=== PATIENT | male | born 1975 | race Caucasian/White ===

== ENCOUNTER 2018-08-06 19:40 | Emergency (ER) | payer MEDICARE, OTHER, SELFPAY ==
[2018-08-06 19:44] VITALS: BP 137/106; PULSE 124; RESP 18; TEMP 36.1; O2SAT 99; BMI 34.4
--- NOTE | 2018-08-06 21:53 | ED.VISSUMM ---
- ER Visit Summary Date of Service: 08/06/18 Chief Complaint: [Insomnia and narcotic withdrawal] History of Present Illness: The patient is a 43 M [presents to the emergency department stating that he moved in April to the area and started seeing Dr. Shah for pain management. Patient states that he had been on [place] and morphine for [address] Shah started weaning him off over the course of 3 weeks. Patient states that he has been without any narcotics for the last 6 days. Patient had diarrhea. He has not slept he believes in 16 days. Patient's been very agitated. Patient also ran out of his Lexapro 4 days ago. Patient wants to be able to sleep. Patient has a history of fibromyalgia, rheumatoid arthritis, migraines, anxiety, depression, bipolar disorder.] Physical Examination: [HEENT-PERRLA, EOMI. Cranial nerves II through XII grossly intact. TMs clear. Mucous membranes moist. No adenopathy. Cardiovascular-regular rate and rhythm without murmur or ectopy Lungs-clear to auscultation, chest wall stable without crepitus or subcu emphysema Abdomen-normoactive bowel sounds, soft, nontender, no rebound or rigidity, no peritoneal signs. Extremities-intact ?4, normal range of motion, normal pulses, atraumatic] Test Results: [None indicated] Emergency Department Course and Treatment: [She was given a dose of his Lexapro and given a milligram of Ativan.] Treatment Plan: [Patient will be given a prescription for Zofran and Ambien. Patient was given referral to primary care physician transcription typist for no doc.] Disposition: [Discharged home in stable condition.] Impression: [Insomnia Narcotic withdrawal syndrome] This note was generated with [email or web address] dictation software. It may contain incorrect words, spelling, and punctuation that were not noted in review of the chart prior to signing ED Disposition - Plan for ED Patient: Chief Complaint: Other, Pain/Inj Referrals: NOT,DEFINED [Primary Care Provider] -
--- NOTE | 2018-08-06 21:56 | ED.DCSUM_ITS ---
- ER Visit Summary Date of Service: 08/06/18 Chief Complaint: [Insomnia and narcotic withdrawal] History of Present Illness: The patient is a 43 M [presents to the emergency department stating that he moved in April to the area and started seeing Dr. Shah for pain management. Patient states that he had been on [place] and morphine for [address] Shah started weaning him off over the course of 3 weeks. Patient states that he has been without any narcotics for the last 6 days. Patient had diarrhea. He has not slept he believes in 16 days. Patient's been very agitated. Patient also ran out of his Lexapro 4 days ago. Patient wants to be able to sleep. Patient has a history of fibromyalgia, rheumatoid arthritis, migraines, anxiety, depression, bipolar disorder.] Physical Examination: [HEENT-PERRLA, EOMI. Cranial nerves II through XII grossly intact. TMs clear. Mucous membranes moist. No adenopathy. Cardiovascular-regular rate and rhythm without murmur or ectopy Lungs-clear to auscultation, chest wall stable without crepitus or subcu emphysema Abdomen-normoactive bowel sounds, soft, nontender, no rebound or rigidity, no peritoneal signs. Extremities-intact ?4, normal range of motion, normal pulses, atraumatic] Test Results: [None indicated] Emergency Department Course and Treatment: [She was given a dose of his Lexapro and given a milligram of Ativan.] Treatment Plan: [Patient will be given a prescription for Zofran and Ambien. Patient was given referral to primary care physician information and data architect analyst for no doc.] Disposition: [Discharged home in stable condition.] Impression: [Insomnia Narcotic withdrawal syndrome] This note was generated with [employer] dictation software. It may contain incorrect words, spelling, and punctuation that were not noted in review of the chart prior to signing ED Disposition - Plan for ED Patient: Chief Complaint: Other, Pain/Inj Referrals: NOT,DEFINED [Primary Care Provider] -
--- NOTE | 2018-08-06 21:56 | ED.DEP ---
ED Disposition - Plan for ED Patient: Chief Complaint: Other, Pain/Inj Instructions: ED Insomnia, ED Withdrawal Narcotic Prescriptions: Ondansetron [Zofran Odt] 4 mg PO Q8H PRN PRN #10 tab PRN Reason: Nausea Escitalopram Oxalate [Lexapro] 20 mg PO DAILY #30 tab Zolpidem Tartrate [Ambien] 10 mg PO QHS PRN #30 tab PRN Reason: Insomnia Referrals: NOT,DEFINED [Primary Care Provider] - Reid Stephenson MD [STAFF PHYSICIAN] - 3-5 Days
[2018-08-06] MEDS: LORazepam 1 MG Tablet PO (22:09)
[2018-08-06 22:10] VITALS: BP 137/110; PULSE 105; RESP 16; O2SAT 94
== END 2018-08-06 22:31 | disposition home or self-care (01) ==
LOC: ED 22:27
PROVIDERS: Emergency Provider Emergency Medicine
DX: G47.00 Insomnia, unspecified (principal); F19.239 Other psychoactive substance dependence with withdrawal, unspecified; M79.7 Fibromyalgia; M06.9 Rheumatoid arthritis, unspecified; F41.9 Anxiety disorder, unspecified; F31.9 Bipolar disorder, unspecified
CPT/HCPCS: 99282

== ENCOUNTER 2018-10-20 17:53 | Emergency (ER) | payer MEDICARE, OTHER, SELFPAY ==
[2018-10-20 17:54] VITALS: BP 187/104; PULSE 122; RESP 18; TEMP 36.9; O2SAT 98; BMI 28.5
--- NOTE | 2018-10-20 19:34 | EKG12_ITS ---
Test Reason : SOB Blood Pressure : / mmHG Vent. Rate : 111 BPM Atrial Rate : 111 BPM P-R Int : 142 ms QRS Dur : 094 ms QT Int : 344 ms P-R-T Axes : 033 048 064 degrees QTc Int : 467 ms Sinus tachycardia Possible Left atrial enlargement Nonspecific T wave abnormality Abnormal ECG Confirmed by NOLAN LUONG, EHSAN ([id number]), social media editor BERLIN GRAHAM ([id number]) on 10/23/2018 1:42:50 PM Referred By: RANJIT Confirmed By:EHSAN FRANCISCO MD
--- NOTE | 2018-10-20 19:39 | ED.DCSUM_ITS ---
- ER Visit Summary Date of Service: 10/20/18 Chief Complaint: Hernia pain, short of breath, depression History of Present Illness: The patient is a 43 M who presents with a several year history (much worse recently) of shortness of breath and heart racing with any exertion. He states he feels that he will gently cannot breathe if he just walks a short distance. He also complains of umbilical hernia with increased pain over the past 4 days. He states couple days ago he had to push on something around that area and blacked out. He is also requesting to restart his Lexapro. He states he was on it for 8 years and stopped 1 month ago. He recently moved to the area. He does not have a doctor. Past history is listed as anxiety, depression, seizure secondary to Wellbutrin, umbilical hernia. He has had prior back and knee surgeries. Physical Examination: Vital signs in triage include a blood pressure of 187/104, temperature 98.5, heart rate 122, respiratory rate 18, pulse ox 98% on room air. Patient sitting upright in bed. He is anxious with pressured speech. Head neck examination is unremarkable. Heart is regular rate and rhythm. Lungs sounds are clear with good air movement. Abdomen is soft with a reducible umbilical hernia. Active bowel sounds are noted throughout. Test Results: EKG is sinus tach at 111. No sign of acute ischemia. CBC is normal. Chemistry studies significant only for potassium 3.2. Area d-dimer is negative. Portable chest x-ray shows no acute findings. Emergency Department Course and Treatment: Patient was given a dose of IV Ativan and IV fluids. Patient was given oral potassium replacement. Test results are discussed with the patient. Heart rate at this time is 102. Symptoms been ongoing for several months and I do feel that he is safe for outpatient follow- up. He is requesting referrals for cardiology and pulmonology as well as ENT. We will also refer him for surgery to evaluate his umbilical hernia. He will be given information for primary care physician follow-up. I advised him that we cannot start antidepressants when we cannot provide the appropriate follow-up through the emergency room. Treatment Plan: [] Disposition: Discharge Impression: 1. Dyspnea 2. Umbilical hernia 3. Depression This note was generated with [employer] dictation software. It may contain incorrect words, spelling, and punctuation that were not noted in review of the chart prior to signing ED Disposition - Plan for ED Patient: Referrals: Care Physician,No Primary [Primary Care Provider] -
[2018-10-20 19:51] LABS: Absolute Lymphocyte Count 2.33 X10^3/ul (0.83-4.51); Absolute Neutrophil Count 6.3 X10^3/uL (2.0-7.7); Basophil# 0.03 X10^3/uL; Basophil% 0.3 % (0-1); Eosinophil# 0.13 X10^3/uL; Eosinophils% 1.3 % (0-5); Hematocrit 43.6 % (40-54); Hemoglobin 15.1 g/dl (13.0-16.5); Lymphocyte # 2.33 X10^3/ul (4.0); Lymphocyte % 23.7 % (19-41); Mean Corp Hgb Conc 34.6 g/gl (32-36); Mean Corpuscular Hgb 29.1 pg (27.0-32.0); Mean Platelet Vol. 9.7 fl (6.2-12.0); Monocyte# 1.01 X10^3/uL; Monocyte% 10.3 % (0-10); Neutrophil # 6.34 X10^3/uL (2.7-7.7); Neutrophil % 64.3 % (47-70); POSITIVE COUNT NO; POSITIVE DIFFERENTIAL NO; POSITIVE MORPHOLOGY NO; Platelet Count 216 K/mm3 (150-450); RBC Distribution Width CV 13.4 % (11.6-14.6); RBC Distribution Width SD 40.5 fl (35.1-43.9); Red Blood Count 5.19 M/mm3 (4.6-6.2); White Blood Count 9.9 K/mm3 (4.4-11.0)
[2018-10-20] MEDS: LORazepam 2 MG/ML Syringe 0.5 MG IV (19:54)
[2018-10-20] MEDS: 0.9% Normal Saline 1,000 ML 150 ML IV (19:54)
--- NOTE | 2018-10-20 20:01 | RAD_ITS ---
STUDY: X-RAY CHEST REASON FOR EXAM: Male, 43 years old. Shortness of breath. Chest pain. TECHNIQUE: PA and lateral views of the chest. COMPARISON: None. FINDINGS: Low lung volumes. Borderline cardiomegaly. Pulmonary vascularity unremarkable. Aorta unremarkable. No focal patchy airspace opacities. No pleural effusions. Minimal atelectasis. Upper abdomen unremarkable. Osseous structures intact. No pneumothorax. Left cervical rib. RAD/Chest PA and Lateral IMPRESSION: No acute cardiopulmonary findings Borderline cardiomegaly Left cervical rib Electronically Signed: Dante Ramachandran DO at 20:54 EDT Tel , Service support ,
[2018-10-20 20:04] LABS: D-Dimer Quantitative (DVT/PE) < 0.27 FEU/ug/m (0.27-0.49)
[2018-10-20 20:09] LABS: Anion Gap 6 (5-15); BUN 11 mg/dL (7-18); BUN/Creat Ratio 10.8 RATIO (10-20); Calcium,Total 8.7 mg/dL (8.5-10.1); Chloride 104 mmol/L (98-107); Creatinine, Serum 1.02 mg/dL (0.70-1.30); EST Glomerular Filtration Rate 85 mL/min (>60); Est Glom Filt Rate - Afr Amer 103 mL/min (>60); Estimated Creatinine Clearance 131.17 ml/min; Glucose 116 mg/dL (74-106); Potassium 3.2 mmol/L (3.5-5.1); Sodium Level 138 mmol/L (136-145)
[2018-10-20 20:22] VITALS: BP 167/103; PULSE 103; RESP 14; O2SAT 96
[2018-10-20 22:06] VITALS: BP 187/90; PULSE 103; RESP 16; O2SAT 98
--- NOTE | 2018-10-20 22:27 | ED.DEP ---
ED Disposition - Plan for ED Patient: Disposition: Home or Assisted Living Instructions: ED Dyspnea Shortness of Breath, What Is a Hernia?, ED Depression Prescriptions: Lorazepam [Ativan] 1 mg PO TID PRN #10 tablet PRN Reason: Anxiety Referrals: Debo Wick MD [STAFF PHYSICIAN] - As soon as possible Behavioral,Health [facility] [GROUP OF PHYSICIANS] - As soon as possible Additional Instructions: Physician Directory handout with multiple specialist referrals provided.
[2018-10-20 22:40] VITALS: BP 187/90; PULSE 100; RESP 19; O2SAT 96
--- NOTE | 2018-10-20 22:47 | CM.ED ---
Social Work Note Referral from physician as pt is requesting a script for Zoloft. Physician explained that she could not manage medications from the ED. Pt recently moved to [place] from [place]. Not established with a PCP. Has multiple complaints about access to physicians in this area d/t multiple comorbidities. Recommend establishment with a PCP for management of low dose psych meds and linkage with a psychiatrist long-term, but that this is typically a 4-6 month wait in this area. Understanding expressed. PLAN: Establish care with PCP MAGGIE Yi, DYLAN
== END 2018-10-20 22:41 | disposition home or self-care (01) ==
PROVIDERS: Emergency Provider Emergency Medicine
DX: R06.00 Dyspnea, unspecified (principal); K42.9 Umbilical hernia without obstruction or gangrene; F32.9 Major depressive disorder, single episode, unspecified; F41.9 Anxiety disorder, unspecified
CPT/HCPCS: 71046; 80048; 84484; 85025; 85379; 93005; 96361; 96374; 99284; J7030; A4216

== ENCOUNTER 2018-12-06 09:28 | Day surgery (SDC) | payer MEDICARE, OTHER, SELFPAY ==
[2018-11-01 12:50] VITALS: BMI 28.5
[2018-11-29 13:10] VITALS: BMI 28.3
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
[2018-12-06] VITALS (10 sets, daily range): BP systolic 98–150; BP diastolic 59–96; PULSE 65–98; RESP 16–18; TEMP 36.2–37.1; O2SAT 92–99; BMI 28.8
--- NOTE | 2018-12-06 | HERN_PTH ---
PATIENT: COREY BENNETT LOC: [facility] [place][id number] AGE/SX: 43/M ROOM: RE12/06/[address]: Dr. Liam Balbuena MD : 1975 BED: DIS: 12/06/2018 SPEC #: [id number] RECD: 12/06/18 14:21 STATUS: SHON RENA #: [id number] KWAME: 12/06/18 00:[address]: Liam Balbuena DEPT: SURGICAL PATHOLOGY RECD BY: Ajay Danielle ENTERED: 12/06/18 14:21 SP TYPE: Hernia OTHR DR: Isa Bennett, OVERHEAD DISTRIBUTION ENGINEER-Marky Tissues: HERNIA Procedures: Surgery Specimen Level II HEADER OPERATION: Laparoscopic umbilical hernia repair, mesh PRE-OP DIAGNOSIS: Umbilical hernia without obstruction or gangrene TISSUE SUBMITTED: Hernia sac MICROSCOPIC DIAGNOSIS Hernia sac: Mesothelial-lined fibroadipose and fibroconnective tissue, consistent with hernia sac. SJ:lay 12/09/18 MICROSCOPIC DESCRIPTION Slides are reviewed. GROSS DESCRIPTION Received in fixative is one container labeled with the patient's name and designated hernia sac. The specimen consists of two irregular fragments of roland-pink soft tissue that in aggregate measure 3.2 x 2 x 0.5 cm. No mass lesion is identified. Equipment Operator Wage Hand sections are submitted in one cassette. / SJ:lay 12/06/18 TC:5 CPT: 52157
[2018-12-06] MEDS: Bupiv/Epi 0.25% 30 ML Vial (11:50)
--- NOTE | 2018-12-06 12:16 | PCM.OPRPT ---
Problem List (1) Umbilical hernia without obstruction and without gangrene Status: Acute Report of Operation Date of Procedure: 12/06/18 Pre-Operative Diagnosis: Umbilical hernia Post-Operative Diagnosis: Same Surgery/Procedure Performed:: Umbilical hernia repair with laparoscopic mesh placement Specimen's removed: Hernia sac Description of Procedure: Patient was brought back to the operating room and general anesthesia was induced. The abdomen was prepped and draped the usual sterile fashion. A curvilinear incision was marked in the superior umbilicus and anesthetized with local anesthetic. Next scalpel was used to make an incision and electrocautery was used to deepen this to the fascia. The fascia was elevated and the hernia sac was excised. Next a [id number] 0 PDS suture was placed superiorly and inferiorly in the hernia defect in the fascia. Next through the defect a 12 mm Begum port was placed in the abdomen was insufflated. The abdomen was inspected and 1 5 mm port was placed in the right and 1 5 mm port was placed in the left lateral abdominal sidewall. A round [address] mesh was placed with echo positioning position through the large port. The large port was then removed and the PDS sutures were tightened. The mesh was then pulled taut to the abdominal wall and the balloon was inflated. Secure strap tacks were used to tack the 4 quadrants of the mesh to the abdominal wall. The balloon was then removed through 1 of the 5 mm ports. The mesh was then circumferentially tacked to the abdominal wall with tacks in the middle as well. Next the air was allowed to escape from the abdomen and the 5 mm ports were removed. The umbilical stalk was tacked to the fascia using 4-0 Monocryl suture and the skin incision were closed with 4-0 Monocryl sutures as well as Steri-Strips and bandages. Patient tolerated the procedure well was brought to PACU in stable condition. Grafts/Implants Used: Ventralight ST 11 cm round mesh - Admit VTE Documentation VTE Present on Admission: No VTE Mechan Device Prophylaxis: SCD's
--- NOTE | 2018-12-06 12:20 | OP.PCM_ITS ---
Problem List (1) Umbilical hernia without obstruction and without gangrene Status: Acute Report of Operation Date of Procedure: 12/06/18 Pre-Operative Diagnosis: Umbilical hernia Post-Operative Diagnosis: Same Surgery/Procedure Performed:: Umbilical hernia repair with laparoscopic mesh placement Specimen's removed: Hernia sac Description of Procedure: Patient was brought back to the operating room and general anesthesia was induced. The abdomen was prepped and draped the usual sterile fashion. A curvilinear incision was marked in the superior umbilicus and anesthetized with local anesthetic. Next scalpel was used to make an incision and electrocautery was used to deepen this to the fascia. The fascia was elevated and the hernia sac was excised. Next a [id number] 0 PDS suture was placed superiorly and inferiorly in the hernia defect in the fascia. Next through the defect a 12 mm Begum port was placed in the abdomen was insufflated. The abdomen was inspected and 1 5 mm port was placed in the right and 1 5 mm port was placed in the left lateral abdominal sidewall. A round [address] mesh was placed with echo positioning position through the large port. The large port was then removed and the PDS sutures were tightened. The mesh was then pulled taut to the abdominal wall and the balloon was inflated. Secure strap tacks were used to tack the 4 quadrants of the mesh to the abdominal wall. The balloon was then removed through 1 of the 5 mm ports. The mesh was then circumferentially tacked to the abdominal wall with tacks in the middle as well. Next the air was allowed to escape from the abdomen and the 5 mm ports were removed. The umbilical stalk was tacked to the fascia using 4-0 Monocryl suture and the skin incision were closed with 4-0 Monocryl sutures as well as Steri- Strips and bandages. Patient tolerated the procedure well was brought to PACU in stable condition. Grafts/Implants Used: Ventralight ST 11 cm round mesh - Admit VTE Documentation VTE Present on Admission: No VTE Mechan Device Prophylaxis: SCD's
--- NOTE | 2018-12-06 12:22 | DCINST_ITS ---
Discharge Diet: Light diet - advance as tolerated Discharge Activity: Return to Normal Activity, May Not Drive - for 2-3 days or while taking narcotic pain meds., May Shower - with the bandage in place 1-2 days after surgery. Lifting Restrictions: 20 pounds for 4 weeks. Additional Activity Instructions:: Climbing stairs is fine, walking is encouraged. Sitting in bed may be uncomfortable. Sitting up using your lateral muscles (sitting up sideways) is usually more comfortable. Do not drive, work heavy equipment of sign legal documents for 24 hours. Pain medications may cause nausea, you should typically eat light foods as you take your pain medications. Pain medications may also cause constipation. If you have difficulty with this, discuss with your doctor. Call your doctor if your incision/area has: Continuous Slow Oozing, Sudden Increased Bleeding, Increased Pain/ Swelling, Increased Redness, Foul Smelling Discharge Call your doctor if you observe: Fever of 101 or Higher Suture Line Care: Avoid Pulling/Pushing, Avoid Pinching/Bending Change Dressing in (Days):: 3 - Leave steri-strips for 1 week. May protect with a guaze bandaid. Cleanse incision/area with: Keep Dressing Clean & Dry Allergies/Adverse Reactions: Allergies aspirin Allergy (Intermediate, Verified 12/06/18 09:57) nausea/vomiting bupropion [From Wellbutrin] Allergy (Intermediate, Verified 12/06/18 09:57) nausea/vomiting paroxetine [From Paxil] Allergy (Intermediate, Verified 12/06/18 09:57) nausea/vomiting amoxicillin [From Augmentin] Allergy (Verified 12/06/18 09:57) Other azithromycin [From Zithromax] Allergy (Verified 12/06/18 09:57) Upset Stomach clavulanic acid [From Augmentin] Allergy (Verified 12/06/18 09:57) Other rofecoxib [From Vioxx] Allergy (Verified 12/06/18 09:57) Other Medications to take at Discharge escitalopram 20 mg tablet 20 mg PO DAILY 11/01/18 Amlodipine [Norvasc] 5 mg PO DAILY 11/29/18 Cholecalciferol (Vitamin D3) [Vitamin D3] 2,000 unit PO DAILY 11/29/18 Cyanocobalamin [Vitamin B12] 100 mcg IM QWEEK 11/29/18 Hydroxyzine HCl 50 mg PO QHS 11/29/18 Oxycodone HCl/Acetaminophen [Percocet 5/325] 1 - 2 tablet PO Q4H PRN PRN 7 Days #10 tablet 12/06/18 The following prescriptions were given: Oxycodone HCl/Acetaminophen [Percocet 5/325] 1 - 2 tablet PO Q4H PRN PRN 7 Days #10 tablet PRN Reason: Pain Primary Care Physician: Isa Bennett NP-C [Primary Care Provider] - Test Results: Test results from this visit will be discussed in further detail at your follow- up appointment, if applicable. Please Follow Up With: Liam Balbuena MD When: Please call to schedule 2 week follow up appointment. [phone]
[2018-12-06] MEDS: oxyCODONE 5 MG Tablet 10 MG PO (14:50)
[2018-12-06] MEDS: Ibuprofen 400 MG Tablet 800 MG PO (17:11)
== END 2018-12-06 18:32 | disposition home or self-care (01) ==
LOC: SDC 09:29 → AC 09:30
PROVIDERS: Family Provider Nurse Practitioner; PCP Nurse Practitioner; Referring Provider Surgery; Visit Provider Surgery
PROC: 0WQF4ZZ Repair Abdominal Wall, Percutaneous Endoscopic Approach (ICD-10-PCS; CPT 49652; principal; 2018-12-06 10:40)
DX: K42.9 Umbilical hernia without obstruction or gangrene (principal); Z88.0 Allergy status to penicillin; Z88.1 Allergy status to other antibiotic agents; F12.20 Cannabis dependence, uncomplicated
CPT/HCPCS: 00750; 49652; 88302; J7120; J2405

== ENCOUNTER 2019-02-01 14:13 | Emergency (ER) | payer MEDICARE, OTHER, SELFPAY ==
[2018-12-06 09:58] VITALS: BMI 28.8
[2019-02-01 14:14] VITALS: BP 152/105; PULSE 98; RESP 16; TEMP 36.6; O2SAT 99; BMI 28.7
--- NOTE | 2019-02-01 14:50 | ED.VISSUMM ---
- ER Visit Summary Date of Service: 02/01/19 Chief Complaint: Sore throat History of Present Illness: The patient is a 43 M who presents with a sore throat that began 1-1/2 weeks ago. Patient states the pain has been constant. Patient describes it is irritated. Patient states the pain improves with a hot shower. Patient states that sometimes the pain is worse with swallowing. Patient denies any sinus pressure, headaches, rhinorrhea. Patient denies any chest pain or shortness of breath. Patient denies any cough. Patient denies any nausea or vomiting. Patient denies any fevers or chills. Physical Examination: Vital signs are stable. Patient is afebrile. Patient is in no acute distress. Oral mucosa is pink and moist. Oropharynx is mildly erythematous. There are no exudates noted. There is some postnasal drainage. Neck is supple. Trachea is midline. There is some mild posterior cervical lymphadenopathy. There is no anterior cervical lymphadenopathy. Heart was regular rate and rhythm. Lungs are clear and equal bilaterally. Cranial nerves II through XII are intact. There are no focal motor or sensory deficits noted. Test Results: [place] test was obtained and was negative. Rapid strep was obtained and was negative. Emergency Department Course and Treatment: Patient was advised that this is most likely a viral pharyngitis. Patient was instructed to drink plenty of fluids. Patient was instructed to follow-up with his primary care physician in 5 to 7 days. Patient was instructed to take Tylenol or ibuprofen as needed for any pain or fever. Patient understood and was agreeable with the plan. All questions were answered. Disposition: Discharge home Impression: Viral pharyngitis This note was generated with [employer] dictation software. It may contain incorrect words, spelling, and punctuation that were not noted in review of the chart prior to signing ED Disposition - Plan for ED Patient: Disposition: Home or Assisted Living Diagnosis: Viral pharyngitis Instructions: PHARYNGITIS, Viral Referrals: Isa Bennett NP-C [Primary Care Provider] - 5-7 Days
[2019-02-01 16:08] LABS: Internal QC Validated? YES +Cl - CLEAR BKGD; Monotest Negative (Negative)
== END 2019-02-01 16:45 | disposition home or self-care (01) ==
PROVIDERS: Emergency Provider Emergency Medicine; Family Provider Nurse Practitioner; PCP Nurse Practitioner
DX: J02.9 Acute pharyngitis, unspecified (principal); I10 Essential (primary) hypertension; F32.9 Major depressive disorder, single episode, unspecified
CPT/HCPCS: 36415; 86308; 87880; 99282

== ENCOUNTER 2019-09-17 19:38 | Emergency (ER) | payer MEDICARE, OTHER, SELFPAY ==
[2019-09-17 19:39] VITALS: BP 154/105; PULSE 105; RESP 18; TEMP 36.2; O2SAT 99; BMI 27.8
--- NOTE | 2019-09-17 21:29 | ED.DCSUM_ITS ---
- ER Visit Summary Date of Service: 09/17/19 Chief Complaint: Sore throat History of Present Illness: The patient is a 44 M has been major depression. Patient states that he has had a sore throat for last 2 days. Subjective fever chills mild cough nonproductive. Denies vomiting diarrhea. Physical Examination: Middle-aged male no acute distress vital signs stable afebrile. Pulse ox 90% room air no hypoxia. HEENT exam normal. Posterior pharynx normal. No erythema or exudate. Tonsils not enlarged. No trouble swallowing or breathing. No drooling. No stridor. Neck nontender no lymphadenopathy. Trachea midline. Lungs are clear. Heart regular rhythm no murmur. Abdomen soft nontender. Patient is moving all 4 extremities. No edema. Back nontender. Skin normal. Neurologically is awake and alert. Test Results: Rapid strep negative done by nursing. Influenza negative done by nursing. Emergency Department Course and Treatment: Exam consistent with viral pharyngitis. Treatment Plan: Fluids and rest. Warm salt water gargling. Chloraseptic spray. Tylenol Motrin. Follow-up if not improving. Disposition: discharge Impression: Viral pharyngitis This note was generated with [employer] dictation software. It may contain incorrect words, spelling, and punctuation that were not noted in review of the chart prior to signing ED Disposition - Plan for ED Patient: Referrals: Isa Bennett, JAMES-C [Primary Care Provider] -
--- NOTE | 2019-09-17 21:31 | ED.DEP ---
ED Disposition - Plan for ED Patient: Disposition: Home or Assisted Living Instructions: PHARYNGITIS, Viral Referrals: Isa Bennett, [employer] OFFICER-C [Primary Care Provider] - 1 Week if not improving Additional Instructions: Plenty of fluids and rest. Warm salt water gargling. Chloraseptic spray. Tylenol and Motrin for pain. Follow-up with not improving.
[2019-09-17 21:40] VITALS: PULSE 80; RESP 16; O2SAT 98
== END 2019-09-17 21:40 | disposition home or self-care (01) ==
PROVIDERS: Emergency Provider Emergency Medicine; PCP Nurse Practitioner
DX: J02.8 Acute pharyngitis due to other specified organisms (principal); R68.83 Chills (without fever); R05 Cough; F32.9 Major depressive disorder, single episode, unspecified; Z79.899 Other long term (current) drug therapy
CPT/HCPCS: 87804; 87880; 99282

== ENCOUNTER → 2020-08-26 08:24 | Outpatient (CLI) | payer MEDICARE, SELFPAY ==
--- NOTE | 2020-08-26 08:35 | EKG12_ITS ---
Test Reason : ROUTINE Blood Pressure : / mmHG Vent. Rate : 082 BPM Atrial Rate : 082 BPM P-R Int : 150 ms QRS Dur : 108 ms QT Int : 388 ms P-R-T Axes : 036 049 010 degrees QTc Int : 453 ms Normal sinus rhythm Nonspecific T wave abnormality Abnormal ECG Confirmed by MEGHAN LUONG, WILLIE ([id number]), assignment editor BERLIN GRAHAM ([id number]) on 08/30/2020 11:21:19 AM Referred By: Isa Bennett Confirmed By:KAYLA CHRISTIANSON MD
--- NOTE | 2020-08-26 09:42 | ECHOD_ITS ---
Reason For Study: SOB Procedure This was a 2D Doppler, Color Flow transthoracic echocardiogram. The study was technically difficult. DUE TO BODY HABITUS. Exam performed in department. Left Ventricle Normal LV size. The estimated ejection fraction is 55 %. No evidence for diastolic dysfunction. No regional wall motion abnormalities noted. Right Ventricle Normal RV size. Normal systolic function. Atria Normal left atrium. Normal right atrium. No doppler evidence for ASD. Mitral Valve There is no mitral valve stenosis. No mitral valve insufficiency. Tricuspid Valve There is no tricuspid stenosis. No tricuspid valve insufficiency. Unable to estimate RV systolic pressure due to inadequate jet, pulmonary artery pressure probably normal. Aortic Valve The aortic valve is not well visualized. There is no aortic stenosis. No aortic valve insufficiency. Pulmonic Valve There is no pulmonic valvular stenosis. No pulmonic valve insufficiency. Great Vessels Normal aortic root. Pericardium/Pleural No pericardial effusion. MMode/2D Measurements & Calculations LVIDd: 5.5 cm IVSd: 1.2 cm Ao root diam: 3.6 cm LVIDs: 3.6 cm LVPWd: 1.1 cm RVDd: 3.7 cm FS: 35.3 % LAV(MOD-bp): 73.4 ml LA A4 area: 22.8 cm2 LA dimension(2D): 4.7 cm LAV(MOD-bp) Indexed: 29.2 ml/m2 LAV(MOD-sp2): 72.1 ml LAV(MOD-sp4): 73.1 ml RA A4 area: 14.0 cm2 Time Measurements MV dec time: 0.19 sec Doppler Measurements & Calculations MV E max elmer: 73.2 cm/sec Lat Peak E' Elmer: 11.3 cm/sec Med Peak E' Elmer: 6.8 cm/sec MV A max elmer: 61.4 cm/sec E/E' lat: 6.5 E/E' med: 10.8 MV E/A: 1.2 Ao V2 max: 155.7 cm/sec LV V1 max: 142.9 cm/sec PA V2 max: 106.0 cm/sec Ao max P.7 mmHg LV V1 max P.2 mmHg TR max elmer: 249.6 cm/sec TR max P.9 mmHg Interpretation Summary The estimated ejection fraction is 55 %. No evidence for diastolic dysfunction. Ordering Physician: Isa Bennett Referring Physician: Isa Bennett Performed By: Inga Adler RDCS, RVT
--- NOTE | 2020-08-26 12:43 | PFT ---
INTRODUCTION: The patient is a 45-year-old male that presents for pulmonary function studies secondary to a diagnosis of shortness of breath on exertion. Respiratory therapy reports good patient effort. Bronchodilators were used during testing. INTERPRETATION: Forced expiration spirometry demonstrates no evidence of any large airways obstructive ventilatory defect. There was no significant response to aerosolized bronchodilators, based upon strict ATS criteria. Spirograms are of fair quality and plateau gradually indicating slow emptying of the lungs. Body plethysmography was performed and reveals a decreased TLC to 5.38 L, 56% of predicted, indicative of a severe restrictive ventilatory impairment. The remainder of the lung volumes are symmetrically reduced. Diffusing capacity by single breath CO is within normal limits at 96% of predicted. IMPRESSION: Severe restrictive ventilatory impairment with preserved diffusing capacity.
--- NOTE | 2020-08-29 15:32 | STRESSREP ---
Stress Test Report Date: 08/26/2020 Procedure: Exercise tolerance test Indications: Dyspnea on exertion Consent: Per the patient Procedure: The patient exercised on a Jalil protocol for 3 minutes and 33 seconds achieving a peak heart rate of 116 bpm (65% predicted maximal heart rate) with a peak blood pressure 190/84 mmHg and a peak MET capacity of approximately 5.2 MET's. The baseline ECG demonstrated normal sinus rhythm, possible old inferior [place]. The peak exercise ECG demonstrated no significant ischemic changes. [There were no cardiac dysrhythmias pretest, during exercise, or recovery]. The functional capacity was considered decreased for age. The patient had no complaint of chest discomfort during exercise or recovery. The examination was discontinued secondary to dizziness and patient stating that he was about to pass out. Impression: 1. Technically inadequate stress test as patient could not reach his target heart rate. The test is considered nondiagnostic due to patient achieving only 65% of maximal age-predicted heart rate. 2. Stress test is negative for exercise-induced chest pain. 3. Functional capacity is [decreased for age.] This note was generated with [employer] software. It may contain incorrect words, spelling, and punctuation that were not noted in checking the note before signing.
== END ==
LOC: PSN 08:27
PROVIDERS: PCP Nurse Practitioner; Referring Provider Nurse Practitioner; Visit Provider Nurse Practitioner
DX: R06.02 Shortness of breath (principal)
CPT/HCPCS: 93005; 93017; 93306; 94060; 94726; 94729

== ENCOUNTER → 2020-09-02 14:41 | Outpatient (CLI) | payer MEDICARE, SELFPAY ==
[2020-09-02 13:41] VITALS: BMI 28.7
--- NOTE | 2020-09-02 14:45 | RAD_ITS ---
STUDY: X-RAY CHEST REASON FOR EXAM: Male, 45 years old. SOB X MONTHS TECHNIQUE: PA and lateral views of the chest. COMPARISON: None. FINDINGS: The lungs are clear and expanded. There is no demonstrated pleural abnormality. There is borderline cardiomegaly. Normal mediastinum and claus. Normal visualized pulmonary arteries. Normal visualized aortic arch and descending thoracic aorta. Normal visualized thoracic spine. Normal visualized ribs, clavicles, and shoulders. There is no demonstrated abnormality of the visualized soft tissue structures of the upper abdomen. RAD/Chest PA and Lateral IMPRESSION: Borderline cardiomegaly. Electronically Signed: Kingsley Romo MD at 15:37 EST , Service support ,
== END ==
LOC: RAD 14:42
PROVIDERS: PCP Nurse Practitioner; Referring Provider Internal Medicine Cardiovascular Disease; Visit Provider Internal Medicine Cardiovascular Disease
DX: R06.02 Shortness of breath (principal); R94.39 Abnormal result of other cardiovascular function study; R94.31 Abnormal electrocardiogram [ECG] [EKG]; E78.2 Mixed hyperlipidemia; I10 Essential (primary) hypertension
CPT/HCPCS: 71046

== ENCOUNTER → 2020-09-21 06:14 | Outpatient (CLI) | payer MEDICARE, SELFPAY ==
[2020-09-02 13:41] VITALS: BMI 28.7
--- NOTE | 2020-09-21 08:32 | STRESSREP_ITS ---
Stress Test Report Date: 09-21-2020 Procedure: Pharmacologic stress nuclear imaging study Indications: This of breath/dyspnea on exertion Consent: Per the patient Procedure: The patient underwent pharmacologic (Regadenoson 0.4mg ) evaluation with a peak heart rate of 114 beats per minute (64%predicted maximal heart rate) and a peak blood pressure of 152/86 mmHg. The baseline ECG demonstrated sinus rhythm; T wave abnormality. The peak pharmacologic ECG demonstrated no obvious ECG changes. There were no cardiac dysrhythmias pretest, during pharmacologic infusion, or recovery. There was no complaint of chest discomfort during pharmacologic infusion or recovery. The examination was discontinued secondary to completion of protocol. Impression: 1. Pharmacologic (Regadenoson) evaluation 2. Peak pharmacologic ECG with no obvious ECG changes. 3. There were no cardiac dysrhythmias pretest, during pharmacologic infusion, or recovery. 4. Nuclear images pending Myocardial perfusion imaging study: Technique: The patient was injected with 14.7 millicuries of technetium 99m Cardiolite and subsequently rest SPECT Cardiolite nuclear imaging was obtained in the horizontal long, vertical long, and short axis views. The patient underwent pharmacologic (Regadenoson) evaluation with a peak heart rate of 114 beats per minute (64% percent predicted maximal heart rate) and a peak blood pressure of 152/86 mmHg. The patient was injected with 44.6 millicuries of technetium 99m Cardiolite and subsequently stress SPECT Cardiolite nuclear imaging was obtained in the horizontal long, vertical long, and short axis views. A gated Cardiolite study at peak stress was obtained. Interpretation: Rest and stress SPECT Cardiolite nuclear imaging status post realignment and normalization demonstrate based upon the raw images an element of body motion during image acquisition as well as an area of diminished tracer uptake in portions of the basal inferior segments of both rest and stress which status post stress appear to be more prominent in the mid to distal inferior segments. There is end systolic thickening and brightening. The gated Cardiolite study demonstrates myocardial thickening and inward wall motion. The reported LVEF is 69%. Impression: 1. Rest and stress myocardial nuclear imaging demonstrate myocardial perfusion changes potentially compatible with a combination of body motion during image acquisition and soft tissue attenuation/artifact although an area of previous myocardial injury/infarction involving portions of the basal inferior segments with post stress myocardial perfusion changes demonstrating findings suggestive of an area of stress-induced myocardial ischemia in the mid towards distal inferior segments. 2. The gated Cardiolite study reports an LVEF of 69%. This note was generated with [employer] software. It may contain incorrect words, spelling, and punctuation that were not noted in checking the note before signing.
== END ==
LOC: CVS 06:18
PROVIDERS: PCP Nurse Practitioner; Referring Provider Internal Medicine Cardiovascular Disease; Visit Provider Internal Medicine Cardiovascular Disease
DX: R06.02 Shortness of breath (principal); R94.39 Abnormal result of other cardiovascular function study; R94.31 Abnormal electrocardiogram [ECG] [EKG]; E78.2 Mixed hyperlipidemia; I10 Essential (primary) hypertension
CPT/HCPCS: 78452; 93017; A9500; A4216; J2785

== ENCOUNTER 2020-10-05 09:47 | Day surgery (SDC) | payer MEDICARE, SELFPAY ==
[2020-09-02 13:41] VITALS: BMI 28.7
[2020-09-24 09:54] LABS: Hematocrit 42.7 % (40-54); Hemoglobin 14.6 g/dL (13.0-16.5); Mean Corp Hgb Conc 34.2 g/dL (32-36); Mean Corpuscular Hgb 29.6 pg (27.0-32.0); Mean Corpuscular Volume 86.4 fL (80-94); Mean Platelet Vol. 9.4 fl (6.2-12.0); Platelet Count 210 K/mm3 (150-450); RBC Distribution Width CV 13.8 % (11.6-14.6); RBC Distribution Width SD 43.1 fl (35.1-43.9); Red Blood Count 4.94 M/mm3 (4.6-6.2); White Blood Count 8.5 K/mm3 (4.4-11.0)
[2020-09-24 10:11] LABS: Prothrombin Time (Protime)PT. 12.2 SECONDS (11.7-14.9)
[2020-09-24 10:12] LABS: Partial Thromboplast Time 28.2 Seconds (24.1-36.2)
[2020-09-24 10:51] LABS: Anion Gap 7 (5-15); BUN 10 mg/dL (7-18); BUN/Creat Ratio 10.8 RATIO (10-20); Calcium,Total 8.7 mg/dL (8.5-10.1); Chloride 104 mmol/L (98-107); Creatinine, Serum 0.92 mg/dL (0.70-1.30); EST Glomerular Filtration Rate 94 mL/min (>60); Est Glom Filt Rate - Afr Amer 114 mL/min (>60); Glucose 106 mg/dL (74-106); Potassium 3.6 mmol/L (3.5-5.1); Sodium Level 138 mmol/L (136-145)
[2020-10-04 11:18] VITALS: BMI 28.7
[2020-10-05] VITALS (14 sets, daily range): BP systolic 135–158; BP diastolic 78–101; PULSE 78–98; RESP 18; TEMP 36.4–36.5; O2SAT 91–98; BMI 34.2
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
--- NOTE | 2020-10-05 13:00 | EKG12_ITS ---
Test Reason : POST PCI Blood Pressure : / mmHG Vent. Rate : 077 BPM Atrial Rate : 077 BPM P-R Int : 156 ms QRS Dur : 108 ms QT Int : 414 ms P-R-T Axes : 024 022 008 degrees QTc Int : 468 ms Normal sinus rhythm T wave abnormality, consider anterolateral ischemia Prolonged QT Abnormal ECG Confirmed by NOLAN LUONG, ИВАН ([id number]), index editor BERLIN GRAHAM ([id number]) on 10/07/2020 11:13:26 AM Referred By: Иван Francisco Confirmed By:ИВАН FRANCISCO MD
--- NOTE | 2020-10-05 13:14 | CL.I_ITS ---
Patient Name: COREY BENNETT Study Date: 10/05/2020 Performing: Jadon Christensen MD Ht: 81 inches 206 cm : 1975 Wt: 269.3 lbs 122 kg Age: 45 Gender: male BSA: 2.63 PROCEDURE(S) PERFORMED [id number] W OR WO PTCA, SINGLE CORONARY ARTERY [id number], EACH ADD'L CORONARY ART, SAME MAJOR CLINICAL PROFILE AND CO-MORBIDITIES Indications: Worsening Angina Heart Failure: None CAD Presentations: Unstable angina. CONCLUSIONS Successful PCI with CAROLA to mLCx RECOMMENDATIONS ASA Indefinitley Plavix for at least 12 months Follow up with Dr. Pires DESCRIPTION OF PROCEDURE The patient arrived to the procedure lab. The risks and benefits of the procedure as well as a full d escription of our services here and current unavailability of surgical backup were fully explained to the patient and/or their significant other prior to the catheterization. The Timeout was completed, verifying the correct patient and procedure. The patient's procedural site was prepped and draped in the usual fashion. Local anesthetic was given subcutaneously to right radial region with Lidocaine 2% Using a modified Seldinger technique,arterial access was obtained via the right radial artery, a 6Fr sheath was inserted. Right Coronary Artery selective angiography was then performed in multiple view s using a 5 Fr. 4.0 [place] catheter. Left Coronary Artery selective angiography was performed in multi ple views using a 5 Fr. JL3.5 catheter.The images were reviewed and options discussed. A decision was then made to proceed with an Intervention, IVUS or other adjunct procedure. XB 3.5 Guide catheter was inserted and engaged into the LCA. [employer] [place] Guide wire was advance d to the Circumflex. Emerge 1.5 x 15 Balloon catheter was inserted. Balloon catheter was advanced acr oss lesion in the first obtuse marginal, ostial. PTCA balloon inflated at 8 atms for 21 secs. Balloon catheter was repositioned to additional lesion in the circumflex, mid. PTCA balloon inflated at 8 at ms for 9 secs. Emerge 2.5 x 15 Balloon catheter was inserted. Balloon catheter was advanced across le elva in the circumflex, mid. PTCA balloon inflated at 12 atms for 31 secs. Synergy 3.5 x 20 Drug Elut ing stent was inserted. Drug Eluting stent was advanced across the lesion in the circumflex, mid. Ang iogram performed pre stent deployment. Angiogram performed post stent deployment. NC Emerge 4.0 x 12 Balloon catheter was inserted. Balloon catheter was advanced across lesion in the circumflex, mid. An giogram performed post balloon dilatation. The arterial sheath was pulled and a TR Band was applied for hemostasis INTERVENTION INFORMATION LESION SITE: Circumflex (Mid) Lesion Complexity: High/C, chronic total occlusion: No, lesion at bifurcation: No, thrombus present: No, lesion length: 17 mm, culprit lesion: Yes, Previously treated lesion: No Pre Stenosis: 90 % Pre intervention ANNY flow: 3 PROCEDURE: Drug Eluting Stent with pre and post dilatation Post Stenosis: 0 % Post intervention ANNY flow: 3 Lesion Devices: Patel .014 [employer] [place] Straight 190cm Cardinal 6 Fr XB3.5 100cm Guide Catheter Gonzalo Sci EMERGE MR 1.50x15 BALLOON Gonzalo Sci EMERGE MR 2.50x15 BALLOON Gonzalo Sci Synergy MR CAROLA 3.50x20 Gonzalo Sci NC EMERGE MR 4.00x12 BALLOON LESION SITE: 1st OM (Ostial) Lesion Devices: Patel .014 [employer] [place] Straight 190cm Cardinal 6 Fr XB3.5 100cm Guide Catheter Gonzalo Sci EMERGE MR 1.50x15 BALLOON COMPLICATIONS No Complications PROCEDURE MEDICATIONS Versed 1 mg IV Fentanyl 50 mcg IV Fentanyl 50 mcg IV Versed 1 mg IV Fentanyl 50 mcg IV Oxygen: 2 L/min via nasal cannula Heparin diluted in 23cc Heparinized saline. Patient given 10cc IA of this solution. 10/05/2020 11:16:5 6 Heparin 44889 unit(s) IV 10/05/2020 12:11:38 Verapamil 2.5mg, Ntg 100mcgs, 2000 units of Heparin diluted in 23cc Heparinized saline. Patient give n 10cc IA of this solution. 10/05/2020 11:16:56 SUMMARY OF HEMODYNAMIC DATA Time AIR REST ECG 10:14:17 ECG 10:51:32 AO 162/95 (112) SA 11:18:45 AO 130/101 (114) 11:37:31 LV 145/13, 23 12:13:43 LV 144/11, 22 12:13:50 LVp 137/18, 29 12:14:02 AOp 135/86 (107) 12:14:08 Signed By Jadon Christensen MD On 10/05/2020 13:13:39 Jadon Christensen MD
[2020-10-05] MEDS: LORazepam 0.5 MG Tablet PO (14:30)
[2020-10-05] MEDS: 0.9% Normal Saline 1,000 ML 100 ML IV (14:31)
--- NOTE | 2020-10-05 14:58 | CRPHASE1 ---
Patient Communication PHII Cardiac Rehab Discussed with Patient:: Yes Guide to Cardiac Rehab Given to Patient:: Yes Cardiac Rehab Facility Choice List Given to Patient:: Yes Choice Program [facility] CR PHII:: Communication Given to CR Central Sterilization Technician:: Danika Christensen Refer Phase II Cardiac Rehab:: Yes Sessions:: 36 sessions - 3 days/wk, 12 weeks Cardiac Rehabilitation Info Cardiac Rehabilitation Program Information: Cardiac Rehabilitation is important for patients like you who are recovering from a heart problem. Cardiac rehabilitation programs are recognized as integral to the continued care of the patient with coronary heart disease. The cardiac rehabilitation program is designed to optimize a patient's physical, psychological, and social functioning. Health care information associate work in cardiac rehabilitation programs and assist you with getting the treatments you need to get stronger and healthier - like exercise, healthy eating habits, and medications. Cardiac rehabilitation has been show to help people with heart problems live longer and have better life enjoyment than people who do not go to cardiac rehabilitation. Please contact the Cardiac Rehabilitation Program at [facility] at in two weeks if you have not heard from them.
--- NOTE | 2020-10-05 14:59 | CRPH1.INSTRU ---
General Education CAD and cardiac anatomy and function:: Patient communicates acknowledgment, Family returns demonstration, Needs reinforcement Explanation of diagnoses and procedures:: Patient communicates acknowledgment, Family returns demonstration, Needs reinforcement Sign/Symptoms of PR:: Patient communicates acknowledgment, Family returns demonstration, Needs reinforcement Antiplatelet therapy: Patient communicates acknowledgment, Family returns demonstration, Needs reinforcement Proper use of NTG-SL: Patient communicates acknowledgment, Family returns demonstration, Needs reinforcement Emergency procedures and activation of EMS: Patient communicates acknowledgment, Family returns demonstration, Needs reinforcement Compliance of all prescribed medications: Patient communicates acknowledgment, Family returns demonstration, Needs reinforcement Smoking Patient Nicotine/Smoking Risk Factors Are:: Non-smoker Recommendations Include:: Previous smoker; encourage continued cessation Nicotine/Smoking Response Code:: Patient communicates acknowledgment Dyslipidemia Patient Dyslipidemia Risk Factors Are:: Total Cholesterol, Triglycerides, HDL, LDL Recommendations Include:: Lipid profile provided, Reviewed NCEP/ATP guidelines, Therapeutic Lifestyle Change dietary guidelines Dyslipidemia Response Code:: Patient communicates acknowledgment, Needs reinforcement Overweight/Obesity Patient Overweight/Obesity Risk Factors Are:: Obesity - > or = 30 Recommendations Include:: Weight loss of 5-10%, Reduced calorie diet, Exercise 5-7 times/week Overweight/Obesity:: Patient communicates acknowledgment, Family returns demonstration, Needs reinforcement Hypertension Recommendations Include:: Maintain BP <130/85, DASH dietary guidelines, Decrease/maintain normal body weight, Moderation of ETOH Hypertension:: Patient communicates acknowledgment, Family returns demonstration, Needs reinforcement Sedentary Patient Sedentary Risk Factors Are:: Lack of regular exercise Recommendations Include:: Aerobic exercise 5-7 times/week for 20-30 minutes continuously, Benefits of regular exercise, Discussed home walking program, Monitored Outpatient Cardiac Rehab Sedentary Response Code:: Patient communicates acknowledgment, Family returns demonstration, Needs reinforcement Stress Recommendations Include:: Identification of stressors, and assessment of coping skills, Stress management techniques Stress Response Code:: Patient communicates acknowledgment, Family communicates acknowledgment, Needs reinforcement
--- NOTE | 2020-10-05 20:40 | CL.D_ITS ---
Patient Name: COREY BENNETT Study Date: 10/05/2020 Performing: Иван Pires MD Ht: 81 inches 206 cm : 1975 Wt: 269.3 lbs 122 kg Age: 45 Gender: male BSA: 2.63 PROCEDURE(S) PERFORMED [id number] W OR WO PTCA, SINGLE CORONARY ARTERY [id number], EACH ADD'L CORONARY ART, SAME MAJOR CLINICAL PROFILE AND INDICATIONS Indications: Worsening Angina, Worsening Angina, Suspected CAD Heart Failure: None Stress/Imaging Date: 09/21/2020tress Test with SPECT MPI: Positive Intermediate Risk Angina Classification Anginal Classification w/in 2 Weeks: CCS III CAD Presentations: Unstable angina. Stable angina. CONCLUSIONS Elevated Left Ventricular End Diastolic Pressure [place] Multivessel CAD RECOMMENDATIONS Risk factor modification Medical therapy Referred for immediate PCI Comment: Depending upon the patients clincal course he may need to be considered for an RCA SOCIAL SCIENCES INSTRUCTOR (bench jeweler tsering total occlusion) procedure at a tertiary care center. DESCRIPTION OF PROCEDURE The patient arrived to the procedure lab. The risks and benefits of the procedure as well as a full d escription of our services here and current unavailability of surgical backup were fully explained to the patient and/or their significant other prior to the catheterization. The Timeout was completed, verifying the correct patient and procedure. The patient's procedural site was prepped and draped in the usual fashion. Local anesthetic was given subcutaneously to right radial region with Lidocaine 2% . Using a modified Seldinger technique, arterial access was obtained via the right radial artery, a 6 Fr sheath was inserted. Right Coronary Artery selective angiography was then performed in multiple v iews using a 5 Fr. 4.0 [place] catheter. Left Coronary Artery selective angiography was performed in mu ltiple views using a 5 Fr. JL3.5 catheter.The arterial sheath was pulled and a TR Band was applied fo r hemostasis CORONARY ANGIOGRAPHY DOMINANCE: Right Dominant LEFT HEART ASSESSMENT Left Ventricular Ejection Fraction: Not assessed Elevated Left Ventricular End Diastolic Pressure LVEDP: 22 mmHg LEFT ANTERIOR DESCENDING ARTERY: Mild luminal irregularities DIAGONAL 1: Proximal - Mild luminal irregularities CIRCUMFLEX ARTERY: MID CIRC: hazy: 85 % Stenosis OM 1: Ostial - small caliber vessel: 75 RIGHT CORONARY ARTERY: MID RCA: is occluded DISTAL RCA: filling late, faintly, and partially from right to right collaterals and left to right co llaterals COMPLICATIONS No Complications PROCEDURE MEDICATIONS Versed 1 mg IV Fentanyl 50 mcg IV Fentanyl 50 mcg IV Versed 1 mg IV Fentanyl 50 mcg IV Oxygen: 2 L/min via nasal cannula Heparin diluted in 23cc Heparinized saline. Patient given 10cc IA of this solution. 10/05/2020 11:16:5 6 Heparin 84590 unit(s) IV 10/05/2020 12:11:38 Verapamil 2.5mg, Ntg 100mcgs, 2000 units of Heparin diluted in 23cc Heparinized saline. Patient give n 10cc IA of this solution. 10/05/2020 11:16:56 SUMMARY OF HEMODYNAMIC DATA Time AIR REST ECG 10:14:17 ECG 10:51:32 AO 162/95 (112) SA 11:18:45 AO 130/101 (114) 11:37:31 LV 145/13, 23 12:13:43 LV 144/11, 22 12:13:50 LVp 137/18, 29 12:14:02 AOp 135/86 (107) 12:14:08 Signed By Иван Pires MD On 10/05/2020 20:39:43 Иван Pires MD
[2020-10-05] MEDS: Acetaminophen 500 MG Tablet 1000 MG PO (20:48)
[2020-10-05] MEDS: Metoprolol Tartrate 25 MG Tablet PO (21:40)
[2020-10-05] MEDS: Lisinopril 5 MG Tablet PO (21:40)
[2020-10-05] MEDS: Atorvastatin Calcium 40 MG Tablet PO (21:40)
[2020-10-06 03:00] VITALS: PULSE 84
[2020-10-06 03:35] VITALS: BP 134/77; PULSE 82; RESP 18; TEMP 36.4; O2SAT 96
[2020-10-06] MEDS: LORazepam 0.5 MG Tablet PO (03:46)
[2020-10-06 06:03] LABS: Hematocrit 39.9 % (40-54); Hemoglobin 13.3 g/dL (13.0-16.5); Mean Corp Hgb Conc 33.3 g/dL (32-36); Mean Corpuscular Hgb 29.2 pg (27.0-32.0); Mean Corpuscular Volume 87.5 fL (80-94); Mean Platelet Vol. 9.5 fl (6.2-12.0); Platelet Count 198 K/mm3 (150-450); RBC Distribution Width CV 13.2 % (11.6-14.6); RBC Distribution Width SD 42.5 fl (35.1-43.9); Red Blood Count 4.56 M/mm3 (4.6-6.2); White Blood Count 8.5 K/mm3 (4.4-11.0)
[2020-10-06 06:41] LABS: AST(SGOT) 18 U/L (15-37); Alanine Aminotransfer ALT/SGPT 28 U/L (16-61); Albumin, Serum 3.6 g/dL (3.2-5.0); Alkaline Phosphatase 54 U/L (45-117); Anion Gap 7 (5-15); BUN 12 mg/dL (7-18); BUN/Creat Ratio 14.2 RATIO (10-20); Calcium,Total 9.1 mg/dL (8.5-10.1); Chloride 102 mmol/L (98-107); Creatinine, Serum 0.84 mg/dL (0.70-1.30); EST Glomerular Filtration Rate 105 mL/min (>60); Est Glom Filt Rate - Afr Amer 127 mL/min (>60); Estimated Creatinine Clearance 156.03 ml/min; Globulin 3.5 g/dL (2.2-4.2); Glucose 99 mg/dL (74-106); Potassium 3.2 mmol/L (3.5-5.1); Protein, Total 7.1 g/dL (6.4-8.2); Sodium Level 138 mmol/L (136-145)
[2020-10-06 07:00] VITALS: PULSE 68
--- NOTE | 2020-10-06 07:21 | DCINST_ITS ---
- Discharge Diagnoses Current Active Problems: Current Active and Chronic Problems (Last Updated 10/05/20 @ 15:13 by Sheila Woods) Abnormal stress test (Acute) SOB (shortness of breath) on exertion (Acute) Mixed hyperlipidemia (Chronic) Essential hypertension (Chronic) Reason(s) for Visit for Discharge Instructions: Abnormal stress test. Cardiac catheterization You will use the following diet at home:: Cardiac Your food should be the consistency of: Regular Discharge Activity: May Not Drive - Not drive: X48 hours, May Shower - A shower: Today May resume sexual activity in: 2 weeks Weight Bearing Status: - - Avoid heavy exertional activity x2 weeks Call your doctor if your incision/area has: Continuous Slow Oozing, Sudden Increased Bleeding, Increased Pain/ Swelling, Increased Redness, Foul Smelling Discharge, Swelling at the incision site Call your doctor if you observe: Fever of 101 or Higher, Shortness of breath, Fainting spells, Chest pain, Increased palpitations (irregular heartbeat) Change Dressing in (Days):: 1 Remove Dressing in (days):: 1 Cleanse incision/area with: Soap & Water Allergies/Adverse Reactions: Allergies aspirin Allergy (Intermediate, Verified 09/02/20 13:42) nausea/vomiting bupropion [From Wellbutrin] Allergy (Intermediate, Verified 09/02/20 13:42) nausea/vomiting paroxetine [From Paxil] Allergy (Intermediate, Verified 09/02/20 13:42) nausea/vomiting amoxicillin [From Augmentin] Allergy (Verified 09/02/20 13:42) Other azithromycin [From Zithromax] Allergy (Verified 09/02/20 13:42) Upset Stomach clavulanic acid [From Augmentin] Allergy (Verified 09/02/20 13:42) Other rofecoxib [From Vioxx] Allergy (Verified 09/02/20 13:42) Other Medications to take at Discharge escitalopram oxalate 20 mg tablet 20 mg PO DAILY 11/01/18 albuterol sulfate 90 mcg/actuation aerosol inhaler 2 puff INHALATION Q6H PRN 09/01/20 amlodipine 10 mg tablet 10 mg PO DAILY 09/01/20 cholecalciferol (vitamin D3) 125 mcg (5,000 unit) capsule 125 mcg PO DAILY 09/01/20 lorazepam 0.5 mg tablet 0.5 mg PO DAILY PRN 09/01/20 cyanocobalamin (vitamin B-12) 1,000 mcg tablet 1,000 mcg PO DAILY 09/02/20 omega-3 fatty acids 1,000 mg capsule 1,000 mg PO DAILY 09/02/20 potassium gluconate 600 mg (99 mg) tablet 600 mg PO DAILY 09/02/20 pyridoxine (vitamin B6) 25 mg tablet 25 mg PO DAILY 09/02/20 zinc 50 mg tablet 50 mg PO DAILY 09/02/20 aspirin 81 mg tablet,delayed release 81 mg PO DAILY 09/24/20 clopidogrel 75 mg tablet 75 mg PO DAILY #30 tab 09/24/20 busPIRone [Buspar] 30 mg PO BID 10/05/20 Atorvastatin Calcium [Lipitor] 80 mg PO QHS #30 tab 10/06/20 Lisinopril [Zestril] 10 mg PO BID #60 tab 10/06/20 Metoprolol Tartrate [Lopressor (beta gamaliel)] 25 mg PO BID #60 tab 10/06/20 The following prescriptions were given: Atorvastatin Calcium [Lipitor] 80 mg PO QHS #30 tab Transmission Status: Received by [id number] Metoprolol Tartrate [Lopressor (beta gamaliel)] 25 mg PO BID #60 tab Transmission Status: Received by [id number] Lisinopril [Zestril] 10 mg PO BID #60 tab Transmission Status: Received by [id number] Primary Care Physician: Isa Bennett ENTERPRISE APPLICATION ARCHITECT, ENTERPRISE APPLICATION ARCHITECT-C [Primary Care Provider] - Test Results: Test results from this visit will be discussed in further detail at your follow- up appointment, if applicable. Please Follow Up With: [facility] When: 12/09/2020 - as scheduled Proposed Discharge Date: 10/06/20
--- NOTE | 2020-10-06 07:24 | DS.PCM_ITS ---
Discharge Date and Diagnosis Date of Admission: 10/05/20 Date of Discharge: 10/06/20 - Primary Discharge Diagnosis Acute Problems: Active Problems (Last Updated 10/05/20 @ 15:13 by Sheila Woods) Abnormal stress test (Acute) SOB (shortness of breath) on exertion (Acute) Suspected Problems: CAD status post LCx PCI - Secondary Discharge Diagnosis Chronic Problems: Chronic Problems (Last Updated 10/05/20 @ 15:13 by Sheila Woods) Presence of stent in coronary artery (Chronic ~10/05/20) 3.50 x 20 mm Synergy MR CAROLA to mLCx per cardiac cath 10/05/20 Mixed hyperlipidemia (Chronic) Essential hypertension (Chronic) Hospital Course and Treatment Procedures: Cardiac catheterization, - - Cardiac intervention Summary of Care Provided: The patient is a 45 year old white male with a history of shortness of breath/dyspnea on exertion with associated chest discomfort and an abnormal exercise tolerance test/imaging study who presented for outpatient evaluation with diagnostic cardiac catheterization. The cardiac catheterization revealed angiographically significant appearing CAD. The patient subsequently underwent LCx PCI. He was monitored overnight in the hospital. He appeared to remain symptomatically and hemodynamically stable. He was felt stable for release home for continued outpatient follow-up and outpatient cardiac rehabilitation therapy. Cardiac catheterization is as noted below. CONCLUSIONS Elevated Left Ventricular End Diastolic Pressure [place] Multivessel CAD RECOMMENDATIONS Risk factor modification Medical therapy Referred for immediate PCI Comment: Depending upon the patients clincal course he may need to be considered for an RCA ARMATURE WINDER REPAIRER (chronic total occlusion) procedure at a tertiary care center. DESCRIPTION OF PROCEDURE The patient arrived to the procedure lab. The risks and benefits of the procedure as well as a full description of our services here and current unavailability of surgical backup were fully explained to the patient and/or their significant other prior to the catheterization. The Timeout was completed, verifying the correct patient and procedure. The patient's procedural site was prepped and draped in the usual fashion. Local anesthetic was given subcutaneously to right radial region with Lidocaine 2%. Using a modified Seldinger technique, arterial access was obtained via the right radial artery, a 6Fr sheath was inserted. Right Coronary Artery selective angiography was then performed in multiple views using a 5 Fr. 4.0 [place] catheter. Left Coronary Artery selective angiography was performed in multiple views using a 5 Fr. JL3.5 catheter.The arterial sheath was pulled and a TR Band was applied for hemostasis CORONARY ANGIOGRAPHY DOMINANCE: Right Dominant LEFT HEART ASSESSMENT Left Ventricular Ejection Fraction: Not assessed Elevated Left Ventricular End Diastolic Pressure LVEDP: 22 mmHg LEFT ANTERIOR DESCENDING ARTERY: Mild luminal irregularities DIAGONAL 1: Proximal - Mild luminal irregularities CIRCUMFLEX ARTERY: MID CIRC: hazy: 85 % Stenosis OM 1: Ostial - small caliber vessel: 75 RIGHT CORONARY ARTERY: MID RCA: is occluded DISTAL RCA: filling late, faintly, and partially from right to right collaterals and left to right collaterals The PCI is as noted below. CONCLUSIONS Successful PCI with CAROLA to mLCx [] Subjective: The patient is awake and alert and in no acute distress. - Physical Exam Vitals/I&O's: Vital Signs Temp Pulse Resp BP Pulse Ox 97.5 F L 82 18 134/77 H 96 10/06/20 03:35 10/06/20 03:35 10/06/20 03:35 10/06/20 03:35 10/06/20 03:35 Oxygen Delivery Method Room Air Weight: 304 lb 3.806 oz Body Mass Index (BMI) 34.2 Intake and Output for Last 24 Hours 10/04/20 10/05/20 10/06/20 23:59 23:59 23:59 Intake Total 1615 / 1615 350 / 350 Balance 1615 / 1615 350 / 350 General: Alert, Oriented x3, Cooperative, No apparent distress HEENT: Atraumatic, PERRLA, EOMI, Normocephalic Neck: No JVD Lungs: Clear to auscultation Cardiovascular: Regular rate, Regular Rhythm, Normal S1, Normal S2 Abdomen: Bowel Sounds Present, Soft Extremities: No edema Neurological: Neuro grossly intact Psych/Mental Status: Anxious Comment: Right radial artery catheterization site: Pulse 2+/4+: No bruits: No hemato Laboratory Results 10/06/20 05:54: WBC 8.5, RBC 4.56 L, Hgb 13.3, Hct 39.9 L, MCV 87.5, MCH 29.2, MCHC 33.3, RDW Std Deviation 42.5, RDW Coeff of Sandy 13.2, Plt Count 198, MPV 9.5 10/06/20 05:54: Sodium 138, Potassium 3.2 L, Chloride 102, Carbon Dioxide 29.0, Anion Gap 7, BUN 12, Creatinine 0.84, Estim Creat Clear Calc 156.03, Est GFR (MDRD) Af Amer 127, Est GFR (MDRD) Non-Af 105, BUN/Creatinine Ratio 14.2, Glucose 99, Calcium 9.1, Total Bilirubin 0.50, AST 18, ALT 28, Alkaline Phosphatase 54, Total Protein 7.1, Albumin 3.6, Globulin 3.5, Albumin/Globulin Ratio 1.0 Current Medications Acetaminophen (Acetaminophen 500 Mg Tablet) 1,000 mg PO Q8H PRN PRN PRN Reason: Pain Score 1-10 Last Admin: 10/05/20 20:48 Dose: 1,000 mg Documented by: Albuterol Sulfate (Albuterol 2.5 Mg/3 Ml Vial.Neb.) 2.5 mg INHALATION Q6H PRN PRN PRN Reason: SOB &/OR WHEEZING Amlodipine Besylate (Amlodipine 10 Mg Tablet) 10 mg PO DAILY [facility] Aspirin (Aspirin E.C. 81 Mg Tablet) 81 mg PO DAILY@0800 [facility] Atorvastatin Calcium (Atorvastatin Calcium 40 Mg Tablet) 80 mg PO QHS [facility] Atropine Sulfate (Atropine Sulfate 1 Mg/10 Ml Syringe) 0.5 mg IV UD PRN PRN Reason: HR <50 bpm Clopidogrel Bisulfate (Clopidogrel Bisulfate 75 Mg Tablet) 75 mg PO DAILY [facility] Cyanocobalamin (Cyanocobalamin 500 Mcg Tablet) 1,000 mcg PO DAILY [facility] Escitalopram Oxalate (Escitalopram Oxalate 20 Mg Tablet) 20 mg PO DAILY [facility] Heparin Sodium (Beef Lung) (Heparin Lock 500 Unit/5 Ml In 10 Ml Syringe) 500 unit IV UD PRN PRN Reason: HEPARIN FLUSH Labetalol HCl (Labetalol (Prefilled) 20 Mg/4 Ml) 5 mg IV X1 PRN PRN Reason: SBP >160 when pulling sheath Stop: 10/07/20 12:59 Lisinopril (Lisinopril 5 Mg Tablet) 10 mg PO BID [facility] Lorazepam (Lorazepam 0.5 Mg Tablet) 0.5 mg PO DAILY PRN PRN PRN Reason: ANXIETY Last Admin: 10/06/20 03:46 Dose: 0.5 mg Documented by: Metoprolol Tartrate (Metoprolol Tartrate 25 Mg Tablet) 25 mg PO BID RICARDO Last Admin: 10/05/20 21:40 Dose: 25 mg Documented by: Lzfeu-2-Qobo Ethyl Esters (Arabi-3 Acid Ethyl Esters 1 Gm Capsule) 1 gm PO DAILY RICARD[facility] Potassium Chloride (Potassium Chloride Oral Tablet 20 Meq) 40 meq PO X1 ONE Stop: 10/06/20 07:18 Sodium Chloride (0.9% Normal Saline 500 Ml Iv.Soln.) 500 ml IV BOLUS PRN PRN Reason: VASO-VAGAL PROTOCOL Discharge Diet: - - Cardia diet Discharge Activity: May Not Drive - Not drive: X48 hours, May Shower - A shower: Today May resume sexual activity in: 2 weeks Weight Bearing Status: - - Avoid heavy exertional activity x2 weeks Call your doctor if your incision/area has: Continuous Slow Oozing, Sudden Increased Bleeding, Increased Pain/ Swelling, Increased Redness, Foul Smelling Discharge, Swelling at the incision site Call your doctor if you observe: Fever of 101 or Higher, Shortness of breath, Fainting spells, Chest pain, Increased palpitations (irregular heartbeat) Change Dressing in (Days):: 1 Remove Dressing in (days):: 1 Cleanse incision/area with: Soap & Water Home Medications: Medications to take at Discharge escitalopram oxalate 20 mg tablet 20 mg PO DAILY 11/01/18 albuterol sulfate 90 mcg/actuation aerosol inhaler 2 puff INHALATION Q6H PRN 09/01/20 amlodipine 10 mg tablet 10 mg PO DAILY 09/01/20 cholecalciferol (vitamin D3) 125 mcg (5,000 unit) capsule 125 mcg PO DAILY 09/01/20 lorazepam 0.5 mg tablet 0.5 mg PO DAILY PRN 09/01/20 cyanocobalamin (vitamin B-12) 1,000 mcg tablet 1,000 mcg PO DAILY 09/02/20 omega-3 fatty acids 1,000 mg capsule 1,000 mg PO DAILY 09/02/20 potassium gluconate 600 mg (99 mg) tablet 600 mg PO DAILY 09/02/20 pyridoxine (vitamin B6) 25 mg tablet 25 mg PO DAILY 09/02/20 zinc 50 mg tablet 50 mg PO DAILY 09/02/20 aspirin 81 mg tablet,delayed release 81 mg PO DAILY 09/24/20 clopidogrel 75 mg tablet 75 mg PO DAILY #30 tab 09/24/20 busPIRone [Buspar] 30 mg PO BID 10/05/20 Atorvastatin Calcium [Lipitor] 80 mg PO QHS #30 tab 10/06/20 Lisinopril [Zestril] 10 mg PO BID #60 tab 10/06/20 Metoprolol Tartrate [Lopressor (beta gamaliel)] 25 mg PO BID #60 tab 10/06/20 Following Prescriptions Were Given to Patient: Atorvastatin Calcium [Lipitor] 80 mg PO QHS #30 tab Transmission Status: Received by [id number] Metoprolol Tartrate [Lopressor (beta gamaliel)] 25 mg PO BID #60 tab Transmission Status: Received by [facility] 181 Lisinopril [Zestril] 10 mg PO BID #60 tab Transmission Status: Received by [facility] [id number] Primary Care Physician: Isa Bennett INCIDENT RESPONSE CONSULTANT, INCIDENT RESPONSE CONSULTANT-C [Primary Care Provider] - Please Follow Up With: [facility] When: 12/09/2020 - at 11:00 AM Disposition: Home Minutes spent on discharge:: 45 Patient Condition:: Stable Medical Necessity - Tobacco Use Smoking Status: Never smoker Meaningful Use Info Meaningful Use Diagnoses (Choose all that apply): None applicable
[2020-10-06 09:05] VITALS: BP 126/76; PULSE 79; RESP 18; TEMP 36.4; O2SAT 98
[2020-10-06] MEDS: Potassium Chloride Oral Tablet 20 MEQ 40 MEQ PO (09:07)
[2020-10-06 09:09] VITALS: BP 126/76; PULSE 79
[2020-10-06] MEDS: Escitalopram Oxalate 20 MG Tablet PO (09:09)
[2020-10-06] MEDS: Metoprolol Tartrate 25 MG Tablet PO (09:09)
[2020-10-06] MEDS: Aspirin E.C. 81 MG Tablet PO (09:09)
[2020-10-06] MEDS: Lisinopril 10 MG Tablet PO (09:10)
[2020-10-06] MEDS: Clopidogrel Bisulfate 75 MG Tablet PO (09:10)
[2020-10-06] MEDS: Omega-3 Acid Ethyl Esters 1 GM Capsule PO (09:10)
[2020-10-06] MEDS: amLODIPine 10 MG Tablet PO (09:10)
[2020-10-06] MEDS: Cyanocobalamin 500 MCG Tablet 1000 MCG PO (09:10)
--- NOTE | 2020-10-06 10:00 | EKG12_ITS ---
Test Reason : AM EKG Blood Pressure : / mmHG Vent. Rate : 076 BPM Atrial Rate : 076 BPM P-R Int : 166 ms QRS Dur : 110 ms QT Int : 374 ms P-R-T Axes : 025 031 -16 degrees QTc Int : 420 ms Normal sinus rhythm T wave abnormality, consider anterolateral ischemia Abnormal ECG When compared with ECG of 05-OCT-2020 13:38, No significant change was found Confirmed by LUCINDA LUONG, ANA ([id number]), production editor BERLIN GRAHAM ([id number]) on 10/13/2020 10:31:13 AM Referred By: Иван Pires Confirmed By:ANA JANE MD
--- NOTE | 2020-10-06 10:20 | PHA.DC.MC ---
Pharmacy Service has performed discharge medication reconciliation and counseling for this patient. 1. ATORVASTATIN 80MG PO QHS 2. LISINOPRIL 10MG PO BID 3. METOPROLOL TARTRATE 25MG PO BID The patient's discharge medication list was reviewed for discrepancies and discrepancies were resolved. Home Medications escitalopram oxalate 20 mg tablet 20 mg PO DAILY 11/01/18 albuterol sulfate 90 mcg/actuation aerosol inhaler 2 puff INHALATION Q6H PRN 09/01/20 amlodipine 10 mg tablet 10 mg PO DAILY 09/01/20 cholecalciferol (vitamin D3) 125 mcg (5,000 unit) capsule 125 mcg PO DAILY 09/01/20 lorazepam 0.5 mg tablet 0.5 mg PO DAILY PRN 09/01/20 cyanocobalamin (vitamin B-12) 1,000 mcg tablet 1,000 mcg PO DAILY 09/02/20 omega-3 fatty acids 1,000 mg capsule 1,000 mg PO DAILY 09/02/20 potassium gluconate 600 mg (99 mg) tablet 600 mg PO DAILY 09/02/20 pyridoxine (vitamin B6) 25 mg tablet 25 mg PO DAILY 09/02/20 zinc 50 mg tablet 50 mg PO DAILY 09/02/20 aspirin 81 mg tablet,delayed release 81 mg PO DAILY 09/24/20 clopidogrel 75 mg tablet 75 mg PO DAILY #30 tab 09/24/20 busPIRone [Buspar] 30 mg PO BID 10/05/20 Atorvastatin Calcium [Lipitor] 80 mg PO QHS 10/06/20 Lisinopril 10 mg PO BID 10/06/20 Metoprolol Tartrate [Lopressor (beta gamaliel)] 25 mg PO BID #60 tab 10/06/20 The patient was counseled on the following discharge medications and changes in medications for homegoing were reviewed. The Reason for Use, instructions for use, and potential side effects were reviewed for all new medications. The patient's questions regarding all of their medications were answered. The patient was able to verbally demonstrate an understanding of their discharge medications.
== END 2020-10-06 09:51 | disposition home or self-care (01) ==
LOC: CLSP 09:47 → PCU 13:17
PROVIDERS: Specialist; PCP Nurse Practitioner; Referring Provider Internal Medicine Cardiovascular Disease; Visit Provider Internal Medicine Cardiovascular Disease
DX: I25.10 Atherosclerotic heart disease of native coronary artery without angina pectoris (principal); I25.82 Chronic total occlusion of coronary artery; R06.02 Shortness of breath; R06.00 Dyspnea, unspecified; E78.2 Mixed hyperlipidemia; I10 Essential (primary) hypertension; R94.31 Abnormal electrocardiogram [ECG] [EKG]; R94.39 Abnormal result of other cardiovascular function study; Z79.82 Long term (current) use of aspirin; Z79.899 Other long term (current) drug therapy; Z87.891 Personal history of nicotine dependence; Z88.0 Allergy status to penicillin; Z88.1 Allergy status to other antibiotic agents
CPT/HCPCS: 36415; 80048; 80053; 85027; 85610; 85730; 92921; 92928; 93005; 93454; 99152; 99153; J7030; J7040; Q9967; C1725; C1769; C1874; C1887; C1894; C9600

== ENCOUNTER 2020-10-12 15:01 | Emergency (ER) | payer MEDICARE, SELFPAY ==
[2020-10-05 13:08] VITALS: BMI 34.2
[2020-10-12] VITALS (7 sets, daily range): BP systolic 102–151; BP diastolic 68–83; PULSE 84–93; RESP 13–23; TEMP 36.7; O2SAT 96–99; BMI 33.5
--- NOTE | 2020-10-12 15:11 | EKG12_ITS ---
Test Reason : CP Blood Pressure : / mmHG Vent. Rate : 092 BPM Atrial Rate : 092 BPM P-R Int : 146 ms QRS Dur : 100 ms QT Int : 376 ms P-R-T Axes : 024 038 033 degrees QTc Int : 464 ms Normal sinus rhythm Normal ECG Confirmed by LUCINDA LUONG, ANA ([id number]), editor book BERLIN GRAHAM ([id number]) on 10/14/2020 12:56:06 PM Referred By: Confirmed By:ANA JANE MD
--- NOTE | 2020-10-12 15:15 | ED.VISSUMM ---
- ER Visit Summary Date of Service: 10/12/20 Chief Complaint: [Chest pain] History of Present Illness: The patient is a 45 M [presents to the emergency department complaint of chest pain that started yesterday while lying on the couch. Patient describes a squeezing and a tightness around his heart and feeling like he cannot breathe. Patient states this feels similar to a little over a week ago when he had a heart stent placed. Patient had a stent placed in his circumflex artery that was 90% occluded. Patient has history of hypertension and high cholesterol. He denies recent travel or surgery. Patient has been compliant with his Plavix. Patient denies alcohol use or tobacco use.] Patient has history of anxiety and states that he feels anxious all the time. Physical Examination: [HEENT-PERRLA, EOMI. Cranial nerves II through XII grossly intact. TMs clear. Mucous membranes moist. No adenopathy. Cardiovascular-regular rate and rhythm without murmur or ectopy Lungs-clear to auscultation, chest wall stable without crepitus or subcu emphysema Abdomen-normoactive bowel sounds, soft, nontender, no rebound or rigidity, no peritoneal signs. Extremities-intact ?4, normal range of motion, normal pulses, atraumatic] Test Results: [EKG obtained arrival shows sinus rhythm with a ventricular rate of 92 bpm with no acute ST segment changes.] Emergency Department Course and Treatment: [] Treatment Plan: [] Disposition: [] Impression: [] This note was generated with [employer] dictation software. It may contain incorrect words, spelling, and punctuation that were not noted in review of the chart prior to signing ED Disposition - Plan for ED Patient: Referrals: Isa Bennett FILM PROCESSING SHIFT SUPERVISOR, FILM PROCESSING SHIFT SUPERVISOR-C [Primary Care Provider] -
[2020-10-12] MEDS: 0.9% Normal Saline 1,000 ML 150 ML IV (15:30)
[2020-10-12] MEDS: LORazepam 2 MG/ML Syringe 1 MG IV (15:32)
[2020-10-12 15:36] LABS: Absolute Lymphocyte Count 1.85 X10^3/uL (0.83-4.51); Absolute Neutrophil Count 6.6 X10^3/uL (2.0-7.7); Basophil# 0.04 X10^3/uL; Basophil% 0.4 % (0-1); Eosinophil# 0.06 X10^3/uL; Eosinophils% 0.6 % (0-5); Hematocrit 44.8 % (40-54); Hemoglobin 15.4 g/dL (13.0-16.5); Lymphocyte # 1.85 X10^3/ul (4.0); Lymphocyte % 19.9 % (19-41); Mean Corp Hgb Conc 34.4 g/dL (32-36); Mean Corpuscular Hgb 29.3 pg (27.0-32.0); Mean Corpuscular Volume 85.2 fL (80-94); Mean Platelet Vol. 9.7 fl (6.2-12.0); Monocyte# 0.67 X10^3/uL; Monocyte% 7.2 % (0-10); NRBC Flagged by Analyzer 0 % (0-5); Neutrophil # 6.62 X10^3/uL (2.7-7.7); Neutrophil % 71.3 % (47-70); Platelet Count 213 K/mm3 (150-450); RBC Distribution Width CV 13.2 % (11.6-14.6); RBC Distribution Width SD 40.4 fl (35.1-43.9); Red Blood Count 5.26 M/mm3 (4.6-6.2); White Blood Count 9.3 K/mm3 (4.4-11.0)
[2020-10-12 15:53] LABS: D-Dimer Quantitative (DVT/PE) 0.41 FEU/ug/m (0.27-0.49)
[2020-10-12 15:55] LABS: Anion Gap 7 (5-15); BUN 13 mg/dL (7-18); BUN/Creat Ratio 13.3 RATIO (10-20); Calcium,Total 10.2 mg/dL (8.5-10.1); Chloride 102 mmol/L (98-107); Creatinine, Serum 0.97 mg/dL (0.70-1.30); EST Glomerular Filtration Rate 89 mL/min (>60); Est Glom Filt Rate - Afr Amer 108 mL/min (>60); Estimated Creatinine Clearance 135.12 ml/min; Glucose 88 mg/dL (74-106); Potassium 3.1 mmol/L (3.5-5.1); Sodium Level 137 mmol/L (136-145)
--- NOTE | 2020-10-12 15:58 | RAD_ITS ---
STUDY: X-RAY CHEST REASON FOR EXAM: Male, 45 years old. chest pain TECHNIQUE: Single AP portable view of the chest. COMPARISON: FINDINGS: The lungs are clear and expanded. There is no demonstrated pleural abnormality. There is moderate cardiac enlargement. Normal mediastinum and claus. Normal visualized pulmonary arteries. Normal visualized aortic arch and descending thoracic aorta. Normal visualized thoracic spine. Normal visualized ribs, clavicles, and shoulders. There is no demonstrated abnormality of the visualized soft tissue structures of the upper abdomen. RAD/Chest 1 View (Portable) IMPRESSION: No active disease. Electronically Signed: Charli Dick MD at 16:04 EDT Tel , Service support ,
[2020-10-12] MEDS: Nitroglycerin Oint 1 INCH PACKET TD (16:35)
== END 2020-10-12 18:26 | disposition short-term general hospital (02) ==
LOC: ED 16:28
PROVIDERS: Emergency Provider Emergency Medicine; PCP Nurse Practitioner
DX: I20.0 Unstable angina (principal); R07.9 Chest pain, unspecified; I10 Essential (primary) hypertension; E78.00 Pure hypercholesterolemia, unspecified; Z79.02 Long term (current) use of antithrombotics/antiplatelets
CPT/HCPCS: 71045; 80048; 84484; 85025; 85379; 87426; 93005; 96361; 96374; 99285; J7030

== ENCOUNTER 2020-11-12 23:11 | Emergency (ER) | payer MEDICARE, SELFPAY ==
[2020-10-22 16:21] VITALS: BMI 34.2
[2020-11-12 23:12] VITALS: BP 173/136; PULSE 90; RESP 18; TEMP 36.3; O2SAT 96; BMI 28.7
[2020-11-12 23:24] VITALS: BP 151/99
--- NOTE | 2020-11-12 23:26 | ED.DCSUM_ITS ---
History of Present Illness Chief Complaint: Other, Pain/Inj Detail of Chief Complaint: Medication ingestion Informant: Patient Narrative: Patient presents after accidentally taking his normal morning meds this evening. He did not take his normal nightly medication. In review of patient's medications he would have taken an extra dose of Plavix, Lexapro, Lasix, and Ativan. Patient states he took the medications about an hour ago. He feels fine but wanted to come in and check to be sure he would not have any problems. - Past Medical History (1) Essential hypertension Status: Chronic (2) Mixed hyperlipidemia Status: Chronic (3) Presence of stent in coronary artery Status: Chronic Comment: 3.50 x 20 mm Synergy MR CAROLA to mLCx per cardiac cath 10/05/20 Past Medical History - Allergies and Home Meds Allergies/Adverse Reactions: Allergies bupropion [From Wellbutrin] Allergy (Intermediate, Verified 11/12/20 23:14) nausea/vomiting paroxetine [From Paxil] Allergy (Intermediate, Verified 11/12/20 23:14) nausea/vomiting amoxicillin [From Augmentin] Allergy (Verified 11/12/20 23:14) Other azithromycin [From Zithromax] Allergy (Verified 11/12/20 23:14) Upset Stomach clavulanic acid [From Augmentin] Allergy (Verified 11/12/20 23:14) Other rofecoxib [From Vioxx] Allergy (Verified 11/12/20 23:14) Other Primary Care Physician: Isa Bennett GENERAL MANAGER FOOD, [facility] [Primary Care Provider] - Prior records reviewed: Yes Lives: Spouse/ Significant Other Smoking Status: Never smoker Review of Systems General: Denies: Chills, Fever Eyes: Denies: Visual changes - bilaterally ENT: Denies: Bilateral ear pain Cardiovascular: Denies: Chest pain Respiratory: Denies: Dyspnea, Cough Gastrointestinal: Denies: Abdominal pain, Nausea, Vomiting, Diarrhea Genitourinary: Denies: Dysuria Musculoskeletal: Denies: Extremity Pain Neurological: Denies: Headache Hematologic: Denies: Easy bruising, Easy bleeding Allergy: Denies: Uticaria Physical Exam Vital Signs/Narrative: Vital Signs Temp Pulse Resp BP Pulse Ox 11/12/20 23:24 151/99 H 11/12/20 23:12 97.4 F L 90 18 173/136 H 96 Inital Vital Signs reviewed: Yes General: Well nourished, Well developed Head: Normocephalic ENT: Moist mucous membranes Neck: Supple Cardiovascular: Regular rate, Regular rhythm Respiratory: No distress, CTA bilaterally Abdomen: Soft, Nontender, Normal bowel sounds Extremities: Nontender Skin: Normal color Neurological: Alert, Oriented x3 Psychological: Normal affect Diagnostic/Tx/Re-eval - Medical Decision Making All the patient's medications are reviewed with him. The only medications that he would have had an extra dose of tonight or not can cause any harm to have one extra dose. He is reassured with this. Repeat blood pressure is 151/99. Patient be discharged home and will continue his medication regiment tomorrow afternoon. ED Disposition - Plan for ED Patient: Disposition: Home or Assisted Living Diagnosis: Drug ingestion, accidental Instructions: ED Accidental Ingestion Nontoxic Adult Referrals: Isa Bennett NP, [facility] [employer] [Primary Care Provider] -
[2020-11-12 23:29] VITALS: PULSE 99; RESP 15; O2SAT 97
== END 2020-11-12 23:41 | disposition home or self-care (01) ==
LOC: ED 23:31
PROVIDERS: Emergency Provider Emergency Medicine; PCP Nurse Practitioner
DX: T45.521A Poisoning by antithrombotic drugs, accidental (unintentional), initial encounter (principal); T50.1X1A Poisoning by loop [high-ceiling] diuretics, accidental (unintentional), initial encounter; T42.4X1A Poisoning by benzodiazepines, accidental (unintentional), initial encounter; Y92.9 Unspecified place or not applicable; I10 Essential (primary) hypertension; E78.2 Mixed hyperlipidemia; Z95.5 Presence of coronary angioplasty implant and graft; Z79.02 Long term (current) use of antithrombotics/antiplatelets; Z88.0 Allergy status to penicillin; Z88.1 Allergy status to other antibiotic agents
CPT/HCPCS: 99282

== ENCOUNTER 2021-05-02 09:00 | Outpatient (RCR) | payer MEDICARE, SELFPAY ==
--- NOTE | 2021-05-02 10:15 | BH.SGPN.GN ---
Behaviors/Verbalizations/Mental Status: []Client alert and oriented, neatly dressed and groomed. Eye contact good. Motor activity appropriate. Speech within normal limits. Affect flat, mood anxious and dysthymic. Thoughts linear, logical, no signs of hallucinations or delusions. Client Response/Progress/Benefit: []Pt was well engaged in group AEB taking notes, providing input, and listening attentively throughout. Attentive during psychoeducation and discussed the importance of goal-setting with the group. Group identified potential benefits of having goals include: they motivate, build self-confidence, and give a sense of accomplishment. Group also worked together to identify barriers to goal-setting which included; negative self-talk, lack of motivation, unrealistic expectations, and all or nothing thinking. 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 Benefited from increased awareness of benefits and barriers to goal-setting. Will continue IOP tx prevent decompensation, improve emotional regulation skills, and gain healthy support. Narrative Note: []
--- NOTE | 2021-05-02 11:16 | BH.SGPN.GN ---
Behaviors/Verbalizations/Mental Status: []Client alert and oriented, casually dressed and groomed. Eye contact good. Motor activity appropriate. Speech within normal limits. Affect constricted, mood depressed, anxious. Thoughts linear, logical, no signs of hallucinations or delusions. Client Response/Progress/Benefit: [] Pt new to IOP tx. Did well to remain an active participant in group discussions and challenge activity, taking notes throughout. Engaged as group worked to create an example SMART goal as well as identify resources for overcoming barriers to achieving the identified goal. Pt identified a SMART goal for the next week as ?spend time putting away summer stuff at least once this week?. Reported this would help improve his mood and confidence as he will not be embarrassed by having summer stuff left outside. Pt appears to struggle with mental health insight and reports strongly relying on approval of others which may impact treatment progress. Identified physical pain as a barrier. Pt reported he can overcome that barrier by using positive self-talk. Benefited from group by being able to utilize SMART educate to create a goal. Pt to continue IOP to increase self-confidence, reduce reassurance seeking, continue to promote consistent attendance and engagement, as well as improve coping skill repertoire. Narrative Note: []
--- NOTE | 2021-05-04 09:05 | BH.SGPN.GN ---
Behaviors/Verbalizations/Mental Status: Eye contact is good. Motor activity is appropriate. Appearance is casual. Speech is appropriate. Mood is anxious. Affect is congruent. Thoughts are linear and logical. No evidence of psychosis. Reviewed daily symptom tracker sheet with no reports of suicidal ideations, plan, or intent. Client Response/Progress/Benefit: Client was engaged throughout group session. Client discussed his stressor of having to speak kindly about a toxic person at a ceremony in the next two weeks. Reports feeling angry and worrying about ?saying something stupid.? Appeared to benefit from supportive group discussion.Client identified an additional stressor as the rising number of COVID-19 cases in the surrounding area, and reports health anxiety of thinking that every symptom experienced could be COVID. Clinician and group discussed and validated feelings about COVID-19. Client identified wins of decorating for fall, and winterizing his deck. Will continue IOP treatment to improve anxiety management skills, improve mood stability, and decrease ruminating thoughts. Narrative Note: []
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
--- NOTE | 2021-05-04 09:11 | BH.MTP ---
[facility] Treatment Plan - Patient Information Program Physician:: Simran Pineda Primary Therapist:: Delbert Ruiz - Psychiatric Diagnoses Psychiatric Diagnoses:: 1. Bipolar, NOS (F 31.9). 2. Attention deficit disorder, combined type (F 90.2) Diagnosis Code(s):: F31.9, F90.2 - Estimated LOS Estimated LOS (in weeks):: 6 Problem/Goal #1 - Problem/Goal #1 Stated Goal:: Achieve controlled behavior, moderated mood, more deliberative speech and thought process, and a stable daily activity pattern. Client will also increase mood stability, reduce depression, and reduce irritability due to Bipolar disorder through the Intensive Outpatient Program AEB reduction in Depression, Anger, and Shiela domains on the DSM-5 outcomes Description of Barriers: Poor concentration, memory, and focus. Limited coping skills. Functional Impact: Increased conflict with support. - Objectives Objective #1 Stated Objective: Identify, challenge, and replace anger-inducing self-talk with self-talk that facilitates a less angry reaction. Interventions: Through individual and group counseling will identify client?s self-talk that mediates his/her angry feelings and actions. Identify and challenge biases, assisting him/her in generating appraisals and self-talk that corrects for the biases and facilitates a more flexible response to frustration. Combine new self-talk with calming skills as par of a set of coping skills to manage anger. Discharge Criteria: Able to identify 4 physiological signs of anger and 3 strategies to de-escalate anger. Target Date: 06/17/21 Review Date: 06/01/21 Objective #2 Stated Objective: Client will learn and utilize 2-3 healthy coping strategies to better manage depressive and mood symptoms as shown by reduced DSM-5 scores. Interventions: Through individual and group counseling will teach client various coping skills to manage symptoms and give tangible resources to use to regulate emotions. Therapist will use cognitive restructuring techniques and help client gain awareness of negative thoughts that reinforce depressive cycles. Discharge Criteria: Able to identify and consistently use 2-3 coping skills for mood management. Target Date: 06/17/21 Review Date: 06/01/21 Problem/Goal #2 - Problem/Goal #2 Stated Goal:: Client will increase emotional regulation and reduce intensity and duration of anxiety symptoms AEB self-report and reduction of scores on the DSM5 anxiety domain. Description of Barriers: Poor concentration, memory, and focus. Limited coping skills. Functional Impact: Anxiety and worry about stressors increased anger which ultimately impacts relationships. - Objectives Objective #1 Stated Objective: Client will identify 2-3 cognitive distortions that lead to rumination and learn 2-3 ways to manage these thoughts to better manage anxiety as shown by reduced DSM-5 scores for anxiety. Interventions: Through individual and group counseling will provide education on the most common cognitive distortions and teach client the connection between thoughts, emotions, and feelings. Therapist will assist client in identifying, challenging, and replacing dysfunctional thoughts with positive, more realistic thoughts. Discharge Criteria: Able to identify common cognitive distortions and have increase awareness of connection between thoughts, emotions, and behaviors. Target Date: 06/17/21 Review Date: 06/01/21
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
[2021-05-04 11:03] VITALS: BP 121/74; PULSE 81
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
--- NOTE | 2021-05-04 12:58 | BH.DR.ITP ---
Initial Treatment Plan Patient Information Visit Information: ADMISSION DATE: EXPECTED LOS: 4-6 weeks Problems/Symptoms Problem #1:: Mood instability Symptom:: Depression, irritability, anger outbursts, erratic sleep, decreased concentration, guilt. Problem #2:: Anxiety Symptom:: Panic attacks, rumination, health anxiety
--- NOTE | 2021-05-04 15:01 | BH.COMM ---
Communication Note - Communication with Client Communication Note: Message left with nurse at Dr. Pires's office per Dr. Pineda's request to discuss client's cardiac history and cardiology opinion on client being able to start Adderall as a medication. Awaiting return phone call from cardiology.
--- NOTE | 2021-05-06 09:05 | BH.SGPN.GN ---
Behaviors/Verbalizations/Mental Status: []Eye contact is good. Motor activity is appropriate. Appearance is casual. Speech is appropriate. Mood is euthymic. Affect is congruent. Thoughts are linear and logical. No evidence of psychosis. Reviewed daily symptom tracker sheet with no reports of suicidal ideations, plan, or intent. Client Response/Progress/Benefit: []Client was engaged during group session. Client reported a positive of winning $250 in a bet for [employer]. Client reports being excited to be able to have friends over to his house, stating that he has not invited anyone over since the COVID-19 shutdown. Client made disqualifying and self deprecating statements regarding anxiety surrounding COVID-19. Client went on to state a stressor of having to get an unwanted tattoo due to losing [employer]. Client appears to minimize his feelings of stress. Appeared to benefit from supportive group environment. Client indicates per daily symptom tracker his ability to function has improved, and that his mood has been generally the same. Will continue IOP treatment to improve boundary setting, increase self compassion, and gain knowledge of healthy coping skills. Narrative Note: []
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
--- NOTE | 2021-05-06 11:03 | BH.SGPN.GN ---
Behaviors/Verbalizations/Mental Status: []Client alert and oriented, neatly dressed and groomed. Eye contact good. Motor activity appropriate. Speech within normal limits. Affect flat, mood anxious. Thoughts linear, logical, no signs of hallucinations or delusions. Client Response/Progress/Benefit: []Client responded well to session AEB listening attentively to peers and providing input. Client engaged in the boundary self-assessment and was attentive during psychoeducation on the different boundary styles. Noted he has a rigid boundary setting style. Client reports he is ?very private about my personal information and I feel like a failure when I have to ask for help.? Client was given a handout on strategies for healthy boundary setting. Client identified wanting to work on pausing and breathing before he responds to setting a boundary. Progress noted in client?s consistent attendance on his first week. Will continue IOP tx to prevent decompensation, improve overall functioning, and learn healthy coping skills. Narrative Note: []
--- NOTE | 2021-05-09 09:05 | BH.SGPN.GN ---
Behaviors/Verbalizations/Mental Status: []Eye contact is good. Motor activity is appropriate. Appearance is casual. Speech is appropriate, but off topic. Mood is irritable. Affect is flat. Thoughts are linear and logical. No evidence of psychosis. Reviewed daily symptom tracker sheet with no reports of suicidal ideations, plan, or intent. Client Response/Progress/Benefit: []Client was engaged throughout group session. Client reported his emotion as ?so far so good.? Client reported a mental health win as being able to regulate his emotions in a stressful situation over the weekend. Client also reported hanging out with his cousin, and watching football. Client appeared to benefit from supportive group environment. Client reported no stressors. Client seems to continue struggling with minimization of mental health symptoms, which may impede continued progress. Client indicates per daily symptom tracker that his mood has been generally worse, despite self-report of no stressors. Will continue IOP treatment to increase self-awareness and increase mood stability. Narrative Note: []
--- NOTE | 2021-05-09 09:49 | BH.COMM_ITS ---
Communication Note - Communication with Client Communication Note: Message left by [facility] nurse Sheila Kelly stating that Dr. Pires is OK with Dr. Pineda prescribing pt Adderall.
--- NOTE | 2021-05-11 09:00 | BH.SGPN.GN ---
Behaviors/Verbalizations/Mental Status: []Eye contact is good. Motor activity is appropriate. Appearance is casual. Speech is appropriate. Mood is euthymic. Affect is congruent. Thoughts are linear and logical. No evidence of psychosis. Reviewed daily symptom tracker sheet with no reports of suicidal ideations, plan, or intent. Client Response/Progress/Benefit: []Client was engaged throughout group session, and reported emotion of the day as ?fine, average.? Client expressed being sad that his cousin had to go back of [place], as he is the client?s best friend. Client also discussed the internet, and identified abstaining from social media as a way to reduce exposure to negative media. Appeared to benefit from supportive group environment. Client seems to minimize feelings and mental health symptoms. Client indicates per daily symptom tracker that his mood and ability to function has been generally better. Will continue IOP treatment to increase insight and acceptance of mental health symptoms. Narrative Note: []
--- NOTE | 2021-05-11 11:10 | BH.SGPN.GN ---
Behaviors/Verbalizations/Mental Status: []Client alert and oriented, neatly dressed and groomed. Eye contact fair. Motor activity appropriate. Speech within normal limits. Affect flat, mood irritated. Thoughts linear, logical, no signs of hallucinations or delusions. Client Response/Progress/Benefit: []Pt was engaged throughout AEB participating in discussion and taking notes. Pt declined to participate during the group activity, but pt observed and shared watching it made him angry. Contributed as group brainstormed healthy coping skills for better managing anger which included: deep breathing, counting, exercise, DDD, and looking at the consequences of responding in anger. Pt also gained awareness of internal costs of unmanaged anger. Pt appeared to benefit from identifying different techniques to manage anger as well as gaining awareness of the costs of anger. Pt reported when their anger is unmanaged, pt lashes out and has thrown things. Pt selected sitting in his hot tub and watching a movie to better manage anger. Will continue IOP tx to gain healthy coping skills to manage anger, increase insight, and prevent decompensation. Narrative Note: []
--- NOTE | 2021-05-12 10:10 | BH.SGPN.GN ---
Behaviors/Verbalizations/Mental Status: [] Eye contact is good. Motor activity is appropriate. Appearance is neat. Speech is Appropriate. Mood is anxious/irritable. Affect is congruent. Thoughts are linear and logical. No evidence of psychosis. Client Response/Progress/Benefit: [] Pt was an active participant in group discussion and activity. Attentive during psychoeducation on anger. Participated in interactive discussion on reasons for anger and some positive benefits which include; standing up for something, sports, competition, causes us to set boundaries, and motivates us into action. Participated in discussion on the emotions that underlay anger or feed anger which pt identified were fear of failure, hopelessness. Patient also shared how anger manifests which is talk under his breath and lashing out. Benefited from increased understanding of anger and how it impacts individuals. Will continue in IOP to stablize mood, prevent decompensation, and increase healthy coping. Narrative Note: []
--- NOTE | 2021-05-13 09:05 | BH.SGPN.GN ---
Behaviors/Verbalizations/Mental Status: Eye contact is good. Motor activity is appropriate. Appearance is casual. Speech is appropriate. Mood is anxious. Affect is constricted. Thoughts are linear and logical. No evidence of psychosis. Reviewed daily symptom tracker sheet with no reports of suicidal ideations, plan, or intent. Client Response/Progress/Benefit: Client was engaged throughout group session, and reported his emotion of the day as ?good?. Client discussed being excited and stressed that he may have to go to [place] this weekend to clean his grandpa?s gutters. Discussed frustration with sister, as she lives in [place] close to his grandpa, but is unwilling to help grandpa with gutters. Group and clinician discussed boundary setting, which client seemed to benefit from. Client made progress in recognizing he does not share his emotions in group most of the time, and stated that as he becomes more comfortable, he will share more. Group and clinician normalized needing a few sessions to become comfortable sharing. Client indicated per daily symptom tracker that his mood and ability to function has been generally better, and reports a decrease in agitation and anxiety from previous session. Will continue IOP treatment to increase insight to mental health symptom/triggers and use of healthy coping skills. Narrative Note: []
--- NOTE | 2021-05-13 10:10 | BH.SGPN.GN ---
Behaviors/Verbalizations/Mental Status: []Client alert and oriented, casually dressed and groomed. Eye contact good. Motor activity appropriate. Speech within normal limits. Affect congruent, mood euthymic. Thoughts linear, logical, no signs of hallucinations or delusions. Client Response/Progress/Benefit: []Pt was an engaged participant in group discussion AEB taking notes and providing input at times. Attentive during psychoeducation reviewing internal and external obstacles and provided examples throughout. Participated in the reflection activity in which clients ari pictures depicting their current and desired reality and shared with the group. Pt identified barriers to getting to desired reality which included: fear of failure, marriage, feeling like a burden, family, and bad attitude. Benefited from group by increasing awareness of current reality and barriers. Will continue IOP tx to prevent decompensation and improve emotion regulation. Narrative Note: []
--- NOTE | 2021-05-13 11:15 | BH.SGPN.GN ---
Behaviors/Verbalizations/Mental Status: []Client alert and oriented, casually dressed and groomed. Eye contact good. Motor activity appropriate. Speech within normal limits. Affect congruent, mood euthymic, agitated. Thoughts linear, logical, no signs of hallucinations or delusions. Client Response/Progress/Benefit: []Client engaged during activity and attentive as group brainstormed ideas on how to cope with internal barriers that keep clients stuck from moving towards goals. Able to identify barriers to desired reality. Identified barriers to current reality to include: negative self-talk, other?s expectations, marital problems, toxic people, and overthinking. Client wants to work on overcoming the barrier of overthinking by more consistently using the affirmational statements to combat and replace negative self-talk messages and ruminating thoughts. Shared that this will help him to feel a little more confident and less concerned about what others think or believe. Benefited from group by identifying obstacles and solutions to desired reality. Client will continue IOP tx to reduce distortions and improve insight into own mental health symptomology, increase use of healthy emotion regulation skills, as well as continue to improve overall functioning. Narrative Note: []
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
--- NOTE | 2021-05-17 10:15 | BH.SGPN.GN ---
Behaviors/Verbalizations/Mental Status: []Client alert and oriented, casually dressed and groomed. Eye contact good. Motor activity appropriate. Speech within normal limits. Affect congruent, mood euthymic. Thoughts linear, logical, no signs of hallucinations or delusions. Client Response/Progress/Benefit: []Client was an engaged participant AEB listening attentively to others, taking notes, and staying engaged with group activity. Connected with the topic of pitfalls and helped the group discuss barriers that keep them from choosing a healthier path to mental wellness such as pitfalls. Group worked together to identify examples of personal pitfalls which included: negative thoughts, avoidance of things need to do, seek external validation, limited self-reflection, and maintaining toxic relationships. Client stated he has tried quick fixes even though unhealthy because just want to be done. Recognizes downfall of reverting to unhealthy ways of coping. Client benefited from group with increased understanding of impact personal pitfalls can have on mental health. Client will continue IOP to increase healthy coping skills, challenge distorted thoughts and prevent decompensation. Narrative Note: []
--- NOTE | 2021-05-17 15:00 | BH.MDN ---
Multi-Disciplinary Note - Note 60-min Individual Time Started:: 11:45 Date: 05/17/21 Purpose of session/treatment goals addressed:: Reviewed current symptoms and progress in IOP. Focused on anger management and communication style. Eye Contact:: Intense Motor Activity:: Appropriate Appearance:: Neat Speech:: Appropriate Mood:: Irritable Affect:: Congruent Thoughts:: Linear, Logical, No evidence of hallucinations/delusions noted Staff Interventions:: thought challenging, motivational interviewing, psychoeducation on: - anger management., rapport building, taught coping skills Client Response:: Pt reports that new medication has been helpful. Reports improved concentration, improve attitude, decreased irritability, and decreased impulsiveness. Despite these improvement he continues to report conflict in relationship with GF. He talked for 15 minutes on recent stressors and arguments with GF. Significant communication issues between them which range from finances to intimacy. Frequent verbal arguments and resentments according to pt. We processed a recent argument and used it to discuss different communication and anger management strategies. Insight that their current communication styles increase conflict and benefit nobody. Pt was given 3 handouts on anger and anger management with the goal to increase awareness of anger button, warning signs, and strategies. Risks/Concerns:: no risks or concerns noted. Progress Toward Goals/Plan:: Pt reports progress however contradicts himself noting to significant anger outbursts since last week. Both outbursts were verbal. Denies hx of violence however due to his size is very intimating. Improve insight into causes of anger and is beginning to change perspective that all his struggles are due to external stressors or others. Blames others and their action often for his anger. Challenged this thought during session to help him understand he is responsible for his emotions and reactions to others. Recommended couple's counseling as relationship is primary stressor. Gave homework assignment. Will focus almost exclusively on anger in indv sessions as this is primary concern. He reports motivation and desire to change perspectives. Time Stopped:: 12:30
--- NOTE | 2021-05-18 09:05 | BH.SGPN.GN ---
Behaviors/Verbalizations/Mental Status: []Eye contact is good. Motor activity is appropriate. Appearance is casual. Speech is appropriate. Mood is euthymic. Affect is congruent. Thoughts are linear and logical. No evidence of psychosis. Reviewed daily symptom tracker with no reports of suicidal ideations, plan, or intent. Client Response/Progress/Benefit: []Client was engaged and attentive throughout group discussion, reporting his emotion of the day as ?good attitude, everything is fine?. Client stated a positive of decorating for fall. Client stated he had no stressor, and declined to share further. Client appeared to benefit from supportive group environment. Client indicates per daily symptom tracker that his mood has been generally better, and identifies low-moderate agitation. Clients lack of sharing regarding mental health struggle may impede client progress. Will continue IOP treatment to increase insight to mental health symptom/triggers to increase functioning. Narrative Note: []
--- NOTE | 2021-05-18 10:10 | BH.SGPN.GN ---
Behaviors/Verbalizations/Mental Status: []Client alert and oriented, neatly dressed and groomed. Eye contact good. Motor activity appropriate. Speech within normal limits. Affect constricted, mood euthymic. Thoughts linear, logical, no signs of hallucinations or delusions. Client Response/Progress/Benefit: []Client engaged during session AEB client contributing thoughts throughout discussion and completing worksheet. Connected with discussion on crisis and how coping with external crises by using unhealthy coping skills could result in a personal crisis. Able to give examples of unhealthy coping skills people use to manage crisis. Group reflected on the importance of having awareness of personal warning signs to prevent reaching crisis point. Client did not complete the warning signs worksheet, but he did report calling in sick, binge eating, and suicidal gestures are warning signs. Client benefited by increasing awareness of what leads to crisis and personal warning signs. Client continues to struggle with connecting group topics to his daily life and stressors. Will continue IOP tx to increase self-awareness and increase emotional regulation skills. Narrative Note: []
--- NOTE | 2021-05-18 11:10 | BH.SGPN.GN ---
Behaviors/Verbalizations/Mental Status: []Client alert and oriented, casually dressed and groomed. Eye contact fair. Motor activity appropriate. Speech within normal limits. Affect congruent. Mood euthymic. Thoughts linear, logical, no signs of hallucinations or delusions. Client Response/Progress/Benefit: []Client responded well to session as evidenced by client listening attentively to others and providing strategies during discussion. Client identified her warning signs for crisis and gained further awareness of earliest warning signs. Client created a crisis action plan to help client better manage warning signs for crisis. Client chose not to share with group what his action plan is for his warning signs. Client appeared to benefit from creating a crisis action plan and increasing self-awareness. Client to continue IOP tx to improve emotion regulation, challenge distorted thoughts and prevent decompensation. Narrative Note: []
--- NOTE | 2021-05-18 12:22 | PCM.BH.PN ---
Progress Note Progress Note: History of Present Illness/Interim History: [] The patient is a 45-year-old male who is seen in follow-up at the [facility] behavioral health IOP program. I last saw the patient 2 weeks ago and he is being treated for bipolar disorder and ADHD. The patient started Adderall XR 10 mg in the morning about 4 days ago. He states that he has noticed that he feels much better when he does take the Adderall. His concentration improves and he is much less impulsive and or angry. He is better able to complete tasks that he begins at home and is better able to concentrate when he is in the IOP program. Marital issues remain between him and his girlfriend and he still has had occasional times where he was irritable or snapped at her but this is much less when he is on a stimulant. The patient also complains of significant restless leg syndrome symptoms. He has trouble getting to sleep and he feels he is like moving his legs constantly when he tries to lay in bed. He feels his mood is better on the Adderall also and he has much less depression. The patient denies any thoughts of , suicidal ideation, plan for suicide, homicidal ideation, hallucinations or delusions. Current Psychiatric Medications: [] Lexapro 20 mg p.o. daily, Adderall XR 10 mg p.o. every morning daily (x4 days now) Mental Status Examination: [] The patient is a 45-year-old tall male who is casually dressed and groomed with good hygiene and is seen wearing a mask due to the pandemic. He has no psychomotor agitation or retardation. Eye contact is good and speech is normal rate and rhythm and fluent with no pressure. Mood is mildly depressed to euthymic. Affect is full and normal. Thought process is goal-directed and organized. Thought content: There is no evidence of thoughts of , suicidal or homicidal ideation, plan for suicide, thoughts of self-harm, hallucinations or delusions. Judgment is intact. Insight: Improving. Impulsivity: Moderate to high. Diagnoses: [] 1. Bipolar, NOS (F 31.9) 2. Attention deficit disorder, combined type (F 90.2) 3. Restless leg syndrome 4. Probable CTE 5. Chronic pain in back and extremities 6. Primary support issues Plan: [] The patient will continue the IOP program at [facility] as the structure, support, education, and group therapy will hopefully prevent worsening of the patient's symptoms which might require hospitalization. He felt safe during the interview but if it anytime he does not feel safe he will let us know or go to the emergency room. The risks, options, possible complications and side effects of the medications were again discussed with the patient and he understands and accepts these. The patient in the past was on Adderall XR 20 mg so we will increase his Adderall XR to 20 mg p.o. every morning daily. In addition gabapentin extended release 300 mg p.o. in the evening will be added to his regimen to treat his restless leg syndrome. I will see the patient in follow-up in 2 weeks and prescriptions were sent in for both of the above medications.
--- NOTE | 2021-05-18 14:00 | BH.COMM ---
Communication Note - Communication with Client Communication Note: Pharmacist from [facility] called and stated the Gapapentin ER is not covered by client's insurance. Discussed with Dr. Pineda and Dr. Pineda states to change gapapentin order to Gapapentin 300mg po qhs.
--- NOTE | 2021-05-19 10:06 | BH.SGPN.GN ---
Behaviors/Verbalizations/Mental Status: []Eye contact is good. Motor activity is restless. Appearance is casual. Speech is off topic at times. Mood is distracted and irritable. Affect is constricted. Thoughts are linear and logical. No evidence of psychosis Client Response/Progress/Benefit: []Pt was a passive participant and was on his phone throughout session. Pt did participate in a short activity about automatic thoughts and shared that mood and past experiences can impact automatic thoughts. Group was primarily educational; therapist introduced and gave examples of the most common cognitive distortions. Benefited from education and increased awareness of cognitive distortions and the role that they play our behaviors and emotions. Pt did not share any personal examples of distortions or distortions he connects with. Pt continues to struggle with reflecting how the topics relate to his life AEB pt not giving personal information on stressors during group. Will continue IOP tx to increase self-awareness and improve emotional regulation skills. Narrative Note: []
--- NOTE | 2021-05-19 10:42 | BH.MDN ---
Multi-Disciplinary Note - Note 60-min Individual Time Started:: 09:00 Date: 05/19/21 Purpose of session/treatment goals addressed:: Reviewed current symptoms and progress in IOP. Addressed treatment goal 1 Eye Contact:: Intense Motor Activity:: Appropriate Appearance:: Casual Speech:: Appropriate Mood:: Euthymic Affect:: Full Thoughts:: Linear, Logical, No evidence of hallucinations/delusions noted Staff Interventions:: thought challenging, psychoeducation on: - anger management skills, social skills deficits in adults with ADHD, rapport building Client Response:: Pt reports that he had a conversation with his GF last night which was positive. States everything is smooth now. He is vague however reports that they had a discussion about his anger and their communication. The conversation was on ways to decrease conflict. Pt reports that he shared some notes that he took from group yesterday. He is beginning to change his perspective on situations and events in his life. He responded well to a Jalil Ford quote from session on 05/17/21 about not letting words or people control you. He does not like the idea that someone or something that happened 20 years ago or 5 days ago controls his thoughts and behaviors. I'm not going to react to others that have wronged me cause they are not worth it. This is big difference from 5 days ago when he wanted to make sure they knew they wronged him and would confront them. Identified anger buttons as people hounding me. people telling me what to do, and perspective that others believe they are better than me. Physiological or warning signs to anger are tense up, clenched jaw, intense stare, adrenaline, turning red, and swearing under his breath. Attentive during education on importance of identifying buttons and warning signs. Also discussed improving social skills to help with relationships. Risks/Concerns:: no risks or concerns noted. Progress Toward Goals/Plan:: Pt reports progress which he attributes to treatment and medications. Consistent attendance. Minimizes stressors and emotions when in group counseling. Reports that he has increased communication with GF and is utilizing skills learned. He admits to verbal conflict with yesterday however later apologized and communicated in health way the rest of the evening. Significant financial stressors and relationship conflict for the past several years. Will continue in IOP to prevent decompensation, increase healthy coping skills, and stabilize mood. Time Stopped:: 10:00
--- NOTE | 2021-05-19 11:16 | BH.SGPN.GN ---
Behaviors/Verbalizations/Mental Status: []Eye contact is good. Motor activity is appropriate. Appearance is neat and casual. Speech is Appropriate. Mood is euthymic, anxious. Affect is congruent. Thoughts are linear and logical. No evidence of psychosis. Client Response/Progress/Benefit: []Pt was an actively engaged participant, providing input throughout group discussion and activity. At times struggling with off topic comments, though was easily redirected. Attentive during psychoeducation on cognitive distortions not discussed in previous group and worked with fellow participants to identify examples for each. Pt struggled to identify which specific distortions he has most often used in the past. Shared however believing that we all use distortions at times in our lives. Pt was an actively engaged participant in Cognitive Distortions Jeopardy, providing input and suggestions to small group. Utilized notes from psychoeducation on cognitive distortions to assist peers in correctly answering questions. Experiential activity was beneficial as it provided a way for patient to review notes and handouts during psychoeducation to answer questions for the game. Will continue in [facility] tx to further improve application healthy coping skills, improve healthy communication and conflict resolution with supports, as well as further improve emotion regulation skills. Narrative Note: []
--- NOTE | 2021-05-23 09:05 | BH.SGPN.GN ---
Behaviors/Verbalizations/Mental Status: Eye contact is good. Motor activity is appropriate. Appearance is casual. Speech is appropriate. Mood is euthymic. Affect is congruent. Thoughts are linear and logical. No evidence of psychosis. Reviewed daily symptom tracker sheet with no reports of suicidal ideations, plan, or intent. Client Response/Progress/Benefit: Client was engaged throughout group session and participated in group discussion. Client reported his emotion of the day as ?good?. Client placed a quote on his fridge which has been helping him start his day well. Client also reports checking out self-help books related to anxiety from the library, which he has been helping him. Progress noted AEB client report of utilizing affirmations more often. Appeared to benefit from supportive group environment. Client indicates per daily symptom tracker that his mood and ability to function have been generally better. Will continue IOP treatment to increase application of coping skills to increase functioning. Narrative Note: []
--- NOTE | 2021-05-23 10:18 | BH.SGPN.GN ---
Behaviors/Verbalizations/Mental Status: []Client alert and oriented, neatly dressed and groomed. Eye contact good. Motor activity appropriate. Speech within normal limits. Affect incongruent to mood AEB furrowed brow when reporting feeling positive, mood euthymic. Thoughts linear, logical, no signs of hallucinations or delusions. Client Response/Progress/Benefit: []Client was an engaged participant AEB providing input throughout discussion. Connected with group topic of perspective and the impacts of one?s perspective on mental health. Client worked with the group to identify impact of a negative perspective which included: increased panic attacks, believing irrational thoughts, and worsening mental health symptoms. Client stated when he first started IOP he did not think the program would benefit him, but then ?my therapist gave me something that I use every day and now my perspective is positive.? Client appeared to benefit from increasing understanding of mental health benefits of a positive perspective and potential consequences to progress when perspective is negative. Progress noted as client reports using the coping skills discussed in his individual therapy sessions. Will continue IOP tx to increase emotional regulation skills and improve interpersonal relationship skills. Narrative Note: []
--- NOTE | 2021-05-23 11:19 | BH.SGPN.GN ---
Behaviors/Verbalizations/Mental Status: []Client alert and oriented, casually dressed and groomed. Eye contact good. Motor activity appropriate. Speech within normal limits. Affect congruent, mood euthymic. Thoughts linear, logical, no signs of hallucinations or delusions. Client Response/Progress/Benefit: [Pt did well to remain attentive throughout session, AEB providing input throughout discussion, taking notes, and completing worksheet provided. Engaged as group reviewed the importance of taking a strengths-based approach in order to foster a healthier perspective and better manage mental health symptoms. Completed strengths exploration worksheet and identified personal strengths to include: leadership, decorative, bravery, humor, and confidence. Pt shared that working to recognize these personal strengths would allow him to help support others which makes him feel he is contributing. Struggles to identify how a strengths-perspective could improve his own mental health and often fixates on the external. This may impede progress in the future and prevent maintenance of mental health gains post IOP discharge. Pt to continue IOP tx to improve sx management and emotion regulation, develop better internalization of skills, and improve relationships with supports. Narrative Note: []
--- NOTE | 2021-05-25 10:10 | BH.SGPN.GN ---
Behaviors/Verbalizations/Mental Status: [] Eye contact is good. Motor activity is appropriate. Appearance is neat. Speech is Appropriate. Mood is euthymic. Affect is full. Thoughts are linear and logical. No evidence of psychosis. Client Response/Progress/Benefit: [] Pt was an active participant in group discussion and activity. Attentive during psychoeducation. Pt participated in interactive group discussion in which group defined fixed mindset and provided insight on how a fixed mindset could impact mental health and result in; being closed to new possibilities, focusing only on how things are unfair, could lead to helplessness, could lead to feelings of not being in control, could cause one to feel like a failure, and could cause one to ignore any success. Interacted and worked well with peers in small group. Fixed mindset thoughts that were overheard during activity included; This won't work, this didn't work before, I don't think this matters, Its hard. I'm nervous, this sucks, this is impossible, I'm not good at this, we will fail. Benefited from increased awareness on the role of fixed mindset on mental health. Will continue in IOP to stabilize mood, increase healthy coping, and improve functioning. Narrative Note: []
--- NOTE | 2021-05-25 11:10 | BH.SGPN.GN ---
Behaviors/Verbalizations/Mental Status: []Client alert and oriented, neatly dressed and groomed. Eye contact good. Motor activity appropriate. Speech within normal limits. Affect constricted, mood euthymic. Thoughts linear, logical, no signs of hallucinations or delusions. Client Response/Progress/Benefit: []Client engaged during activity and discussion AEB remaining attentive, providing increased input, and taking notes throughout. Client worked in small group to apply skills learned to reframe own personal fixed thoughts. Appeared to benefit from suggestions provided by peers. Reframed personal fixed thought of ?getting over depression is too hard? with growth mindset thought of ?I will reward hard work.? Client also picked a strategy from the list of suggestions to develop a growth mindset. Client stated he has also been getting self-help books from the library that are useful. Benefitted from discussing benefits of growth mindset and brainstorming strategies for prompting growth-mindset. Progress noted as client reports he has a more positive mindset and is applying coping skills. Will continue IOP tx to further increase self-awareness and emotional regulation skills that will improve client?s functioning. Narrative Note: []
--- NOTE | 2021-05-25 11:19 | BH.MDN ---
Multi-Disciplinary Note - Note 60-min Individual Time Started:: 09:00 Date: 05/25/21 Purpose of session/treatment goals addressed:: Reviewed progress and current symptoms. Addressed treatment goals 1 and 2. Eye Contact:: Good Motor Activity:: Appropriate Appearance:: Neat Speech:: Appropriate Mood:: Euthymic Affect:: Full Thoughts:: Linear, Logical, No evidence of hallucinations/delusions noted Staff Interventions:: psychoeducation on: - anger management skills., discharge planning Client Response:: Pt reports improved communication, focus, concentration, and decreased mood swings. Reports improved sleep noting that he is sleep throughout the night. He attributes progress mostly to medications as well as treatment. He verbalizes that he checked out a couple anger management books from the library and has been reading those. Also reports that he is not ruminating or dwelling on the past as much. Denies any conflict with GF in the past week. 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 He is vague on the skills that he utilizes except to say that I'm letting small things go. When he is presented with a trigger such as a facebook post by peer bragging about something he doesn't dwell on it for extended periods of times. I'm able to let it go. He is reframing thoughts and challenging cognitive distortions. He notes significant progress in the past 10 days. Risks/Concerns:: none noted. Progress Toward Goals/Plan:: Progress noted per pt report. Refer above. Verbalizes decreased erratic moods and denies any panic attacks in the past 10 days. He reports improved communication and decreased conflict with support. Improved concentration and focus leading to reading anger management books. Significant progress since starting IOP per his report. He has been consistent and engaged in groups. This type of progress in short time is not typical which does raise concerns that he is exaggerating or telling staff what he believes they want to hear. He assures us this is not true. He was given referrals to 2 local psychiatrist to call and make appointments with. He wants to attend the aftercare program here at [facility] as well. Will continue in IOP to maintain gains and prevent decompensation. If progress continues then plan for discharge in the next 10 days. Time Stopped:: 10:00
--- NOTE | 2021-05-27 09:02 | BH.SGPN.GN ---
Behaviors/Verbalizations/Mental Status: []Eye contact is good. Motor activity is appropriate. Appearance is casual. Speech is appropriate. Mood is euthymic. Affect is congruent. Thoughts are linear and logical. No evidence of psychosis. Reviewed daily symptom tracker sheet with no reports of suicidal ideations, plan, or intent. Client Response/Progress/Benefit: []Client was engaged throughout group session. Client reports his emotion of the day as ?happy go ladonna?. Client denies any stressors. Client reports having a good attitude, and that everything is ?good?. Client struggles with minimization which may impede his progress. Client indicates per daily symptom tracker that his mood and ability to function has been better, and denies all listed symptoms. Will continue IOP treatment to increase healthy coping skills and increase awareness and acceptance of mental health symptoms. Narrative Note: []
--- NOTE | 2021-05-27 10:00 | BH.SGPN.GN ---
Behaviors/Verbalizations/Mental Status: []Client alert and oriented, neatly dressed and groomed. Eye contact good. Motor activity appropriate. Speech within normal limits. Affect constricted, mood euthymic. Thoughts linear, logical, no signs of hallucinations or delusions. Client Response/Progress/Benefit: []Pt was an active participant in group discussion and activity. Attentive during psychoeducation on the stages of change. Pt participated in interactive discussion on emotions associated with change (guilty, anxious, sadness, hopeful, confident, exhausted, etc). Pt along with peers identified barriers that may prevent one from making change which included; fear of the unknown, feeling overwhelmed, and self-doubt. Pt shared he was recently offered a job and pt reports he has never had a ?regular job? so this change sounds like a good opportunity. Benefited from increased awareness of emotions related to change, the change process, and benefits/barriers to change. Will continue IOP tx to further increase emotional regulation skills and improve interpersonal effectiveness skills. Narrative Note: []
--- NOTE | 2021-05-27 11:00 | BH.SGPN.GN ---
Behaviors/Verbalizations/Mental Status: []Client alert and oriented, neatly dressed and groomed. Eye contact good. Motor activity appropriate. Speech within normal limits. Affect congruent, mood euthymic. Thoughts linear, logical, no signs of hallucinations or delusions. Client Response/Progress/Benefit: []Client responded well to session AEB taking notes and contributing to discussion. Client contributed during psychoeducation on the change process and different emotions in each stage of change. Client identified a change client would like to make to improve mental health which is to focus on having a more positive attitude. Client reports belief he is currently in the action stage as client has started to learn about changing perspective, is going to therapy and taking notes. Client stated finishing IOP, attending aftercare, and checking in with individual therapy are strategies to help him maintain current stage of change. Appeared to benefit from identifying what stage of change client is in and identifying strategies to overcome barriers. Will continue IOP tx to continue use of healthy coping, challenge negative thinking and prevent decompensation.
== END 2021-05-29 23:59 ==
LOC: BHIOP 09:00
PROVIDERS: PCP Nurse Practitioner; Referring Provider Psychiatry & Neurology Psychiatry; Visit Provider Psychiatry & Neurology Psychiatry
DX: F31.9 Bipolar disorder, unspecified (principal); F90.2 Attention-deficit hyperactivity disorder, combined type; G25.81 Restless legs syndrome; G89.29 Other chronic pain; M45.9 Ankylosing spondylitis of unspecified sites in spine; Z79.899 Other long term (current) drug therapy
CPT/HCPCS: S9480; 90837; 90853

== ENCOUNTER 2021-06-01 09:00 | Outpatient (RCR) | payer MEDICARE, SELFPAY ==
[2021-05-30 00:31] VITALS: BP 121/74; PULSE 81
--- NOTE | 2021-06-01 09:01 | BH.SGPN.GN ---
Behaviors/Verbalizations/Mental Status: []Eye contact is good. Motor activity is appropriate. Appearance is casual. Speech is Appropriate. Mood is euthymic. Affect is congruent. Thoughts are linear and logical. No evidence of psychosis. Reviewed daily check in sheet and no reports of suicidal ideations or intent. Client Response/Progress/Benefit: []Pt responded well to session AEB pt sharing thoughts and feelings and listening attentively to others. Pt stated stressor as continuing to feel side effects of having booster covid shot on . Pt reported his side effects have prevented him from doing much over the last 6 days. Pt reported mental health positive as taking candy from [facility] to the homeless center. Pt stated additional mental health positive as testing negative for covid. Progress noted with pt reporting improved mood, decreased irritability and improved daily functioning. Pt to continue IOP to increase continue use of healthy coping skills, challenge distorted thoughts and prevent decompensation. Narrative Note: []
--- NOTE | 2021-06-01 10:10 | BH.SGPN.GN ---
Behaviors/Verbalizations/Mental Status: Eye contact is good. Motor activity is appropriate. Appearance is casual. Speech is Appropriate. Mood is euthymic. Affect is congruent. Thoughts are linear and logical. No evidence of psychosis Client Response/Progress/Benefit: []Pt was an attentive participant in group discussion AEB taking notes and contributing throughout. Attentive during psychoeducation on Conflict Styles ( Avoidant, Competing, Accommodating, and Collaborating). Shared that if we don?t express our frustrations then we ?might explode? which could result in additional conflict. Participated in interactive group discussion on benefits of conflict.? Pt along with peers identified several reasons conflict is often avoided which included; anxiety, fear of other?s reaction, not wanting to face additional conflict, and negative past experiences. 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 Discussed that this has resulted in additional conflict that could have easily been prevented. Benefited from increased awareness on conflict styles. Will continue in IOP to promote mood stability, increase the use of healthy communication with supports, reduce anger outbursts, and improve functioning. Narrative Note: []
--- NOTE | 2021-06-01 13:04 | BH.MTP_ITS ---
Treatment Plan Review Date of Admission:: 05/02/21 Date of Treatment Plan Review:: 06/01/21 Admitting Diagnoses:: Bipolar, NOS (F 31.9). 2. Attention deficit disorder, combined type (F 90.2) Current Diagnoses:: Bipolar, NOS (F 31.9). 2. Attention deficit disorder, com bined type (F 90.2) Patient's Response to Treatment:: Attends treatment consistently. He is engaged in treatment and reports reading anger mgmt books outside of group. He struggles with social skills and information retention at times in group setting which may be related to ADHD. Pt reports significant progress since entering IOP. Status of Current Problems and Symptoms: Pt completed DSM outcome measurement which showed an overall 38% symptom reduction. Anger, anxiety, and depression domains remained the same. Shiela domain decreased by 25%. Pt notes that due to effects of COVID booster shot he notes feeling more irritable, anxious, and depressed the past 5 days. Per self-report I'm so much better since starting IOP Reports decreased anger and anxiety. Reports improved communication with and mood stability. Even reports decrease rumination on past. Unsure regarding the incongruence between self-report and outcomes measurement. During treatment team meeting staff brought up that pt may struggle with reading and writing which pt has never disclosed as being a concern or obstacle. This may be a reason for limited progress noted on outcomes measurement. Problem #1 Problem Name:: Mood Stability Status of Goals:: obj 1- Able to identify physiological warning signs for anger as well as anger mgmt strategies. He reports consistent use of these. Objct 2- Able to identify 3 health coping skills mainly related to breathing and reframing thoughts Team Recommendations:: Recommended to continue in IOP to maintain gains and to set up aftercare. Problem #2 Problem Name:: Anxiety Status of Goals:: obj 1- Pt was able to identify 1-2 cognitive distortions and the connection between thoughts, feelings and actions. Team Recommendations:: Recommended to continue with IOP to maintain gains and set up aftercare. Plan is to discharge next week.
--- NOTE | 2021-06-01 14:52 | BH.MDN ---
Multi-Disciplinary Note - Note 30-min Individual Time Started:: 11:15 Date: 06/01/21 Purpose of session/treatment goals addressed:: Reviewed progress and current symptoms. Reviewed 4 week DSM scores. Aftercare planning. Eye Contact:: Good Motor Activity:: Appropriate Appearance:: Neat Speech:: Appropriate Mood:: Euthymic Affect:: Full Thoughts:: Linear, Logical, No evidence of hallucinations/delusions noted Staff Interventions:: discharge planning, reviewed DSM-5 Client Response:: Pt reports that he received the COVID-19 booster on 05/26/21 and it knocked me down. Reports excessive fatigue and chills over the past 5 days. Noted increased anxiety and intrusive thoughts that he may actually have COVID. He got a test which was negative and his symptoms started to decrease early this week. It was bad when discussing his health anxiety. Discussed how these events triggered increase anxiety and irritability. Overall he continues to report significant improvement in mood stability and gave some examples of anger management over the past 5 days. He had some rumination regarding not being able to complete tasks around the house (cutting grass) and doesn't want to be seen as lazy by neighbors and himself. Was able to challenge and reframe these thoughts with some assistance. He reached out to set up psychiatrist and reports that they left him a message to schedule during group this AM. We reviewed his outcome measurements as this is his 4th week in [facility]. There was some incongruency is self reports and the scores and when he was asked the questions for the depression domain his verbal answers were different than what he wrote down. Unsure the reliability of the outcomes to measure progress. Risks/Concerns:: no risks or concerns noted Progress Toward Goals/Plan:: Incongruent written vs verbal answers to the outcomes measurement. Could be related to ADHD or other learning disability which pt has not told staff about. Either way his outcomes most likely are not strong indicator of progress. It would not be beneficial to ask these questions verbally as his initial admission scores were obtained via written format therefore the numbers would be overall inaccurate. Overall pt self-reports significant progress. Medication compliant. No significant distress noted in the past week. Plan is to discharge next week. Time Stopped:: 11:45
--- NOTE | 2021-06-03 09:00 | BH.SGPN.GN ---
Behaviors/Verbalizations/Mental Status: []Eye contact is good. Motor activity is appropriate. Appearance is casual. Speech is appropriate. Mood is euthymic. Affect is congruent. Thoughts are linear and logical. No evidence of psychosis. Reviewed daily symptom tracker sheet with no reports of suicidal ideations, plan, or intent. Client Response/Progress/Benefit: []Client was engaged and provided insight to others throughout group session. Client reported his emotion of the day as ?wonderful?. Client discussed that he was able to work outside yesterday, which was a win. Client discussed being panicked yesterday as he left his bag on the roof of his car and drove off. Client stated that his dog was in the car with him and helped him to calm down, and he was able to find the bag. Client continued, stating that he is very competitive and sets high expectations for himself, leading him to go to the library to research first ladies after missing a wild card question in jeopardy during group. Client appeared to benefit from group discussion regarding setting realistic expectations and not comparing themselves to others. Progress noted AEB client acknowledging and sharing stressors, as he has declined to share them in the past. Will continue IOP treatment to improve client?s self-compassion and prevent decompensation. Narrative Note: []
--- NOTE | 2021-06-03 10:08 | BH.SGPN.GN ---
Behaviors/Verbalizations/Mental Status: []Eye contact is good. Motor activity is appropriate. Appearance is casual. Speech is Appropriate. Mood is euthymic. Affect is bright. Thoughts are linear and logical. No evidence of psychosis. Client Response/Progress/Benefit: []Pt did well to remain an active participant in group discussion AEB asking questions and providing some input throughout. Attentive during psychoeducation. Pt attentive and providing input as peers added their perspective on the definition of stigma as it relates to mental health. Pt participated in interactive group discussion on the topic and the potential impacts of stigma on seeking help, confidence, and relationships with others. Pt reflected that mental health stigma has kept him from being able to empathize with others or be understanding at times. Provided an example of making fun of someone without realizing the true impacts this could have. Shared he has done better to empathize with age. Benefited from increased awareness of mental health stigma and how it could impact patient. Will continue IOP to improve mood stability, increase healthy coping and communication with supports, and prevent decompensation. Narrative Note: []
--- NOTE | 2021-06-03 11:10 | BH.SGPN.GN ---
Behaviors/Verbalizations/Mental Status: []Client alert and oriented, neatly dressed and groomed. Eye contact good. Motor activity appropriate. Speech within normal limits. Affect congruent, mood euthymic. Thoughts linear, logical, no signs of hallucinations or delusions. Client Response/Progress/Benefit: []Client engaged participant AEB client providing some input during small group discussion, taking notes and listening attentively to others. Group brainstormed strategies to combat social and perceived stigma which included: educating others, no longer using negative language about mental illness, being vulnerable with supports, and attending support groups. Client shared one thing he can do to combat stigma is to continue talking with others about the importance of mental health. Appeared to benefit from increasing awareness of strategies to combat stigma. Client reports progress in reduced depression and increased ability to regulate anger. Will continue IOP tx to reinforce healthy coping skills, establish aftercare, and further improve functioning. Narrative Note: []
--- NOTE | 2021-06-06 09:05 | BH.SGPN.GN ---
Behaviors/Verbalizations/Mental Status: [] Eye contact is good. Motor activity is appropriate. Appearance is casual. Speech is Appropriate. Mood is euthymic. Affect is full. Thoughts are linear and logical. No evidence of psychosis. Reviewed daily check in sheet and no reports of suicidal thoughts. Client Response/Progress/Benefit: [] Pt was an active participant in group discussion. Attentive. Provided appropriate feedback. Emotion for today is jolly. Superficial check-in. Reports a relaxing and fun weekend. Discussed some stressors stating i didn't let it bother me or get angry. Reports improved emotion regulation skills which he attributes mostly to medication change. Progress noted. Benefited from group support, encouragement, and feedback. Will continue in [facility] to maintain gains. Plan to discharge this week. Narrative Note: []
--- NOTE | 2021-06-06 10:13 | BH.SGPN.GN ---
Behaviors/Verbalizations/Mental Status: []Client alert and oriented, casually dressed and groomed. Eye contact good. Motor activity appropriate. Speech within normal limits. Affect congruent, mood euthymic. Thoughts linear, logical, no signs of hallucinations or delusions. Client Response/Progress/Benefit: []Client receptive to session, participating throughout. Provided input as the group brainstormed the positive and negative aspects of stress on physical and mental health. Group did well to identify the benefits of stress as well as the impact of distress on performance and mental health. Client identified their personal top stressors as: money, family, and mental health. Client reports when the stress overflows client reacts with anger outbursts and often becomes increasingly tense. Shared he has done well to begin replacing anger outbursts with positive self-talk and clenching and releasing his fists to avoid lashing out on others. Client seemed to benefit from increased awareness of current stressors and impact stress has on mental health. Recommended to continue IOP tx to continue use of healthy coping, improve emotion regulation, and prevent decompensation. Narrative Note: []
--- NOTE | 2021-06-06 11:15 | BH.SGPN.GN ---
Behaviors/Verbalizations/Mental Status: []Client alert and oriented, casually dressed and groomed. Eye contact good. Motor activity appropriate. Speech within normal limits. Affect congruent, mood euthymic. Thoughts linear, logical, no signs of hallucinations or delusions. Client Response/Progress/Benefit: []Client engaged in session AEB listening attentively to others and providing input throughout discussions. Client initially was hesitant to join challenge activity, staying on the outside of activity. Eventually client engaged in activity and worked cooperatively with team. Client remained attentive during discussion about the 4 A's of managing stress and expressed connecting with the various benefits of each. Client chose to not share which stress management strategy he wants to work on. Client seemed to benefit from increased awareness of the impact stress has on mental health and increasing repertoire of stress management strategies. Will continue IOP tx to prevent decompensation, continue to promote thought challenging, and healthy coping skills. Narrative Note: []
--- NOTE | 2021-06-08 10:10 | BH.SGPN.GN ---
Behaviors/Verbalizations/Mental Status: []Client alert and oriented, well dressed and groomed. Eye contact fair. Motor activity appropriate. Speech within normal limits. Affect congruent, mood euthymic. Thoughts linear, logical, no signs of hallucinations or delusions. Client Response/Progress/Benefit: []Client responded well to session AEB client contributing to group discussion and listening attentively to others. Client connected to the topic of resilience by discussing examples of resilience he has witnessed in the media and in sports. Client contributed to small group discussion on traits that contribute to resilience. Client?s group discussed making healthy connections, accepting change, and moving toward goals as strategies to increase resilience. Client seemed to benefit from increased understanding of factors that can increase personal resilience. Progress noted AEB in client?s increased participation in group discussion. Will continue IOP treatment to reinforce coping skills and establish aftercare. Narrative Note: []
--- NOTE | 2021-06-08 10:31 | BH.MDN_ITS ---
Multi-Disciplinary Note - Note 30-min Individual Time Started:: 09:25 Date: 06/08/21 Purpose of session/treatment goals addressed:: Reviewed progress in IOP and discussed aftercare plan. Eye Contact:: Good Motor Activity:: Appropriate Appearance:: Neat Speech:: Appropriate Mood:: Euthymic Affect:: Full Thoughts:: Linear, Logical, No evidence of hallucinations/delusions noted Staff Interventions:: motivational interviewing, discharge planning Client Response:: Pt continues to report improved mental health. Reports I'm thinking more about others which is positively impacting his relationships with support. Reduced conflict with GF and when conflict arises he is not engaging. I've noticed a massive difference. He talked at length on how being in a group setting has made him appreciate what he has and increased empathy for others. This increased empathy appears to be helping with anger and irritability as well. He plans on volunteering this upcoming holiday at a local [employer] and his also is agreeable. He wants to create a new holiday tradition where he helps others. Talked about volunteering at other local agencies in a small capacity due to his medical limitations. Risks/Concerns:: no risks and concerns identified Progress Toward Goals/Plan:: Pt reports significant progress. Overall reports decreased anger/irritability, improved communication with support, increased compassion for others, and more stable mood. Reports decreased anxiety, worry, and depression. Has not identified any panic attacks in the past several weeks. Medication compliant. Able to identify and utilize coping skills for depression and anxiety. He is able to identify anger-inducing self-talk and replace with more realistic and calming self-talk. Utilizing anger management skills such as walking away, mindfulness, and others. Pt is going to continue here with aftercare group counseling. We have talked about getting a psychiatrist set up for medication management. He spoke with [facility] and surprisingly asked to think about making appointment. He also reached out to a private practice psychiatrist and is awaiting call back. He states I will have this figured out by Sunday. Time Stopped:: 10:00
--- NOTE | 2021-06-08 11:12 | BH.SGPN.GN ---
Behaviors/Verbalizations/Mental Status: []Client alert and oriented, neatly dressed and groomed. Eye contact good. Motor activity appropriate. Speech within normal limits. Affect constricted, mood euthymic. Thoughts linear, logical, no signs of hallucinations or delusions. Client Response/Progress/Benefit: []Client responded well to session AEB completing the resilience worksheet provided. Client participated in the discussion of how each resiliency component can help increase personal resiliency and worked cooperatively with group to identify strategies to enhance each of the components discussed. Client reported he feels he is doing well with using ?all of these.? Client shared he used to struggle with putting things in perspective, but IOP has helped him slow down and challenge his thinking. Client seemed to benefit from discussing strategies for improving personal resilience and identifying resilience traits client already possesses. Will continue IOP tx for one more day to reinforce healthy coping skills and establish aftercare. Narrative Note: []
--- NOTE | 2021-06-10 09:05 | BH.SGPN.GN ---
Behaviors/Verbalizations/Mental Status: [] Eye contact is good. Motor activity is appropriate. Appearance is neat. Speech is Appropriate. Mood is euthymic. Affect is full. Thoughts are linear and logical. No evidence of psychosis. Reviewed daily check in sheet and no reports of suicidal ideations or intent. Client Response/Progress/Benefit: [] Pt was an active participant in group discussion on blame and mental health. Shared with the group that today is his last day in [facility]. States Everything is perfect. Completed initial intake for his aftercare yesterday and is set with counseling and psychiatry. He talked at length regarding two events that occurred within the last week and the skills that he used to manage his emotions. Shared that he is reframing his thoughts and challenging cognitive distortions. I'm trying to think more about consequences and be less impulsive. Impulsive decisions and behaviors have reduced due to in large part to his medications. I can see the possible consequences of my actions which helps me react appropriately. Overall progress noted. Benefited from group support, discussion, and encouragement. Plan is to discharge from [facility] today. Narrative Note: []
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
--- NOTE | 2021-06-10 15:17 | BH.MDN_ITS ---
Multi-Disciplinary Note - Note 30-min Individual Time Started:: 10:30 Date: 06/10/21 Purpose of session/treatment goals addressed:: Reviewed progress in IOP and aftercare plans. Eye Contact:: Good Motor Activity:: Appropriate Appearance:: Neat Speech:: Appropriate Mood:: Euthymic Affect:: Full Thoughts:: Linear, Logical, No evidence of hallucinations/delusions noted Staff Interventions:: discharge planning, reviewed DSM-5 Client Response:: Pt reports significant improve in IOP level of care. Very appreciative of the program. He was focused today on some of the discussions in the AM group on blame and cannabis addiction. Able to identify physiological warning signs to anger and the ability to incorporate skills before anger escalates. Pt completed the DSM5 cross-cutting scales this AM and notes no distress essentially placing zeros for all domains. Pt has made significant progress in IOP level of care reporting several changes in perspectives regarding mental health. Risks/Concerns:: no risks or concerns noted. Progress Toward Goals/Plan:: Refer above and to discharge summary for more information. Reviewed skills that have been helpful for the patient in the pro gram and we discussed his progress and aftercare plans. Will be discharged from [facility] today as he has met treatment plan goals and no longer meets criteria for IOP level of care. Time Stopped:: 11:00
--- NOTE | 2021-06-15 13:43 | PCM.BH.PN_ITS ---
Progress Note Progress Note:
--- NOTE | 2021-06-15 13:43 | PCM.BH.PN ---
Progress Note Progress Note:
--- NOTE | 2021-06-15 13:46 | PCM.BH.PN ---
Progress Note Progress Note: Progress Note: History of Present Illness/Interim History: [] The patient is a 45-year-old male who is seen in follow-up at the [facility] behavioral health IOP program. I last saw the patient about 3 weeks ago and at that time his Adderall XR prescription was increased to 20 mg every morning. In addition gabapentin was added for his restless leg syndrome. Patient states that his mood has been good in the last week or 2 and he is much less irritable in not having anger issues. He feels he is doing really well in the IOP program and has learned valuable skills to help manage his mental health issues. In addition he feels much better since his restless leg syndrome has been treated also. His sleep is much improved and is getting about 6 or 7 hours of sleep at night. He states that he does have some symptoms of restless leg syndrome in the morning at times. He denies any passive thoughts of , suicidal ideation, plan for suicide, homicidal ideation, hallucinations or delusions. He denies any symptoms of iris. Current Psychiatric Medications: [] Lexapro 20 mg p.o. daily; Adderall XR 20 mg p.o. every morning (x3 weeks now); gabapentin 300 mg, 2 p.o. nightly (x3 weeks now). Mental Status Examination: [] The patient is a 45-year-old tall male who appears normal for stated age and is seen wearing a mask due to the pandemic. He is casually dressed and groomed with good hygiene. He has no psychomotor agitation or retardation. Eye contact is good and speech is normal rate and rhythm and fluent with no pressure. Mood is euthymic. Affect is full and normal. Thought process is goal-directed and organized. Thought content: There is no evidence of thoughts of , suicidal or homicidal ideation, plan for suicide, thoughts of self-harm, hallucinations or delusions. Judgment is intact. Insight is good. Impulsivity is moderate. Diagnoses: [] 1. Bipolar, NOS (F 31.9 2. Attention deficit disorder, combined type 3. Restless leg syndrome 4. Probable CTE 5. Chronic pain in back and extremities 6. Primary support issues Plan: [] The patient will continue the IOP program at [facility] but he may be discharged soon if he continues to do well in the program. He felt safe during the interview and if it anytime he does not feel safe he will let us know or go to the emergency room. The risks, options, possible complications and side effects of the medications were again discussed with the patient and he understands and accepts these. A refill was given on his Adderall XR 20 mg p.o. every morning. His gabapentin was increased to 600 mg p.o. nightly and 300 mg p.o. every morning for his restless leg syndrome. Prescriptions were sent in for both of the prior medications. He will continue to follow-up with his outpatient providers.
== END 2021-06-10 12:03 | disposition home or self-care (01) ==
LOC: BHIOP 09:00
PROVIDERS: PCP Nurse Practitioner; Referring Provider Psychiatry & Neurology Psychiatry; Visit Provider Psychiatry & Neurology Psychiatry
DX: F31.9 Bipolar disorder, unspecified (principal)
CPT/HCPCS: S9480; 90832; 90853

== ENCOUNTER 2021-06-16 14:00 | Outpatient (RCR) | payer MEDICARE, SELFPAY ==
--- NOTE | 2021-06-16 14:00 | BH.SGPN.GN ---
Behaviors/Verbalizations/Mental Status: []Client alert and oriented, casually dressed and groomed. Eye contact good. Motor activity appropriate. Speech within normal limits. Affect congruent and bright, mood euthymic. Thoughts linear, logical, no signs of hallucinations or delusions. Client Response/Progress/Benefit: []Pt responded well to session, provided input, and listened attentively to peers. Reported feeling ?jolly & awesome? today, explaining that he has made several plans to begin volunteering in the community since discharging from [facility]. Discussed that this has helped provide a sense of purpose and encouraged him to see things from another person?s point of view. Discussed that he has been using positive self-talk and reading about mental health to continue to maintain his progress. Client engaged in discussion on self-advocacy. Worked with group to identify the benefits of self-advocacy, as well as common barriers. Reviewed the personal bill of rights and shared he does well to advocate for the right to ?change and grow?. Discussed struggling with personal right of ?I have the right to expect honesty from others?. Noted plans to take steps in better advocating for this right by starting small to address these frustrations with others. Client seemed to benefit from reviewing treatment progress and skill application, as well as learning about how to increase self-advocacy. Client to continue aftercare to promote gains, prevent regression, and further improve functioning. Narrative Note: []
--- NOTE | 2021-06-16 15:02 | BH.MTP_ITS ---
Master Treatment Plan - Patient Information Program Physician:: Simran Pineda Primary Therapist:: Delbert Ruiz [facility] - Psychiatric Diagnoses Psychiatric Diagnoses:: 1. Bipolar, NOS (F 31.9). 2. Attention deficit disorder, combined type Diagnosis Code(s):: F 31.9 - Estimated LOS Estimated LOS (in weeks):: 12 Problem/Goal #1 - Problem/Goal #1 Stated Goal:: Client will maintain or see a reduction in symptoms AEB client score on the DSM 5 cross-cutting measure and improve client's daily functioning. - Objectives Objective #1 Stated Objective: Client will continue to consistently apply healthy coping skills to maintain progress made in IOP tx. Interventions: Through group therapy, client will review warning signs and triggers as well as healthy coping skills learned in IOP tx to successfully maintain gains while transitioning into outpatient therapy. Discharge Criteria: Client will have accomplished this goal when client's score on the DSM-5 cross-cutting measure has either maintained or reduced over a 12 week period. Target Date: 09/15/21 Review Date: 07/21/21 Objective #2 Stated Objective: Client will learn and utilize 2-3 maintenance strategies to prevent decompensation. Interventions: Through group therapy, client will be provided with education on healthy maintenance behaviors, relapse prevention techniques, and healthy coping strategies. Discharge Criteria: Client will have accomplished this goal when can report using at least 2 maintenance skills to prevent decompensation. Target Date: 09/15/21 Review Date: 07/21/21
== END 2021-06-28 23:59 ==
LOC: BHOG 14:00
PROVIDERS: PCP Nurse Practitioner; Visit Provider Psychiatry & Neurology Psychiatry
DX: F31.9 Bipolar disorder, unspecified (principal); F98.8 Other specified behavioral and emotional disorders with onset usually occurring in childhood and adolescence
CPT/HCPCS: 90853

== ENCOUNTER 2021-06-30 09:00 | Outpatient (RCR) | payer MEDICARE, SELFPAY ==
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
--- NOTE | 2021-07-07 14:00 | BH.SGPN.GN ---
Behaviors/Verbalizations/Mental Status: []Client alert and oriented, neatly dressed and groomed. Eye contact good. Motor activity appropriate. Speech within normal limits. Affect congruent, mood tired and dysthymic. Thoughts linear, logical, no signs of hallucinations or delusions Client Response/Progress/Benefit: []Client responded well to session, reports feeling ?sore and spent? today as client shared he pulled a muscle in his back and he had a significant stressor with his rental condo in [place]. Client stated ?but see this is how I know IOP works because I haven?t snapped at someone in a long time.? 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 Contributing during discussion of vulnerability and benefits of practicing vulnerability. Shared personal experience of being vulnerable and sending apology videos to his family members and how this felt relieving. Discussed ways we avoid feeling vulnerable and how this negatively affects mental health and relationships. 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 Appeared to benefit from reflecting on the positive impact vulnerability can have on mental health. Will continue IOP aftercare to promote gains and reinforce healthy coping skills. Narrative Note: []
--- NOTE | 2021-07-14 14:00 | BH.SGPN.GN ---
Behaviors/Verbalizations/Mental Status: []Client alert and oriented, neatly dressed and groomed. Eye contact good. Motor activity appropriate. Speech within normal limits. Affect congruent, mood euthymic. Thoughts linear, logical, no signs of hallucinations or delusions. Client Response/Progress/Benefit: []Pt receptive of session, engaged throughout. Pt reported he has been listening to [employer] music three times a week for an hour because this genre of music improves his mood. Pt stated he has been taking time to be screen free at least once per day. 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 Identified current stressor is the rise in covid-19 cases and worried about getting sick if goes to a [employer] party. Receptive of discussion on personal accountability and its importance in maintaining mental health stability. Pt worked cooperatively with group to identify benefits of maintaining personal accountability. Engaged in brainstorming strategies for improving ability to hold themselves accountable. Pt seemed to benefit from support from peers and increasing understanding of personal accountability benefits and strategies. Will continue IOP aftercare group to maintain gains and prevent decompensation.
--- NOTE | 2021-07-14 17:59 | BH.TPR ---
Treatment Plan Review Date of Admission:: 06/16/21 Date of Treatment Plan Review:: 07/14/21 Admitting Diagnoses:: 1. Bipolar, NOS (F 31.9). 2. Attention deficit disorder, combined type Current Diagnoses:: 1. Bipolar, NOS (F 31.9). 2. Attention deficit disorder, combined type Patient's Response to Treatment:: Pt responds well to program AEB consistent attendance, providing feedback during group sessions and applying skills outside treatment environment. Status of Current Problems and Symptoms: Pt continues to report mild anxious symptoms. Pt's anxiety recently increased due to new covid variant that is more contagious. Pt continuing to use healthy skills to help manage his depressive and anxious symptoms. Pt volunteering at several places because wants to give back to the community. Pt reports helping others does uplift his mood. Problem #1 Problem Name:: maintain or decrease mental health symptoms from IOP d/c Status of Goals:: obj - partially met, ongoing work encouraged. DSM 5 scores were not collected at time of review. Per pt's report his depressive symptoms are significantly decreased. Pt states his irritability is continuing to decrease. Pt reported he knows IOP has helped him because I haven't gone off on anyone. Pt reporting some increase in anxiety due to new covid variant. Obj 2 - met, ongoing work encouraged. Pt is able to identify and utilize maintenance tools like breathing, challenging negative thoughts, creating daily structure, and engaging in activities he enjoys. Team Recommendations:: Team recommends pt continue current goal and objectives to show pt's ability to maintain treatment progress.
== END 2021-07-29 23:59 ==
LOC: BHOG 09:00
PROVIDERS: PCP Nurse Practitioner; Visit Provider Psychiatry & Neurology Psychiatry
DX: F31.4 Bipolar disorder, current episode depressed, severe, without psychotic features (principal); F90.2 Attention-deficit hyperactivity disorder, combined type
CPT/HCPCS: 90853

== ENCOUNTER 2021-06-30 09:25 | Emergency (ER) | payer MEDICARE, SELFPAY ==
[2021-06-30 09:26] VITALS: BP 154/88; PULSE 89; RESP 16; TEMP 36.4; O2SAT 99; BMI 28.7
--- NOTE | 2021-06-30 09:50 | RAD_ITS ---
STUDY: X-RAY - RIGHT FOOT CLINICAL: Male, 45 years old. Pain and swelling following injury. TECHNIQUE: 3 view(s) of the foot. COMPARISON: None. FINDINGS: Normal talus, calcaneus, and tarsal bones. Normal visualized subtalar, talonavicular, calcaneocuboid, tarsal and tarsometatarsal articulations. Normal metatarsi. Normal metatarsophalangeal joint of the great toe. Normal tibial and fibular sesamoid bones. Normal interphalangeal joint of the great toe. Normal phalanges of the great toe. Normal second through fifth metatarsophalangeal joints. Normal interphalangeal joints and phalanges of the lesser toes. Soft tissue swelling RAD/Foot min 3 Views IMPRESSION: Soft tissue swelling. Electronically Signed: Kingsley Romo MD at 10:06 EST , Service support ,
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
[2021-06-30 11:10] VITALS: RESP 16
== END 2021-06-30 11:11 | disposition home or self-care (01) ==
PROVIDERS: Emergency Provider Emergency Medicine; PCP Nurse Practitioner
DX: M79.671 Pain in right foot (principal); S97.81XA Crushing injury of right foot, initial encounter; W23.0XXA Caught, crushed, jammed, or pinched between moving objects, initial encounter; E78.2 Mixed hyperlipidemia; F32.A Depression, unspecified; F41.9 Anxiety disorder, unspecified; F90.9 Attention-deficit hyperactivity disorder, unspecified type; G47.00 Insomnia, unspecified; I10 Essential (primary) hypertension; I25.10 Atherosclerotic heart disease of native coronary artery without angina pectoris; K42.9 Umbilical hernia without obstruction or gangrene; M19.90 Unspecified osteoarthritis, unspecified site; Z79.82 Long term (current) use of aspirin; Z95.5 Presence of coronary angioplasty implant and graft
CPT/HCPCS: 73630; 99283

== ENCOUNTER 2021-08-01 03:51 | Emergency (ER) | payer MEDICARE, SELFPAY ==
[2021-08-01 03:53] VITALS: BP 165/93; PULSE 94; RESP 16; TEMP 36.1; O2SAT 98; BMI 29.0
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
== END 2021-08-01 04:30 | disposition home or self-care (01) ==
PROVIDERS: Emergency Provider Emergency Medicine; PCP Nurse Practitioner; Visit Provider Emergency Medicine
DX: R58 Hemorrhage, not elsewhere classified (principal); F31.9 Bipolar disorder, unspecified; N50.1 Vascular disorders of male genital organs; E78.2 Mixed hyperlipidemia; I10 Essential (primary) hypertension; I25.10 Atherosclerotic heart disease of native coronary artery without angina pectoris; Z79.82 Long term (current) use of aspirin
CPT/HCPCS: 99282

== ENCOUNTER 2021-08-03 09:00 | Outpatient (RCR) | payer MEDICARE, SELFPAY ==
--- NOTE | 2021-08-18 14:00 | BH.SGPN.GN ---
Behaviors/Verbalizations/Mental Status: []Client alert and oriented, casual in appearance. Eye contact good. Motor activity appropriate. Speech within normal limits. Affect congruent. Mood anxious. Thoughts linear, logical, no signs of hallucinations or delusions Client Response/Progress/Benefit: []Pt responded well to session AEB providing input throughout and listening attentively to others. Pt reported mental health positive as following through with attending outpatient psychiatry and counseling appointments. Pt stated he has been stressed because his girlfriend has been sick for the last few weeks with an unknown cause. Pt expressed frustration with being constantly surrounded by information about covid because it increases his anxiety about getting the virus and having serious complications. Pt reported he has been trying to use his skills like getting out of the house and attending aftercare to help his mood instead of laying around all day. Pt connected with self-reflection discussion. Worked with group to identify the benefits of self-reflection. Seemed to benefit from identifying how to incorporate self-reflection into life more often. Agreeable to complete homework of reflecting on progress in aftercare. Pt to continue aftercare to maintain gains and prevent decompensation.
--- NOTE | 2021-08-18 14:58 | BH.TPR ---
Treatment Plan Review Date of Admission:: 06/16/21 Date of Treatment Plan Review:: 08/18/21 Admitting Diagnoses:: 1. Bipolar, NOS (F 31.9). 2. Attention deficit disorder, combined type Current Diagnoses:: 1. Bipolar, NOS (F 31.9). 2. Attention deficit disorder, combined type Patient's Response to Treatment:: Pt?s response to treatment has been variable due to inconsistent attendance. Pt has missed several IOP aftercare sessions including his first treatment review scheduled on 07/28/21. Pt missed on 08/04/21 and 08/16/21 as well. When pt attends IOP he is an active participant and connects with peers. Status of Current Problems and Symptoms: Per pt?s DSM-5 review, his symptoms have increased by 18 points. Pt?s depression went from 0/8 at IOP discharge to 3/8 at review and pt?s anxiety scores have increased from 0/12 to 6/12 as well. Pt reports the increase in symptoms is due his partner having unknown health issues for the past few weeks and increased anxiety about COVID. Problem #1 Problem Name:: Pt will maintain or see a reduction in sx AEB client score on the DSM-5 Status of Goals:: Objective 1- not complete. Pt?s DSM-5 scores have increased by 18 points since discharge from IOP tx. See ongoing problems/symptoms. When pt discharged from IOP tx his DSM-5 scores were a 0 making maintenance of this score more challenging. Objective 2- in progress. Pt self-reports he was not as consistent with utilizing his coping skills, but he has been trying to get out of the house more and he has been consistent with outpatient counseling. Team Recommendations:: Treatment tx recommendations pt continue IOP aftercare to prevent further decompensation and increase consistent use of healthy coping skills. Treatment team also encourages pt to continue with outpatient therapy and psychiatry.
--- NOTE | 2021-08-25 14:00 | BH.SGPN.GN ---
Behaviors/Verbalizations/Mental Status: []Client alert and oriented, casually dressed. Eye contact good. Motor activity appropriate. Speech within normal limits. Affect congruent, mood anxious, irritable. Thoughts linear, logical, no signs of hallucinations or delusions. Client Response/Progress/Benefit: []Pt responded well to session AEB providing input during discussion and listening attentively to peers. Pt reported mental health positives as continuing to try to support his girlfriend while she is ill, as well as using emotion release skills when feeling overwhelmed. Noted these are particularly positive this week as his girlfriend?s mood has been negative and pt has felt that no matter what he does he ?can?t win?. Appeared to benefit from time spent venting and support provided by group. Pt engaged in discussion about self-love and worked with group to identify strategies to increase self-love. Pt reported he wants to work on self-love by working on challenging himself to take more time to himself to calm his mind, as well as more consistently try to identify daily accomplishments. Pt seemed to benefit from reviewing treatment progress and stressors as well as learning about how to increase self-love. Pt to continue aftercare program to maintain treatment progress, continue use of healthy coping, and prevent decompensation. Narrative Note: []
== END 2021-08-29 23:59 ==
LOC: BHOG 09:00
PROVIDERS: PCP Nurse Practitioner; Visit Provider Psychiatry & Neurology Psychiatry
DX: F31.4 Bipolar disorder, current episode depressed, severe, without psychotic features (principal); F90.2 Attention-deficit hyperactivity disorder, combined type
CPT/HCPCS: 90853

== ENCOUNTER 2021-08-30 07:40 | Outpatient (RCR) | payer MEDICARE, SELFPAY ==
--- NOTE | 2021-09-22 14:00 | BH.SGPN.GN ---
Behaviors/Verbalizations/Mental Status: []Client alert and oriented, casually dressed and groomed. Eye contact good. Motor activity appropriate. Speech within normal limits. Affect congruent, mood euthymic. Thoughts linear, logical, no signs of hallucinations or delusions. Client Response/Progress/Benefit: []Client reported his emotion as ?content?. 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 Reports enjoying volunteering with meals on wheels and helping others. Client reported having a meeting with his outpatient psychiatrist. Client was a passive participant in group discussion of gratitude and the importance of practicing both internal and external gratitude into your routine. Client declined to complete the gratitude schedule. Client will continue aftercare group to continue increasing application of healthy coping skills. Narrative Note: []
== END 2021-09-26 23:59 ==
LOC: BHOG 07:40
PROVIDERS: PCP Nurse Practitioner; Visit Provider Psychiatry & Neurology Psychiatry
DX: F31.9 Bipolar disorder, unspecified (principal); F90.2 Attention-deficit hyperactivity disorder, combined type
CPT/HCPCS: 90853

== ENCOUNTER 2021-09-27 07:51 | Outpatient (RCR) | payer MEDICARE, SELFPAY ==
--- NOTE | 2021-10-06 14:00 | BH.SGPN.GN ---
Behaviors/Verbalizations/Mental Status: []Client alert and oriented, neat and casually dressed and groomed. Eye contact good. Motor activity appropriate, restless AEB getting up to walk around room on multiple occasions. Speech within normal limits. Affect congruent, mood euthymic and anxious. Thoughts linear, logical, no signs of hallucinations or delusions. lient Response/Progress/Benefit: []Client responded well to session AEB providing input and listening attentively to peers. Reported feeling ?bittersweet? today as client is discharging from the aftercare program today. Shared he has been maintaining consistent appointments with outpatient providers and is planning to begin another outpatient mental health group for ongoing supportive services. Shared he has been actively using skills of reminding himself of his personal strengths, volunteering to give a sense of purpose, reaching out to supports, and working out to maintain the progress made while in IOP tx. Client engaged in discussion on self-advocacy. Worked with group to identify the benefits of self-advocacy, as well as common barriers. Reviewed the personal bill of rights and shared belief that he does well to remind himself of his right to ?change and grow? reflecting on his growth in the past year. Worked with group to identify strategies to increase ability to advocate for oneself. Reported he wants to work on better advocating for himself by reminding himself that he has the right to ?be wrong sometimes, even if I didn?t know I was?. Noted plans to take steps in practicing this by challenging himself to take time to remind himself it?s okay to make mistakes and not know something each day. Client seemed to benefit from reviewing treatment progress and skill application, as well as learning about how to increase self-advocacy. Client to discharge from aftercare and continue outpatient tx to promote gains, prevent regression, and further improve functioning. Narrative Note: []
--- NOTE | 2021-10-06 15:54 | BH.DS_ITS ---
Discharge Summary - Demographics Date of Admission:: 06/16/21 Discharge Date: 10/06/21 Presenting Problems at Admission:: Pt discharged from IOP tx and transitioned to IOP aftercare to maintain gains pt made in IOP and to reinforce healthy coping skills. At admission to [facility] aftercare, pt reported experiencing rare-mild symptoms of anxiety and anger. Pt was experiencing some positive life stressors life stressors including volunteering and maintaining gains in his mental health. Pt encouraged IOP aftercare to maintain mood stability and anger management progress. Discharge Diagnoses:: Bipolar, NOS (F 31.9); Attention deficit disorder, com bined type Reason for Discharge:: Pt has accomplished her tx goals AEB her ability to maintain mood stability and gains made in IOP. Pt will transition to traditional outpatient counseling and psychiatry. - Treatment Progress During Treatment & Response: Pt was engaged in IOP aftercare as evidenced by pt's participation in group discussions and self-report of consistently applying coping skills. Pt had some attendance issues, but he was engaged and attentive when present. Pt accomplished tx goals of preventing decompensation AEB pt's DSM-5 scores being lower than they were at admission to [facility] level of care. Pt's scores for anxiety have decreased by 100% since IOP admission showing consistent progress for five months. At discharge from IOP aftercare, client self-reported that he was using healthy coping skills more consistently and pt was able to bounce back quicker than he had in the past when faced with stressors. Issues Still to be Addressed:: reinforce anger management, erratic moods at times, anxiety, social skills, marriage conflict, medication management. Discharge Recommendations/Instructions:: Pt will continue seeing his outpatient providers at [facility], Dr. Jimenez and Lei (counselor). Pt encouraged to continue volunteering as well. Discharge Handout: Complete Discharge Handout with client on aftercare options and continuity of care.
== END 2021-10-06 15:45 | disposition home or self-care (01) ==
LOC: BHOG 07:51
PROVIDERS: PCP Nurse Practitioner; Visit Provider Psychiatry & Neurology Psychiatry
DX: F31.9 Bipolar disorder, unspecified (principal); F90.2 Attention-deficit hyperactivity disorder, combined type
CPT/HCPCS: 90853

== ENCOUNTER 2021-10-12 21:29 | Emergency (ER) | payer MEDICARE, SELFPAY ==
[2021-10-12 21:30] VITALS: BP 164/99; PULSE 100; RESP 18; TEMP 36.2; O2SAT 97; BMI 28.7
--- NOTE | 2021-10-13 01:05 | RAD_ITS ---
STUDY: X-RAY CHEST REASON FOR EXAM: Male, 46 years old. ? TB TECHNIQUE: Single AP portable view of the chest. COMPARISON: None. FINDINGS: The lungs are clear and expanded. There is no demonstrated pleural abnormality. Normal size heart. Normal mediastinum and claus. Normal visualized pulmonary arteries. Normal visualized aortic arch and descending thoracic aorta. Normal visualized thoracic spine. Normal visualized ribs, clavicles, and shoulders. There is no demonstrated abnormality of the visualized soft tissue structures of the upper abdomen. RAD/Chest PA and Lateral IMPRESSION: Normal x-ray examination of the chest. Electronically Signed: Shy Kraus MD at 1:40 EDT ,
[2021-10-13 01:29] VITALS: RESP 16
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
[2021-10-13 03:04] VITALS: RESP 18
== END 2021-10-13 02:17 | disposition home or self-care (01) ==
LOC: ED 10-13 02:11
PROVIDERS: Emergency Provider Emergency Medicine; Visit Provider Emergency Medicine
DX: Z11.1 Encounter for screening for respiratory tuberculosis (principal); F31.9 Bipolar disorder, unspecified; E78.2 Mixed hyperlipidemia; I25.10 Atherosclerotic heart disease of native coronary artery without angina pectoris; I10 Essential (primary) hypertension; F90.9 Attention-deficit hyperactivity disorder, unspecified type; F41.9 Anxiety disorder, unspecified; M19.90 Unspecified osteoarthritis, unspecified site; G25.81 Restless legs syndrome; Z95.5 Presence of coronary angioplasty implant and graft; Z79.82 Long term (current) use of aspirin; Z79.899 Other long term (current) drug therapy; E66.9 Obesity, unspecified; Z68.28 Body mass index [BMI] 28.0-28.9, adult
CPT/HCPCS: 71046; 99283

== ENCOUNTER 2022-05-11 16:06 | Emergency (ER) | payer MEDICARE, MEDICAID, SELFPAY ==
[2022-05-11 16:07] VITALS: BP 142/87; PULSE 98; RESP 18; TEMP 36.1; O2SAT 97; BMI 29.0
--- NOTE | 2022-05-11 16:45 | RAD_ITS ---
STUDY: XR Ankle Min 3 Views REASON FOR EXAM: Male, 46 years old. ANKLE PAIN TECHNIQUE: XR Ankle Min 3 Views LEFT COMPARISON: None. FINDINGS: Normal visualized distal tibia and fibula. Normal medial and lateral malleoli. Normal tibiotalar articulation and ankle mortise. There is an enthesophyte involving the posterior superior calcaneus at the site of insertion of the Achilles tendon. The visualized subtalar, talonavicular, calcaneocuboid and tarsal articulations are normal. There is a plantar calcaneal spur. There is soft tissue swelling around the ankle. RAD/Ankle min 3 Views IMPRESSION: There is soft tissue swelling. Electronically Signed: Rob Blank MD at 17:01 EDT ,
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
[2022-05-11] MEDS: Naproxen 250 MG Tablet 500 MG PO (19:29)
[2022-05-11] MEDS: oxyCODONE 5 MG Tablet PO (19:29)
[2022-05-11 19:31] VITALS: RESP 18
== END 2022-05-11 19:43 | disposition home or self-care (01) ==
PROVIDERS: Emergency Provider Emergency Medicine; Visit Provider Emergency Medicine
DX: S93.402A Sprain of unspecified ligament of left ankle, initial encounter (principal); I25.10 Atherosclerotic heart disease of native coronary artery without angina pectoris; E78.2 Mixed hyperlipidemia; I10 Essential (primary) hypertension; W01.0XXA Fall on same level from slipping, tripping and stumbling without subsequent striking against object, initial encounter
CPT/HCPCS: 73610; 99283

== ENCOUNTER 2022-05-27 22:54 | Emergency (ER) | payer MEDICARE, MEDICAID, SELFPAY ==
[2022-05-27 22:54] VITALS: BP 152/87; PULSE 100; RESP 18; TEMP 36.6; O2SAT 98; BMI 28.7
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
[2022-05-27] MEDS: Diphth,Pertuss(Acell),Tet Vac 0.5 ML Vial IM (23:33)
[2022-05-27] MEDS: Gelatin Sponge Absorbable 50cm (1) 1 EACH TOPICAL (23:34)
== END 2022-05-27 23:44 | disposition home or self-care (01) ==
LOC: ED 23:33
PROVIDERS: Emergency Provider Emergency Medicine; Visit Provider Emergency Medicine
DX: S91.109A Unspecified open wound of unspecified toe(s) without damage to nail, initial encounter (principal); I25.10 Atherosclerotic heart disease of native coronary artery without angina pectoris; E78.2 Mixed hyperlipidemia; I10 Essential (primary) hypertension; Z95.5 Presence of coronary angioplasty implant and graft; Z79.2 Long term (current) use of antibiotics; Z23 Encounter for immunization; X58.XXXA Exposure to other specified factors, initial encounter; Y92.512 Supermarket, store or market as the place of occurrence of the external cause
CPT/HCPCS: 90471; 90715; 99283

== ENCOUNTER → 2022-09-21 | Outpatient (CLI) | payer MEDICARE, MEDICAID, SELFPAY ==
[2022-09-21 13:44] LABS: Absolute Lymphocyte Count 1.92 X10^3/uL (0.83-4.51); Absolute Neutrophil Count 4.5 X10^3/uL (2.0-7.7); Basophil# 0.04 X10^3/uL; Basophil% 0.6 % (0-1); Eosinophil# 0.11 X10^3/uL; Eosinophils% 1.5 % (0-5); Hematocrit 44.6 % (40-54); Hemoglobin 15.3 g/dL (13.0-16.5); Lymphocyte # 1.92 X10^3/ul (0.83-4.51); Lymphocyte % 26.7 % (19-41); Mean Corp Hgb Conc 34.3 g/dL (32-36); Mean Corpuscular Hgb 28.7 pg (27.0-32.0); Mean Corpuscular Volume 83.5 fL (80-94); Mean Platelet Vol. 9.5 fl (6.2-12.0); Monocyte# 0.63 X10^3/uL; Monocyte% 8.8 % (0-10); NRBC Flagged by Analyzer 0 % (0-5); Neutrophil # 4.48 X10^3/uL (2.7-7.7); Neutrophil % 62.1 % (47-70); Platelet Count 226 K/mm3 (150-450); RBC Distribution Width CV 13.6 % (11.6-14.6); RBC Distribution Width SD 41.6 fl (35.1-43.9); Red Blood Count 5.34 M/mm3 (4.6-6.2); White Blood Count 7.2 K/mm3 (4.4-11.0)
[2022-09-21 14:00] LABS: AST(SGOT) 30 U/L (15-37); Alanine Aminotransfer ALT/SGPT 37 U/L (16-61); Albumin, Serum 4.2 g/dL (3.2-5.0); Alkaline Phosphatase 89 U/L (45-117); Anion Gap 8 (5-15); BUN 11 mg/dL (7-18); BUN/Creat Ratio 11.4 RATIO (10-20); Bilirubin, Direct 0.25 mg/dL (0.00-0.30); Calcium,Total 9.3 mg/dL (8.5-10.1); Chloride 102 mmol/L (98-107); Cholesterol 152 mg/dL (200); Creatinine, Serum 0.96 mg/dL (0.70-1.30); EST Glomerular Filtration Rate 89 mL/min (>60); Est Glom Filt Rate - Afr Amer 108 mL/min (>60); Globulin 3.9 g/dL (2.2-4.2); Glucose 103 mg/dL (74-106); High Density Lipoprotein 40 mg/dL; Potassium 3.4 mmol/L (3.5-5.1); Protein, Total 8.1 g/dL (6.4-8.2); Sodium Level 137 mmol/L (136-145); T4 Free Direct 0.99 ng/dL (0.76-1.46); Thyroid Stim Hormone (TSH) 0.63 uIU/mL (0.358-3.74); Triglycerides 120 mg/dL; Very Low Density Lipoprotein 24 mg/dL (5-40)
== END | disposition home or self-care (01) ==
LOC: LAB 12:29
PROVIDERS: Referring Provider Nurse Practitioner Family; Visit Provider Nurse Practitioner Family
DX: R06.02 Shortness of breath (principal); E78.2 Mixed hyperlipidemia; Z95.5 Presence of coronary angioplasty implant and graft; I10 Essential (primary) hypertension
CPT/HCPCS: 36415; 80048; 80061; 80076; 83880; 84439; 84443; 85025

== ENCOUNTER → 2022-11-21 | Outpatient (CLI) | payer MEDICARE, MEDICAID, SELFPAY ==
--- NOTE | 2022-11-22 18:08 | STRESSREP ---
Stress Test Report Pharmacologic myocardial perfusion stress test. 47-year-old man with a history of coronary artery disease and dyspnea Resting EKG demonstrates sinus rhythm with a rate of 68 bpm. Resting blood pressure is 136/94 mmHg. 0.4 mg of regadenoson was infused per usual protocol followed by rapid intravenous saline flush injection. Continuous EKG monitoring was performed. The maximum heart rate was 104 bpm which was 59% yet of max impacted heart rate the maximum workload was 1 metabolic equivalent. At rest there were no ST or T wave changes noted to suggest ischemia and at peak infusion nonspecific ST changes were noted which did not meet the criteria for ischemia. No clinical angina is noted. The final blood pressure was 142/82 mmHg. Myocardial perfusion protocol. 15.0 mCi of technetium 99m sestamibi was injected at rest. 0.4 mg of regadenoson was infused per usual protocol. At peak infusion 45 mCi of technetium 99m sestamibi was injected stress images were obtained stress and rest images were reconstructed and compared in the short axis vertical long and horizontal long axis. Gated images were also obtained. Perfusion SPECT analysis: Review of the stress images demonstrate normal uptake of tracer noted in all areas of the myocardium. The resting images similar demonstrated normal uptake of tracer noted in all areas of the myocardium. No areas of reversibility are noted to suggest ischemia and no previous infarct is noted. Gated SPECT analysis: The gated ejection fraction is 60%. Conclusion: Normal pharmacologic myocardial perfusion stress test. Preserved ejection fraction.
== END | disposition home or self-care (01) ==
LOC: CVS 06:09
PROVIDERS: PCP Internal Medicine; Referring Provider Nurse Practitioner Family; Visit Provider Nurse Practitioner Family
DX: I25.10 Atherosclerotic heart disease of native coronary artery without angina pectoris (principal); E78.2 Mixed hyperlipidemia; Z95.5 Presence of coronary angioplasty implant and graft
CPT/HCPCS: 78452; 93017; A9500; A4216; J2785

== ENCOUNTER 2022-12-04 14:48 | Emergency (ER) | payer MEDICARE, MEDICAID, SELFPAY ==
[2022-12-04 14:49] VITALS: BP 126/90; PULSE 95; RESP 18; TEMP 37.1; O2SAT 97; BMI 29.1
--- NOTE | 2022-12-04 14:55 | RAD_ITS ---
STUDY: X-RAY - LEFT WRIST REASON FOR EXAM: Male, 47 years old. LEFT WRIST INJURY AND DEFORMITY TECHNIQUE: 3 view(s) of the wrist were obtained. COMPARISON: None. FINDINGS: Normal visualized distal radius and ulna. Normal radiocarpal articulation. Normal distal radioulnar articulation. Normal carpal bones. Normal carpal articulations. Normal carpometacarpal articulation of the thumb. Normal second through fifth carpometacarpal articulations. Normal visualized metacarpal bones. The soft tissue structures are unremarkable. RAD/Wrist min 3 Views IMPRESSION: Normal x-ray examination of the wrist. Electronically Signed: Kingsley Romo MD at 15:11 EDT ,
--- NOTE | 2022-12-04 16:53 | ED.RN ---
pt rude in waiting, so what, do i have to have a heart problem to be seen or what, we've been sitting while other people are going back. you know who i am right?! this rn has no idea who the pt is.
[2022-12-04] MEDS: HYDROcodone Bitartrate/Apap 5/325 Tablet PO (18:34)
[2022-12-04 18:35] VITALS: RESP 18
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
== END 2022-12-04 18:44 | disposition home or self-care (01) ==
PROVIDERS: Emergency Provider Student in an Organized Health Care Education/Training Program; PCP Internal Medicine; Visit Provider Student in an Organized Health Care Education/Training Program
DX: S50.12XA Contusion of left forearm, initial encounter (principal); I25.10 Atherosclerotic heart disease of native coronary artery without angina pectoris; I10 Essential (primary) hypertension; W01.0XXA Fall on same level from slipping, tripping and stumbling without subsequent striking against object, initial encounter; E78.2 Mixed hyperlipidemia; Z79.82 Long term (current) use of aspirin; F90.2 Attention-deficit hyperactivity disorder, combined type; Z79.899 Other long term (current) drug therapy; Z95.5 Presence of coronary angioplasty implant and graft; F41.8 Other specified anxiety disorders; Z79.02 Long term (current) use of antithrombotics/antiplatelets
CPT/HCPCS: 29125; 73110; 99284

== ENCOUNTER 2023-08-01 11:44 | Emergency (ER) | payer MEDICARE, MEDICAID, SELFPAY ==
[2023-08-01 11:48] VITALS: BP 124/86; PULSE 104; RESP 22; TEMP 35.9; O2SAT 97
--- NOTE | 2023-08-01 12:37 | CT_ITS ---
STUDY: CT ABDOMEN AND PELVIS WITH CONTRAST - URINARY TRACT REASON FOR EXAM: Male, 48 years old. Abdominal pain. RADIATION DOSAGE (If Supplied By Facility): CTDIvol = ( 21.18 ) mGy, DLP = ( 1316.86 ) mGycm TECHNIQUE: IV 100mL Isovue-300 was administered. Transaxial images were obtained from the dome of the diaphragm to the symphysis pubis subsequent to intravenous contrast ministration. Multiplanar coronal and sagittal images were reformatted. Individualized Dose Optimization Techniques Were Used For This CT. COMPARISON: No relevant prior comparison study available FINDINGS: The visualized lung bases are unremarkable. The visualized portions of the heart are within normal limits. Normal liver. Normal gallbladder and extrahepatic biliary system. Normal spleen. Normal pancreas. Normal bilateral adrenal glands. Normal visualized stomach. Normal small intestine. There are multiple colonic diverticula consistent with diverticulosis. There is non-visualization of the appendix. Normal abdominal aorta. No retroperitoneal adenopathy. Normal right kidney. Normal left kidney. Normal urinary bladder. Normal abdominal wall. There are diffuse degenerative changes of the visualized lumbar spine. CT/Abdomen/Pelvis W IV Cont ONLY IMPRESSION: No acute intra-abdominal process. Electronically Signed: Mimi Hudson MD at 13:47 EST ,
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
[2023-08-01 12:48] LABS: Absolute Lymphocyte Count 2.18 X10^3/uL (0.83-4.51); Absolute Neutrophil Count 7.3 X10^3/uL (2.0-7.7); Basophil# 0.09 X10^3/uL; Basophil% 0.8 % (0-1); Eosinophil# 0.18 X10^3/uL; Eosinophils% 1.7 % (0-5); Hemoglobin 16.7 g/dL (13.0-16.5); Lymphocyte # 2.18 X10^3/ul (0.83-4.51); Lymphocyte % 20.1 % (19-41); Mean Corp Hgb Conc 34.8 g/dL (32-36); Mean Corpuscular Hgb 29.2 pg (27.0-32.0); Mean Corpuscular Volume 83.9 fL (80-94); Mean Platelet Vol. 9.6 fl (6.2-12.0); Monocyte# 1.04 X10^3/uL; Monocyte% 9.6 % (0-10); NRBC Flagged by Analyzer 0 % (0-5); Neutrophil # 7.34 X10^3/uL (2.7-7.7); Neutrophil % 67.4 % (47-70); Platelet Count 275 K/mm3 (150-450); RBC Distribution Width CV 13.9 % (11.6-14.6); RBC Distribution Width SD 42.5 fl (35.1-43.9); Red Blood Count 5.72 M/mm3 (4.6-6.2); White Blood Count 10.9 K/mm3 (4.4-11.0)
[2023-08-01] MEDS: Ondansetron 4 MG/2 ML Vial IV (12:48)
[2023-08-01 12:53] LABS: Bacteria 0 SEEN /hpf (None Seen); Mucous, Urine 0 SEEN /hpf (<or=2+); Red Blood Cells-Urine 0 SEEN /hpf (0-5); Squamous Epithelial Cells - UA 0 SEEN /hpf (0-5); White Blood Cells 0 SEEN /hpf (0-5)
[2023-08-01 12:56] LABS: Color, Urine Yellow (Yellow); Glucose, Dipstick Normal (Normal); Ketone-Dipstick Negative (Negative); Leukocyte Esterase-Dipstick Negative /ul (Negative); Nitrite-Dipstick Negative (Negative); Occult Blood-Urine Negative /ul (Negative); Protein-Dipstick Negative (Negative); Specific Gravity, Urine 1.015 (1.002-1.030); Urine Bilirubin Dipstick Negative (Negative); Urine Clarity Sl. Cloudy (Clear); Urine Urobilinogen Normal (Normal)
[2023-08-01 13:06] LABS: Amorphous Sediment 2+
[2023-08-01 13:10] LABS: ALB/GLOB Ratio 0.9 RATIO (0.9-2.4); AST(SGOT) 27 U/L (15-37); Alanine Aminotransfer ALT/SGPT 34 U/L (16-61); Albumin, Serum 3.8 g/dL (3.2-5.0); Alkaline Phosphatase 87 U/L (45-117); Anion Gap 9 (5-15); BUN 8 mg/dL (7-18); BUN/Creat Ratio 7.2 RATIO (10-20); Calcium,Total 10.2 mg/dL (8.5-10.1); Chloride 99 mmol/L (98-107); Creatinine, Serum 1.11 mg/dL (0.70-1.30); EST Glomerular Filtration Rate 75 mL/min (>60); Est Glom Filt Rate - Afr Amer 91 mL/min (>60); Globulin 4.3 g/dL (2.2-4.2); Glucose 104 mg/dL (74-106); Lipase 86 U/L (13-75); Potassium 2.8 mmol/L (3.5-5.1); Protein, Total 8.1 g/dL (6.4-8.2); Sodium Level 136 mmol/L (136-145)
[2023-08-01] MEDS: Potassium Chloride Oral Tablet 20 MEQ 40 MEQ PO (15:05)
[2023-08-01 15:08] VITALS: BP 125/78; PULSE 98; RESP 20; O2SAT 97
== END 2023-08-01 15:09 | disposition home or self-care (01) ==
PROVIDERS: Emergency Provider Emergency Medicine; PCP Internal Medicine; Visit Provider Emergency Medicine
DX: R10.9 Unspecified abdominal pain (principal); R11.0 Nausea; R19.7 Diarrhea, unspecified; E87.6 Hypokalemia; Z98.61 Coronary angioplasty status; I10 Essential (primary) hypertension; E78.2 Mixed hyperlipidemia; Z79.899 Other long term (current) drug therapy; Z79.82 Long term (current) use of aspirin; F41.9 Anxiety disorder, unspecified; F90.9 Attention-deficit hyperactivity disorder, unspecified type; Z79.02 Long term (current) use of antithrombotics/antiplatelets
CPT/HCPCS: 74177; 80053; 81001; 83690; 85025; 96374; 99283; Q9967; A4216; J2405

== ENCOUNTER 2023-11-22 14:21 | Emergency (ER) | payer MEDICARE, MEDICAID, SELFPAY ==
[2023-11-22 14:24] VITALS: BP 133/78; PULSE 97; RESP 25; TEMP 36.3; O2SAT 95; BMI 30.9
[2023-11-22 14:28] VITALS: BMI 30.9
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
[2023-11-22 15:09] VITALS: O2SAT 98
--- NOTE | 2023-11-22 15:10 | RAD_ITS ---
STUDY: X-RAY CHEST REASON FOR EXAM: Male, 48 years old. Chest pain TECHNIQUE: Single AP portable view of the chest. COMPARISON: Comparison is made with prior study dated October 13, 2021. FINDINGS: EKG electrodes are seen. Limited inspiratory effort. There is no demonstrated pleural abnormality. Normal size heart. Normal mediastinum and claus. Normal visualized pulmonary arteries. Normal visualized aortic arch and descending thoracic aorta. Normal visualized thoracic spine. Normal visualized ribs, clavicles, and shoulders. There is no demonstrated abnormality of the visualized soft tissue structures of the upper abdomen. RAD/Chest 1 View (Portable) IMPRESSION: No acute abnormality is seen. Electronically Signed: Kingsley Romo MD at 15:28 EDT ,
[2023-11-22 15:19] LABS: Absolute Lymphocyte Count 1.61 X10^3/uL (0.83-4.51); Absolute Neutrophil Count 4.8 X10^3/uL (2.0-7.7); Basophil# 0.02 X10^3/uL; Basophil% 0.3 % (0-1); Eosinophil# 0.11 X10^3/uL; Eosinophils% 1.5 % (0-5); Hematocrit 46.8 % (40-54); Hemoglobin 15.8 g/dL (13.0-16.5); Lymphocyte # 1.61 X10^3/ul (0.83-4.51); Lymphocyte % 22.5 % (19-41); Mean Corp Hgb Conc 33.8 g/dL (32-36); Mean Corpuscular Hgb 28.8 pg (27.0-32.0); Mean Corpuscular Volume 85.4 fL (80-94); Mean Platelet Vol. 9.6 fl (6.2-12.0); Monocyte# 0.59 X10^3/uL; Monocyte% 8.2 % (0-10); NRBC Flagged by Analyzer 0 % (0-5); Neutrophil # 4.78 X10^3/uL (2.7-7.7); Neutrophil % 66.7 % (47-70); Platelet Count 205 K/mm3 (150-450); RBC Distribution Width CV 14.5 % (11.6-14.6); RBC Distribution Width SD 45.3 fl (35.1-43.9); Red Blood Count 5.48 M/mm3 (4.6-6.2); White Blood Count 7.2 K/mm3 (4.4-11.0)
[2023-11-22 15:38] LABS: Anion Gap 9 (5-15); BUN 12 mg/dL (7-18); BUN/Creat Ratio 11.4 RATIO (10-20); Calcium,Total 8.6 mg/dL (8.5-10.1); Chloride 103 mmol/L (98-107); Creatinine, Serum 1.05 mg/dL (0.70-1.30); EST Glomerular Filtration Rate 80 mL/min (>60); Est Glom Filt Rate - Afr Amer 97 mL/min (>60); Estimated Creatinine Clearance 137.06 ml/min; Glucose 96 mg/dL (74-106); Potassium 3.3 mmol/L (3.5-5.1); Sodium Level 137 mmol/L (136-145); Troponin-I HS (w/2H Reflex) 4 pg/mL (3.0-78.0)
[2023-11-22] MEDS: 0.9% Normal Saline (1000mL) 1,000 ML 1000 ML IV (15:57)
[2023-11-22] MEDS: Potassium Chloride Oral Tablet 20 MEQ 40 MEQ PO (15:58)
--- NOTE | 2023-11-22 16:04 | EKG12_ITS ---
Test Reason : Blood Pressure : / mmHG Vent. Rate : 095 BPM Atrial Rate : 095 BPM P-R Int : 148 ms QRS Dur : 096 ms QT Int : 376 ms P-R-T Axes : 038 048 034 degrees QTc Int : 472 ms Normal sinus rhythm Normal ECG Confirmed by MEGHAN LUONG, WILLIE ([id number]), editorial assistant EDUARDO SANCHEZ ([id number]) on 11/26/2023 10:34:38 AM Referred By: SAAD/JUDIT Confirmed By:KAYLA CHRISTIANSON MD
[2023-11-22] MEDS: LORazepam 2 MG/ML Syringe 1 MG IV (16:09)
[2023-11-22 16:21] VITALS: BP 130/76; PULSE 92; RESP 16; O2SAT 99
[2023-11-22 16:33] LABS: Alcohol, Blood (Medical)-Serum < 3.0 mg/dL
[2023-11-22 17:13] LABS: Reflex Troponin-HS? (from REC) Y
--- NOTE | 2023-11-22 17:15 | NURSING ---
FAXED CHART TO CRISIS
[2023-11-22 17:53] LABS: Troponin-I HS 5 pg/mL (3.0-78.0)
[2023-11-22 18:21] VITALS: BP 128/72; PULSE 90; RESP 16; O2SAT 99
[2023-11-22 19:05] LABS: Amphetamine Urine VISTA NEGATIVE (<1000 ng/mL); Barbiturate Urine VISTA NEGATIVE (< 200 ng/mL); Benzodiazepine Urine VISTA POSITIVE (< 200 ng/mL); Cocaine Urine VISTA NEGATIVE (< 300 ng/mL); Ecstacy Urine VISTA NEGATIVE (< 500 ng/mL); Methadone Urine VISTA NEGATIVE (< 300 ng/mL); PCP Urine VISTA NEGATIVE (< 25 ng/mL); THC Urine VISTA POSITIVE (< 50 ng/mL); Vista UDS pH Range 6
[2023-11-22 20:00] VITALS: BP 147/77; PULSE 81; RESP 17; O2SAT 96
[2023-11-22] MEDS: Ziprasidone IM 20 MG/ML VIAL IM (20:51)
[2023-11-22] MEDS: LORazepam 2 MG/ML Syringe IM (21:48)
--- NOTE | 2023-11-22 22:31 | ED.RN ---
Pt angry about staying at a facility. Pt cursing at staff, yelling at security and HRO. Pt continuing to state he wants to go home and does not understand what is happening. Explained hospital policy and procedures multiple times, pt still angry.
[2023-11-22 22:49] VITALS: BP 152/89; PULSE 85; RESP 18; TEMP 36.3; O2SAT 98
[2023-11-22] MEDS: Gabapentin 300 MG Capsule 600 MG PO (23:10)
[2023-11-22] MEDS: Metoprolol Tartrate 25 MG Tablet PO (23:10)
[2023-11-22] MEDS: Lisinopril 10 MG Tablet PO (23:11)
[2023-11-22] MEDS: QUEtiapine 25 MG Tablet 50 MG PO (23:11)
[2023-11-22] MEDS: Atorvastatin Calcium 80 MG Tablet PO (23:16)
[2023-11-23] MEDS: ALPRAZolam 0.5 MG Tablet PO ×2 (00:27→08:21)
--- NOTE | 2023-11-23 05:26 | ED.RN ---
kitchen and counter worker requests HRO and security to escort her in explaining to patient that he is pink slipped, due to patient's iris and instability. After informed of pink slip and pending placement, patient's emotions erupt. Pt jumps out of bed and starts posturing towards HRO. Pt is yelling at HRO and security. Order obtained from Dr. Gresham for IM geodon and 4 point locked restraints if unable to redirect pt. Geodon obtained. HRO, security and staff left room while this nurse obtained geodon. HRO calls for backup. When this nurse and officers went in to room to explain that belongings needed to be removed and that geodon would be administered, he cooperates and allows nurse to administer shot without difficulty. After administration, patient continues to exhibit behaviors fluctuating between being cooperative and yelling and cursing at staff.
[2023-11-23 06:49] VITALS: BP 142/72; PULSE 70; RESP 21; O2SAT 97
[2023-11-23] MEDS: Isosorbide Mononitrate 30 MG Tablet PO (08:16)
[2023-11-23] MEDS: Lisinopril 10 MG Tablet PO (08:16)
[2023-11-23] MEDS: Aspirin E.C. 81 MG Tablet PO (08:16)
[2023-11-23] MEDS: Potassium Chloride Oral Tablet 20 MEQ PO (08:16)
[2023-11-23] MEDS: Metoprolol Tartrate 25 MG Tablet PO (08:17)
[2023-11-23] MEDS: Furosemide 40 MG Tablet PO (08:17)
[2023-11-23] MEDS: Clopidogrel Bisulfate 75 MG Tablet PO (08:17)
[2023-11-23 09:42] VITALS: BP 147/80; PULSE 91; RESP 20; TEMP 36.1; O2SAT 99
== END 2023-11-23 09:53 ==
PROVIDERS: Nurse Practitioner; Emergency Provider Emergency Medicine; PCP Internal Medicine; Visit Provider Emergency Medicine
DX: F30.9 Manic episode, unspecified (principal); F41.9 Anxiety disorder, unspecified; R45.6 Violent behavior; F90.9 Attention-deficit hyperactivity disorder, unspecified type; Z79.899 Other long term (current) drug therapy; I25.10 Atherosclerotic heart disease of native coronary artery without angina pectoris; I10 Essential (primary) hypertension; E78.2 Mixed hyperlipidemia; Z95.5 Presence of coronary angioplasty implant and graft; Z79.82 Long term (current) use of aspirin; Z79.02 Long term (current) use of antithrombotics/antiplatelets
CPT/HCPCS: 71045; 80048; 80307; 80320; 84484; 85025; 93005; 96361; 96372; 96374; 99285; A4216; G0480; J3486

== ENCOUNTER 2024-10-08 18:36 | Emergency (ER) | payer MEDICARE, MEDICAID, SELFPAY ==
[2024-10-08 18:38] VITALS: BP 143/94; PULSE 104; RESP 18; TEMP 36.4; O2SAT 97; BMI 32.1
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
[2024-10-08 20:29] LABS: Absolute Lymphocyte Count 2.17 X10^3/uL (0.83-4.51); Absolute Neutrophil Count 5.7 X10^3/uL (2.0-7.7); Basophil# 0.07 X10^3/uL; Basophil% 0.8 % (0-1); Eosinophil# 0.17 X10^3/uL; Eosinophils% 1.9 % (0-5); Hemoglobin 16.9 g/dL (13.0-16.5); Lymphocyte # 2.17 X10^3/ul (0.83-4.51); Lymphocyte % 23.9 % (19-41); Mean Corp Hgb Conc 35.2 g/dL (32-36); Mean Corpuscular Volume 82.5 fL (80-94); Mean Platelet Vol. 9.1 fl (6.2-12.0); Monocyte% 9.9 % (0-10); NRBC Flagged by Analyzer 0 % (0-5); Neutrophil # 5.71 X10^3/uL (2.7-7.7); Neutrophil % 62.8 % (47-70); Platelet Count 182 K/mm3 (150-450); RBC Distribution Width CV 13.8 % (11.6-14.6); RBC Distribution Width SD 41.1 fl (35.1-43.9); Red Blood Count 5.82 M/mm3 (4.6-6.2); White Blood Count 9.1 K/mm3 (4.4-11.0)
[2024-10-08] MEDS: Ondansetron 4 MG/2 ML Vial IV (20:29)
[2024-10-08] MEDS: 0.9% Normal Saline (1000mL) 1,000 ML 1000 ML IV (20:29)
[2024-10-08 21:01] LABS: Anion Gap 15 (5-15); BUN 14 mg/dL (4-19); BUN/Creat Ratio 16.1 RATIO (10-20); Calcium,Total 10.5 mg/dL (7.6-11.0); Chloride 94 mmol/L (98-108); Creatinine, Serum 0.88 mg/dL (0.70-1.20); EST Glomerular Filtration Rate 106 (>60); Estimated Creatinine Clearance 164.68 ml/min (50-250); Glucose 95 mg/dL (70-99); Potassium 3.7 mmol/L (3.3-5.1); Sodium Level 131 mmol/L (133-145)
[2024-10-08 22:14] VITALS: BP 140/80; PULSE 95; RESP 18; TEMP 36.7; O2SAT 98
== END 2024-10-08 22:16 | disposition home or self-care (01) ==
PROVIDERS: Emergency Provider Emergency Medicine; PCP Internal Medicine; Visit Provider Emergency Medicine
DX: R50.9 Fever, unspecified (principal); E87.1 Hypo-osmolality and hyponatremia; I10 Essential (primary) hypertension; R11.0 Nausea; R19.7 Diarrhea, unspecified; I25.10 Atherosclerotic heart disease of native coronary artery without angina pectoris; B34.9 Viral infection, unspecified; E78.2 Mixed hyperlipidemia; Z79.82 Long term (current) use of aspirin; Z95.5 Presence of coronary angioplasty implant and graft
CPT/HCPCS: 80048; 85025; 87631; 96361; 96374; 99282; A4216; J2405

== ENCOUNTER 2024-12-03 17:21 | Emergency (ER) | payer MEDICARE, MEDICAID, SELFPAY ==
[2024-12-03] VITALS (7 sets, daily range): BP systolic 133–187; BP diastolic 82–104; PULSE 83–116; RESP 13–18; TEMP 36.6; O2SAT 94–99; BMI 33.5
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
--- NOTE | 2024-12-03 17:45 | EKG12_ITS ---
Test Reason : ELECTROCUTION Blood Pressure : */* mmHG Vent. Rate : 109 BPM Atrial Rate : 109 BPM P-R Int : 152 ms QRS Dur : 98 ms QT Int : 358 ms P-R-T Axes : 43 40 38 degrees QTcB Int : 482 ms Sinus tachycardia Otherwise normal ECG Confirmed by Baldemar Seals ([id number]), school photograph editor EDUARDO SANCHEZ ([id number]) on 12/05/2024 12:14:11 PM Referred By: Confirmed By: Baldemar Seals
[2024-12-03 18:17] LABS: Absolute Lymphocyte Count 1.73 X10^3/uL (0.83-4.51); Absolute Neutrophil Count 7.9 X10^3/uL (2.0-7.7); Basophil# 0.04 X10^3/uL; Basophil% 0.4 % (0-1); Eosinophil# 0.14 X10^3/uL; Eosinophils% 1.3 % (0-5); Hematocrit 46.5 % (40-54); Hemoglobin 16.5 g/dL (13.0-16.5); Lymphocyte # 1.73 X10^3/ul (0.83-4.51); Mean Corp Hgb Conc 35.5 g/dL (32-36); Mean Corpuscular Hgb 29.3 pg (27.0-32.0); Mean Corpuscular Volume 82.6 fL (80-94); Mean Platelet Vol. 9.4 fl (6.2-12.0); Monocyte# 0.96 X10^3/uL; Monocyte% 8.9 % (0-10); NRBC Flagged by Analyzer 0 % (0-5); Neutrophil # 7.87 X10^3/uL (2.7-7.7); Neutrophil % 72.7 % (47-70); Platelet Count 223 K/mm3 (150-450); RBC Distribution Width CV 13.7 % (11.6-14.6); RBC Distribution Width SD 39.9 fl (35.1-43.9); Red Blood Count 5.63 M/mm3 (4.6-6.2); White Blood Count 10.8 K/mm3 (4.4-11.0)
[2024-12-03] MEDS: 0.9% Normal Saline (1000mL) 1,000 ML 999 ML IV (18:18)
--- NOTE | 2024-12-03 18:20 | RAD_ITS ---
PROCEDURE: CHEST PA AND LATERAL 12/03/2024 REASON FOR EXAM: CHEST PAIN TECHNIQUE: Frontal and lateral views of the chest. COMPARISON: 11/17/2019 FINDINGS: Hardware: Sternotomy wires are present. Heart: The heart size is normal. Mediastinum: The mediastinal contour is unremarkable. Lungs: No focal consolidation. No pneumothorax. No pleural effusion. Bones: The bones are unremarkable. RAD/Chest PA and Lateral IMPRESSION: NO ACUTE FINDINGS. Reading Location: [facility]
[2024-12-03 18:35] LABS: Troponin T High Sensitivity 9 ng/L (<=22)
[2024-12-03 18:36] LABS: Anion Gap 14 (5-15); BUN 11 mg/dL (4-19); BUN/Creat Ratio 9.6 RATIO (10-20); CPK Total, Creatine Kinase 263 U/L (24-195); Calcium,Total 9.7 mg/dL (7.6-11.0); Carbon Dioxide 22.5 mmol/L (21.0-32.0); Chloride 102 mmol/L (98-108); Creatinine, Serum 1.14 mg/dL (0.70-1.20); EST Glomerular Filtration Rate 79 (>60); Estimated Creatinine Clearance 129.82 ml/min (50-250); Glucose 106 mg/dL (70-99); Potassium 3.3 mmol/L (3.3-5.1); Sodium Level 139 mmol/L (133-145)
[2024-12-03 20:58] LABS: Troponin T High Sens 2 HR 9 ng/L (<=22)
[2024-12-03] MEDS: HYDROcodone Bitartrate/Apap 5/325 Tablet PO (21:30)
== END 2024-12-03 21:35 | disposition home or self-care (01) ==
PROVIDERS: Emergency Provider Emergency Medicine; PCP Internal Medicine; Visit Provider Emergency Medicine
DX: T30.0 Burn of unspecified body region, unspecified degree (principal); F31.9 Bipolar disorder, unspecified; I25.10 Atherosclerotic heart disease of native coronary artery without angina pectoris; E78.2 Mixed hyperlipidemia; I10 Essential (primary) hypertension; Z95.5 Presence of coronary angioplasty implant and graft; Z79.82 Long term (current) use of aspirin; F41.9 Anxiety disorder, unspecified; F90.2 Attention-deficit hyperactivity disorder, combined type; W86.8XXA Exposure to other electric current, initial encounter
CPT/HCPCS: 71046; 80048; 82550; 84484; 85025; 93005; 96360; 99285; A4216

== ENCOUNTER 2025-03-09 22:16 | Emergency (ER) | payer MEDICARE, MEDICAID, SELFPAY ==
[2025-03-09 22:16] VITALS: BP 180/91; PULSE 112; RESP 18; TEMP 36.9; O2SAT 95
[2025-03-09 22:18] VITALS: BMI 34.5
--- OUTSIDE RECORDS SUMMARY | 2025-03-09 22:50 | XMS RPT_ITS | CCD ---
Author Organization [facility] Care Team Providers Care Fabrication Department Supervisor Name Role Phone Isa Bennett E Unavailable [facility] Unavailable Unavailable Unavailable Kasey Kaiser Unavailable Unavailable Isa Bennett Attending Unavailable Isa Bennett Referring Unavailable Isa Bennett Consulting Unavailable Rolf Wells Unavailable Ramona Lepe Unavailable Unavailable Gravius, Norma Unavailable Unavailable Lilliam Patel Unavailable Unavailable Baljinder Love Unavailable [facility]available [facility] Unavailable Cande Chavez Unavailable Unavailable Baljinder Link Unavailable Unavailable Иван Pires Unavailable Gravius, Norma Unavailable Unavailable Unavailable Primary Care Provider Unavailleonie Bennett CNP Ernestine Unavailable Rolf Wells Unavailable [facility] Unavailable Иван Pires MD Unavailable Baljinder Link LPN Unavailable Unavailable Gravius MARCELLO, Norma Unavailable Unavailable Cande Chavez LPN Unavailable Unavailable Unavailable Unavailable Alfredo Colby MD Primary Care Provider NAIMA HAIR Attending Unavailable , REYNA Referring Unavailable ALFREDO COLBY Primary Care Unavailable NAIMA HAIR Admitting Unavailable Isa Bennett Unavailable Alfredo Colby MD Primary Care Provider Gabriel SHIPPING SUPERVISOR.LAWN MOWER REPAIRER, Edel Unavailable Zana SHIPPING SUPERVISOR.DIRECTOR OF NATIONAL SALES, Mikaela Unavailable Zana SHIPPING SUPERVISOR.DIRECTOR OF NATIONAL SALES, Mikaela Unavailable Zana SHIPPING SUPERVISOR.DIRECTOR OF NATIONAL SALES, Mikaela Unavailable Zana SHIPPING SUPERVISOR.DIRECTOR OF NATIONAL SALES, Mikaela Unavailable Rios SHIPPING SUPERVISOR.LAWN MOWER REPAIRER, Edel Unavailable TALAMPAS, ALFREDO D Attending Unavailable TALAMPAS, ALFREDO D Primary Care Unavailable ZANA, MIKAELA Attending Unavailable TALAMPAS, ALFREDO D Primary Care Unavailable ZANA, IMKAELA Attending Unavailable SELF Referring Unavailable TALAMPAS, ALFREDO D Primary Care Unavailable TALAMPAS, ALFREDO D Attending Unavailable TALAMPAS, ALFREDO D Primary Care Unavailable ZANA, MIKAELA Attending Unavailable SELF Referring Unavailable TALAMPAS, ALFREDO D Primary Care Unavailable ZANA, MIKAELA Attending Unavailable TALAMPAS, ALFREDO D Primary Care Unavailable ADRIANE OJEDA Attending Unavailable ZANA, MIKAELA Referring Unavailable TALAMPAS, ALFREDO D Primary Care Unavailable TALAMPAS, ALFREDO D Primary Care Unavailable ZANA, MIKAELA Attending Unavailable TALAMPAS, ALFREDO D Primary Care Unavailable KRYSTIN JAIMES Attending Unavailable ZANA, MIKAELA Referring Unavailable TALAMPAS, ALFREDO D Primary Care Unavailable ZANA, MIKAELA Attending Unavailable TALAMPAS, ALFREDO D Primary Care Unavailable ZANA, MIKAELA Attending Unavailable SELF Referring Unavailable TALAMPAS, ALFREDO D Primary Care Unavailable ZANA, MIKAELA Referring Unavailable TALAMPAS, ALFREDO D Primary Care Unavailable TALAMPAS, ALFREDO D Attending Unavailable TALAMPAS, ALFREDO D Primary Care Unavailable Myron Mendez Referring Unavailable Zana HAIR ASSISTANT, Mikaela Primary Care Unavailable Myron Mendez Attending Unavailable Myron Mendez Referring Unavailable Myron Mendez Attending Unavailable Zana HAIR ASSISTANT, Mikaela Primary Care Unavailable Evangelina Candelaria Attending Unavailable Zana HAIR ASSISTANT, Mikaela Referring Unavailable Zana HAIR ASSISTANT, Mikaela Primary Care Unavailable Evangelina Candelaria Attending Unavailable Zana HAIR ASSISTANT, Mikaela Referring Unavailable Zana HAIR ASSISTANT, Mikaela Primary Care Unavailable Zana HAIR ASSISTANT, Mikaela Primary Care Unavailable Zana HAIR ASSISTANT, Mikaela Referring Unavailable Myron Mendez Attending Unavailable Zana HAIR ASSISTANT, Mikaela Referring Unavailable Zana HAIR ASSISTANT, Mikaela Primary Care Unavailable Myron Mendez Attending Unavailable Zana HAIR ASSISTANT, Mikaela Primary Care Unavailable Seb Katz Attending Unavailable Dante Diaz Attending Unavailable Zana HAIR ASSISTANT, Mikaela Primary Care Unavailable Myron Mendez Referring Unavailable Zana HAIR ASSISTANT, Mikaela Primary Care Unavailable Myron Mendez Attending Unavailable Allergies Allergy Classification Reported Allergen(s) Allergy Type Date of Onset Reaction(s) Facility Aminoketones (6 sources) buPROPion; Translations: [Wellbutrin *ANTIDEPRESSANT S*] Drug Allergy 02-02-20 19 Unknown [facility] Work Phone: Amoxicillin / Clavulanate (4 sources) Amoxicillin / Clavulanate; Translations: [Augmentin *PENICILLINS*] Drug Allergy [facility]; [facility] Work Phone: Anti-Epileptic Agents (2 sources) topiramate Drug Allergy 05-27-[address] [facility] Aspirin (2 sources) Aspirin Drug Allergy 02-02-[address] [facility] Work Phone: Macrolides (antibiotic) (6 sources) Azithromycin; Translations: [Zithromax *MACROLIDES*] Drug Allergy 08-06-19 Unknown, GI Upset [facility]; [facility] Work Phone: Serotonin Reuptake Inhibitors (SSRIs) (4 sources) FLUoxetine Drug Allergy 02-02-20 Intolerance, Unknown, Other: See Comments [facility] (20 sources) Amoxicillin / Clavulanate; Translations: [Augmentin *PENICILLINS*] Drug Allergy 09-20-19 23 Unknown [facility] Work Phone: (20 sources) Azithromycin; Translations: [Zithromax *MACROLIDES*] Drug Allergy 08-06-19 Unknown, GI Upset [facility] Work Phone: (20 sources) buPROPion; Translations: [Wellbutrin *ANTIDEPRESSANT S*] Drug Allergy 02-02-20 Unknown [facility] Work Phone: (4 sources) Amoxicillin; Translations: [AMOXICILLIN] Drug Allergy 02-02-20 Other: See Comments [facility] Work Phone: (20 sources) Aspirin; Translations: [ASPIRIN] Drug Allergy 02-02-[address] [facility] Work Phone: (20 sources) FLUoxetine; Translations: [FLUOXETINE] Drug Allergy 05-27-[address] [facility] Work Phone: (20 sources) PARoxetine; Translations: [PAROXETINE] Drug Allergy 02-02-20 Unknown, Other: See Comments [facility] Work Phone: (20 sources) topiramate; Translations: [TOPIRAMATE] Drug Allergy 05-27-[address] [facility] Work Phone: (3 sources) Azithromycin; Translations: [AZITHROMYCIN] Drug Allergy 08-06-19 [facility] Repository (3 sources) buPROPion; Translations: [BUPROPION] Drug Allergy 02-02-20 [facility] Repository (1 source) AMOXICILLIN-POT CLAVULANATE; Translations: [AMOXICILLIN-PO T CLAVULANATE] Propensity to adverse reactions to drug (disorder) 09-20-19 [facility] Repository (1 source) Amoxicillin Drug Allergy 12-04-19 [facility] Repository (1 source) Clavulanate Drug Allergy 12-04-19 25 [facility] Repository (1 source) FLUoxetine Drug Allergy 12-04-19 25 [facility] Repository (1 source) PARoxetine Drug Allergy 12-04-19 25 [facility] Repository (1 source) rofecoxib Drug Allergy 12-04-19 25 [facility] Rep[facility] (1 source) topiramate Drug Allergy 12-04-19 25 [facility] Repository Medications Current Medications Medication Drug Class(es) Dates Sig (Normalized) Sig (Original) acetaminophen 325 mg / HYDROcodone bitartrate 5 mg oral tablet (2 sources) Opioid Agonist Start: 01-13-2025 End: 01-20-2025 take 1 tablet by mouth every eight hours as needed for pain HYDROcodone-aceta minophen (NORCO) 5-325 mg per tablet Indications: Neck pain , Acute bilateral low back pain without sciatica Take 1 tablet by mouth every 8 hours as needed for pain for up to 7 days. Xanax on hold while taking this 21 tablet 01/13/2025 01/20/2025 Active Start: 04-02-2024 End: 04-09-2024 take 1-2 tablets by mouth three times daily as needed for pain HYDROcodone-acetaminophen (NORCO) 5-325 mg per tablet Indications: Sciatica of right side Take 1-2 tablets by mouth three times a day as needed for pain for up to 7 days. 42 tablet 04/02/2024 04/09/2024 Active ALPRAZolam 0.5 mg oral tablet (20 sources) Benzodiazepine Start: 01-19-2025 End: 02-18-2025 take 1 tablet by mouth every twelve hours as needed for anxiety and anxiety ALPRAZolam (XANAX) 0.5 mg tablet Indications: Anxiety Take 1 tablet by mouth two times a day as needed for up to 30 days. Patient should start on January 19, 2025. 60 tablet 01/19/2025 02/18/2025 Active Start: 07-24-2024 End: 01-03-2025 take 1 tablet by mouth twice daily as needed for anxiety ALPRAZolam (XANAX) 0.5 mg tablet Indications: Bipolar 1 disorder (HCC) , Anxiety Take 1 tablet by mouth two times a day as needed for anxiety for up to 60 days. 60 tablet 1 11/04/2024 01/03/2025 Active Start: 05-12-2024 End: 06-11-2024 take 1 tablet by mouth twice daily as needed for anxiety ALPRAZolam (XANAX) 0.5 mg tablet Indications: Bipolar 1 disorder (HCC) Take 1 tablet by mouth two times a day as needed for anxiety for up to 30 days. 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 60 tablet 0 06/12/2023 07/12/2023 Active Start: 07-12-2022 End: 06-12-2023 take 1 tablet by mouth once daily as needed ALPRAZolam (XANAX) 1 mg tablet Take 1 mg by mouth once daily as needed. 0 07/12/2022 06/12/2023 Discontinued Comment on above: Take 1 mg by mouth o nce daily as needed. Take 1 tablet by keo th two times a day for 30 days. amoxicillin 875 mg oral tablet (20 sources) Penicillin-class Antibacterial Start: End: take 1 tablet by mouth twice daily amoxicillin (AMOXIL) 875 mg tablet Indications: Non-recurrent acute suppurative otitis media of both ears without spontaneous rupture of tympanic membranes Take 1 tablet by mouth two times a day for 10 days. 20 tablet 05/13/2024 05/23/2024 Active Start: 07-21-2020 End: 07-31-2020 take 1 capsule by mouth twice daily Amoxicillin 500 MG Oral Capsule 1 (one) Capsule bid for 10 days Quantity: 20 {Capsule} Refills: 0 Ordered: 21-Jul-2020 Isa Bennett Mary Start : 21-Jul-2020 End : 31-Jul-2020 Inactive Start: 11-04-2019 End: 11-14-2019 take 1 capsule by mouth twice daily Amoxicillin 500 MG Oral Capsule 1 (one) Capsule bid for 10 days Quantity: 20 {Capsule} Refills: 0 Ordered: 04-Nov-2019 Isa Bennett CNP, CNP, Mary E Start : 04-Nov-2019 End : 14-Nov-2019 Inactive Start: 02-14-2019 End: 02-21-2019 take 1 capsule by mouth twice daily Amoxicillin 500 MG Oral Capsule 1 (one) Capsule bid for 7 days Quantity: 14 {Capsule} Refills: 0 Ordered: 14-Feb-2019 Marcia Coates DO Start : 14-Feb-2019 End : 21-Feb-2019 Inactive 24 hr amphetamine aspartate 5 mg / amphetamine sulfate 5 mg / dextroamphetamine saccharate 5 mg / dextroamphetamine sulfate 5 mg extended release oral capsule (20 sources) Central Nervous System Stimulant Start: 08-20-2023 End: 03-02-2025 amphetamine-dextroamphetamin e XR (ADDERALL XR) 20 mg capsule Indications: Adult ADHD Take 1 capsule by mouth once daily for 30 days. Patient should start on January 31, 2025. 30 capsule 01/31/2025 03/02/2025 Active Start: 06-12-2023 End: 07-12-2023 take 1 capsule by mouth once daily amphetamine-dextroamphetamine XR (ADDERA LL XR) 20 mg capsule Indications: Adult ADHD Take 1 capsule by mouth once daily for 30 days. 30 capsule 0 06/12/2023 07/12/2023 Active Start: 06-13-2022 End: 06-12-2023 take 1 tablet by mouth once daily before breakfast dextroamphetamine-amphetamine (ADDERALL) 20 mg tablet Take 1 tablet by mouth daily before breakfast. 0 06/13/2022 06/12/2023 Discontinued Comment on above: Take 1 tablet by keo daily before breakfast. Take 1 capsule by mo [facility] once daily for 30 days. aspirin 81 mg delayed release oral tablet (20 sources) Platelet Aggregation Inhibitor, Nonsteroidal Anti-inflammatory Drug take 1 tablet by mouth once daily aspirin, enteric coated (ASPIRIN, ENTERIC COATED) 81 mg EC tablet Take 81 mg by mouth once daily. Active Comment on above: Take 81 mg by mouth once daily. atorvastatin 80 mg oral tablet (20 sources) HMG-CoA Reductase Inhibitor take 1 tablet by mouth once daily atorvastatin (LIPITOR) 80 mg tablet Take 80 mg by mouth once daily. Active Comment on above: Take 80 mg by mouth once daily. clopidogrel 75 mg oral tablet (20 sources) P2Y12 Platelet Inhibitor take 1 tablet by mouth once daily clopidogrel (PLAVIX) 75 mg tablet Take 75 mg by mouth once daily. Active Comment on above: Take 75 mg by mouth once daily. furosemide 40 mg oral tablet (20 sources) Loop Diuretic Start: End: take 1 tablet by mouth twice daily furosemide (LASIX) 40 mg tablet Take 1 tablet by mouth two times a day. 180 tablet 01/13/2025 Active Start: 10-22-2020 End: 09-30-2024 take 1 tablet by mouth once daily furosemide (LASIX) 40 mg tablet Take 1 tablet by mouth once daily. 10/22/2020 09/30/2024 Discontinued Comment on above: Take 1 tablet by keo th once daily. hydrOXYzine hydrochloride 25 mg oral tablet (20 sources) Antihistamine Start: 01-18-20 End: 01-14-20 take 1 tablet by mouth every six hours as needed for anxiety and anxiety hydrOXYzine HCl (ATARAX) 25 mg tablet Indications: Anxiety Take 1 tablet by mouth every 6 hours as needed for anxiety. 120 tablet 01/13/2025 Active Start: 11-12-2019 take 1 tablet by keo th at bedtime hydrOXYzine HCl 50 MG Oral Tablet 1 (one) Tablet 30-60 min before bedtime for 0 days Quantity: 90 {Tablet} Refills: 1 Ordered: 12-Nov-2019 Isa Bennett Mary Start : 12-Nov-2019 Active Start: 11-01-2018 take 1 tablet by keo th at bedtime HydrOXYzine HCl 50 MG Oral Tablet 1 (one) Tablet Tablet 30-60 min before bedtime for 0 days Quantity: 30 {Tablet} Refills: 1 Ordered: 01-Nov-2018 Norma Rob CMA Start : 01-Nov-2018 Active 24 hr isosorbide mononitrate 30 mg extended release oral tablet (20 sources) Nitrate Vasodilator Start: 10-16-2020 End: 08-12-2024 take 1 tablet by mouth once daily isosorbide mononitrate ER (IMDUR) 30 mg 24 hr tablet Take 1 tablet by mouth once daily. 90 tablet 3 08/12/2024 Active Comment on above: Take 1 tablet by keo th once daily. lisinopril 10 mg oral tablet (20 sources) Angiotensin Converting Enzyme Inhibitor take 1 tablet by mouth twice daily lisinopril (ZESTRIL, PRINIVIL) 10 mg tablet Take 10 mg by mouth twice daily. Active Comment on above: Take 10 mg by mouth twice daily. metoprolol tartrate 25 mg oral tablet (20 sources) beta-Adrenergic Gamaliel take 1 tablet by mouth twice daily metoprolol tartrate, short acting, (LOPRESSOR) 25 mg tablet Take 25 mg by mouth twice daily. Active Comment on above: Take 25 mg by mouth twice daily. microencapsulated potassium chloride 20 meq extended release oral tablet (20 sources) take 2 tablets by mouth twice daily potassium chloride ER (KLOR-CON) 20 mEq tablet Take 40 mEq by mouth two times a day. Active take 1 tablet by mouth twice andrew ly potassium chloride ER (KLOR-CON) 20 mEq tablet Take 20 mEq by mouth two times a day. Active pyridoxine hydrochloride 25 mg oral tablet (20 sources) take 1 tablet by mouth once daily pyridoxine, vitamin B6, (VITAMIN B6) 25 mg tablet Take 25 mg by mouth once daily. Active Comment on above: Take 25 mg by mouth once daily. QUEtiapine 50 mg oral tablet (20 sources) Atypical Antipsychotic Start: 01-14-20 End: 11-29-19 take 1 tablet by mouth once daily at bedtime QUEtiapine (SEROQUEL) 50 mg tablet Indications: Bipolar 1 disorder (HCC) Take 1 tablet by mouth daily at bedtime. 30 tablet 5 11/28/2024 Active Start: 08-21-2023 End: 01-11-2024 take 1 tablet by mouth once daily at bedtime QUEtiapine (SEROQUEL) 50 mg tablet Indications: Bipolar 1 disorder (HCC) Take 1 tablet by mouth daily at bedtime. 30 tablet 3 08/21/2023 01/11/2024 Discontinued Comment on above: Take 1 tablet by keo th daily at bedtime. sertraline 100 mg oral tablet (20 sources) Serotonin Reuptake Inhibitor Start: 01-14-2024 End: 07-24-2024 take 1 tablet by mouth once daily sertraline (ZOLOFT) 100 mg tablet Indications: Bipolar 1 disorder (HCC) Take 1 tablet by mouth once daily. 30 tablet 11 07/24/2024 Active Start: 08-21-2023 End: 01-11-2024 take 1 tablet by mouth once daily sertraline (ZOLOFT) 100 mg tablet Indications: Bipolar 1 disorder (HCC) Take 1 tablet by mouth once daily. 30 tablet 3 08/21/2023 01/11/2024 Discontinued Comment on above: Take 1 tablet by keo once daily. tirzepatide (MOUNJARO) 7.5 mg/0.5 mL pen injector (3 sources) Start: 10-07-2024 End: 08-12-2024 tirzepatide (MOUNJARO) 7.5 mg/0.5 mL pen injector Indications: Class 1 obesity due to excess calories with serious comorbidity and body mass index (BMI) of 33.0 to 33.9 in adult Inject 7.5 mg subcutaneously one time a week for 28 days. Patient should start on October 07, 2024. 2 mL 10/07/2024 08/12/2024 Discontinued (Not on Formulary) Start: 04-06-2023 End: 05-29-2023 tirzepatide (MOUNJARO) 7.5 m g/0.5 mL pen injector Indications: Class 1 obesity due to excess calories with serious comorbidity and body mass index (BMI) of 30.0 to 30.9 in adult , Primary hypertension , Other hyperlipidemia , Coronary artery disease involving [place] heart, unspecified vessel or lesion type, unspecified whether angina present , Impaired fasting glucose Inject 7.5 mg subcutaneously one time a week. 4 Each 3 04/06/2023 05/29/2023 Discontinued Comment on above: Inject 7.5 mg subcut aneously one time a week. Completed/Discontinued Medications Medication Drug Class(es) Dates Sig (Normalized) Sig (Original) [id number] 200 actuat albuterol 0.09 mg/actuat metered dose inhaler (18 sources) beta2-Adrenergic Agonist Start: 01-10-2021 take 2 puff(s) by inhalation four times daily as needed ProAir HFA 108 (90 Base) MCG/ACT Inhalation Aerosol Solution 2 (two) Puff qid prn for 0 days Quantity: 1 {Inhaler} Refills: 0 Ordered: 10-Jan-2021 Isa Bennett Mary Start : 10-Jan-2021 Active Start: 10-08-2020 take 2 puff(s) by in halation four times daily as needed ProAir HFA 108 (90 Base) MCG/ACT Inhalation Aerosol Solution 2 (two) Puff qid prn for 0 days Quantity: 1 {Inhaler} Refills: 0 Ordered: 08-Oct-2020 Isa Bennett CNP, CNP, Mary E Start : 08-Oct-2020 Active Start: 10-08-2020 take 2 puff(s) by in halation four times daily as needed ProAir HFA 108 (90 Base) MCG/ACT Inhalation Aerosol Solution 2 (two) Puff qid prn for 0 days Quantity: 1 {Inhaler} Refills: 0 Ordered: 08-Oct-2020 Sabrina DEEPAKIsa CNP, Mary E Start : 08-Oct-2020 Active Start: 09-07-2020 take 2 puff(s) by in halation four times daily as needed ProAir HFA 108 (90 Base) MCG/ACT Inhalation Aerosol Solution 2 (two) Puff qid prn for 0 days Quantity: 1 {Inhaler} Refills: 0 Ordered: 07-Sep-2020 Isa Bennett CNP, CNP, Mary E Start : 07-Sep-2020 Active Start: 03-31-2020 take 2 puff(s) by in halation four times daily as needed ProAir HFA 108 (90 Base) MCG/ACT Inhalation Aerosol Solution 2 (two) Puff qid prn for 0 days Quantity: 1 {Inhaler} Refills: 0 Ordered: 31-Mar-2020 Isa Bennett CNP, CNP, Mary E Start : 31-Mar-2020 Active End: 09-20-2022 take 2 puff(s) by inhalation every six hours as needed albuterol HFA 90 mcg/actuation HFA Inhale 2 Puffs as instructed every 6 hours as needed (shortness of breath). 0 09/20/2022 Discontinued Comment on above: Inhale 2 Puffs as in structed every 6 hours as needed (shortness of breath). amLODIPine 10 mg oral tablet (20 sources) Dihydropyridine Calcium Channel Gamaliel Start: 07-21-20 End: 10-09-19 21 take 1 tablet by mouth once daily amLODIPine Besylate 10 MG Oral Tablet 1 (one) Tablet daily for 0 days Quantity: 90 {Tablet} Refills: 3 Ordered: 08-Oct-2020 Scott WILDCande Start : 21-Jul-2020 End : 08-Oct-2020 Discontinued Start: 04-04-2020 take 1 tablet by keo th once daily amLODIPine Besylate 10 MG Oral Tablet 1 (one) Tablet daily for 0 days Quantity: 90 {Tablet} Refills: 3 Ordered: 04-Apr-2020 Sabrina SOTELO Isa Bennett CNP, Isa Whitehead Start : 04-Apr-2020 Active Start: 07-09-2019 take 1 tablet by keo th once daily amLODIPine Besylate 10 MG Oral Tablet 1 (one) Tablet daily for 0 days Quantity: 90 {Tablet} Refills: 3 Ordered: 09-Jul-2019 Sabrina DEEPAK Isa Bennett CNP Isa Whitehead Start : 09-Jul-2019 Active Start: 06-18-2019 End: 06-18-2019 take 1 tablet by mouth once daily amLODIPine Besylate 5 MG Oral Tablet 1 (one) Tablet daily for 0 days Quantity: 30 {Tablet} Refills: 3 Ordered: 18-Jun-2019 Isa Bennett Mary Start : 18-Jun-2019 End : 18-Jun-2019 Inactive Start: 04-02-2019 take 1 tablet by keo once daily amLODIPine Besylate 5 MG Oral Tablet 1 (one) Tablet daily for 0 days Quantity: 30 {Tablet} Refills: 3 Ordered: 02-Apr-2019 Sabrina SOTELO Isa Bennett CNP, Isa Whitehead Start : 02-Apr-2019 Active Start: 11-01-2018 take 1 tablet by keo once daily AmLODIPine Besylate 5 MG Oral Tablet 1 (one) Tablet Tablet daily for 0 days Quantity: 30 {Tablet} Refills: 3 Ordered: 01-Nov-2018 Norma Rob Start : 01-Nov-2018 Active busPIRone hydrochloride 30 mg oral tablet (20 sources) Start: 09-07-2020 End: 09-20-2022 take 1 tablet by mouth twice daily busPIRone HCl 30 MG Oral Tablet 1 (one) Tablet bid for 90 days Quantity: 180 {Tablet} Refills: 0 Ordered: 07-Sep-2020 BrittanieIsa hammond Mary Start : 07-Sep-2020 End : 06-Dec-2020 Inactive Start: 08-19-2020 End: 08-31-2020 take 1 tablet by mouth twice daily busPIRone HCl 15 MG Oral Tablet 1 (one) Tablet bid for 0 days Quantity: 60 {Tablet} Refills: 3 Ordered: 31-Aug-2020 Isa Bennett Mary Start : 19-Aug-2020 End : 31-Aug-2020 Inactive Comment on above: Take 30 mg by mouth twice daily. calcium carbonate 675 mg / magnesium hydroxide 135 mg chewable tablet (20 sources) Start: 11-01-2018 take 2 tablets by mouth once daily at bedtime Rolaids Extra Strength 675-135 MG Oral Tablet Chewable 2 (two) Tablet Tablet qhs for 0 days Quantity: 30 {Tablet} Refills: 0 Ordered: 15-Nov-2018 Norma Rob CMA Start : 01-Nov-2018 Active cholecalciferol 0.125 mg oral capsule (20 sources) Vitamin D Start: 02-14-2019 End: 08-13-2020 take 1 capsule by mouth once daily Vitamin D3 125 MCG (5000 UT) Oral Capsule 1 (one) Capsule daily for 0 days Quantity: 30 {Capsule} Refills: 6 Ordered: 13-Aug-2020 Baljinder Link LPN Start : 22-Jun-2019 End : 13-Aug-2020 Inactive Start: 11-15-2018 take 1 capsule by [facility] once daily Vitamin D3 Ultra Strength 5000 UNIT Oral Capsule 1 (one) Capsule daily for 90 days Quantity: 90 {Capsule} Refills: 1 Ordered: 15-Nov-2018 Isa Bennett CNP, CNP, Isa Whitehead Start : 15-Nov-2018 Active Start: 11-04-2018 take 1 capsule by mo [facility] once daily Vitamin D3 Ultra Strength 5000 UNIT Oral Capsule 1 (one) Capsule daily for 90 days Quantity: 90 {Capsule} Refills: 1 Ordered: 04-Nov-2018 Marcia Coates DO Start : 04-Nov-2018 [facility] cholecalciferol (VITAMIN D3) 5,000 unit tab Take 5,000 Units by mouth once daily. Active Comment on above: Take 5,000 Units by mouth once daily. escitalopram 20 mg oral tablet (20 sources) Serotonin Reuptake Inhibitor Start: 07-21-2020 take 1 tablet by mouth once daily Lexapro 20 MG Oral Tablet 1 (one) Tablet daily for 0 days Quantity: 90 {Tablet} Refills: 3 Ordered: 21-Jul-2020 Isa Bennett Mary Start : 21-Jul-2020 Active Start: 06-18-2019 take 1 tablet by keo th once daily Lexapro 20 MG Oral Tablet 1 (one) Tablet daily for 0 days Quantity: 90 {Tablet} Refills: 3 Ordered: 18-Jun-2019 Isa Bennett CNP, CNP, Mary E Start : 18-Jun-2019 Active Start: 02-14-2019 take 1 tablet by keo th once daily Lexapro 20 MG Oral Tablet 1 (one) Tablet daily for 0 days Quantity: 30 {Tablet} Refills: 3 Ordered: 14-Feb-2019 Isa Bennett CNP, CNP, Mary E Start : 14-Feb-2019 Active Start: 11-01-2018 take 1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 been lashing out at family members and is frustrated with his current situation. She also mentions that he has a history of type 1 diabetes in the family, but he has not been diagnosed with type 2 diabetes. PAST MEDICAL HISTORY Diagnosis Date ADD (attention deficit disorder) ADHD (attention deficit hyperactivity disorder) Bipolar 1 disorder ([facility]) Chronic pain History of narcotic addiction ([facility]) 08/21/2023 Rheumatoid arthritis ([facility]) Current Outpatient Medications Medication Sig tirzepatide (MOUNJARO) 2.5 mg/0.5 mL pen injector Inject 2.5 mg subcutaneously one time a week. gabapentin (NEURONTIN) 600 mg tablet Take 1 tablet by mouth two times a day for 90 days. isosorbide mononitrate ER (IMDUR) 30 mg 24 hr tablet Take 1 tablet by mouth once daily. semaglutide, weight loss, (WEGOVY) 0.25 mg/0.5 mL pen injector Inject 0.5 mL subcutaneously one time a week. tirzepatide, weight loss (ZEPBOUND) 2.5 mg/0.5 mL pen injector Inject 2.5 mg subcutaneously one time a week. amphetamine-dextroamphetamin e XR (ADDERALL XR) 20 mg capsule Take 1 capsule by mouth once daily for 30 days. Patient should start on August 23, 2024. [START ON 09/22/2024] amphetamine-dextroamphetamin e XR (ADDERALL XR) 20 mg capsule Take 1 capsule by mouth once daily for 30 days. Patient should start on September 22, 2024. ALPRAZolam (XANAX) 0.5 mg tablet Take 1 tablet by mouth two times a day as needed for anxiety for up to 60 days. hydrOXYzine HCl (ATARAX) 25 mg tablet Take 1 tablet by mouth every 6 hours as needed for anxiety. sertraline (ZOLOFT) 100 mg tablet Take 1 tablet by mouth once daily. QUEtiapine (SEROQUEL) 50 mg tablet Take 1 tablet by mouth daily at bedtime. potassium chloride ER (KLOR-CON) 20 mEq tablet Take 40 mEq by mouth two times a day. furosemide (LASIX) 40 mg tablet Take 1 tablet by mouth once daily. cholecalciferol (VITAMIN D3) 5,000 unit tab Take 5,000 Units by mouth once daily. cyanocobalamin (VITAMIN B-12) 1,000 mcg tab Take 1,000 mcg by mouth once daily. pyridoxine, vitamin B6, (VITAMIN B6) 25 mg tablet Take 25 mg by mouth once daily. clopidogrel (PLAVIX) 75 mg tablet Take 75 mg by mouth once daily. metoprolol tartrate, short acting, (LOPRESSOR) 25 mg tablet Take 25 mg by mouth twice daily. aspirin, enteric coated (ASPIRIN, ENTERIC COATED) 81 mg EC tablet Take 81 mg by mouth once daily. atorvastatin (LIPITOR) 80 mg tablet Take 80 mg by mouth once daily. lisinopril (ZESTRIL, PRINIVIL) 10 mg tablet Take 10 mg by mouth twice daily. amphetamine-dextroamphetamin e XR (ADDERALL XR) (more content not included)... Normal [facility] HEMOGLOBIN A1C (POC)on 09-09 HbA1c (Bld) [Mass fraction] 5.4 % 4.3 - 5.6 % [facility] Comment on above: Location:[address], [place], [address] Point of care (POC) Hemoglobin A1c (HGBA1C) testing is intended to assess glucose control and provide a management tool for patients known to have diabetes and their healthcare providers. Target HGBA1C levels may depend on specific clinical circumstances. POC HGBA1C is not intended for use as a diagnostic or screening test; laboratory-based testing should be used for diagnostic purposes. The following information is supplemental and may not be applicable to specific diabetes management situations: The POC device precast molder provides a normal range of 4.2% to 6.5% for the HGBA1C POC test. However, the [place] [employer] guidelines indicate that patients with HGBA1C in the range of 5.7% to 6.4% are at increased risk for development of diabetes and that intervention by lifestyle modification may be beneficial. A HGBA1C level greater than or equal to 6.5% is considered diagnostic of diabetes, pending confirmatory testing. Use of HGBA1C testing to evaluate glucose control may not be appropriate for patients with hemoglobin variants or other conditions (e.g. anemia) that alter red blood cell lifespan. [facility] Latrice 08-29-2024 CNPN Telephone (INTMWS) KWAN GUZMAN ([id number]) 1975 M Date Time Provider Department 08/29/24 [facility] During your visit today, we recorded the following information about you: Silvia Omalley RN 08/29/2024 4:09 PM Signed Jasbir calling from [facility] Coding Dept regarding patient's order for a Polysomnogram, ordered by Dr. Egan. States the current 3 diagnosis on the order are not covered. Asking if pt has dx of hypersomnia or other sleep related diagnosis? Call Jasbir back at [phone], with response. JORDY Manjarrez Liza D, MD 08/29/2024 6:58 PM Signed Since when were snoring, witness sleep apnea and obesity not covered? I chose symptoms and signs that are covered for [facility] to do PSG. See if patient has daytime sleepiness. Do we have a copy of the order that [facility] uses? Joan Stakc MA 09/01/2024 9:00 AM Signed Attempted to call Jasbir. Unable to reach. Left detailed message advising senior account director these are the symptoms (snoring, witnessed apneas and obesity) that are covered for [facility] and that warrant a sleep study is necessary to rule out or be able to diagnose any sleep disorder such as hypersomia and or obstructive sleep apnea. Advised Jasbir to return call to office for clarification. YUMIKO Workman Amanda, JORDY 09/01/2024 10:11 AM Signed Jasbir at [facility] C[facility] called back and said that they follow the [facility]DC or local coverage determinations with the Medicare/Medicaid, and it doesn't cover snoring, witnessed apneas and obesity. Joan to call back. Joan Stack MA 09/01/2024 10:39 AM Signed Looked up the list on [facility] website. Medicare requires a sleep condition for coverage including 1. Narcolepsy 2. Sleep apnea 3. Impotence 4. Parasomnia With patient's witnessed apneas is sleep apnea appropriate to use as a diagnosis for an in lab PSG study? Dr. Colby please advise. Alfredo Colby MD 09/03/2024 1:14 PM Signed This looks like criteria for getting CPAP titration. We need PSG for making diagnosis of SALLY.Verify correct order went through or just give me a new order form to submit for a split night study Helen Steele LPN 09/04/2024 4:42 PM Signed Pt has appt to review the sleep issues. [facility] sleep lab reports the office note from 08/22/24 did not mention any sleep issues. Pt has appt 09/09/24 with pcp to review. Allergies As of Date: 08/29/2024 Noted Allergy Reaction ASPIRIN 02/01/2019 8 - GI Upset BUPROPION 02/01/2019 16 - Unknown PAROXETINE 02/01/2019 16 - Unknown 14 - Other: See Comments AZITHROMYCIN 08/06/2018 16 - Unknown 8 - GI Upset FLUOXETINE 05/27/2022 5 - Intolerance TOPIRAMATE 05/27/2022 5 - Intolerance Date Reviewed: 08/12/2024 Reviewed by: Jesus, Karine E, JUNIOR NETWORK ADMINISTRATOR - Fully Assessed Reason for Visit: Orders [681] Visit Diagnoses:Snoring [R06.83] Witnessed episode of apnea [R06.81] Obesity (BMI 30.0-34.9) [E66.811] Prescriptions as of 09/04/2024 - tirzepatide (MOUNJARO) 2.5 mg/0.5 mL pen injector Inject 2.5 mg subcutaneously one time a week. - gabapentin (NEURONTIN) 600 mg tablet Take 1 tablet by mouth two times a day for 90 days. - isosorbide mononitrate ER (IMDUR) 30 mg 24 hr tablet Take 1 tablet by mouth once daily. - semaglutide, weight loss, (WEGOVY) 0.25 mg/0.5 mL pen injector Inject 0.5 mL subcutaneously one time a week. - tirzepatide, weight loss (ZEPBOUND) 2.5 mg/0.5 mL pen injector Inject 2.5 mg subcutaneously one time a week. - amphetamine-dextroamphetamin e XR (ADDERALL XR) 20 mg capsule Take 1 capsule by mouth once daily for 30 days. - amphetamine-dextroamphetamin e XR (ADDERALL XR) 20 mg capsule Take 1 capsule by mouth once daily for 30 days. Patient should start on August 23, 2024. - amphetamine-dextroamphetamin e XR (ADDERALL XR) 20 mg capsule Take 1 capsule by mouth once daily for 30 days. Patient should start on September 22, 2024. - ALPRAZolam (XANAX) 0.5 mg tablet Take 1 tablet by mouth two times a day as needed for anxiety for up to 60 days. - hydrOXYzine HCl (ATARAX) 25 mg tablet Take 1 tablet by mouth every 6 hours as needed for anxiety. - sertraline (ZOLOFT) 100 mg tablet Take 1 tablet by mouth once daily. - QUEtiapine (SEROQUEL) 50 mg tablet Take 1 tablet by mouth daily at bedtime. - potassium chloride ER (KLOR-CON) 20 mEq tablet Take 40 mEq by mouth two times a day. - furosemide (LASIX) 40 mg tablet Take 1 tablet by mouth once daily. - cholecalciferol (VITAMIN D3) 5,000 unit tab Take 5,000 Units by mouth once daily. - cyanocobalamin (VITAMIN B-12) 1,000 mcg tab Take 1,000 mcg by mouth once daily. - pyridoxine, vitamin B6, (VITAMIN B6) 25 mg tablet Take 25 mg by mouth once daily. - clopidogrel (PLAVIX) 75 mg tablet Take 75 mg by mouth once daily. - metoprolol tartrate, short acting, (LOPRESSOR) 25 mg tablet Take 25 mg by mouth twice daily. (more content not included)... [facility] GU[facility] ([id number]) 1975 M Date Time Provider Department 08/15/24 ALFREDO COLBY INTWS During your visit today, we recorded the following information about you: Silvia Omalley RN 08/15/2024 1:08 PM Signed [facility] calling for medication related question related to patient. Information discussed. Silvia Omalley RN Allergies As of Date: 08/15/2024 Noted Allergy Reaction ASPIRIN 02/01/2019 8 - GI Upset BUPROPION 02/01/2019 16 - Unknown PAROXETINE 02/01/2019 16 - Unknown 14 - Other: See Comments AZITHROMYCIN 08/06/2018 16 - Unknown 8 - GI Upset FLUOXETINE 05/27/2022 5 - Intolerance TOPIRAMATE 05/27/2022 5 - Intolerance Date Reviewed: 08/12/2024 Reviewed by: Karine Lee LPN - Fully Assessed Reason for Visit: Pharmacy Call [Other] Prescriptions as of 08/15/2024 - gabapentin (NEURONTIN) 600 mg tablet Take 1 tablet by mouth two times a day for 90 days. - isosorbide mononitrate ER (IMDUR) 30 mg 24 hr tablet Take 1 tablet by mouth once daily. - semaglutide, weight loss, (WEGOVY) 0.25 mg/0.5 mL pen injector Inject 0.5 mL subcutaneously one time a week. - tirzepatide, weight loss (ZEPBOUND) 2.5 mg/0.5 mL pen injector Inject 2.5 mg subcutaneously one time a week. - amphetamine-dextroamphetamin e XR (ADDERALL XR) 20 mg capsule Take 1 capsule by mouth once daily for 30 days. - amphetamine-dextroamphetamin e XR (ADDERALL XR) 20 mg capsule Take 1 capsule by mouth once daily for 30 days. Patient should start on August 23, 2024. - amphetamine-dextroamphetamin e XR (ADDERALL XR) 20 mg capsule Take 1 capsule by mouth once daily for 30 days. Patient should start on September 22, 2024. - ALPRAZolam (XANAX) 0.5 mg tablet Take 1 tablet by mouth two times a day as needed for anxiety for up to 60 days. - hydrOXYzine HCl (ATARAX) 25 mg tablet Take 1 tablet by mouth every 6 hours as needed for anxiety. - sertraline (ZOLOFT) 100 mg tablet Take 1 tablet by mouth once daily. - QUEtiapine (SEROQUEL) 50 mg tablet Take 1 tablet by mouth daily at bedtime. - potassium chloride ER (KLOR-CON) 20 mEq tablet Take 40 mEq by mouth two times a day. - furosemide (LASIX) 40 mg tablet Take 1 tablet by mouth once daily. - cholecalciferol (VITAMIN D3) 5,000 unit tab Take 5,000 Units by mouth once daily. - cyanocobalamin (VITAMIN B-12) 1,000 mcg tab Take 1,000 mcg by mouth once daily. - pyridoxine, vitamin B6, (VITAMIN B6) 25 mg tablet Take 25 mg by mouth once daily. - clopidogrel (PLAVIX) 75 mg tablet Take 75 mg by mouth once daily. - metoprolol tartrate, short acting, (LOPRESSOR) 25 mg tablet Take 25 mg by mouth twice daily. - aspirin, enteric coated (ASPIRIN, ENTERIC COATED) 81 mg EC tablet Take 81 mg by mouth once daily. - atorvastatin (LIPITOR) 80 mg tablet Take 80 mg by mouth once daily. - lisinopril (ZESTRIL, PRINIVIL) 10 mg tablet Take 10 mg by mouth twice daily. 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.A*09/20/2022 Other hyperlipidemia [E78.49] 09/20/2022 Adult ADHD [F90.9] 09/20/2022 Bipolar 1 disorder (HCC) [F31.9] 09/20/2022 History of narcotic addiction (HCC) [F11.21] 08/21/2023 12/04/2023 Encounter Status:Closed by SILVIA OMALLEY on 08/15/24 [facility] CNPNon 08-13-2024 CNPN Telephone (INTMWS) KWAN GUZMAN ([id number]) 1975 M Date Time Provider Department 08/13/24 ALFREDO COLBY INTMWS During your visit today, we recorded the following information about you: Jackie Middleton, JORDY 08/13/2024 12:41 PM Signed Patient calls to report that Zepbound can be approved if provider adds a diagnosis of sleep apnea to orders and refaxes the orders to [facility]. I do not see a diagnosis of sleep apnea on current problem list but patient reports he definitely has it. Medication not pended. Please review and advise, JORDY Doty Stephanie, RN 08/13/2024 1:07 PM Signed Patient's significant other Liza calls and states that she has filed appeal for medication and provider should be receiving this appeal via fax. Liza reports that patient does have sleep apnea because she has to hit him at night when he stops breathing. Advised Liza that we do not have diagnosis of this and asked if patient has ever had a sleep study done. Liza reports that patient had one done in [place] but does not remember where it was done at. Advised that patient may have to get sleep study done to have that diagnosis put on patient's chart. Liza reports that patient has been following a reduced calorie diet as well as following exercise plan. Liza was advised that should be put on paperwork as well. JORDY Douglas Janice, JUNITO 08/13/2024 2:33 PM Signed PA completed for zepbound. This is closed. Says duplicate. PA for wegovy was completed and denied. Again see pts request regarding dx of SALLY Note from payer: CaseId:[id number];Status:Denie d;Review Type:Prior Auth;Appeal Information: Attention:ATTN: MEDICARE CLINICAL APPEALS [employer] [address] [address],[place], [place],[address] WebAddress:[email or web address]; Important - Please read the below note on eAppeals: Please reference the denial letter for information on the rights for an appeal, rationale for the denial, and how to submit an appeal including if any information is needed to support the appeal. Note about urgent situations - Generally, an urgent situation is one which, in the opinion of the provider, the health of the patient may be in serious jeopardy or may experience pain that cannot be adequately controlled while waiting for a decision on the appeal.; Payer: [employer] [phone] Electronic appeal: Supported View History Notes Time User Attachment Attachment received from payer. 08/13/2024 2:28 PM [facility], Rx Priorauth In Document Medication Being Authorized semaglutide, weight loss, (WEGOVY) 0.25 mg/0.5 mL pen injector Inject 0.5 mL subcutaneously one time a week. Dispense: 2 mL Refills: 0 Start: 08/12/2024 Class: Normal Diagnoses: Class 1 obesity due to excess calories with serious comorbidity and body mass index (BMI) of 33.0 to 33.9 in adult This order has been released to its destination. To be filled at: [address] [address] [facility] [phone] [id number] Alfredo Colby MD 08/19/2024 12:24 AM Signed When iMkaela saw patient on 01/05/2023, she documented that sleep study was not done due to COVID. He had HSAT that was negative but with his symptoms, he was supposed to have a PSG. I cannot give diagnosis SALLY based on history of witnessed apnea, but the history goes towards getting PSG covered. Plus treating SALLY would help with weight loss. See if he wants to pursue PSG (not HST since was negative before per history of patient). Ebony Yeboah LPN 08/19/2024 9:21 AM Signed Spoke with Edel and she states in order for Zepbound to be covered he would have to have a dx of SALLY and so patient is willing to complete a PSG. Would like to complete this through [facility] Sleep lab. Insurance is telling her that the dr office should know which GLP1 is covered by his insurance for weight loss and would not give her the name of the covered medication. Explain to Edel that we have no idea what is a covered medication for weight loss. Edel asked if provider would be willing to prescribe mounjaro to see if that would be covered by insurance until sleep study can be completed? Alfredo Colby MD 08/20/2024 3:20 PM Signed 1) Filed order for PSG, but will need to complete the form from [facility] to fax to then for PSG, Information on PSG order should be used for [facility] order. Would have it read by Dr. Tavarez. 2) They will have same problem with insurance not covering Mounjaro since he is not diabetic. If they want to pay out of pocket can see if there is a difference in gabriel between Mounjaro and Zepbound. The following approved medication requests have been transmitted electronically. Requested Prescriptions Signed Prescriptions Disp Refills tirzepatide (MOUNJARO) 2.5 mg/0.5 mL pen inj (more content not included)... Normal [facility] CNOVon 08-12-2024 CNOV Office Visit (INTMWS ) KWAN GUZMAN ([id number]) 1975 M Date Time Provider Department 08/12/24 8:40 AM ALFREDO COLBY INTMWS During your visit today, we recorded the following information about you: Temperature Pulse Respiration Blood pressure 97.8 degrees 81/minute 18/minute 126/76 Weight 140.9 kg Alfredo Colby MD 08/22/2024 12:35 AM Signed This note was created using [employer]. Subjective Kwan Guzman is a 49 year old male. Patient presents with: Established Patient: Discuss weight loss options SUBJECTIVE: Kwan Guzman is a 49 year old year old gentleman here today for follow up appointment for review of medical conditions and discuss weight loss options. Kwan Guzman is a 49-year-old male with a history of obesity, chronic back pain, and right-sided sciatica, presenting for weight loss management and evaluation after two falls on ice yesterday. Kwan is requesting to restart Mounjaro for weight loss management. He was previously on the medication last year, which was effective in weight reduction and well-tolerated without adverse effects. However, he discontinued it due to insurance coverage issues and subsequently regained 90 lbs. His current insurance now covers Mounjaro under tier 3, necessitating a prior authorization. He reports significant weight gain and increased appetite since discontinuing the medication. He has already made dietary changes, including eliminating soda and incorporating protein powder into his water. He consumes a whole chicken daily for protein intake. Kwan also reports generalized soreness after two falls on ice yesterday around 1300 while bringing garbage cans up his driveway. He was wearing Crocs at the time. During the first fall, he did the splits and initially thought he had torn his ACLs. In the second fall, he landed on his back. He describes the soreness as similar to post-football practice soreness, stating, I can't walk. He landed on his side, buttocks, and back during the falls. He has been using a heating pad and plans to take an ice bath for relief. He denies current use of ibuprofen due to past overuse, stating, I used to take 8 of those every 4 hours. Kwan inquires about eligibility for a steroid injection for his right-sided sciatica, which he previously deferred due to receiving flu and COVID-19 vaccinations. He has a history of chronic back pain and right-sided sciatica, attributed to lumbar disc issues and cartilage degeneration. He also has bilateral knee osteoarthritis, with [id number] contact, and is a candidate for double knee replacement, which he has been postponing. He attributes his musculoskeletal issues to a history of playing multiple sports, including football and basketball, from ages 6 to 19, and continuing football and basketball in college. He states, I put it through really, really bad situations. And it's all my fault, I got nobody to blame but myself. Kwan is currently taking alprazolam and hydroxyzine on an as-needed basis, and is due for refills of gabapentin and Imdur. He had a colonoscopy last year, which was unremarkable, and is scheduled for a prostate examination. PAST MEDICAL HISTORY Diagnosis Date ADD (attention deficit disorder) ADHD (attention deficit hyperactivity disorder) Bipolar 1 disorder (HCC) Chronic pain History of narcotic addiction (HCC) Rheumatoid arthritis (HCC) Current Outpatient Medications Medication Sig amphetamine-dextroamphetamin e XR (ADDERALL XR) 20 mg capsule Take 1 capsule by mouth once daily for 30 days. [START ON 08/23/2024] amphetamine-dextroamphetamin e XR (ADDERALL XR) 20 mg capsule Take 1 capsule by mouth once daily for 30 days. Patient should start on August 23, 2024. [START ON 09/22/2024] amphetamine-dextroamphetamin e XR (ADDERALL XR) 20 mg capsule Take 1 capsule by mouth once daily for 30 days. Patient should start on September 22, 2024. ALPRAZolam (XANAX) 0.5 mg tablet Take 1 tablet by mouth two times a day as needed for anxiety for up to 60 days. hydrOXYzine HCl (ATARAX) 25 mg tablet Take 1 tablet by mouth every 6 hours as needed for anxiety. sertraline (ZOLOFT) 100 mg tablet Take 1 tablet by mouth once daily. QUEtiapine (SEROQUEL) 50 mg tablet Take 1 tablet by mouth daily at bedtime. gabapentin (NEURONTIN) 600 mg tablet Take 1 tablet by mouth two times a day for 90 days. potassium chloride ER (KLOR-CON) 20 mEq tablet Take 40 mEq by mouth two times a day. furosemide (LASIX) 40 mg tablet Take 1 tablet by mouth once daily. isosorbide mononitrate ER (IMDUR) 30 mg 24 hr tablet Take 1 tablet by mouth once daily. cholecalciferol (VITAMIN D3) 5,000 unit tab Take 5,000 Units by mouth once daily. cyanocobalamin (VITAMIN B-12) 1,000 mcg tab Take 1,000 mcg by mouth once daily. pyridoxine, vitamin B6, (VITAMIN B6) 25 mg tablet Take 25 mg by keo (more content not included)... Normal [facility] 08-12-2024 [facility] Telephone (INTMWS) KWAN GUZMAN ([id number]) 1975 M Date Time Provider Department 08/12/24 ALFREDO COLBY INTWS During your visit today, we recorded the following information about you: Meaghan Marshall MA 08/12/2024 3:00 PM Signed PA was denied for Mounjaro due to not FDA approved for weight loss only type 2 diabetic with A1C 6.5 higher. Spoke to partner who advised patient is upset and explained that certain GPL-1 like mounjaro are not approved for weight loss with FDA so any diagnosis but diabetes will be denied. Approved alternatives for weight loss wegovy and zepbound can be tried and see if covered. Please send other 2 to see if PA can be approved YUMIKO Mcclure Liza D, MD 08/12/2024 4:24 PM Signed The following approved medication requests have been transmitted electronically. Requested Prescriptions Signed Prescriptions Disp Refills semaglutide, weight loss, (WEGOVY) 0.25 mg/0.5 mL pen injector 2 mL 0 Sig: Inject 0.5 mL subcutaneously one time a week. Authorizing Provider: ALFREDO COLBY tirzepatide, weight loss (ZEPBOUND) 2.5 mg/0.5 mL pen injector 2 mL 0 Sig: Inject 2.5 mg subcutaneously one time a week. Authorizing Provider: ALFREDO COLBY MD Below noted Sent both through with note to pharmacy that wanting to run both through to see if either covered for weight loss and if both are, prefers Zepbound Allergies As of Date: 08/12/2024 Noted Allergy Reaction ASPIRIN 02/01/2019 8 - GI Upset BUPROPION 02/01/2019 16 - Unknown PAROXETINE 02/01/2019 16 - Unknown 14 - Other: See Comments AZITHROMYCIN 08/06/2018 16 - Unknown 8 - GI Upset FLUOXETINE 05/27/2022 5 - Intolerance TOPIRAMATE 05/27/2022 5 - Intolerance Date Reviewed: 08/12/2024 Reviewed by: Karine Lee LPN - Fully Assessed Reason for Visit: Insurance Authorization [2163] Cmt: Hyacinth Primary Visit Diagnosis:Class 1 obesity due to excess calories with serious comorbidity and body mass index (BMI) of 33.0 to 33.9 in adult [E66.811, E66.09, Z68.33] Order(s):semaglutide, weight loss, (WEGOVY) 0.25 mg/0.5 mL pen injectorInject 0.5 mL subcutaneously one time a week.Disp: 2 mLRfl: 0 tirzepatide, weight loss (ZEPBOUND) 2.5 mg/0.5 mL pen injectorInject 2.5 mg subcutaneously one time a week.Disp: 2 mLRfl: 0 Prescriptions as of 08/13/2024 - gabapentin (NEURONTIN) 600 mg tablet Take 1 tablet by mouth two times a day for 90 days. - isosorbide mononitrate ER (IMDUR) 30 mg 24 hr tablet Take 1 tablet by mouth once daily. - semaglutide, weight loss, (WEGOVY) 0.25 mg/0.5 mL pen injector Inject 0.5 mL subcutaneously one time a week. - tirzepatide, weight loss (ZEPBOUND) 2.5 mg/0.5 mL pen injector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 [address] [place] [address] Performed By: #### 2 4323-8, ####[facility] LABCLIA [id number] [place] [address] [place] Anion gap [Moles/Vol] 15 mmol/L Normal 8-15 [facility] Comment on above: Order Comment: Specimen Type: BLOOD SPEC IMENOrdering Facility: [facility] Address: [address] [place] [address] Performed By: #### 2 4323-8, ####[facility] LABCLIA [id number] [place] [address] [place] AST [Catalytic activity/Vol] 31 U/L Normal 14-40 [facility] Comment on above: Order Comment: Specimen Type: BLOOD SPEC IMENOrdering Facility: [facility] Address: [address] [place] [address] Performed By: #### 2 4323-8, ####[facility] LABCLIA [id number] [place] [address] [place] Bilirubin [Mass/Vol] 0.6 mg/dL Normal 0.2-1.3 [facility] Comment on above: Order Comment: Specimen Type: BLOOD SPEC IMENOrdering Facility: [facility] Address: [address] [place] [address] Performed By: #### 2 4323-8, ####[facility] LABCLIA [id number] [place] [address] [place] Calcium [Mass/Vol] 9.1 mg/dL Normal 8.5-10.2 [facility] Comment on above: Order Comment: Specimen Type: BLOOD SPEC IMENOrdering Facility: [facility] Address: [address] [place] [id number] Performed By: #### 2 4323-8, ####[facility] LABCLIA [id number] [place] [address] [place] Chloride [Moles/Vol] 101 mmol/L Normal 98-107 [facility] Comment on above: Order Comment: Specimen Type: BLOOD SPEC IMENOrdering Facility: [facility] Address: [address] [place], [place] [address] Performed By: #### 2 4323-8, 85914-4 ####[facility] LABIA [id number] [place] [id number] [place] CO2 [Moles/Vol] 23 mmol/L Normal 22-30 [facility] Comment on above: Order Comment: Specimen Type: BLOOD SPEC IMENOrdering Facility: [facility] Address: [address] [place] [address] Performed By: #### 2 4323-8, ####[facility] LABIA [id number] [place] [address] [place] Creatinine [Mass/Vol] 0.77 mg/dL Normal 0.73-1.22 [facility] Comment on above: Order Comment: Specimen Type: BLOOD SPEC IMENOrdering Facility: [facility] Address: [address] [place] [address] Performed By: #### 2 4323-8, ####[facility] LABIA [id number] [place] [address] [place] Creatinine and Glomerular filtration rate.predicted panel (S/P/Bld) 111 mL/min/1.73m??? Normal >=60 [facility] Comment on above: Order Comment: Specimen Type: BLOOD SPEC IMENOrdering Facility: [facility] Address: [address] [place] [address] Result Comment: Areli mated Glomerular Filtration Rate (eGFR) is calculated using the 2020 CKD-EPI creatinine equation. This equation utilizes serum creatinine, sex, and age as parameters. The creatinine assay has traceable calibration to isotope dilution-mass spectrometry. Refer to KDIGO guidelines for clinical interpretation. In patients with unstable renal function, e.g. those with acute kidney injury, the eGFR may not accurately reflect actual GFR. Performed By: #### 2 4323-8, 48077-8 ####[facility] LABIA [id number] [place] [id number] [place] Glucose [Mass/Vol] 103 mg/dL High 74-99 [facility] Comment on above: Order Comment: Specimen Type: BLOOD SPEC IMENOrdering Facility: [facility] Address: [address] [place] [address] Result Comment: The [place] Diabetes Association (ADA) provides guidance for cutoff values for fasting glucose and random glucose. The ADA defines fasting as no caloric intake for at least 8 hours. Fasting plasma glucose results between 100 to 125 mg/dL indicate increased risk for diabetes (prediabetes). Fasting plasma glucose results greater than or equal to 126 mg/dL meet the criteria for diagnosis of diabetes. In the absence of unequivocal hyperglycemia, results should be confirmed by repeat testing. In a patient with classic symptoms of hyperglycemia or hyperglycemic crisis, random plasma glucose results greater than or equal to 200 mg/dL meet the criteria for diagnosis of diabetes. Reference: Standards of Medical Care in Diabetes 2016, [place] [employer] Association. Diabetes Care. 2016.39(Suppl 1). Performed By: #### 2 4323-8, ####[facility] LABCLIA [id number] [place] [address] [place] Potassium [Moles/Vol] 3.3 mmol/L Low 3.7-5.1 [facility] Comment on above: Order Comment: Specimen Type: BLOOD SPEC IMENOrdering Facility: [facility] Address: [address] [place] [address] Performed By: #### 2 4323-8, ####[facility] LABCLIA [id number] [place] [address] [place] Protein [Mass/Vol] 7.5 g/dL Normal 6.3-8.0 [facility] Comment on above: Order Comment: Specimen Type: BLOOD SPEC IMENOrdering Facility: [facility] Address: [address] [place] [address] Performed By: #### 2 4323-8, ####[facility] LABCLIA [id number] [place] [address] [place] Sodium [Moles/Vol] 139 mmol/L Normal 136-144 [facility] Comment on above: Order Comment: Specimen Type: BLOOD SPEC IMENOrdering Facility: [facility] Address: [address] [place] [address] Performed By: #### 2 4323-8, ####[facility] LABCLIA [id number] [place] [address] [place] Urea nitrogen [Mass/Vol] 8 mg/dL Low 04-22 [facility] Comment on above: Order Comment: Specimen Type: BLOOD SPEC IMENOrdering Facility: [facility] Address: [address] [place] [address] Performed By: #### 2 4323-8, ####[facility] LABCLIA [id number] [place] [address] [place] Magnesium SerPl-mCncon 05-13 Magnesium [Mass/Vol] 2.4 mg/dL High 1.7-2.3 [facility] Comment on above: Order Comment: Specimen Type: BLOOD SPEC IMENOrdering Facility: [facility] Address: [address] [place] [address] Performed By: #### 2 4323-8, ####[facility] LABCLIA [id number] [place] [address] [place] Latrice 05-09-2024 CNPN Telephone (INTMWS) KWAN GUZMAN ([id number]) 1975 M Date Time Provider Department 05/09/24 ALFREDO COLBY INTWS During your visit today, we recorded the following information about you: Melissa Solis LPN 05/09/2024 2:10 PM Signed Pharmacy calling, they received the Ozempic prescription however what was ordered was for it be compounded with the cyanocobalamin. They are not able to do a compound prescription. Asking if provider wants just the regular Ozempic. Please advise. Mikaela Spann APRN.CNP 05/12/2024 1:57 PM Signed He was getting this compounded, can check with him at appointment tomorrow if still getting this from compounding pharmacy. Allergies As of Date: 05/09/2024 Noted Allergy Reaction ASPIRIN 02/01/2019 8 - GI Upset BUPROPION 02/01/2019 16 - Unknown PAROXETINE 02/01/2019 16 - Unknown 14 - Other: See Comments AZITHROMYCIN 08/06/2018 16 - Unknown 8 - GI Upset FLUOXETINE 05/27/2022 5 - Intolerance TOPIRAMATE 05/27/2022 5 - Intolerance Date Reviewed: 04/15/2024 Reviewed by: Mikaela Spann APRN.DIRECTOR OF NATIONAL SALES - Fully Assessed Reason for Visit: Medication Problem [65] Cmt: Prescriptions as of 05/12/2024 - ALPRAZolam (XANAX) 0.5 mg tablet Take 1 tablet by mouth two times a day as needed for anxiety for up to 30 days. - sertraline (ZOLOFT) 100 mg tablet Take 1 tablet by mouth once daily. - QUEtiapine (SEROQUEL) 50 mg tablet Take 1 tablet by mouth daily at bedtime. - hydrOXYzine HCl (ATARAX) 25 mg tablet Take 1 tablet by mouth every 6 hours as needed for anxiety. - semaglutide (OZEMPIC) 0.25 mg or 0.5 mg (2 mg/3 mL) pen Inject 0.5 mg subcutaneously one time a week. Compounded with cyanocobalamin 2 mg-0.4 mg/ml - gabapentin (NEURONTIN) 600 mg tablet Take 1 tablet by mouth two times a day for 90 days. - amphetamine-dextroamphetamin e XR (ADDERALL XR) 20 mg capsule Take 1 capsule by mouth once daily for 30 days. - potassium chloride ER (KLOR-CON) 20 mEq tablet Take 20 mEq by mouth two times a day. - furosemide (LASIX) 40 mg tablet Take 1 tablet by mouth once daily. - isosorbide mononitrate ER (IMDUR) 30 mg 24 hr tablet Take 1 tablet by mouth once daily. - cholecalciferol (VITAMIN D3) 5,000 unit tab Take 5,000 Units by mouth once daily. - cyanocobalamin (VITAMIN B-12) 1,000 mcg tab Take 1,000 mcg by mouth once daily. - pyridoxine, vitamin B6, (VITAMIN B6) 25 mg tablet Take 25 mg by mouth once daily. - clopidogrel (PLAVIX) 75 mg tablet Take 75 mg by mouth once daily. - metoprolol tartrate, short acting, (LOPRESSOR) 25 mg tablet Take 25 mg by mouth twice daily. - aspirin, enteric coated (ASPIRIN, ENTERIC COATED) 81 mg EC tablet Take 81 mg by mouth once daily. - atorvastatin (LIPITOR) 80 mg tablet Take 80 mg by mouth once daily. - lisinopril (ZESTRIL, PRINIVIL) 10 mg tablet Take 10 mg by mouth twice daily. 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*09/20/2022 Other hyperlipidemia [E78.49] 09/20/2022 Adult ADHD [F90.9] 09/20/2022 Bipolar 1 disorder (HCC) [F31.9] 09/20/2022 History of narcotic addiction (HCC) [F11.21] 08/21/2023 12/04/2023 Encounter Status:Closed by MIKAELA SPANN on 05/12/24 [facility] CNOVon 04-15-2024 CNOV Office Visit (PSWSTR ) KWAN GUZMAN ([id number]) 1975 M Date Time Provider Department 04/15/24 4:00 PM KRYSTIN JAIMES PSWSTR During your visit today, we recorded the following information about you: Krystin Jaimes APRN.CNP 04/15/2024 4:13 PM Signed Patient did not come in for his appointment with the provider today for an initial evaluation. Referring Provider: MIKAELA SPANN [[id number]] Allergies As of Date: 04/15/2024 Noted Allergy Reaction ASPIRIN 02/01/2019 8 - GI Upset BUPROPION 02/01/2019 16 - Unknown PAROXETINE 02/01/2019 16 - Unknown 14 - Other: See Comments AZITHROMYCIN 08/06/2018 16 - Unknown 8 - GI Upset FLUOXETINE 05/27/2022 5 - Intolerance TOPIRAMATE 05/27/2022 5 - Intolerance Date Reviewed: 04/15/2024 Reviewed by: Mikaela Spann APRN.DIRECTOR OF [employer]ATIONAL SALES - Fully Assessed Reason for Visit: No Show [1558] Primary Visit Diagnosis:NO SHOW Order(s):CONSULT TO PSYCHIATRY [9035] Order #: [id number]: 1 Prescriptions as of 04/15/2024 - gabapentin (NEURONTIN) 600 mg tablet Take 1 tablet by mouth two times a day for 90 days. - amphetamine-dextroamphetamin e XR (ADDERALL XR) 20 mg capsule Take 1 capsule by mouth once daily for 30 days. - semaglutide (OZEMPIC) 0.25 mg or 0.5 mg (2 mg/3 mL) pen Inject 0.5 mg subcutaneously one time a week. Compounded with cyanocobalamin 2 mg-0.4 mg/ml - hydrOXYzine HCl (ATARAX) 25 mg tablet Take 1 tablet by mouth every 6 hours as needed for anxiety. - sertraline (ZOLOFT) 100 mg tablet Take 1 tablet by mouth once daily. - QUEtiapine (SEROQUEL) 50 mg tablet Take 1 tablet by mouth daily at bedtime. - potassium chloride ER (KLOR-CON) 20 mEq tablet Take 20 mEq by mouth two times a day. - furosemide (LASIX) 40 mg tablet Take 1 tablet by mouth once daily. - isosorbide mononitrate ER (IMDUR) 30 mg 24 hr tablet Take 1 tablet by mouth once daily. - cholecalciferol (VITAMIN D3) 5,000 unit tab Take 5,000 Units by mouth once daily. - cyanocobalamin (VITAMIN B-12) 1,000 mcg tab Take 1,000 mcg by mouth once daily. - pyridoxine, vitamin B6, (VITAMIN B6) 25 mg tablet Take 25 mg by mouth once daily. - clopidogrel (PLAVIX) 75 mg tablet Take 75 mg by mouth once daily. - metoprolol tartrate, short acting, (LOPRESSOR) 25 mg tablet Take 25 mg by mouth twice daily. - aspirin, enteric coated (ASPIRIN, ENTERIC COATED) 81 mg EC tablet Take 81 mg by mouth once daily. - atorvastatin (LIPITOR) 80 mg tablet Take 80 mg by mouth once daily. - lisinopril (ZESTRIL, PRINIVIL) 10 mg tablet Take 10 mg by mouth twice daily. 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 [F32.A*09/20/2022 Other hyperlipidemia [E78.49] 09/20/2022 Adult ADHD [F90.9] 09/20/2022 Bipolar 1 disorder (HCC) [F31.9] 09/20/2022 History of narcotic addiction (HCC) [F11.21] 08/21/2023 12/04/2023 Encounter Status:Closed by KRYSTIN JAIMES on 04/15/24 [facility] Office Visit (INTMWS ) KWAN GUZMAN ([id number]) 1975 M Date Time Provider Department 04/15/24 2:40 PM MIKAELA SPANN INTMWS During your visit today, we recorded the following information about you: Temperature Pulse Blood pressure 98 degrees 102/minute 102/74 Miakela Spann APRN.DIRECTOR OF NATIONAL SALES 04/15/2024 2:49 PM Signed SUBJECTIVE Kwan Guzman is a 48 year old male here today for acute concern. Chief Complaint Patient presents with: Fatigue: states has been doing a lot sleeping since Sunday states he is achy all over headache Back Pain: sciatica pain right side being less active makes no difference with the pain HPI Kwan Guzman is a 48 year old male. He is an established patient of Alfredo Colby MD. Here today acutely for concern of not feeling great. Tired, sleeping a lot. Body aches. Onset on Sunday or Sunday. No appetite. Just not feeling well. He also notes that he is still with back pain issues. Low back pain was exacerbated after over doing it about 2 weeks ago. He has tried things such as rest, heat, NSAIDs, norco. Still with pain. Denies numbness, tingling, weakness, saddle paresthesia and bowel or bladder difficulties/leaking/loss of control. His medications were reviewed today and his list is now up to date. Medications Current Outpatient Medications Medication Sig gabapentin (NEURONTIN) 600 mg tablet Take 1 tablet by mouth two times a day for 90 days. amphetamine-dextroamphetamin e XR (ADDERALL XR) 20 mg capsule Take 1 capsule by mouth once daily for 30 days. semaglutide (OZEMPIC) 0.25 mg or 0.5 mg (2 mg/3 mL) pen Inject 0.5 mg subcutaneously one time a week. Compounded with cyanocobalamin 2 mg-0.4 mg/ml hydrOXYzine HCl (ATARAX) 25 mg tablet Take 1 tablet by mouth every 6 hours as needed for anxiety. sertraline (ZOLOFT) 100 mg tablet Take 1 tablet by mouth once daily. QUEtiapine (SEROQUEL) 50 mg tablet Take 1 tablet by mouth daily at bedtime. potassium chloride ER (KLOR-CON) 20 mEq tablet Take 20 mEq by mouth two times a day. furosemide (LASIX) 40 mg tablet Take 1 tablet by mouth once daily. isosorbide mononitrate ER (IMDUR) 30 mg 24 hr tablet Take 1 tablet by mouth once daily. cholecalciferol (VITAMIN D3) 5,000 unit tab Take 5,000 Units by mouth once daily. cyanocobalamin (VITAMIN B-12) 1,000 mcg tab Take 1,000 mcg by mouth once daily. pyridoxine, vitamin B6, (VITAMIN B6) 25 mg tablet Take 25 mg by mouth once daily. clopidogrel (PLAVIX) 75 mg tablet Take 75 mg by mouth once daily. metoprolol tartrate, short acting, (LOPRESSOR) 25 mg tablet Take 25 mg by mouth twice daily. aspirin, enteric coated (ASPIRIN, ENTERIC COATED) 81 mg EC tablet Take 81 mg by mouth once daily. atorvastatin (LIPITOR) 80 mg tablet Take 80 mg by mouth once daily. lisinopril (ZESTRIL, PRINIVIL) 10 mg tablet Take 10 mg by mouth twice daily. No current facility-administered medications for this visit. 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 Respiratory: Negative. Cardiovascular: Negative. Musculoskeletal: Positive for arthralgias and back pain. OBJECTIVE BP 102/74 Pulse 102 Temp (Src) 98 (Tympanic) SpO2 98% Physical Exam Vitals and nursing note reviewed. Constitutional: General: He is awake. He is not in acute distress. Appearance: Normal appearance. He is well-developed and well-groomed. He is ill-appearing. He is not toxic-appearing or diaphoretic. HENT: Head: Normocephalic. Right Ear: External ear normal. Left Ear: External ear normal. Nose: Nose normal. Eyes: General: Vision grossly intact. Conjunctiva/sclera: Conjunctivae normal. Pupils: Pupils are equal, round, and reactive to light. Neck: Vascular: No JVD. Trachea: Trachea normal. Cardiovascular: Rate and Rhythm: Normal rate and regular rhythm. Pulses: Normal pulses. Heart sounds: Normal heart sounds. No murmur heard. Pulmonary: Effort: Pulmonary effort is normal. No accessory muscle usage, prolonged expiration or respiratory distress. Breath sounds: Normal breath sounds. Musculoskeletal: Cervical back: Neck sup (more content not included)... Normal [facility] COVID AND INFLUENZA A/B AND RSV PCR, ROUTINEon 04-15-2024 SARS-CoV-2 (COVID-19) RNA MIKEL+probe Ql (Unsp spec) SARS-COV-2 (AGENT OF COVID-19) RNA: Not detected INFLUENZA A RNA: Not detected INFLUENZA B RNA: Not detected RESPIRATORY SYNCYTIAL VIRUS (RSV) RNA: Not detected Normal [facility] Comment on above: Performed By: #### CVFLRS ####[facility] LABCLIA [id number] [address] CNOVon 04-02-2024 CNOV Office Visit (INTMWS ) KWAN GUZMAN ([id number]) 1975 M Date Time Provider Department 04/02/24 1:40 PM MIKAELA SPANN INTMWS During your visit today, we recorded the following information about you: Pulse Blood pressure 101/minute 117/82 Mikaela Spann APRN.DIRECTOR OF NATIONAL SALES 04/02/2024 2:02 PM Signed SUBJECTIVE Kwan Guzman is a 48 year old male here today for acute concerns. Chief Complaint Patient presents with: Back Pain HPI Kwan Guzman is a 48 year old male. He is an established patient. Here today for continued acute concerns of back pain. Was seen with EC 03/28 and started on prednisone taper but made him too manic. Onset for the pain was last week, moved recently and admits he over did it. Tried sitting in the hot tub, rest, ibuprofen. Did not help much. Denies any current issues with numbness, tingling, weakness, saddle paresthesia and bowel or bladder difficulties/leaking/loss of control. His medications were reviewed today and his list is now up to date. Medications Current Outpatient Medications Medication Sig gabapentin (NEURONTIN) 600 mg tablet Take 1 tablet by mouth two times a day for 90 days. amphetamine-dextroamphetamin e XR (ADDERALL XR) 20 mg capsule Take 1 capsule by mouth once daily for 30 days. semaglutide (OZEMPIC) 0.25 mg or 0.5 mg (2 mg/3 mL) pen Inject 0.5 mg subcutaneously one time a week. Compounded with cyanocobalamin 2 mg-0.4 mg/ml hydrOXYzine HCl (ATARAX) 25 mg tablet Take 1 tablet by mouth every 6 hours as needed for anxiety. sertraline (ZOLOFT) 100 mg tablet Take 1 tablet by mouth once daily. QUEtiapine (SEROQUEL) 50 mg tablet Take 1 tablet by mouth daily at bedtime. potassium chloride ER (KLOR-CON) 20 mEq tablet Take 20 mEq by mouth two times a day. furosemide (LASIX) 40 mg tablet Take 1 tablet by mouth once daily. cholecalciferol (VITAMIN D3) 5,000 unit tab Take 5,000 Units by mouth once daily. cyanocobalamin (VITAMIN B-12) 1,000 mcg tab Take 1,000 mcg by mouth once daily. pyridoxine, vitamin B6, (VITAMIN B6) 25 mg tablet Take 25 mg by mouth once daily. clopidogrel (PLAVIX) 75 mg tablet Take 75 mg by mouth once daily. metoprolol tartrate, short acting, (LOPRESSOR) 25 mg tablet Take 25 mg by mouth twice daily. aspirin, enteric coated (ASPIRIN, ENTERIC COATED) 81 mg EC tablet Take 81 mg by mouth once daily. atorvastatin (LIPITOR) 80 mg tablet Take 80 mg by mouth once daily. lisinopril (ZESTRIL, PRINIVIL) 10 mg tablet Take 10 mg by mouth twice daily. HYDROcodone-acetaminophen (NORCO) 5-325 mg per tablet Take 1-2 tablets by mouth three times a day as needed for pain for up to 7 days. isosorbide mononitrate ER (IMDUR) 30 mg 24 hr tablet Take 1 tablet by mouth once daily. No current facility-administered medications for this visit. 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 Cardiovascular: Negative. Musculoskeletal: Positive for back pain. OBJECTIVE BP 117/82 Pulse 101 SpO2 96% Physical Exam Vitals and nursing note reviewed. Constitutional: General: He is awake. He is not in acute distress. Appearance: Normal appearance. He is well-developed and well-groomed. He is not ill-appearing, toxic-appearing or diaphoretic. HENT: Head: Normocephalic. Right Ear: External ear normal. Left Ear: External ear normal. Nose: Nose normal. Eyes: General: Vision grossly intact. Conjunctiva/sclera: Conjunctivae normal. Pupils: Pupils are equal, round, and reactive to light. Neck: Vascular: No JVD. Trachea: Trachea normal. Cardiovascular: Rate and Rhythm: Normal rate and regular rhythm. Pulses: Normal pulses. Heart sounds: Normal heart sounds. No murmur heard. Pulmonary: Effort: Pulmonary effort is normal. No accessory muscle usage, prolonged expiration or respiratory distress. Breath sounds: Normal breath sounds. Musculoskeletal: Cervical back: Normal and neck supple. Thoracic back: Normal. Lumbar back: Decreased range of motion. Skin: General: Skin is warm and dry. Capillary Refill: Capillary refill takes less than 2 seconds. Neurological: General: No focal deficit present. Mental Status: He is alert and oriented to person, plac (more content not included)... Normal [facility] CNOVon 03-28-2024 CNOV Office Visit (UCWSTR ) KWAN GUZMAN ([id number]) 1975 M Date Time Provider Department 03/28/24 3:30 PM AUDREY PLEITEZ UCWSTR During your visit today, we recorded the following information about you: Temperature Pulse Respiration Blood pressure 99.3 degrees 96/minute 18/minute 124/79 Audrey Pleitez APRN.[facility] 03/28/2024 3:44 PM Signed Subjective HPI Kwan Guzman is a 48 year old male who presents with right lower back pain that radiates to his right leg. States he has been moving for the past week and noticed pain after moving heavy items. Feels some tingling in his right leg like it's asleep Denies bowel or bladder dysfunction No fever. No falls Took advil at home Just need some [place] Review of Systems Constitutional: Negative for chills and fever. Respiratory: Negative. Cardiovascular: Negative. Musculoskeletal: Positive for back pain and joint pain. Negative for falls. See HPI Skin: Negative for itching and rash. Neurological: Positive for tingling and sensory change. Negative for focal weakness and weakness. BP 124/79 Pulse 96 Temp 37.4 ?C (99.3 ?F) Resp 18 SpO2 97% PAST MEDICAL HISTORY No date: ADD (attention deficit disorder) No date: ADHD (attention deficit hyperactivity disorder) No date: Bipolar 1 disorder (HCC) No date: Chronic pain No date: History of narcotic addiction (HCC) No date: Rheumatoid arthritis (HCC) PAST SURGICAL HISTORY 2020: PAST SURGICAL HISTORY OF Comment: hernia x2 2021: PT ED HEART AND VASCULAR; Left ALLERGIES Aspirin, Bupropion, Paroxetine, Azithromycin, Fluoxetine, and Topiramate MEDICATIONS predniSONE (DELTASONE) 10 mg tablet Take 4 tabs daily for 3 days, then 2 tabs daily for 3 days, then 1 tab daily for 3 days with food. gabapentin (NEURONTIN) 600 mg tablet Take 1 tablet by mouth two times a day for 90 days. amphetamine-dextroamphetamin e XR (ADDERALL XR) 20 mg capsule Take 1 capsule by mouth once daily for 30 days. semaglutide (OZEMPIC) 0.25 mg or 0.5 mg (2 mg/3 mL) pen Inject 0.5 mg subcutaneously one time a week. Compounded with cyanocobalamin 2 mg-0.4 mg/ml hydrOXYzine HCl (ATARAX) 25 mg tablet Take 1 tablet by mouth every 6 hours as needed for anxiety. sertraline (ZOLOFT) 100 mg tablet Take 1 tablet by mouth once daily. QUEtiapine (SEROQUEL) 50 mg tablet Take 1 tablet by mouth daily at bedtime. potassium chloride ER (KLOR-CON) 20 mEq tablet Take 20 mEq by mouth two times a day. furosemide (LASIX) 40 mg tablet Take 1 tablet by mouth once daily. isosorbide mononitrate ER (IMDUR) 30 mg 24 hr tablet Take 1 tablet by mouth once daily. cholecalciferol (VITAMIN D3) 5,000 unit tab Take 5,000 Units by mouth once daily. cyanocobalamin (VITAMIN B-12) 1,000 mcg tab Take 1,000 mcg by mouth once daily. pyridoxine, vitamin B6, (VITAMIN B6) 25 mg tablet Take 25 mg by mouth once daily. clopidogrel (PLAVIX) 75 mg tablet Take 75 mg by mouth once daily. metoprolol tartrate, short acting, (LOPRESSOR) 25 mg tablet Take 25 mg by mouth twice daily. aspirin, enteric coated (ASPIRIN, ENTERIC COATED) 81 mg EC tablet Take 81 mg by mouth once daily. atorvastatin (LIPITOR) 80 mg tablet Take 80 mg by mouth once daily. lisinopril (ZESTRIL, PRINIVIL) 10 mg tablet Take 10 mg by mouth twice daily. FAMILY HISTORY Problem Relation Age of Onset Breast Cancer Mother Pancreatitis Mother Diabetes Mother other (etoh) Father Neuropathy Father Leukemia Sister Social History Tobacco Use Smoking status: Never Smokeless tobacco: Never Vaping Use Vaping status: Never Used Substance Use Topics Alcohol use: Not Currently Drug use: Yes Types: Marijuana Comment: eatables at night to help sleep Objective Physical Exam Vitals and nursing note reviewed. Constitutional: Appearance: Normal appearance. Cardiovascular: Rate and Rhythm: Normal rate. Pulmonary: Effort: Pulmonary effort is normal. Musculoskeletal: Lumbar back: Tenderness present. Decreased range of motion. Back: Skin: General: Skin is warm and dry. Neurological: Mental Status: He is alert. ASSESSMENT/PLAN: 1. Sciatica, right side - ICD9: 724.3, ICD10: M54.31 Sciatica - Ice for localized tenderness - Prednisone taper - PREDNISONE 10 MG TABLET - Follow-up with your PCP in 3-5 days if symptoms have not improved or sooner if symptoms worsen - Discussed red flags and need for immediate medical evaluation if any occur. - Discussed supportive care treatment with fluids, rest and analgesia. - Discussed expected course of illness SHAINA Denton Kathy, APRN.CNP 03/28/2024 3:44 PM Signed ASSESSMENT/PLAN: 1. Sciatica, right side - ICD9: 724.3, ICD10: M54.31 Sciatica - Ice for localized tenderness - Prednisone taper - PREDNISONE 10 MG TABLET - Follow-up with your PCP in 3-5 days if symptoms have not (more content not included)... Normal [facility] 01-24-2024 CNPN Telephone (PSWSTR) KWAN GUZMAN ([id number]) 1975 M Date Time Provider Department 01/24/24 KRYSTIN JAIMES PSWSTR During your visit today, we recorded the following information about you: Viridiana Cerda LPN 01/24/2024 9:59 AM Signed Message to call office to schedule HAIR ASSISTANT appointment with Krystin. Reyna Diallo RN 01/24/2024 11:18 AM Signed Pt called and is notified of message. Pt voices understanding. Transferred to scheduled to set up appt with Krystin Jaimes HAIR ASSISTANT. JORDY Mederos Ashley 01/24/2024 11:34 AM Signed Patient scheduled with Krystin's first available on 04/15/24. Patient requested to have first meeting to be in person. Patient was offered to schedule for talk therapy in the meantime with [facility] to address concerns with anxiety. Patient has been scheduled for 02/27/24. Patient has been added to wait list for both providers. Allergies As of Date: 01/24/2024 Noted Allergy Reaction ASPIRIN 02/01/2019 8 - GI Upset BUPROPION 02/01/2019 16 - Unknown PAROXETINE 02/01/2019 16 - Unknown 14 - Other: See Comments AZITHROMYCIN 08/06/2018 16 - Unknown 8 - GI Upset FLUOXETINE 05/27/2022 5 - Intolerance TOPIRAMATE 05/27/2022 5 - Intolerance Date Reviewed: 01/21/2024 Reviewed by: Mikaela Spann APRN.DIRECTOR OF NATIONAL SALES - Fully Assessed Reason for Visit: Appointment [186] Prescriptions as of 01/24/2024 - amphetamine-dextroamphetamin e XR (ADDERALL XR) 20 mg capsule Take 1 capsule by mouth once daily for 30 days. - semaglutide (OZEMPIC) 0.25 mg or 0.5 mg (2 mg/3 mL) pen Inject 0.5 mg subcutaneously one time a week. Compounded with cyanocobalamin 2 mg-0.4 mg/ml - hydrOXYzine HCl (ATARAX) 25 mg tablet Take 1 tablet by mouth every 6 hours as needed for anxiety. - sertraline (ZOLOFT) 100 mg tablet Take 1 tablet by mouth once daily. - QUEtiapine (SEROQUEL) 50 mg tablet Take 1 tablet by mouth daily at bedtime. - ALPRAZolam (XANAX) 0.5 mg tablet Take 1 tablet by mouth two times a day for 30 days. - gabapentin (NEURONTIN) 600 mg tablet Take 1 tablet by mouth two times a day for 90 days. - potassium chloride ER (KLOR-CON) 20 mEq tablet Take 20 mEq by mouth two times a day. - furosemide (LASIX) 40 mg tablet Take 1 tablet by mouth once daily. - isosorbide mononitrate ER (IMDUR) 30 mg 24 hr tablet Take 1 tablet by mouth once daily. - cholecalciferol (VITAMIN D3) 5,000 unit tab Take 5,000 Units by mouth once daily. - cyanocobalamin (VITAMIN B-12) 1,000 mcg tab Take 1,000 mcg by mouth once daily. - pyridoxine, vitamin B6, (VITAMIN B6) 25 mg tablet Take 25 mg by mouth once daily. - clopidogrel (PLAVIX) 75 mg tablet Take 75 mg by mouth once daily. - metoprolol tartrate, short acting, (LOPRESSOR) 25 mg tablet Take 25 mg by mouth twice daily. - aspirin, enteric coated (ASPIRIN, ENTERIC COATED) 81 mg EC tablet Take 81 mg by mouth once daily. - atorvastatin (LIPITOR) 80 mg tablet Take 80 mg by mouth once daily. - lisinopril (ZESTRIL, PRINIVIL) 10 mg tablet Take 10 mg by mouth twice daily. 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 [F32.A*09/20/2022 Other hyperlipidemia [E78.49] 09/20/2022 Adult ADHD [F90.9] 09/20/2022 Bipolar 1 disorder (HCC) [F31.9] 09/20/2022 History of narcotic addiction (HCC) [F11.21] 08/21/2023 12/04/2023 Encounter Status:Closed by REYNA DIALLO on 01/24/24 [facility] CNOVon 01-21-2024 CNOV Office Visit (INTMWS ) GUZMANKWAN ([id number]) 1975 M Date Time Provider Department 01/21/24 8:00 AM MIKAELA SPANN INTMWS During your visit today, we recorded the following information about you: Pulse Blood pressure Weight 78/minute 116/84 122.9 kg Mikaela Spann APRN.DIRECTOR OF NATIONAL SALES 01/21/2024 10:17 AM Signed SUBJECTIVE Kwan Guzman is a 48 year old male here today for a check up on his medical problems. Chief Complaint Patient presents with: Recheck: Weight HPI Kwan Guzman is a 48 year old male. He is an established patient. Here today for follow up on anxiety, depression, bipolar, ADHD and weight. He continues to work on weight loss. Taking compounded Ozempic. Would like to increase his dose. No issues with side effects. Doing counseling through a crisis line. Increasing his Zoloft back up to 100 mg daily. He was off of this for a few weeks because he missed the fill request from pharmacy while hospitalized. Hydroxyzine has been helpful for anxiety. Notes traumatic memories related to recent mental health admission. His medications were reviewed today and his list is now up to date. Medications Current Outpatient Medications Medication Sig hydrOXYzine HCl (ATARAX) 25 mg tablet Take 1 tablet by mouth every 6 hours as needed for anxiety. sertraline (ZOLOFT) 100 mg tablet Take 1 tablet by mouth once daily. QUEtiapine (SEROQUEL) 50 mg tablet Take 1 tablet by mouth daily at bedtime. ALPRAZolam (XANAX) 0.5 mg tablet Take 1 tablet by mouth two times a day for 30 days. gabapentin (NEURONTIN) 600 mg tablet Take 1 tablet by mouth two times a day for 90 days. potassium chloride ER (KLOR-CON) 20 mEq tablet Take 20 mEq by mouth two times a day. furosemide (LASIX) 40 mg tablet Take 1 tablet by mouth once daily. cholecalciferol (VITAMIN D3) 5,000 unit tab Take 5,000 Units by mouth once daily. cyanocobalamin (VITAMIN B-12) 1,000 mcg tab Take 1,000 mcg by mouth once daily. pyridoxine, vitamin B6, (VITAMIN B6) 25 mg tablet Take 25 mg by mouth once daily. clopidogrel (PLAVIX) 75 mg tablet Take 75 mg by mouth once daily. metoprolol tartrate, short acting, (LOPRESSOR) 25 mg tablet Take 25 mg by mouth twice daily. aspirin, enteric coated (ASPIRIN, ENTERIC COATED) 81 mg EC tablet Take 81 mg by mouth once daily. atorvastatin (LIPITOR) 80 mg tablet Take 80 mg by mouth once daily. lisinopril (ZESTRIL, PRINIVIL) 10 mg tablet Take 10 mg by mouth twice daily. amphetamine-dextroamphetamin e XR (ADDERALL XR) 20 mg capsule Take 1 capsule by mouth once daily for 30 days. semaglutide (OZEMPIC) 0.25 mg or 0.5 mg (2 mg/3 mL) pen Inject 0.5 mg subcutaneously one time a week. Compounded with cyanocobalamin 2 mg-0.4 mg/ml isosorbide mononitrate ER (IMDUR) 30 mg 24 hr tablet Take 1 tablet by mouth once daily. No current facility-administered medications for this visit. 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 Respiratory: Negative. Cardiovascular: Negative. Psychiatric/Behavioral: Negative for self-injury and suicidal ideas. The patient is nervous/anxious. OBJECTIVE BP 116/84 Pulse 78 Wt 271 lb (122.9kg) SpO2 100% Physical Exam Vitals and nursing note reviewed. Constitutional: General: He is awake. He is not in acute distress. Appearance: Normal appearance. He is well-developed and well-groomed. He is not ill-appearing, toxic-appearing or diaphoretic. HENT: Head: Normocephalic. Right Ear: External ear normal. Left Ear: External ear normal. Nose: Nose normal. Eyes: General: Vision grossly intact. Conjunctiva/sclera: Conjunctivae normal. Pupils: Pupils are equal, round, and reactive to light. Neck: Vascular: No JVD. Trachea: Trachea normal. Pulmonary: Effort: Pulmonary effort is normal. No accessory muscle usage, prolonged expiration or respiratory distress. Musculoskeletal: Cervical back: Neck supple. Skin: General: Skin is warm and dry. Capillary Refill: Capillary refill takes less than 2 seconds. Neurological: General: No focal deficit present. Mental Status: He is alert and oriented to person, place, and time. Mental status is at baseline. Psychiatric: Attentio (more content not included)... Normal [facility] CNPNon 01-21-2024 [facility] Telephone (PSYLME) KWAN GUZMAN ([id number]) 1975 M Date Time Provider Department 01/21/24 ADRIANE OJEDA PSYLME During your visit today, we recorded the following information about you: Adriane Ojeda LPCC 01/21/2024 11:54 AM Signed Behavioral Health Social Work Progress Note Patient identified for [facility] from: PCP Reason for referral: [facility] Assessment [facility] encounter type: Telephone Encounter Attempts to Outreach: 1 attempt Referral made: Psychiatry - Internal Psychiatry-Internal referral type: Medication Management Final Disposition: Care established with Patient Discharged?: No Patient reported that caregiver was able to meet their needs today?: Yes therapist spoke with patient, scheduled [facility] assessment for 01/23/24 at 10:00 am. Adriane Ojeda LPC-S January 21, 2024 Allergies As of Date: 01/21/2024 Noted Allergy Reaction ASPIRIN 02/01/2019 8 - GI Upset BUPROPION 02/01/2019 16 - Unknown PAROXETINE 02/01/2019 16 - Unknown 14 - Other: See Comments AZITHROMYCIN 08/06/2018 16 - Unknown 8 - GI Upset FLUOXETINE 05/27/2022 5 - Intolerance TOPIRAMATE 05/27/2022 5 - Intolerance Date Reviewed: 01/21/2024 Reviewed by: Mikaela Spann APRN.DEEPAK - Fully Assessed Reason for Visit: consult [Other] Prescriptions as of 01/21/2024 - amphetamine-dextroamphetamin e XR (ADDERALL XR) 20 mg capsule Take 1 capsule by mouth once daily for 30 days. - semaglutide (OZEMPIC) 0.25 mg or 0.5 mg (2 mg/3 mL) pen Inject 0.5 mg subcutaneously one time a week. Compounded with cyanocobalamin 2 mg-0.4 mg/ml - hydrOXYzine HCl (ATARAX) 25 mg tablet Take 1 tablet by mouth every 6 hours as needed for anxiety. - sertraline (ZOLOFT) 100 mg tablet Take 1 tablet by mouth once daily. - QUEtiapine (SEROQUEL) 50 mg tablet Take 1 tablet by mouth daily at bedtime. - ALPRAZolam (XANAX) 0.5 mg tablet Take 1 tablet by mouth two times a day for 30 days. - gabapentin (NEURONTIN) 600 mg tablet Take 1 tablet by mouth two times a day for 90 days. - potassium chloride ER (KLOR-CON) 20 mEq tablet Take 20 mEq by mouth two times a day. - furosemide (LASIX) 40 mg tablet Take 1 tablet by mouth once daily. - isosorbide mononitrate ER (IMDUR) 30 mg 24 hr tablet Take 1 tablet by mouth once daily. - cholecalciferol (VITAMIN D3) 5,000 unit tab Take 5,000 Units by mouth once daily. - cyanocobalamin (VITAMIN B-12) 1,000 mcg tab Take 1,000 mcg by mouth once daily. - pyridoxine, vitamin B6, (VITAMIN B6) 25 mg tablet Take 25 mg by mouth once daily. - clopidogrel (PLAVIX) 75 mg tablet Take 75 mg by mouth once daily. - metoprolol tartrate, short acting, (LOPRESSOR) 25 mg tablet Take 25 mg by mouth twice daily. - aspirin, enteric coated (ASPIRIN, ENTERIC COATED) 81 mg EC tablet Take 81 mg by mouth once daily. - atorvastatin (LIPITOR) 80 mg tablet Take 80 mg by mouth once daily. - lisinopril (ZESTRIL, PRINIVIL) 10 mg tablet Take 10 mg by mouth twice daily. 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 [F32.A*09/20/2022 Other hyperlipidemia [E78.49] 09/20/2022 Adult ADHD [F90.9] 09/20/2022 Bipolar 1 disorder (HCC) [F31.9] 09/20/2022 History of narcotic addiction (HCC) [F11.21] 08/21/2023 12/04/2023 Encounter Status:Closed by ADRIANE OJEDA on 01/21/24 [facility] 01-18-2024 CNPN Telephone (INTMWS) KWAN GUZMAN ([id number]) 1975 M Date Time Provider Department 01/18/24 MIKAELA SPANN INTMWS During your visit today, we recorded the following information about you: Mikaela Spann APRN.[facility] 01/18/2024 3:50 PM Signed Patient with increased anxiety, needs something to help get through the weekend. Allergies As of Date: 01/18/2024 Noted Allergy Reaction ASPIRIN 02/01/2019 8 - GI Upset BUPROPION 02/01/2019 16 - Unknown PAROXETINE 02/01/2019 16 - Unknown 14 - Other: See Comments AZITHROMYCIN 08/06/2018 16 - Unknown 8 - GI Upset FLUOXETINE 05/27/2022 5 - Intolerance TOPIRAMATE 05/27/2022 5 - Intolerance Date Reviewed: 12/04/2023 Reviewed by: Ebony Yeboah LPN - Fully Assessed Reason for Visit: Patient Question [2661] Order(s):hydrOXYzine HCl (ATARAX) 25 mg tabletTake 1 tablet by mouth every 6 hours as needed for anxiety.Disp: 120 tabletRfl: 0 Prescriptions as of 01/18/2024 - hydrOXYzine HCl (ATARAX) 25 mg tablet Take 1 tablet by mouth every 6 hours as needed for anxiety. - sertraline (ZOLOFT) 100 mg tablet Take 1 tablet by mouth once daily. - QUEtiapine (SEROQUEL) 50 mg tablet Take 1 tablet by mouth daily at bedtime. - ALPRAZolam (XANAX) 0.5 mg tablet Take 1 tablet by mouth two times a day for 30 days. - gabapentin (NEURONTIN) 600 mg tablet Take 1 tablet by mouth two times a day for 90 days. - potassium chloride ER (KLOR-CON) 20 mEq tablet Take 20 mEq by mouth two times a day. - semaglutide (OZEMPIC) 0.25 mg or 0.5 mg (2 mg/3 mL) pen Inject 0.25 mg subcutaneously one time a week. compounded - amphetamine-dextroamphetamin e XR (ADDERALL XR) 20 mg capsule Take 1 capsule by mouth once daily for 30 days. - furosemide (LASIX) 40 mg tablet Take 1 tablet by mouth once daily. - isosorbide mononitrate ER (IMDUR) 30 mg 24 hr tablet Take 1 tablet by mouth once daily. - cholecalciferol (VITAMIN D3) 5,000 unit tab Take 5,000 Units by mouth once daily. - cyanocobalamin (VITAMIN B-12) 1,000 mcg tab Take 1,000 mcg by mouth once daily. - pyridoxine, vitamin B6, (VITAMIN B6) 25 mg tablet Take 25 mg by mouth once daily. - clopidogrel (PLAVIX) 75 mg tablet Take 75 mg by mouth once daily. - metoprolol tartrate, short acting, (LOPRESSOR) 25 mg tablet Take 25 mg by mouth twice daily. - aspirin, enteric coated (ASPIRIN, ENTERIC COATED) 81 mg EC tablet Take 81 mg by mouth once daily. - atorvastatin (LIPITOR) 80 mg tablet Take 80 mg by mouth once daily. - lisinopril (ZESTRIL, PRINIVIL) 10 mg tablet Take 10 mg by mouth twice daily. 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 Encounter Status:Closed by MIKAELA SPANN on 01/18/24 Normal [place] metabolic 2000 panelon 11-21-2023 Albumin [Mass/Vol] 4.6 g/dL 3.9 - 4.9 g/dL [facility] ALP [Catalytic activity/Vol] 101 U/L 38 - 113 U/L [facility] ALT [Catalytic activity/Vol] 26 U/L 10 - 54 U/L [facility] Anion gap [Moles/Vol] 14 mmol/L 9 - 18 mmol/L [facility] AST [Catalytic activity/Vol] 29 U/L 14 - 40 U/L [facility] Bilirubin [Mass/Vol] 0.6 mg/dL 0.2 - 1.3 mg/dL [facility] Calcium [Mass/Vol] 9.7 mg/dL 8.5 - 10.2 mg/dL [facility] Chloride [Moles/Vol] 99 mmol/L 97 - 105 mmol/L [facility] CO2 [Moles/Vol] 26 mmol/L 22 - 30 mmol/L [facility] Creatinine [Mass/Vol] 0.77 mg/dL 0.73 - 1.22 mg/dL [facility] GFR/1.73 sq M.predicted among non-blacks MDRD (S/P/Bld) [Vol rate/Area] 111 mL/min/{1.73_m2} - PINF [facility] Comment on above: Estimated Glomerular Filtration Rate (eG FR) is calculated using the 2020 CKD-EPI creatinine equation. This equation utilizes serum creatinine, sex, and age as parameters. The creatinine assay has traceable calibration to isotope dilution-mass spectrometry. Refer to KDIGO guidelines for clinical interpretation. In patients with unstable renal function, e.g. those with acute kidney injury, the eGFR may not accurately reflect actual GFR. Glucose [Mass/Vol] 91 mg/dL 74 - 99 mg/dL [facility] Comment on above: The [place] Diabetes Association (ADA) provides guidance for cutoff values for fasting glucose and random glucose. The ADA defines fasting as no caloric intake for at least 8 hours. Fasting plasma glucose results between 100 to 125 mg/dL indicate increased risk for diabetes (prediabetes). Fasting plasma glucose results greater than or equal to 126 mg/dL meet the criteria for diagnosis of diabetes. In the absence of unequivocal hyperglycemia, results should be confirmed by repeat testing. In a patient with classic symptoms of hyperglycemia or hyperglycemic crisis, random plasma glucose results greater than or equal to 200 mg/dL meet the criteria for diagnosis of diabetes. Reference: Standards of Medical Care in Diabetes 2016, [place] Diabetes Association. Diabetes Care. 2016.39(Suppl 1). Interpretation and review of laboratory results Normal [facility] Potassium [Moles/Vol] 4.0 mmol/L 3.7 - 5.1 mmol/L [facility] Protein [Mass/Vol] 8.0 g/dL 6.3 - 8.0 g/dL [facility] Sodium [Moles/Vol] 139 mmol/L 136 - 144 mmol/L [facility] Urea nitrogen [Mass/Vol] 9 mg/dL 9 - 24 mg/dL [facility] LIPID PANEL, NONFASTINGon Cholesterol [Mass/Vol] 220 mg/dL High NINF - 200 mg/dL [facility] Comment on above: <200 mg/dL, Desirable 200-239 mg/dL, Borderline high >239 mg/dL, High HDL Cholesterol, Nonfasting 43 mg/dL 39 - PINF mg/dL [facility] Comment on above: 40-59 mg/dL, Acceptable >59 mg/dL, High: Negative risk factor for coronary heart disease <40 mg/dL, Low: Positive risk factor for coronary heart disease Interpretation and review of laboratory results Abnormal [facility] LDL Cholesterol, Nonfasting 144 mg/dL High NINF - 100 mg/dL [facility] Comment on above: <100 mg/dL, Optimal 100-129 mg/dL, Near optimal/above optimal 130-159 mg/dL, Borderline high 160-189 mg/dL, High >189 mg/dL, Very high Secondary prevention optimal LDL Cholesterol levels are recommended to be < 70 mg/dL LDL/HDL Ratio, Nonfasting 3.35 mg/dL High NINF - 2.54 mg/dL [facility] Comment on above: Reference: 1. National Cholesterol Education Program ATP III Guideline At-A-Glance Quick Desk Reference: National Heart, Lung, and Blood [place]. National Institutes of Health. 2001: NIH Publication No. 01-3305. 2. An International Atherosclerosis Society position paper: global recommendations for the management of dyslipidemia: executive summary, Atherosclerosis. 2014: 232(2):410-413. Non HDL Cholesterol, Nonfasting 177 mg/dL High NINF - 130 mg/dL [facility] Comment on above: <130 mg/dL, Optimal 130-159 mg/dL, Near optimal/above optimal 160-189 mg/dL, Borderline high 190-219 mg/dL, High >219 mg/dL, Very high Secondary prevention optimal non HDL Cholesterol levels are recommended to be <100 mg/dL Total Chol/HDL Ratio, Nonfasting 5.12 mg/dL High NINF - 5.10 mg/dL [facility] Triglycerides, Nonfasting 167 mg/dL High NINF - 150 mg/dL [facility] Comment on above: <150 mg/dL, Normal 150-199 mg/dL, Borderline high 200-499 mg/dL, High >499 mg/dL, Very high VLDL Cholesterol, Nonfasting 33 mg/dL High NINF - 30 mg/dL [facility] No Panel Informationon 11-20 [facility] CBC W Auto Differential pane l (Bld)on 11-20-2023 Basophils (Bld) [#/Vol] 0.04 10*3/uL [facility] Basophils/100 WBC (Bld) 0.6 % [facility] Differential cell count method Nom (Bld) Auto [facility] Eosinophils (Bld) [#/Vol] 0.09 10*3/uL [facility] Eosinophils/100 WBC (Bld) 1.3 % [facility] Erythrocyte distribution width (RBC) [Ratio] 14.6 % 11.5 - 15.0 % [facility] Hematocrit (Bld) [Volume fraction] 48.6 % 39.0 - 51.0 % [facility] Hemoglobin (Bld) [Mass/Vol] 16.0 g/dL 13.0 - 17.0 g/dL [facility] Immature granulocytes (Bld) [#/Vol] 0.04 10*3/uL [facility] Immature granulocytes/100 WBC (Bld) 0.6 % [facility] Lymphocytes (Bld) [#/Vol] 1.89 10*3/uL [facility] Lymphocytes/100 WBC (Bld) 26.9 % [facility] MCH (RBC) [Entitic mass] 28.3 pg 26.0 - 34.[address] [facility] MCHC (RBC) [Mass/Vol] 32.9 g/dL 30.5 - 36.0 g/dL [facility] MCV (RBC) [Entitic vol] 86.0 fL 80.0 - 100.[address] [facility] Monocytes (Bld) [#/Vol] 0.66 [facility] Monocytes/100 WBC (Bld) 9.4 % [facility] Neutrophils (Bld) [#/Vol] 4.30 10*3/uL [facility] Neutrophils/100 WBC (Bld) 61.2 % [facility] Nucleated RBC (Bld) [#/Vol] NINF [facility] Nucleated RBC/100 WBC (Bld) [Ratio] 0.0 % /[address] [facility] Platelet mean volume (Bld) [Entitic vol] 10.0 fL 9.0 - 12.[address] [facility] Platelets (Bld) [#/Vol] 201 10*3/uL [facility] RBC (Bld) [#/Vol] 5.65 10*6/uL 4.20 - 6.00 m/uL [facility] WBC (Bld) [#/Vol] 7.02 10*3/uL [facility] HbA1c (Bld)on 11-20-2023 Average glucose Estimated from glycated hemoglobin (Bld) [Mass/Vol] 103 mg/dL [facility] Comment on above: eAG: (Estimated average glucose) is a ca lculated value from HgbA1c and is aircraft sales representative of the average blood glucose level in the last 2-3 month period. HbA1c (Bld) [Mass fraction] 5.2 % 4.3 - 5.6 % [facility] Comment on above: [place] Diabetes Association guidelines indicate that patients with HgbA1c in the range 5.7-6.4% are at increased risk for development of diabetes, and intervention by lifestyle modification may be beneficial. HgbA1c greater or equal to 6.5% is considered diagnostic of diabetes. [facility] ANES POSTPROC EVALon 023 ANES POSTPROC EVAL HNO ID: [id number] Author: Ye Canchola APRN.[employer]OT [employer]ANT SUPERVISOR Service: Anesthesiology Author Type: Nurse Floor Broker Type: Anesthesia Postprocedure Evaluation Filed: 11/16/2022 10:33 AM Note Text: POST ANESTHESIA EVALUATION NOTE : 1975 Procedure Summary Date: 11/16/22 Room / Location: [facility]ERY Anesthesia Start: 1003 Anesthesia Stop: 1033 Procedure: COLONOSCOPY SCREENING Diagnosis: Special screening for malignant neoplasms, colon Special screening for malignant neoplasms, colon Scheduled Providers: Naima Hair MD; eY Canchola APRN.P[employer]OT [employer]ANT SUPERVISOR Responsible Provider: Ye Canchola APRN.[employer] SUPERVISOR Anesthesia Type: MAC ASA Status: 2 Anesthesia Type: MAC Last Vitals Vitals Value Taken Time BP 126/64 11/16/22 1015 Temp 36.5 ?C (97.7 ?F) 11/16/22 0937 Pulse 70 11/16/22 1015 Resp 12 11/16/22 0937 SpO2 95 % 11/16/22 0937 Post Anesthesia Patient Status Patient Evaluation: PACU. Anticipated Disposition: phase 2 then home. Neurological Status: aware and responsive. Pulmonary Status: breathing comfortably on room air Airway Control: returned to baseline unsupported. Cardiovascular Status: stable. Pain Management: clinically adequate Postoperative Hydration: acceptable. Intraoperative Events: no significant anesthesia events Post Operative Nausea/Vomiting Status: no significant post operative nausea or vomiting Recommendation: continue current plan of care. Anesthesia Observations No Documentation SIGNATURE: Ye Canchola APRN.P[employer]OT [employer]ANT SUPERVISOR PATIENT NAME: Kwan Guzman DATE: November 16, 2022 TIME: 10:33 AM CSN: [id number] [facility] ANES PRE-OPon 11-16-2022 ANES PRE-OP HNO ID: [id number] Author: Ye Canchola APRN.[employer] SUPERVISOR Service: Anesthesiology Author Type: Nurse Floor Broker Type: Anesthesia Preprocedure Evaluation Filed: 11/16/2022 10:03 AM Note Text: ANESTHESIOLOGY DAY OF SURGERY NOTE : 1975 Procedure Information Date/Time: 11/16/22 1030 Scheduled providers: Naima Hair MD; Ye Canchola APRN.[employer] SUPERVISOR Procedure: COLONOSCOPY SCREENING Location: [facility] Estimated body mass index is 28.72 kg/m? as calculated from the following: Height as of 11/14/22: 205.7 cm (6' 9). Weight as of 11/14/22: 121.6 kg (268 lb). Most recent hematocrit and potassium results: Hematocrit 40.8 10/14/2020 Potassium 3.5 10/14/2020 Relevant Problems CARDIO (+) Coronary artery disease involving cherokee heart (+) Primary hypertension I - PHYSICAL EVALUATION AIRWAY Patient intubated: No. Tracheostomy tube not present Mallampati: III. TM distance: >3 FB. Neck ROM: full ROM without neurological symptoms. Mouth opening: adequate. Short neck: no. Thick neck: yes Guzman present: no Lip Bite Test: II Microretrognathia/Micronagth ia/Recessed Chin: No Additional exam findings: no II - ANESTHESIA PLAN ASA Score: 2 Anesthetic Plan: MAC The patient is a current smoker. NPO Status: adequate Beta Gamaliel Administration of chronic beta gamaliel medication not planned. Monitoring Plan Monitoring plan: standard ASA. Post Procedure Analgesic Plan Postoperative analgesic plan: per surgical service. Informed Consent Anesthetic risks, benefits, alternatives, personnel and consent discussed: yes. Patient / Responsible Green Party agrees to proceed: yes Patient / Surrogate agrees to blood products: Yes DNR status reviewed with patient and/or family prior to surgery. patient elects to suspend DNR status in the perioperative setting (Full Code). Significant changes in the patient condition since the History and Physical, not otherwise documented in primary service progress note: no. Potential Anesthesia issues that may suggest increased risk of complications or contraindication to planned procedure: none. Discussed the possibility of lip / dental damage: yes Vitals Value Taken Time BP 155/93 11/16/22 0937 Pulse 88 11/16/22 0937 Resp 12 11/16/2237 Temp 36.5 ?C (97.7 ?F) 11/16/22 0937 SpO2 95 % 11/16/22 0937 Facility-Administered Medications as of 11/16/2022 Medication Dose Route Frequency - lidocaine (PF) 10 mg/mL (1 %) 1-2 mg injection (XYLOCAINE) 0.1-0.2 mL INTRADERMAL PRN - lactated ringers iv infusion 75 mL/hr INTRAVENOUS CONTINUOUS Outpatient Medications as of 11/16/2022 Medication Sig - gabapentin (NEURONTIN) 600 mg tablet Take 1 tablet by mouth twice daily for 90 days. - dextroamphetamine-amphetamin e (ADDERALL) 20 mg tablet Take 1 tablet by mouth daily before breakfast. - furosemide (LASIX) 40 mg tablet Take 1 tablet by mouth once daily. - potassium gluconate 600 mg (99 mg) tab Take 1 tablet by mouth once daily. - pyridoxine, vitamin B6, (VITAMIN B6) 25 mg tablet Take 25 mg by mouth once daily. - clopidogrel (PLAVIX) 75 mg tablet Take 75 mg by mouth once daily. - escitalopram oxalate (LEXAPRO) 20 mg tablet Take 30 mg by mouth once daily. - metoprolol tartrate, short acting, (LOPRESSOR) 25 mg tablet Take 25 mg by mouth twice daily. - aspirin, enteric coated (ASPIRIN, ENTERIC COATED) 81 mg EC tablet Take 81 mg by mouth once daily. - atorvastatin (LIPITOR) 80 mg tablet Take 80 mg by mouth once daily. - lisinopril (ZESTRIL, PRINIVIL) 10 mg tablet Take 10 mg by mouth twice daily. - ALPRAZolam (XANAX) 1 mg tablet Take 1 mg by mouth once daily as needed. - isosorbide mononitrate ER (IMDUR) 30 mg 24 hr tablet Take 1 tablet by mouth once daily. - cholecalciferol (VITAMIN D3) 5,000 unit tab Take 5,000 Units by mouth once daily. - cyanocobalamin (VITAMIN B-12) 1,000 mcg tab Take 1,000 mcg by mouth once daily. - omega-3 fatty acids 1,000 mg cap Take 1 g by mouth once daily. I have interviewed and examined the patient. I have reviewed the medical record and/or the pre-anesthesia evaluation, pertinent labs, and test results. This contains updated information obtained within 48 hours of Surgery/Procedure. SIGNATURE: Ye Canchola APRN.[employer] SUPERVISOR PATIENT NAME: Kwan Guzman DATE: November 16, 2022 TIME: 10:02 AM CSN: [id number] [facility] BRIEF OP NOTon 11-16-2022 BRIEF OP NOT HNO ID: [id number] Author: Naima Hair MD Service: General Surgery Author Type: Physician Type: Brief Op Note Filed: 11/16/2022 10:32 AM Note Text: BRIEF OPERATIVE NOTE SURGERY DATE: 11/16/2022 Incision/Procedure Start Time: 10:10 cecal intubation time: 10:16 Incision Close/Procedure End Time: 10:28 Surgeon(s)/Proceduralist(s) and Manager Coding(s): ovi Procedures: Colonoscopy - (screening - average risk) Anesthesia: MAC Findings: hemorrhoids Estimated Blood Loss: 0 ml Specimens: None Complications: None Closure Technique: Non-primary Preop Diagnosis: screening for colon cancer Postop Diagnosis: normal colon except for hemorrhoids SIGNATURE: Naima Hair MD PATIENT NAME: Kwan Guzman DATE: November 16, 2022 TIME: 10:31 AM Acct: [id number] [facility] HISTORY PHYSICALon 3 HISTORY PHYSICAL HNO ID: [id number] Author: Naima Hair MD Service: General Surgery Author Type: Physician Type: HANDP Filed: 11/16/2022 9:41 AM Note Text: HISTORY AND PHYSICAL Kwan Guzman 1975 REFERRING PHYSICIAN: Mikaela Spann APRN.CNP CHIEF COMPLAINT: Consult HPI: The patient is a 47 year old male referred for endoscopy. Kwan notes no colon complaints. Patient denies any change in bowel habits, weight changes, blood in stools, black tarry stools or abdominal pain. Denies family history of colon issues. The patient notes no upper GI complaints. Kwan has not undergone prior endoscopy. PAST MEDICAL HISTORY Diagnosis Date ADD (attention deficit disorder) ADHD (attention deficit hyperactivity disorder) Bipolar 1 disorder (HCC) Chronic pain Rheumatoid arthritis (HCC) PAST SURGICAL HISTORY Procedure Laterality Date PAST SURGICAL HISTORY OF 2020 hernia x2 PT ED HEART AND VASCULAR Left 2021 Current Outpatient Medications Medication Sig gabapentin (NEURONTIN) 600 mg tablet Take 1 tablet by mouth twice daily for 90 days. ALPRAZolam (XANAX) 1 mg tablet Take 1 mg by mouth once daily as needed. dextroamphetamine-amphetamin e (ADDERALL) 20 mg tablet Take 1 tablet by mouth daily before breakfast. furosemide (LASIX) 40 mg tablet Take 1 tablet by mouth once daily. isosorbide mononitrate ER (IMDUR) 30 mg 24 hr tablet Take 1 tablet by mouth once daily. cholecalciferol (VITAMIN D3) 5,000 unit tab Take 5,000 Units by mouth once daily. cyanocobalamin (VITAMIN B-12) 1,000 mcg tab Take 1,000 mcg by mouth once daily. omega-3 fatty acids 1,000 mg cap Take 1 g by mouth once daily. potassium gluconate 600 mg (99 mg) tab Take 1 tablet by mouth once daily. pyridoxine, vitamin B6, (VITAMIN B6) 25 mg tablet Take 25 mg by mouth once daily. clopidogrel (PLAVIX) 75 mg tablet Take 75 mg by mouth once daily. escitalopram oxalate (LEXAPRO) 20 mg tablet Take 30 mg by mouth once daily. metoprolol tartrate, short acting, (LOPRESSOR) 25 mg tablet Take 25 mg by mouth twice daily. aspirin, enteric coated (ASPIRIN, ENTERIC COATED) 81 mg EC tablet Take 81 mg by mouth once daily. atorvastatin (LIPITOR) 80 mg tablet Take 80 mg by mouth once daily. lisinopril (ZESTRIL, PRINIVIL) 10 mg tablet Take 10 mg by mouth twice daily. No current facility-administered medications for this visit. ALLERGIES: Aspirin, Bupropion, Paroxetine, Amoxicillin, Amoxicillin-Pot Clavulanate, Azithromycin, Fluoxetine, and Topiramate PERSONAL HISTORY: Social History Tobacco Use Smoking status: Never Smokeless tobacco: Never Vaping Use Vaping Use: Never used Substance Use Topics Alcohol use: Not Currently Drug use: Yes Types: Marijuana Comment: eatables at night to help sleep FAMILY HISTORY: FAMILY HISTORY Problem Relation Age of Onset Breast Cancer Mother Pancreatitis Mother Diabetes Mother other (etoh) Father Neuropathy Father Leukemia Sister REVIEW OF SYMPTOMS: The review of systems data was entered by the nurse and reviewed by nc Nursing Notes: Isa Garcia LPN 09/25/2022 8:42 AM Signed REVIEW OF SYSTEMS: General: The patient denies fatigue, denies weight loss, denies weight gain, denies feeling hot, and denies feelings of cold. Eyes: The patient denies glaucoma, denies eye injury/surgery, does not wear glasses or contacts. Ear/Nose/Throat: The patient notes allergies, denies hayfever, denies ear infections, and denies bloody noses. Cardiovascular: The patient denies chest pain, denies heart disease, notes high blood pressure,notes cardiac stent, denies prior heart attack, denies irregular heart beat, notes high cholesterol, denies poor circulation, denies heart failure, other cardiac issues, denies claudication, denies cold feet, denies peripheral arterial stent. Respiratory: The patient denies tuberculosis, denies pneumonia, denies frequent cough, denies pulmonary embolism, notes shortness of breath, and denies coughing up blood. Gastrointestinal: The patient denies difficulty swallowing, denies acid reflux, denies ulcers, denies vomiting, denies jaundice/hepatitis, denies gallbladder problems, denies black or tarry stools, denies hemorrhoids, denies bleeding from rectum, denies diverticulitis, denies constipation, denies diarrhea, denies loss of stool control, and denies hernias. Kidney/Bladder: The patient denies kidney stones, denies urine infections, and denies bloody urine. Skin: The patient denies a history of skin cancer, denies bleeding/changing moles, and denies a history of skin rash. Neurologic: The patient denies a history of epilepsy/convulsions, denies headaches, denies head/spinal injuries, and denies stroke/TIA. Psychiatric: The patient notes psychiatric medications, notes depression, and denies voices, denies substance abuse. Endocrine: The patient denies thyroid disorders, denies diabetes, and denies hormonal problems. Hematologic: T (more content not included)... [facility] NURSING PROGon 11-16-2022 NURSING PROG HNO ID: [id number] Author: Karma Mcdonough RN Service: Nursing Author Type: Registered Nurse Type: Nursing Progress Note Filed: 11/16/2022 11:07 AM Note Text: Patient up and speaking requesting Sprite due to scratchy throat. Patient denies need for something to eat. Vitals within normal limits. Discharge instruction given with no issues. Patient verbalized understanding to discharge instruction given. Patient verbalized a pain of 3 or 4 at this time (down from 8 after procedure.) Patient asked about medical marijuana use this evening and this RN explained that medical marijuana would interact with anesthesia given and would not be advisable for 24hrs. Patient ambulated to bathroom without problems. IV site without signs or symptoms of infiltration. [facility] OPERATIVE NOon 11-16-2022 OPERATIVE NO HNO ID: [id number] Author: Naima Hari MD Service: General Surgery Author Type: Physician Type: Operative Report Filed: 11/17/2022 7:38 AM Note Text: [facility] - Operative Report - KWAN Adhikari : 1975 AGE: 47. SEX: M PATIENT TYPE: O HOSP SVC: [facility] LOCATION: [facility] ATTENDING PHYSICIAN: Naima Hair MD CSN NUMBER: [id number] DATE OF SURGERY/PROCEDURE: 11/16/2022 INCISION/PROCEDURE START TIME: 1010 INCISION CLOSE/PROCEDURE END TIME: 1028 PREOPERATIVE DIAGNOSIS: Screening for colon cancer via colonoscopy. POSTOPERATIVE DIAGNOSIS: internal hemorrhoids SURGEON: Naima Hair MD CLERICAL MANAGER: No Additional Staff SURGERY/PROCEDURE: Colonoscopy (this is screening average risk). ANESTHESIA: Monitored anesthesia care. LOCATION: [facility]. INDICATIONS: Kwan Guzman is a 47-year-old white male, who has never previously had a colonoscopy, he presents for his 1st screening colonoscopy. He has been counseled of the risks of procedure including, but not limited to infection, bleeding, perforation, GI tract, inability to complete the procedure, injury to any internal organs, such as liver or spleen, complications of anesthesia, etc. The patient understands and agrees to proceed. DESCRIPTION OF PROCEDURE: After informed consent was given, the patient was brought to the endoscopy suite. Appropriate time-out protocol was done preprocedure as well as in the endoscopy suite. The patient was then given IV anesthesia. The patient was placed in the left lateral decubitus position. The colonoscope was lubricated and carefully inserted in the patient's anus and advanced into the rectum. It was then advanced into the sigmoid colon, then left colon, past splenic flexure into transverse colon, past hepatic flexure down the right colon into the cecum. The cecum was identified by confluence of teniae coli, identification of ileocecal valve, appendiceal orifice, and external palpation. At this level, the colonoscope was slowly retracted back and entire colonic mucosal surface was examined. The colon cleansing preparation was suboptimal. However, with adequate lavage and aspiration of the retained fecal contents, the entire colonic lock could be visualized adequately. There was no evidence of any masses, polyps, or lesions in the right colon. There was no evidence of any masses, polyps, or lesions in the transverse colon. There was no evidence of any masses, polyps, lesions in the left colon. There was no evidence of any masses, polyps, or lesions in the sigmoid colon. There was no evidence of any masses or polyps in the rectum. Retroflexed view in the rectum revealed hemorrhoidal changes. No active bleeding or inflammation. The endoscope was removed intact. Digital examination of the anal canal revealed no palpable masses. The patient tolerated the procedure well, was brought to recovery room in stable condition. EBL: none COMPLICATIONS: none DRAINS: none SPECIMENS: none RECOMMENDATIONS: screening colonoscopy in 10 years Naima Hair MD LW:[id number] /[id number] Normal [facility] KENYON DIAGNOSTIC BILATon 10-24 [facility] No Panel Informationon 10-24 [facility] 2018 Novel Coronavirus (COVI D-19), MIKEL ([id number])Ordered By: Executive Vice President And Chief Operating Officer on 08-19-20202018 Novel Coronavirus (COVID-19), MIKEL ([id number]) Not Detected Normal [facility]; [facility] Work Phone: Comment on above: This nucleic acid amplification test was developed and its performancecharacteristics determined by [employer]. Nucleic acidamplification tests include RT-PCR and TMA. This test has not beenFDA cleared or approved. This test has been authorized by FDA underan Emergency Use Authorization (EUA). This test is only authorizedfor the duration of time the declaration that circumstances existjustifying the authorization of the emergency use of in vitrodiagnostic tests for detection of SARS-CoV-2 virus and/or diagnosisof COVID-19 infection under section 564(b)(1) of the Act, 21 U.S.C.360bbb-3(b) (1), unless the authorization is terminated or revokedsooner.When diagnostic testing is negative, the possibility of a falsenegative result should be considered in the context of a patient'srecent exposures and the presence of clinical signs and symptomsconsistent with COVID-19. An individual without symptoms of COVID-19and who is not shedding SARS-CoV-2 virus would expect to have anegative (not detected) result in this assay. PATIENT NOT FASTINGP ERFORMED BY: [facility] Bmctza0933 [facility] [id number] 2018 Novel Coronavirus (COVID-19), MIKEL ([id number]) Not detected Normal [facility]; [facility] Work Phone: Comment on above: This nucleic acid amplification test was developed and its performancecharacteristics determined by [employer]. Nucleic acidamplification tests include RT-PCR and TMA. This test has not beenFDA cleared or approved. This test has been authorized by FDA underan Emergency Use Authorization (EUA). This test is only authorizedfor the duration of time the declaration that circumstances existjustifying the authorization of the emergency use of in vitrodiagnostic tests for detection of SARS-CoV-2 virus and/or diagnosisof COVID-19 infection under section 564(b)(1) of the Act, 21 U.S.C.360bbb-3(b) (1), unless the authorization is terminated or revokedsooner.When diagnostic testing is negative, the possibility of a falsenegative result should be considered in the context of a patient'srecent exposures and the presence of clinical signs and symptomsconsistent with COVID-19. An individual without symptoms of COVID-19and who is not shedding SARS-CoV-2 virus would expect to have anegative (not detected) result in this assay. PATIENT NOT FASTINGP ERFORMED BY: [facility] [id number] CBC, Platelets & Auto Diff ( [id number])Ordered By: Executive Vice President And Chief Operating Officer on 08-19-2020 Basophils (Bld) [#/Vol] 0.0 {x10E3/uL} Normal 0.0-0.2 [facility]; [facility] Work Phone: Comment on above: PATIENT WAS FASTINGPERFORMED BY: [facility] [facility] [id number] Basophils (Bld) [#/Vol] 0.0 10*3/uL Normal 0.0-0.2 [facility]; [facility] Work Phone: Comment on above: PATIENT WAS FASTINGPERFORMED BY: [facility] [facility] [id number] Basophils/100 WBC (Bld) 0 % Normal [facility]; [facility] Work Phone: Comment on above: PATIENT WAS FASTINGPERFORMED BY: [facility] [facility] [id number] Eosinophils (Bld) [#/Vol] 0.2 {x10E3/uL} Normal 0.0-0.4 [facility]; [facility] Work Phone: Comment on above: PATIENT WAS FASTINGPERFORMED BY: [facility] orPascack Valley Medical CenterOdftjs7[address] RoadDublin [place] [id number] Eosinophils (Bld) [#/Vol] 0.2 10*3/uL Normal 0.0-0.4 [facility]; [facility] Work Phone: Comment on above: PATIENT WAS FASTINGPERFORMED BY: [facility] orPascack Valley Medical CenterIfoxlz5541 [address] RoadDublin [place] [id number] Eosinophils/100 WBC (Bld) 2 % Normal [facility]; [facility] Work Phone: Comment on above: PATIENT WAS FASTINGPERFORMED BY: [facility]Dublin [place] [id number] Erythrocyte distribution width (RBC) [Ratio] 14.6 % Normal 11.6-15.4 [facility]; [facility] Work Phone: Comment on above: PATIENT WAS FASTINGPERFORMED BY: [facility] [place] [id number] Hematocrit (Bld) [Volume fraction] 47.2 % Normal 37.5-51.0 [facility]; [facility] Work Phone: Comment on above: PATIENT WAS FASTINGPERFORMED BY: [facility]Dublin [place] [id number] Hemoglobin (Bld) [Mass/Vol] 16.4 g/dL Normal 13.0-17.7 [facility]; [facility] Work Phone: Comment on above: PATIENT WAS FASTINGPERFORMED BY: [facility] [place] [id number] Immature granulocytes (Bld) [#/Vol] 0.0 {x10E3/uL} Normal 0.0-0.1 [facility]; [facility] Work Phone: Comment on above: PATIENT WAS FASTINGPERFORMED BY: [facility] [place] [id number] Immature granulocytes (Bld) [#/Vol] 0.0 10*3/uL Normal 0.0-0.1 [facility]; [facility] Work Phone: Comment on above: PATIENT WAS FASTINGPERFORMED BY: [facility] [place] [id number] Immature granulocytes/100 WBC (Bld) 0 % Normal [facility]; [facility] Work Phone: Comment on above: PATIENT WAS FASTINGPERFORMED BY: [facility] [place] [id number] Lymphocytes (Bld) [#/Vol] 2.7 {x10E3/uL} Normal 0.7-3.1 [facility]; [facility] Work Phone: Comment on above: PATIENT WAS FASTINGPERFORMED BY: [facility] [place] [id number] Lymphocytes (Bld) [#/Vol] 2.7 10*3/uL Normal 0.7-3.1 [facility]; [facility] Work Phone: Comment on above: PATIENT WAS FASTINGPERFORMED BY: [facility] [place] [id number] Lymphocytes/100 WBC (Bld) 28 % Normal [facility]; [facility] Work Phone: Comment on above: PATIENT WAS FASTINGPERFORMED BY: [facility] [place] [id number] MCH (RBC) [Entitic mass] 29.7 pg Normal 26.6-33.0 [facility]; [facility] Work Phone: Comment on above: PATIENT WAS FASTINGPERFORMED BY: [facility] [place] [id number] MCHC (RBC) [Mass/Vol] 34.7 g/dL Normal 31.5-35.7 [facility]; [facility] Work Phone: Comment on above: PATIENT WAS FASTINGPERFORMED BY: Lab or Yukwfd9083 [address] RoadDublin [place] [id number] MCV (RBC) [Entitic vol] 85 fL Normal 79-97 [facility]; [facility] Work Phone: Comment on above: PATIENT WAS FASTINGPERFORMED BY: [facility] or Aaxbrl7[address] RoadDublin [place] [id number] Monocytes (Bld) [#/Vol] 0.8 {x10E3/uL} Normal 0.1-0.9 [facility]; [facility] Work Phone: Comment on above: PATIENT WAS FASTINGPERFORMED BY: [facility] orN[facility] LumpkinWrargy65[address] RoadDublin [place] [id number] Monocytes (Bld) [#/Vol] 0.8 10*3/uL Normal 0.1-0.9 [facility]; [facility] Work Phone: Comment on above: PATIENT WAS FASTINGPERFORMED BY: [facility] or Uyeplc0[address] RoadDublin [place] [id number] Monocytes/100 WBC (Bld) 8 % Normal [facility]; [facility] Work Phone: Comment on above: PATIENT WAS FASTINGPERFORMED BY: [facility] or Ljlfui07[address] RoadDublin [place] [id number] Neutrophils (Bld) [#/Vol] 5.8 {x10E3/uL} Normal 1.4-7.0 [facility]; [facility] Work Phone: Comment on above: PATIENT WAS FASTINGPERFORMED BY: Lab or Zismnj25[address] RoadDublin [place] [id number] Neutrophils (Bld) [#/Vol] 5.8 10*3/uL Normal 1.4-7.0 [facility]; [facility] Work Phone: Comment on above: PATIENT WAS FASTINGPERFORMED BY: [facility] or Akxgxq6669 [address] RoadDublin [place] [id number] Neutrophils/100 WBC (Bld) 62 % Normal [facility]; [facility] Work Phone: Comment on above: PATIENT WAS FASTINGPERFORMED BY: Lab or Byvnes70[address] RoadDublin [place] [id number] Platelets (Bld) [#/Vol] 269 {x10E3/uL} Normal 150-450 [facility]; [facility] Work Phone: Comment on above: PATIENT WAS FASTINGPERFORMED BY: Lab or Iupypt60[address] RoadDublin [place] [id number] Platelets (Bld) [#/Vol] 269 10*3/uL Normal 150-450 [facility]; [facility] Work Phone: Comment on above: PATIENT WAS FASTINGPERFORMED BY: Lab or Olysfd65[address] RoadDublin [place] [id number] RBC (Bld) [#/Vol] 5.53 {x10E6/uL} Normal 4.14-5.80 [facility]; [facility] Work Phone: Comment on above: PATIENT WAS FASTINGPERFORMED BY: Lab or Ditsee4[address] RoadDublin [place] [id number] RBC (Bld) [#/Vol] 5.53 10*6/uL Normal 4.14-5.80 [facility]; [facility] Work Phone: Comment on above: PATIENT WAS FASTINGPERFORMED BY: Lab or Pehebo7[address] RoadDublin [place] [id number] WBC (Bld) [#/Vol] 9.5 {x10E3/uL} Normal 3.4-10.8 [facility]; [facility] Work Phone: Comment on above: PATIENT WAS FASTINGPERFORMED BY: Lab or Qumktt8596 [address] RoadDublin [place] [id number] WBC (Bld) [#/Vol] 9.5 10*3/uL Normal 3.4-10.8 [facility]; [facility] Work Phone: Comment on above: PATIENT WAS FASTINGPERFORMED BY: Lab orp Pkyrdq8[address] RoadDublin [place] [id number] Lipid Panel (28155)Ordered B y: Executive Vice President And Chief Operating Officer on 08-19-2020 Cholesterol [Mass/Vol] 308 mg/dL Abnormal 100-199 [facility]; [facility] Work Phone: Comment on above: PATIENT WAS FASTINGPERFORMED BY: [facility] orp Okgmia8[address] RoadDublin [place] [id number] Cholesterol in HDL [Mass/Vol] 38 mg/dL Abnormal [facility]; [facility] Work Phone: Comment on above: PATIENT WAS FASTINGPERFORMED BY: Lab or Xaxnhm00[address]Dublin [place] [id number] Cholesterol in LDL/Cholesterol in HDL [Mass ratio] 5.5 {ratio} Abnormal 0.0-3.6 [facility]; [facility] Work Phone: Comment on above: LDL/HDL Ratio Men Women 1/2 Avg.Risk 1.0 1.5 Avg.Risk 3.6 3.2 2X Avg.Risk 6.2 5.0 3X Avg.Risk 8.0 6.1 PATIENT WAS FASTINGP ERFORMED BY: [facility] Wplegg3[address]Dublin [place] [id number] Triglyceride [Mass/Vol] 297 mg/dL Abnormal 0-149 [facility]; [facility] Work Phone: Comment on above: PATIENT WAS FASTINGPERFORMED BY: Lab or Ubxguj5217 [address] RoadDublin [place] [id number] Lipid Panel ([id number]) 60 mg/dL Abnormal 5-40 [facility]; [facility] Work Phone: Comment on above: PATIENT WAS FASTINGPERFORMED BY: CB [facility] orp Ktnamx8871 [address] RoadDublin [place] [id number] Lipid Panel (48744) 210 mg/dL Abnormal 0-99 [facility]; [facility] Work Phone: Comment on above: PATIENT WAS FASTINGPERFORMED BY: [facility] orp Jttohm0315 [address] RoadDublin [place] [id number] Lipid Panel (23723) 5.5 {ratio} Abnormal 0.0-3.6 [facility]; [facility] Work Phone: Comment on above: LDL/HDL Ratio Men Women 1/2 Avg.Risk 1.0 1.5 Avg.Risk 3.6 3.2 2X Avg.Risk 6.2 5.0 3X Avg.Risk 8.0 6.1 PATIENT WAS FASTINGP ERFORMED BY: [facility] Qphino7576 [address] Roadblin [place] [id number] Metabolic Panel, Comprehensi ve (54599)Ordered By: Executive Vice President And Chief Operating Officer on 08-19-2020 Albumin [Mass/Vol] 4.9 g/dL Normal 4.0-5.0 [facility]; [facility] Work Phone: Comment on above: PATIENT WAS FASTINGPERFORMED BY: [facility] or Cbwzaa6557 Cohen RoadAtrium Health [facility]ville [id number] Albumin/Globulin [Mass ratio] 1.4 {ratio} Normal 1.2-2.2 [facility]; [facility] Work Phone: Comment on above: PATIENT WAS FASTINGPERFORMED BY: Lab or Ifunfv0557 [address] Roadblin [place] [id number] ALP [Catalytic activity/Vol] 64 [iU]/L Normal 39-117 [facility]; [facility] Work Phone: Comment on above: PATIENT WAS FASTINGPERFORMED BY: Lab or Bmndgc[address] [facility] Hospitalblin [place] [id number] ALP [Catalytic activity/Vol] 64 U/L Normal 39-117 [facility]; [facility] Work Phone: Comment on above: PATIENT WAS FASTINGPERFORMED BY: Lab or Ulxpjt0281 [address] [facility] Hospitalblin [place] [id number] ALT [Catalytic activity/Vol] 26 [iU]/L Normal 0-44 [facility]; [facility] Work Phone: Comment on above: PATIENT WAS FASTINGPERFORMED BY: Lab or Lzinck4[address]Dublin [place] [id number] ALT [Catalytic activity/Vol] 26 U/L Normal 0-44 [facility]; [facility] Work Phone: Comment on above: PATIENT WAS FASTINGPERFORMED BY: Lab or Hmackk1495 [address] RoadDublin [place] [id number] AST [Catalytic activity/Vol] 24 [iU]/L Normal 0-40 [facility]; [facility] Work Phone: Comment on above: PATIENT WAS FASTINGPERFORMED BY: Lab or Mmbxao5749 [address] RoadDublin [place] [id number] AST [Catalytic activity/Vol] 24 U/L Normal 0-40 [facility]; [facility] Work Phone: Comment on above: PATIENT WAS FASTINGPERFORMED BY: Lab or Ifhudj4819 [address] RoadDublin [place] [id number] Bilirubin [Mass/Vol] 0.7 mg/dL Normal 0.0-1.2 [facility]; [facility] Work Phone: Comment on above: PATIENT WAS FASTINGPERFORMED BY: Lab or Mrjrsd9155 [address] RoadDublin [place] [id number] Calcium [Mass/Vol] 10.5 mg/dL Abnormal 8.7-10.2 [facility]; [facility] Work Phone: Comment on above: PATIENT WAS FASTINGPERFORMED BY: Lab or Ftkndd2947 [address] RoadDublin [place] [id number] Chloride [Moles/Vol] 97 mmol/L Normal 96-106 [facility]; [facility] Work Phone: Comment on above: PATIENT WAS FASTINGPERFORMED BY: Lab or Gmzdcr9610 [address] RoadDublin [place] [id number] CO2 [Moles/Vol] 20 mmol/L Normal 20-29 [facility]; [facility] Work Phone: Comment on above: PATIENT WAS FASTINGPERFORMED BY: Lab or Unfzvi0176 [address] RoadDublin [place] [id number] Creatinine [Mass/Vol] 1.14 mg/dL Normal 0.76-1.27 [facility]; [facility] Work Phone: Comment on above: PATIENT WAS FASTINGPERFORMED BY: [facility]irmarylin6[address] [place] [id number] GFR/1.73 sq M predicted among blacks CKD-EPI (S/P/Bld) [Vol rate/Area] 90 mL/min/1.73 Normal [facility]; [facility] Work Phone: Comment on above: PATIENT WAS FASTINGPERFORMED BY: [facility]irmarylin6[address] [place] [id number] GFR/1.73 sq M predicted among non-blacks CKD-EPI (S/P/Bld) [Vol rate/Area] 78 mL/min/1.73 Normal [facility]; [facility] Work Phone: Comment on above: PATIENT WAS FASTINGPERFORMED BY: [facility] [place] [id number] Globulin (S) [Mass/Vol] 3.5 g/dL Normal 1.5-4.5 [facility]; [facility] Work Phone: Comment on above: PATIENT WAS FASTINGPERFORMED BY: [facility]irmarylin6[address] [place] [id number] Glucose [Mass/Vol] 109 mg/dL Abnormal 65-99 [facility]; [facility] Work Phone: Comment on above: PATIENT WAS FASTINGPERFORMED BY: [facility]irmarylin6[address] [place] [id number] Potassium [Moles/Vol] 3.6 mmol/L Normal 3.5-5.2 [facility]; [facility] Work Phone: Comment on above: PATIENT WAS FASTINGPERFORMED BY: [facility]irmarylin6[address]Dublin [place] [id number] Protein [Mass/Vol] 8.4 g/dL Normal 6.0-8.5 [facility]; [facility] Work Phone: Comment on above: PATIENT WAS FASTINGPERFORMED BY: Lab orPascack Valley Medical CenterKawbem[address] [facility] Hospitalblin [place] [id number] Sodium [Moles/Vol] 137 mmol/L Normal 134-144 [facility]; [facility] Work Phone: Comment on above: PATIENT WAS FASTINGPERFORMED BY: Lab orPascack Valley Medical CenterIwavpr[address] [facility] Hospitalblin [place] [id number] Urea nitrogen [Mass/Vol] 13 mg/dL Normal 6-24 [facility]; [facility] Work Phone: Comment on above: PATIENT WAS FASTINGPERFORMED BY: Lab or Tppaij4850 [address] Roadblin [place] [id number] Urea nitrogen/Creatin ine [Mass ratio] 11 mg/mg Normal 9-20 [facility]; [facility] Work Phone: Comment on above: PATIENT WAS FASTINGPERFORMED BY: Lab orPascack Valley Medical CenterVpytcz[address] [facility] Hospitalin [place] [id number] TSH (THYROID STIMULATING HOR SHAJI) (73099)Ordered By: Executive Vice President And Chief Operating Officer on 08-19-2020 TSH Qn 1.890 {uIU/mL} Normal 0.450-4.500 [facility]; [facility] Work Phone: Comment on above: PATIENT WAS FASTINGPERFORMED BY: Lab orPascack Valley Medical CenterYxryzc49[address] [facility] Hospitalin [place] [id number] CALCIFEDIOL (56809)Ordered B y: Executive Vice President And Chief Operating Officer on 06-20-2019 25-Hydroxyvitami n D2+25-Hydroxyvit kraus D3 [Mass/Vol] 21.8 ng/mL Abnormal 30.0-100.0 [facility] Work Phone: Comment on above: Vitamin D deficiency has been defined by the [place] of[place] and an Endocrine Society practice guideline as alevel of serum 25-OH vitamin D less than 20 ng/mL (1,2).The Endocrine Society went on to further define vitamin Dinsufficiency as a level between 21 and 29 ng/mL (2).1. IOM ([place] [employer]). 2010. Dietary reference intakes for calcium and D. [place]: The National Academies Press.2. Alexandre MF, Tia NC, Kevin LI, et al. Evaluation, treatment, and prevention of vitamin D deficiency: an Endocrine Society clinical practice guideline. JCEM. 2010; 96(7):1911-30. PATIENT WAS FASTINGP ERFORMED BY: [facility] Thxgqx6326 [address] RoadDublin [place] [id number] Lipid Panel (78058)Ordered B y: Executive Vice President And Chief Operating Officer on 06-20-2019 Cholesterol [Mass/Vol] 251 mg/dL Abnormal 100-199 [facility] Work Phone: Comment on above: PATIENT WAS FASTINGPERFORMED BY: Lab or Pxgear3052 [address] RoadDublin [place] [id number] Cholesterol in HDL [Mass/Vol] 32 mg/dL Abnormal [facility] Work Phone: Comment on above: PATIENT WAS FASTINGPERFORMED BY: Lab or Pvfdgr1895 [address] RoadDublin [place] [id number] Cholesterol in LDL [Mass/Vol] 170 mg/dL Abnormal 0-99 [facility] Work Phone: Comment on above: PATIENT WAS FASTINGPERFORMED BY: [facility] or Hturpl9862 [address] RoadDublin [place] [id number] Cholesterol in LDL/Cholesterol in HDL [Mass ratio] 5.3 {ratio} Abnormal 0.0-3.6 [facility] Work Phone: Comment on above: LDL/HDL Ratio Men Women 1/2 Avg.Risk 1.0 1.5 Avg.Risk 3.6 3.2 2X Avg.Risk 6.2 5.0 3X Avg.Risk 8.0 6.1 PATIENT WAS FASTINGP ERFORMED BY: [facility] Guktfa1961 [address] RoadDublin [place] [id number] Cholesterol in VLDL [Mass/Vol] 49 mg/dL Abnormal 5-40 [facility] Work Phone: Comment on above: PATIENT WAS FASTINGPERFORMED BY: Lab orp Kdwbrf9657 [address] RoadDublin [place] [id number] Triglyceride [Mass/Vol] 244 mg/dL Abnormal 0-149 [facility] Work Phone: Comment on above: PATIENT WAS FASTINGPERFORMED BY: [facility] orPascack Valley Medical CenterImpclm45[address] [facility] Hospitalin [place] [id number] Metabolic Panel, Comprehensi ve ([id number])Ordered By: Executive Vice President And Chief Operating Officer on 06-20-2019 Albumin [Mass/Vol] 4.5 g/dL Normal 3.5-5.5 [facility] Work Phone: Comment on above: PATIENT WAS FASTINGPERFORMED BY: [facility] orPascack Valley Medical CenterJnscvn3612 Cohen RoadAtrium Health Hun[facility]ville [id number] Information: NURSE DRAW Albumin/Globulin [Mass ratio] 1.4 {ratio} Normal 1.2-2.2 [facility] Work Phone: Comment on above: PATIENT WAS FASTINGPERFORMED BY: [facility] [facility] [id number] Information: NURSE DRAW ALP [Catalytic activity/Vol] 59 [iU]/L Normal 39-117 [facility] Work Phone: Comment on above: PATIENT WAS FASTINGPERFORMED BY: [facility] [facility] [id number] Information: NURSE DRAW ALP [Catalytic activity/Vol] 59 U/L Normal 39-117 [facility]; [facility] Work Phone: Comment on above: PATIENT WAS FASTINGPERFORMED BY: [facility] orPascack Valley Medical CenterPesefd[address] [facility] [id number] Information: NURSE DRAW ALT [Catalytic activity/Vol] 18 [iU]/L Normal 0-44 [facility] Work Phone: Comment on above: PATIENT WAS FASTINGPERFORMED BY: [facility] [facility] orPascack Valley Medical CenterTpmobo[address] [facility] [id number] Information: NURSE DRAW ALT [Catalytic activity/Vol] 18 U/L Normal 0-44 [facility]; [facility] Work Phone: Comment on above: PATIENT WAS FASTINGPERFORMED BY: [facility] RoadDublin [place] [id number] Information: NURSE DRAW AST [Catalytic activity/Vol] 17 [iU]/L Normal 0-40 [facility] Work Phone: Comment on above: PATIENT WAS FASTINGPERFORMED BY: [facility] or[facility] LumpkinHnzmmf1691 [address] RoadDublin [place] [id number] Information: NURSE DRAW AST [Catalytic activity/Vol] 17 U/L Normal 0-40 [facility]; [facility] Work Phone: Comment on above: PATIENT WAS FASTINGPERFORMED BY: [facility] RoadDublin [place] [id number] Information: NURSE DRAW Bilirubin [Mass/Vol] 0.5 mg/dL Normal 0.0-1.2 [facility] Work Phone: Comment on above: PATIENT WAS FASTINGPERFORMED BY: [facility] RoadDuin [place] [id number] Information: NURSE DRAW Calcium [Mass/Vol] 9.0 mg/dL Normal 8.7-10.2 [facility] Work Phone: Comment on above: PATIENT WAS FASTINGPERFORMED BY: [facility] orP[facility] Medical CenterYpfmrt0610 [address] Roadblin [place] [id number] Information: NURSE DRAW Chloride [Moles/Vol] 102 mmol/L Normal 96-106 [facility] Work Phone: Comment on above: PATIENT WAS FASTINGPERFORMED BY: [facility]Dublin [place] [id number] Information: NURSE DRAW CO2 [Moles/Vol] 20 mmol/L Normal 20-29 [facility] Internal Medicine Work Phone: Comment on above: PATIENT WAS FASTINGPERFORMED BY: [facility]Dublin [place] [id number] Information: NURSE DRAW Creatinine [Mass/Vol] 0.86 mg/dL Normal 0.76-1.27 [facility] Work Phone: Comment on above: PATIENT WAS FASTINGPERFORMED BY: [facility] [facility] [id number] Information: NURSE DRAW GFR/1.73 sq M predicted among blacks CKD-EPI (S/P/Bld) [Vol rate/Area] 124 mL/min/1.73 Normal [facility] Work Phone: Comment on above: PATIENT WAS FASTINGPERFORMED BY: [address] [id number] Information: NURSE DRAW GFR/1.73 sq M predicted among non-blacks CKD-EPI (S/P/Bld) [Vol rate/Area] 107 mL/min/1.73 Normal [facility] Work Phone: Comment on above: PATIENT WAS FASTINGPERFORMED BY: [address] [id number] Information: NURSE DRAW Globulin (S) [Mass/Vol] 3.3 g/dL Normal 1.5-4.5 [facility] Work Phone: Comment on above: PATIENT WAS FASTINGPERFORMED BY: [facility] [facility] [id number] Information: NURSE DRAW Glucose [Mass/Vol] 93 mg/dL Normal 65-99 [facility] Work Phone: Comment on above: PATIENT WAS FASTINGPERFORMED BY: [facility] [facility] [id number] Information: NURSE DRAW Potassium [Moles/Vol] 3.7 mmol/L Normal 3.5-5.2 [facility] Work Phone: Comment on above: PATIENT WAS FASTINGPERFORMED BY: [facility] [facility] [id number] Information: NURSE DRAW Protein [Mass/Vol] 7.8 g/dL Normal 6.0-8.5 [facility] Work Phone: Comment on above: PATIENT WAS FASTINGPERFORMED BY: [facility] Ssljpw[address] [facility] [id number] Information: NURSE DRAW Sodium [Moles/Vol] 140 mmol/L Normal 134-144 [facility] Work Phone: Comment on above: PATIENT WAS FASTINGPERFORMED BY: [facility] or Llubgr[address] [facility] [facility] [id number] Information: NURSE DRAW Urea nitrogen [Mass/Vol] 8 mg/dL Normal 6-24 [facility] Work Phone: Comment on above: PATIENT WAS FASTINGPERFORMED BY: [facility] orP[facility] Medical CenterRbulrf[address] [facility] [facility] [id number] Information: NURSE DRAW Urea nitrogen/Creatin ine [Mass ratio] 9 mg/mg Normal 9-20 [facility] Work Phone: Comment on above: PATIENT WAS FASTINGPERFORMED BY: [facility] [facility] [id number] Information: NURSE DRAW PSA (PROSTATE SPECIFIC ANTIG EN) (V76.44)Ordered By: Executive Vice President And Chief Operating Officer on 06-20-2019 Prostate specific Ag [Mass/Vol] 0.4 ng/mL Normal 0.0-4.0 [facility] Work Phone: Comment on above: Weave ECLIA methodology. .According to t he [place] [employer], Serum PSA shoulddecrease and remain at undetectable levels after radicalprostatectomy. The AUA defines biochemical recurrence as an initialPSA value 0.2 ng/mL or greater followed by a subsequent confirmatoryPSA value 0.2 ng/mL or greater.Values obtained with different assay methods or kits cannot be usedinterchangeably. Results cannot be interpreted as absolute evidenceof the presence or absence of malignant disease. PATIENT WAS FASTINGP ERFORMED BY: [facility] [id number] TSH ([id number])Ordered By: [employer] ([employer])e m Systems Operator on 06-20-2019 TSH Qn 1.280 {uIU/mL} Normal 0.450-4.500 [facility] Internal Medicine Work Phone: Comment on above: PATIENT WAS FASTINGPERFORMED BY: Lab or Juqupk4[address] RoadDublin [place] [id number] VITAMIN B12 AND FOLATES (826 07)Ordered By: Executive Vice President And Chief Operating Officer on 06-20-2019 Cobalamin (Vitamin B12) [Mass/Vol] 1023 pg/mL Normal 232-1245 [facility] Work Phone: Comment on above: PATIENT WAS FASTINGPERFORMED BY: Lab or Krmxad0[address] RoadDublin [place] [id number] Folate [Mass/Vol] 13.8 ng/mL Normal [facility] Work Phone: Comment on above: A serum folate concentration of less debbie n 3.1 ng/mL isconsidered to represent clinical deficiency. PATIENT WAS FASTINGP ERFORMED BY: [facility] Riezeb7973 [address] RoadDublin [place] [id number] Rapid Strep Test, Office (79 183)on 02-14-2019 S. pyogenes Ag EIA Ql (Throat) Negative Normal [facility]; [facility] Work Phone: S. pyogenes Ag IA Ql (Unsp spec) Negative Normal [facility] Work Phone: CALCIFEDIOL ([id number])on 2018 25-Hydroxyvitami n D2+25-Hydroxyvit kraus D3 mass conc 11.7 ng/mL Abnormal 30.0-100.0 [facility] Work Phone: Comment on above: Vitamin D deficiency has been defined by the [place] of[place] and an Endocrine Society practice guideline as alevel of serum 25-OH vitamin D less than 20 ng/mL (1,2).The Endocrine Society went on to further define vitamin Dinsufficiency as a level between 21 and 29 ng/mL (2).1. IOM ([place] of [employer]). 2010. Dietary reference intakes for calcium and D. [place]: The National Academies Press.2. Alexandre MF, Tia NAJERA, Kevin LI, et al. Evaluation, treatment, and prevention of vitamin D deficiency: an Endocrine Society clinical practice guideline. JCEM. 2010; 96(7):1911-30. PATIENT NOT FASTINGP ERFORMED BY: [facility]6[address] RoadAt[facility] [id number] CBC, Platelets & Auto Diff ( [id number])on 11-01-2018 Basophils #/vol (Bld) 0.0 {x10E3/uL} Normal 0.0-0.2 [facility] Work Phone: Comment on above: PATIENT NOT FASTINGPERFORMED BY: CB Lab or Oukfob1984 Cohen RoadAtrium Healthin [place] [id number] Basophils/100 WBC (Bld) 0 % Normal [facility] Work Phone: Comment on above: PATIENT NOT FASTINGPERFORMED BY: CB Lab orPascack Valley Medical CenterZqvqmy5980 [address] RoadAtrium Healthin [place] [id number] Eosinophils #/vol (Bld) 0.1 {x10E3/uL} Normal 0.0-0.4 [facility] Work Phone: Comment on above: PATIENT NOT FASTINGPERFORMED BY: CB Lab orPascack Valley Medical CenterBevdqs3794 Cohen RoadAtrium Health [facility] [id number] Eosinophils/100 WBC (Bld) 2 % Normal [facility] Work Phone: Comment on above: PATIENT NOT FASTINGPERFORMED BY: Lab orPascack Valley Medical CenterHtnhxu[address] [facility] [facility] [id number] Erythrocyte distribution width Ratio (RBC) 13.3 % Normal 12.3-15.4 [facility] Work Phone: Comment on above: PATIENT NOT FASTINGPERFORMED BY: Lab orPascack Valley Medical CenterHdpjxr[address] [facility] [id number] Hematocrit Volume Fraction (Bld) 46.4 % Normal 37.5-51.0 [facility] Work Phone: Comment on above: PATIENT NOT FASTINGPERFORMED BY: Lab orPasc[facility] Medical CenterBribkt[address] [facility] [facility] [id number] Hemoglobin mass conc (Bld) 15.6 g/dL Normal 13.0-17.7 [facility] Work Phone: Comment on above: PATIENT NOT FASTINGPERFORMED BY: CB Lab orPascack Valley Medical CenterJpecty[address] RoadDublin [place] [id number] Immature granulocytes #/vol (Bld) 0.0 {x10E3/uL} Normal 0.0-0.1 [facility] Work Phone: Comment on above: PATIENT NOT FASTINGPERFORMED BY: [facility] orPasc[facility] Medical CenterKeydns29[address] RoadDublin [place] [id number] Immature granulocytes/100 WBC (Bld) 0 % Normal [facility] Work Phone: Comment on above: PATIENT NOT FASTINGPERFORMED BY: [facility] orPasc[facility] Valley Medical CenterEtyeaj4[address] RoadDublin [place] [id number] Lymphocytes #/vol (Bld) 2.1 {x10E3/uL} Normal 0.7-3.1 [facility] Work Phone: Comment on above: PATIENT NOT FASTINGPERFORMED BY: [facility] orPasc[facility] Medical CenterAtvxku9735 [address] RoadDublin [place] [id number] Lymphocytes/100 WBC (Bld) 23 % Normal [facility] Work Phone: Comment on above: PATIENT NOT FASTINGPERFORMED BY: [facility] orP[facility] Medical CenterRymnlc9[address] RoadDublin [place] [id number] MCH Entitic mass (RBC) 28.8 pg Normal 26.6-33.0 [facility] Work Phone: Comment on above: PATIENT NOT FASTINGPERFORMED BY: [facility] orPasc[facility] Medical CenterInvkvb4886 [address] RoadDublin [place] [id number] MCHC mass conc (RBC) 33.6 g/dL Normal 31.5-35.7 [facility] Work Phone: Comment on above: PATIENT NOT FASTINGPERFORMED BY: [facility] orPasc[facility] Medical CenterFuimwi44[address] RoadDublin [place] [id number] MCV Entitic volume (RBC) 86 fL Normal 79-97 [facility] Work Phone: Comment on above: PATIENT NOT FASTINGPERFORMED BY: Lab orPascack Valley Medical CenterJrxqjb18[address] RoadDublin [place] [id number] Monocytes #/vol (Bld) 0.6 {x10E3/uL} Normal 0.1-0.9 [facility] Work Phone: Comment on above: PATIENT NOT FASTINGPERFORMED BY: Lab orPasc[facility] Medical CenterZeoequ7[address] RoadDublin [place] [id number] Monocytes/100 WBC (Bld) 7 % Normal [facility] Work Phone: Comment on above: PATIENT NOT FASTINGPERFORMED BY: Lab orPasc[facility] Valley Medical CenterKliqbj9[address] RoadDublin [place] [id number] Neutrophils #/vol (Bld) 6.1 {x10E3/uL} Normal 1.4-7.0 [facility] Work Phone: Comment on above: PATIENT NOT FASTINGPERFORMED BY: [facility] orP[facility] Medical CenterSzqyrz15[address] RoadDublin [place] [id number] Neutrophils/100 WBC (Bld) 68 % Normal [facility] Work Phone: Comment on above: PATIENT NOT FASTINGPERFORMED BY: [facility] orPasc[facility] Medical CenterNqokwj17[address] RoadDublin [place] [id number] Platelets #/vol (Bld) 234 {x10E3/uL} Normal 150-379 [facility] Work Phone: Comment on above: PATIENT NOT FASTINGPERFORMED BY: [facility] orP[facility] Medical CenterTranoi59[address] RoadDublin [place] [id number] RBC #/vol (Bld) 5.41 {x10E6/uL} Normal 4.14-5.80 [facility] Internal Medicine Work Phone: Comment on above: PATIENT NOT FASTINGPERFORMED BY: Lab orPascack Valley Medical CenterYkreev02[address] RoadDublin [place] [id number] WBC #/vol (Bld) 9.0 {x10E3/uL} Normal 3.4-10.[address] [facility] Internal Medicine Work Phone: Comment on above: PATIENT NOT FASTINGPERFORMED BY: Lab orPascack Valley Medical CenterKawjhc[address] RoadDublin [place] [id number] CBC, Platelets & Auto Diff ( 05607)Ordered By: Executive Vice President And Chief Operating Officer on 11-01-2018 Basophils (Bld) [#/Vol] 0.0 10*3/uL Normal 0.0-0.2 [facility]; [facility] Work Phone: Comment on above: PATIENT NOT FASTINGPERFORMED BY: CB Lab or Chumlf0491 [address] RoadDublin [place] [id number] Eosinophils (Bld) [#/Vol] 0.1 10*3/uL Normal 0.0-0.4 [facility]; [facility] Work Phone: Comment on above: PATIENT NOT FASTINGPERFORMED BY: CB Lab or Cjymje5[address] RoadDublin [place] [id number] Immature granulocytes (Bld) [#/Vol] 0.0 10*3/uL Normal 0.0-0.1 [facility]; [facility] Work Phone: Comment on above: PATIENT NOT FASTINGPERFORMED BY: CB Lab orPascack Valley Medical CenterAxnrrk27[address] RoadDublin [place] [id number] Lymphocytes (Bld) [#/Vol] 2.1 10*3/uL Normal 0.7-3.1 [facility]; [facility] Work Phone: Comment on above: PATIENT NOT FASTINGPERFORMED BY: CB Lab orPascack Valley Medical CenterUadenq01[address] RoadDublin [place] [id number] Monocytes (Bld) [#/Vol] 0.6 10*3/uL Normal 0.1-0.9 [facility]; [facility] Work Phone: Comment on above: PATIENT NOT FASTINGPERFORMED BY: CB Lab or Wmfbnf4887 [address] RoadDublin [place] [id number] Neutrophils (Bld) [#/Vol] 6.1 10*3/uL Normal 1.4-7.0 [facility]; [facility] Work Phone: Comment on above: PATIENT NOT FASTINGPERFORMED BY: CB Lab or Schimh7[address] RoadDublin [place] [id number] Platelets (Bld) [#/Vol] 234 10*3/uL Normal 150-379 [facility]; [facility] Work Phone: Comment on above: PATIENT NOT FASTINGPERFORMED BY: CB LabC orp Mwkehl4349 [address] RoadDublin [place] [id number] RBC (Bld) [#/Vol] 5.41 10*6/uL Normal 4.14-5.80 [facility]; [facility] Work Phone: Comment on above: PATIENT NOT FASTINGPERFORMED BY: CB LabC orp Xkimlg8860 [address] RoadDublin [place] [id number] WBC (Bld) [#/Vol] 9.0 10*3/uL Normal 3.4-10.8 [facility]; [facility] Work Phone: Comment on above: PATIENT NOT FASTINGPERFORMED BY: CB LabC orp Oxieuo5[address] RoadDublin [place] [id number] Metabolic Panel, Comprehi alda (43909)on 11-01-2018 Albumin mass conc 4.9 g/dL Normal 3.5-5.5 [facility] Work Phone: Comment on above: PATIENT NOT FASTINGPERFORMED BY: CB LabC orp Qtvvkb4049 [address] RoadDublin [place] [id number] Albumin/Globulin mass ratio 1.5 {ratio} Normal 1.2-2.2 [facility] Work Phone: Comment on above: PATIENT NOT FASTINGPERFORMED BY: CB LabC orp Pretbj0369 [address] RoadDublin [place] [id number] ALP enzyme act/vol 53 [iU]/L Normal 39-117 [facility] Work Phone: Comment on above: PATIENT NOT FASTINGPERFORMED BY: CB LabC orp Wplpav5238 [address] RoadDublin [place] [id number] ALT enzyme act/vol 24 [iU]/L Normal 0-44 [facility] Work Phone: Comment on above: PATIENT NOT FASTINGPERFORMED BY: CB LabC orp Rjehvj1116 [address] RoadDublin [place] [id number] AST enzyme act/vol 22 [iU]/L Normal 0-40 [facility] Work Phone: Comment on above: PATIENT NOT FASTINGPERFORMED BY: CB Lab or Agyzpd2731 [address] RoadDublin [place] [id number] Bilirubin mass conc 0.5 mg/dL Normal 0.0-1.2 [facility] Work Phone: Comment on above: PATIENT NOT FASTINGPERFORMED BY: CB LabC or Mknoet2757 [address] RoadDublin [place] [id number] Calcium mass conc 9.8 mg/dL Normal 8.7-10.2 [facility] Work Phone: Comment on above: PATIENT NOT FASTINGPERFORMED BY: CB Lab or Ktcjkl7768 [address] Roadblin [place] [id number] Chloride molar conc 97 mmol/L Normal 96-106 [facility] Work Phone: Comment on above: PATIENT NOT FASTINGPERFORMED BY: CB Lab orNort[facility] Center LumpkinJbldhb0542 [address] RoadAtrium Healthin [place] [id number] CO2 molar conc 22 mmol/L Normal 20-29 Comprehens marlon Internal Medicine Work Phone: Comment on above: PATIENT NOT FASTINGPERFORMED BY: Lab or Tfdhyo8668 [address] Roadblin [place] [id number] Creatinine mass conc 0.99 mg/dL Normal 0.76-1.27 [facility] Work Phone: Comment on above: PATIENT NOT FASTINGPERFORMED BY: CB Lab or Lvqxok7069 [address] RoadDublin [place] [id number] GFR/1.73 sq M predicted among blacks CKD-EPI vol rate/area (S/P/Bld) 108 mL/min/1.73 Normal [facility] Work Phone: Comment on above: PATIENT NOT FASTINGPERFORMED BY: CB LabC orp Vjwyaf7927 [address] RoadDublin [place] [id number] GFR/1.73 sq M predicted among non-blacks CKD-EPI vol rate/area (S/P/Bld) 94 mL/min/1.73 Normal [facility] Work Phone: Comment on above: PATIENT NOT FASTINGPERFORMED BY: CB LabC orp Kyaibi7694 [address] RoadDublin [place] [id number] Globulin mass conc (S) 3.3 g/dL Normal 1.5-4.5 [facility] Work Phone: Comment on above: PATIENT NOT FASTINGPERFORMED BY: CB LabC orp Hohwms7666 [address] RoadDublin [place] [id number] Glucose mass conc 100 mg/dL Abnormal 65-99 [facility] Work Phone: Comment on above: PATIENT NOT FASTINGPERFORMED BY: CB LabC orp Ksskjv2627 [address] RoadDublin [place] [id number] Potassium molar conc 3.8 mmol/L Normal 3.5-5.2 [facility] Work Phone: Comment on above: PATIENT NOT FASTINGPERFORMED BY: CB LabC or Igtuti2217 [address] RoadDublin [place] [id number] Protein mass conc 8.2 g/dL Normal 6.0-8.5 [facility] Work Phone: Comment on above: PATIENT NOT FASTINGPERFORMED BY: CB LabC or Ywgsgi9339 [address] RoadDublin [place] [id number] Sodium molar conc 137 mmol/L Normal 134-144 [facility] Work Phone: Comment on above: PATIENT NOT FASTINGPERFORMED BY: CB LabC or Hbtxxj7089 [address] RoadDublin [place] [id number] Urea nitrogen mass conc 12 mg/dL Normal 6-24 [facility] Work Phone: Comment on above: PATIENT NOT FASTINGPERFORMED BY: CB LabC orp Jgfwoq2855 [address] RoadDublin [place] [id number] Urea nitrogen/Creatin ine mass ratio 12 mg/mg Normal 9-20 [facility] Work Phone: Comment on above: PATIENT NOT FASTINGPERFORMED BY: CB LabC orp Afftrq8472 [address] RoadDublin [place] [id number] Metabolic Panel, Comprehensi ve (53474)Ordered By: Executive Vice President And Chief Operating Officer on 11-01-2018 ALP [Catalytic activity/Vol] 53 U/L Normal 39-117 [facility]; [facility] Work Phone: Comment on above: PATIENT NOT FASTINGPERFORMED BY: Lab orNort[facility] LumpkinVaulok3[address] RoadDublin [place] [id number] ALT [Catalytic activity/Vol] 24 U/L Normal 0-44 [facility]; [facility] Work Phone: Comment on above: PATIENT NOT FASTINGPERFORMED BY: Lab orNort[facility] LumpkinIiouon6[address] RoadDublin [place] [id number] AST [Catalytic activity/Vol] 22 U/L Normal 0-40 [facility]; [facility] Work Phone: Comment on above: PATIENT NOT FASTINGPERFORMED BY: [facility] orNort[facility] LumpkinGlejzf3953 [address] RoadDublin [place] [id number] Microscopic Examinationon Bacteria LM.HPF #/area (Urine sed) Few Normal [facility] Work Phone: Comment on above: PATIENT NOT FASTINGPERFORMED BY: [facility] or Dixmpb7472 [address] RoadDublin [place] [id number] Casts LM Nom (Urine sed) Hyaline casts Normal [facility] Work Phone: Comment on above: PATIENT NOT FASTINGPERFORMED BY: [facility] or Ccjeki4375 [address] RoadDublin [place] [id number] Casts LM Ql (Urine sed) Present Abnormal [facility] Work Phone: Comment on above: PATIENT NOT FASTINGPERFORMED BY: [facility] or Alglff4437 [address] RoadDublin [place] [id number] Epithelial cells LM.HPF #/area (Urine sed) None seen Normal 0 - 10 [facility] Work Phone: Comment on above: PATIENT NOT FASTINGPERFORMED BY: Lab or Qseksr9790 [address] RoadDublin [place] [id number] Mucus Ql (Urine sed) Present Normal [facility] Work Phone: Comment on above: PATIENT NOT FASTINGPERFORMED BY: [facility] or Wlgdsn9356 [address] RoadDublin [place] [id number] RBC LM.HPF #/area (Urine sed) 0-2 Normal 0 - 2 [facility] Work Phone: Comment on above: PATIENT NOT FASTINGPERFORMED BY: [facility] or Mypyqm5701 [address] RoadDublin [place] [id number] WBC LM.HPF #/area (Urine sed) 0-5 Normal 0 - 5 [facility] Work Phone: Comment on above: PATIENT NOT FASTINGPERFORMED BY: [facility] or Vylwqd8826 [address] RoadDublin [place] [id number] TSH (THYROID STIMULATING HOR SHAJI) (22121)on 11-01-2018 Thyrotropin Qn 1.030 {uIU/mL} Normal 0.450-4.500 Compr ehensive Internal Medicine Work Phone: Comment on above: PATIENT NOT FASTINGPERFORMED BY: [facility]arylin6370 [address] RoadDublin [place] [id number] URINALYSIS, W/ MICRO (61774) on 11-01-2018 Appearance Nom (U) Clear Normal [facility] Work Phone: Comment on above: PATIENT NOT FASTINGPERFORMED BY: [facility] or Nbwmlg6619 [address] RoadDublin [place] [id number] Bilirubin Ql (U) Negative Normal Comprehe nsive Internal Medicine Work Phone: Comment on above: PATIENT NOT FASTINGPERFORMED BY: [facility] or Zuvohj9451 [address] RoadDublin [place] [id number] Color Nom (U) Yellow Normal Comprehensi ve Internal Medicine Work Phone: Comment on above: PATIENT NOT FASTINGPERFORMED BY: [facility] or Htfulu2920 [address] RoadDublin [place] [id number] Glucose Ql (U) Negative Normal Comprehens marlon Internal Medicine Work Phone: Comment on above: PATIENT NOT FASTINGPERFORMED BY: Lab or Bsigft7839 [address] RoadDublin [place] [id number] Hemoglobin Ql (U) Negative Normal [facility] Work Phone: Comment on above: PATIENT NOT FASTINGPERFORMED BY: EILEEN Lab or Gjrmfc0155 [address] RoadDublin [place] [id number] Ketones Ql (U) Negative Normal Comprehens marlon Internal Medicine Work Phone: Comment on above: PATIENT NOT FASTINGPERFORMED BY: Lab or Zxvisi6373 [address] RoadDublin [place] [id number] Leukocyte esterase Test strip Ql (U) Negative Normal [facility] Work Phone: Comment on above: PATIENT NOT FASTINGPERFORMED BY: EILEEN Lab or Egtgao8968 [address] RoadDublin [place] [id number] Microscopic observation LM Nom (Urine sed) MICRON Normal [facility] Work Phone: Comment on above: Microscopic follows if indicated. PATIENT NOT FASTINGP ERFORMED BY: EILEEN LabCo Wbugdh6621 [address] RoadDublin [place] [id number] Microscopic observation LM Nom (Urine sed) See below: Normal [facility] Work Phone: Comment on above: Microscopic was indicated and was perfor med. PATIENT NOT FASTINGP ERFORMED BY: [facility] Eygkxx2709 [address] RoadDublin [place] [id number] Nitrite Ql (U) Negative Normal Comprehens marlon Internal Medicine Work Phone: Comment on above: PATIENT NOT FASTINGPERFORMED BY: Lab or Jsfvdd4747 [address] RoadDublin [place] [id number] pH (U) 6.0 [pH] Normal 5.0-7.5 [facility] Work Phone: Comment on above: PATIENT NOT FASTINGPERFORMED BY: Lab or [id number]Dublin [place] [id number] Protein Ql (U) Trace Normal Comprehens [facility] Work Phone: Comment on above: PATIENT NOT FASTINGPERFORMED BY: Lab or Jbmgwl1778 [address]Dublin [place] [id number] Specific gravity Relative Density (U) 1.019 1 Normal 1.005-1.030 [facility] Work Phone: Comment on above: PATIENT NOT FASTINGPERFORMED BY: Lab orPascack Valley Medical CenterLhasjg4535 [address] RoadDublin [place] [id number] Urobilinogen Test strip mass conc (U) 0.2 mg/dL Normal 0.2-1.0 [facility] Work Phone: Comment on above: PATIENT NOT FASTINGPERFORMED BY: CB Lab orPascack Valley Medical CenterQfoalt6667 [address]blin [place] [id number] URINALYSIS, W/ MICRO ([id number]) Ordered By: Executive Vice President And Chief Operating Officer on 11-01-2018 Bilirubin Ql (U) Negative Normal Comprehe nsive Internal Medicine; [facility] Work Phone: Comment on above: PATIENT NOT FASTINGPERFORMED BY: [facility] or[facility] LumpkinKgthjn5[address] RoadDublin [place] [id number] Glucose Ql (U) Negative Normal Comprehens [facility]; [facility] Work Phone: Comment on above: PATIENT NOT FASTINGPERFORMED BY: [facility] orPasc[facility] Valley Medical CenterEwnbdm7[address]Dublin [place] [id number] Hemoglobin Ql (U) Negative Normal [facility]; [facility] Work Phone: Comment on above: PATIENT NOT FASTINGPERFORMED BY: [facility] orN[facility] LumpkinCmwlhj6982 [address] RoadDublin [place] [id number] Ketones Ql (U) Negative Normal Comprehens [facility]; [facility] Work Phone: Comment on above: PATIENT NOT FASTINGPERFORMED BY: Lab or Kgqxtr11[address]Dublin [place] [id number] Leukocyte esterase Test strip Ql (U) Negative Normal [facility]; [facility] Work Phone: Comment on above: PATIENT NOT FASTINGPERFORMED BY: Lab or Ddyoys7009 [address] [place] [id number] Nitrite Ql (U) Negative Normal Comprehens [facility]; [facility] Work Phone: Comment on above: PATIENT NOT FASTINGPERFORMED BY: CB Lab orp Xfanre9265 [address] RoadDublin [place] [id number] Urobilinogen (U) [Mass/Vol] 0.2 mg/dL Normal 0.2-1.0 [facility]; [facility] Work Phone: Comment on above: PATIENT NOT FASTINGPERFORMED BY: CB Lab orp Klxuek6556 [address]Dublin [place] [id number] VITAMIN B12 AND FOLATES (826 [id number])on 11-01-2018 Cobalamin (Vitamin B12) mass conc 384 pg/mL Normal [id number] [facility] Work Phone: Comment on above: PATIENT NOT FASTINGPERFORMED BY: CB Lab orp Gsympd1182 [address]Dublin [place] [id number] Folate mass conc 17.8 ng/mL Normal Comprehe nsive Internal Medicine Work Phone: Comment on above: A serum folate concentration of less debbie n 3.1 ng/mL isconsidered to represent clinical deficiency. PATIENT NOT FASTINGP ERFORMED BY: [facility] Qiqidw2973 [address] RoadDublin [place] [id number] Vital Signs Date Time Vital Sign Value Performing Clinician Facility 01-13-2025 13:30-0400 Diastolic blood pressure 78 mm[Hg] Mikaela Spann APRN.DIRECTOR OF NATIONAL SALES Work Phone: [facility] 01-13-2025 13:30-0400 Heart rate 81 /min Mikaela Spann APRN.DIRECTOR OF NATIONAL SALES Work Phone: [facility] 01-13-2025 13:30-0400 SaO2% (BldA) [Mass fraction] 98 % Mikaela Spann SHIPPING SUPERVISOR.DIRECTOR OF NATIONAL SALES Work Phone: [facility] 01-13-2025 13:30-0400 Systolic blood pressure 128 mm[Hg] Mikaela Spann SHIPPING SUPERVISOR.DIRECTOR OF NATIONAL SALES Work Phone: [facility] 11-28-2024 10:27-0400 Diastolic blood pressure 80 mm[Hg] Mikaela Spann APRN.DIRECTOR OF NATIONAL SALES Work Phone: [facility] 11-28-2024 10:27-0400 Heart rate 89 /min Mikaela Zana SHIPPING SUPERVISOR.DIRECTOR OF NATIONAL SALES Work Phone: [facility] 11-28-2024 10:27-0400 SaO2% (BldA) [Mass fraction] 98 % Mikaela Zana SHIPPING SUPERVISOR.DIRECTOR OF NATIONAL SALES Work Phone: [facility] 11-28-2024 10:27-0400 Systolic blood pressure 140 mm[Hg] Mikaela Zana SHIPPING SUPERVISOR.DIRECTOR OF NATIONAL SALES Work Phone: [facility] 09-30-2024 09:51-0500 Diastolic blood pressure 88 mm[Hg] Mikaela Zana SHIPPING SUPERVISOR.DIRECTOR OF NATIONAL SALES Work Phone: [facility] 09-30-2024 09:51-0500 Heart rate 93 /min Mikaela Zana SHIPPING SUPERVISOR.DIRECTOR OF NATIONAL SALES Work Phone: [facility] 09-30-2024 09:51-0500 SaO2% (BldA) [Mass fraction] 98 % Mikaela Zana SHIPPING SUPERVISOR.DIRECTOR OF NATIONAL SALES Work Phone: [facility] 09-30-2024 09:51-0500 Systolic blood pressure 124 mm[Hg] Mikaela Zana SHIPPING SUPERVISOR.DIRECTOR OF NATIONAL SALES Work Phone: [facility] 09-09-2024 15:07-0500 Body mass index (BMI) [Ratio] 33.31 kg/m2 Alfredo Colby MD Work Phone: [facility] 09-09-2024 15:07-0500 Body weight 141 kg Alfredo Colby MD Work Phone: [facility] 09-09-2024 15:07-0500 Diastolic blood pressure 71 mm[Hg] Alfredo Colby MD Work Phone: [facility] 09-09-2024 15:07-0500 Heart rate 89 /min Alfredo Colby MD Work Phone: [facility] 09-09-2024 15:07-0500 Respiratory rate 16 /min Alfredo Colby MD Work Phone: [facility] 09-09-2024 15:07-0500 Systolic blood pressure 117 mm[Hg] Alfredo Colby MD Work Phone: [facility] 08-12-2024 09:38-0500 Diastolic blood pressure 76 mm[Hg] Alfredo Colby MD Work Phone: [facility] 08-12-2024 09:38-0500 Systolic blood pressure 126 mm[Hg] Alfredo Colby MD Work Phone: [facility] 08-12-2024 08:38-0500 Body mass index (BMI) [Ratio] 33.29 kg/m2 Alfredo Colby MD Work Phone: [facility] 08-12-2024 08:38-0500 Body temperature 97.81 [degF] Alfredo Colby MD Work Phone: [facility] 08-12-2024 08:38-0500 Body weight 140.9 kg Alfredo Colby MD Work Phone: [facility] 08-12-2024 08:38-0500 Heart rate 81 /min Alfredo Colby MD Work Phone: [facility] 08-12-2024 08:38-0500 Respiratory rate 18 /min Alfredo Colby MD Work Phone: [facility] 08-12-2024 08:38-0500 SaO2% (BldA) [Mass fraction] 98 % Alfredo Colby MD Work Phone: [facility] 07-24-2024 10:19-0500 Body mass index (BMI) [Ratio] 29.79 kg/m2 Alfredo Colby MD Work Phone: [facility] 07-24-2024 10:19-0500 Body weight 126.1 kg Alfredo Colby MD Work Phone: [facility] 07-24-2024 10:19-0500 Diastolic blood pressure 72 mm[Hg] Alfredo Colby MD Work Phone: [facility] 07-24-2024 10:19-0500 Heart rate 68 /min Alfredo Colby MD Work Phone: [facility] 07-24-2024 10:19-0500 Respiratory rate 12 /min Alfredo Colby MD Work Phone: [facility] 07-24-2024 10:19-0500 Systolic blood pressure 122 mm[Hg] Alfredo Colby MD Work Phone: [facility] 05-13-2024 09:20-0400 Diastolic blood pressure 80 mm[Hg] Mikaela Zana SHIPPING SUPERVISOR.DIRECTOR OF NATIONAL SALES Work Phone: [facility] 05-13-2024 09:20-0400 Systolic blood pressure 140 mm[Hg] Mikaela Zana SHIPPING SUPERVISOR.DIRECTOR OF NATIONAL SALES Work Phone: [facility] 05-13-2024 09:18-0400 Heart rate 90 /min Mikaela Zana SHIPPING SUPERVISOR.DIRECTOR OF NATIONAL SALES Work Phone: [facility] 05-13-2024 09:18-0400 SaO2% (BldA) [Mass fraction] 98 % Mikaela Zana SHIPPING SUPERVISOR.DIRECTOR OF NATIONAL SALES Work Phone: [facility] 04-15-2024 14:09-0400 Body temperature 98.01 [degF] Mikaela Zana SHIPPING SUPERVISOR.DIRECTOR OF NATIONAL SALES Work Phone: [facility] 04-15-2024 14:09-0400 Diastolic blood pressure 74 mm[Hg] Mikaela Zana SHIPPING SUPERVISOR.DIRECTOR OF NATIONAL SALES Work Phone: [facility] 04-15-2024 14:09-0400 Heart rate 102 /min Mikaela Zana SHIPPING SUPERVISOR.DIRECTOR OF NATIONAL SALES Work Phone: [facility] 04-15-2024 14:09-0400 SaO2% (BldA) [Mass fraction] 98 % Mikaela Zana SHIPPING SUPERVISOR.DIRECTOR OF NATIONAL SALES Work Phone: [facility] 04-15-2024 14:09-0400 Systolic blood pressure 102 mm[Hg] Mikaela Zana SHIPPING SUPERVISOR.DIRECTOR OF NATIONAL SALES Work Phone: [facility] 04-02-2024 13:04-0400 Diastolic blood pressure 82 mm[Hg] Mikaela Zana SHIPPING SUPERVISOR.DIRECTOR OF NATIONAL SALES Work Phone: [facility] 04-02-2024 13:04-0400 Heart rate 101 /min Mikaela Zana SHIPPING SUPERVISOR.DIRECTOR OF NATIONAL SALES Work Phone: [facility] 04-02-2024 13:04-0400 SaO2% (BldA) [Mass fraction] 96 % Mikaela Zana SHIPPING SUPERVISOR.DIRECTOR OF NATIONAL SALES Work Phone: [facility] 04-02-2024 13:04-0400 Systolic blood pressure 117 mm[Hg] Mikaela Zana SHIPPING SUPERVISOR.DIRECTOR OF NATIONAL SALES Work Phone: [facility] 03-28-2024 15:27-0400 Body temperature 99.3 [degF] Audrey Praisler-Wood SHIPPING SUPERVISOR.DIRECTOR OF NATIONAL SALES Work Phone: [facility] 03-28-2024 15:27-0400 Diastolic blood pressure 79 mm[Hg] Audrey Praisler-Wood SHIPPING SUPERVISOR.DIRECTOR OF NATIONAL SALES Work Phone: [facility] 03-28-2024 15:27-0400 Heart rate 96 /min Audrey Praisler-Wood SHIPPING SUPERVISOR.DIRECTOR OF NATIONAL SALES Work Phone: [facility] 03-28-2024 15:27-0400 Respiratory rate 18 /min Audrey Praisler-Wood SHIPPING SUPERVISOR.DIRECTOR OF NATIONAL SALES Work Phone: [facility] 03-28-2024 15:27-0400 SaO2% (BldA) [Mass fraction] 97 % Audrey Praisler-Wood SHIPPING SUPERVISOR.DIRECTOR OF NATIONAL SALES Work Phone: [facility] 03-28-2024 15:27-0400 Systolic blood pressure 124 mm[Hg] Audrey Praisler-Wood SHIPPING SUPERVISOR.DIRECTOR OF NATIONAL SALES Work Phone: [facility] 01-21-2024 08:02-0400 Body mass index (BMI) [Ratio] 29.04 kg/m2 Mikaela Zana SHIPPING SUPERVISOR.DIRECTOR OF NATIONAL SALES Work Phone: [facility] 01-21-2024 08:02-0400 Body weight 122.92 kg Mikaela Zana SHIPPING SUPERVISOR.DIRECTOR OF NATIONAL SALES Work Phone: [facility] 01-21-2024 08:02-0400 Diastolic blood pressure 84 mm[Hg] Mikaela Zana SHIPPING SUPERVISOR.DIRECTOR OF NATIONAL SALES Work Phone: [facility] 01-21-2024 08:02-0400 Heart rate 78 /min Mikaela Zana SHIPPING SUPERVISOR.DIRECTOR OF NATIONAL SALES Work Phone: [facility] 01-21-2024 08:02-0400 SaO2% (BldA) [Mass fraction] 100 % Imkaela Zana SHIPPING SUPERVISOR.DIRECTOR OF NATIONAL SALES Work Phone: [facility] 01-21-2024 08:02-0400 Systolic blood pressure 116 mm[Hg] Mikaela Zana SHIPPING SUPERVISOR.DIRECTOR OF NATIONAL SALES Work Phone: [facility] 12-04-2023 10:16-0400 Diastolic blood pressure 78 mm[Hg] Mikaela Zana SHIPPING SUPERVISOR.DIRECTOR OF NATIONAL SALES Work Phone: [facility] 12-04-2023 10:16-0400 Heart rate 89 /min Mikaela Zana SHIPPING SUPERVISOR.DIRECTOR OF NATIONAL SALES Work Phone: [facility] 12-04-2023 10:16-0400 SaO2% (BldA) [Mass fraction] 98 % Mikaela Zana SHIPPING SUPERVISOR.DIRECTOR OF NATIONAL SALES Work Phone: [facility] 12-04-2023 10:16-0400 Systolic blood pressure 120 mm[Hg] Mikaela Zana SHIPPING SUPERVISOR.DIRECTOR OF NATIONAL SALES Work Phone: [facility] 11-20-2023 11:39-0400 Diastolic blood pressure 84 mm[Hg] Mikaela Zana SHIPPING SUPERVISOR.DIRECTOR OF NATIONAL SALES Work Phone: [facility] 11-20-2023 11:39-0400 Heart rate 87 /min Mikaela Zana SHIPPING SUPERVISOR.DIRECTOR OF NATIONAL SALES Work Phone: [facility] 11-20-2023 11:39-0400 SaO2% (BldA) [Mass fraction] 99 % Mikaela Zana SHIPPING SUPERVISOR.DIRECTOR OF NATIONAL SALES Work Phone: [facility] 11-20-2023 11:39-0400 Systolic blood pressure 120 mm[Hg] Mikaela Zana SHIPPING SUPERVISOR.DIRECTOR OF NATIONAL SALES Work Phone: [facility] 06-12-2023 11:30-0500 Diastolic blood pressure 76 mm[Hg] Mikaela Zana SHIPPING SUPERVISOR.DIRECTOR OF NATIONAL SALES Work Phone: [facility] 06-12-2023 11:30-0500 Heart rate 107 /min Mikaela Zana SHIPPING SUPERVISOR.DIRECTOR OF NATIONAL SALES Work Phone: [facility] 06-12-2023 11:30-0500 SaO2% (BldA) [Mass fraction] 97 % Mikaela Zana SHIPPING SUPERVISOR.DIRECTOR OF NATIONAL SALES Work Phone: [facility] 06-12-2023 11:30-0500 Systolic blood pressure 100 mm[Hg] Mikaela Zana SHIPPING SUPERVISOR.DIRECTOR OF NATIONAL SALES Work Phone: [facility] 02-07-2023 13:07-0400 Body weight 127.01 kg Mikaela Zana SHIPPING SUPERVISOR.DIRECTOR OF NATIONAL SALES Work Phone: [facility] 02-07-2023 13:07-0400 Diastolic blood pressure 84 mm[Hg] Mikaela Zana SHIPPING SUPERVISOR.DIRECTOR OF NATIONAL SALES Work Phone: [facility] 02-07-2023 13:07-0400 Heart rate 98 /min Mikaela Zana SHIPPING SUPERVISOR.DIRECTOR OF NATIONAL SALES Work Phone: [facility] 02-07-2023 13:07-0400 SaO2% (BldA) [Mass fraction] 98 % Mikaela Zana SHIPPING SUPERVISOR.DIRECTOR OF NATIONAL SALES Work Phone: [facility] 02-07-2023 13:07-0400 Systolic blood pressure 120 mm[Hg] Mikaela Zana SHIPPING SUPERVISOR.DIRECTOR OF NATIONAL SALES Work Phone: [facility] 09-25-2022 08:40-0500 Body height 205.7 cm Reyna [place] PA-C Work Phone: [facility] 09-25-2022 08:40-0500 Body temperature 97.7 [degF] Reyna [place] PA-C Work Phone: [facility] 09-25-2022 08:40-0500 Body weight 121.56 kg Reyna Russ PA-C Work Phone: [facility] 09-25-2022 08:40-0500 Diastolic blood pressure 82 mm[Hg] Reyna Russ PA-C Work Phone: [facility] 09-25-2022 08:40-0500 Heart rate 87 /min Reyna Rosasf PA-C Work Phone: [facility] 09-25-2022 08:40-0500 SaO2% (BldA) [Mass fraction] 100 % Reynagerard Rosasf PA-C Work Phone: [facility] 09-25-2022 08:40-0500 Systolic blood pressure 138 mm[Hg] Reynagerard Rosasf PA-C Work Phone: [facility] 09-20-2022 11:02-0500 Body height 207 cm Mikaela Zana SHIPPING SUPERVISOR.DIRECTOR OF NATIONAL SALES Work Phone: [facility] 09-20-2022 11:02-0500 Body weight 121.56 kg Mikaela Zana SHIPPING SUPERVISOR.DIRECTOR OF NATIONAL SALES Work Phone: [facility] 09-20-2022 11:02-0500 Diastolic blood pressure 78 mm[Hg] Mikaela Zana SHIPPING SUPERVISOR.DIRECTOR OF NATIONAL SALES Work Phone: [facility] 09-20-2022 11:02-0500 Heart rate 82 /min Mikaela Zana SHIPPING SUPERVISOR.DIRECTOR OF NATIONAL SALES Work Phone: [facility] 09-20-2022 11:02-0500 SaO2% (BldA) [Mass fraction] 97 % Mikaela Zana SHIPPING SUPERVISOR.DIRECTOR OF NATIONAL SALES Work Phone: [facility] 09-20-2022 11:02-0500 Systolic blood pressure 124 mm[Hg] Mikaela Zana SHIPPING SUPERVISOR.DIRECTOR OF NATIONAL SALES Work Phone: [facility] 12-07-2020 08:12-0400 Body height 205.74 cm Baljinder Link LPN [facility]; [facility] Work Phone: 12-07-2020 08:12-0400 Body mass index (BMI) [Ratio] 28.72 kg/m2 Baljinder Link JUNIOR NETWORK ADMINISTRATOR [facility]; [facility] Work Phone: 12-07-2020 08:12-0400 Body surface area Derived from formula 2.63 m2 Baljinder Link LPN [facility]; [facility] Work Phone: 12-07-2020 08:12-0400 Body weight 121.56 kg Baljinder Link LPN [facility]; [facility] Work Phone: 08-31-2020 08:37-0500 BMI (Body Mass Index) 28.72 kg/m2 Baljinder Link LPN [facility]; [facility] Work Phone: 08-31-2020 08:37-0500 Body Temperature 97.8 [degF] Baljinder Link LPN [facility]; [facility] Work Phone: Comment on above: Method: Infrared 08-31-2020 08:37-0500 Body weight 121.56 kg Baljinder Link LPN [facility]; [facility] Work Phone: 08-31-2020 08:37-0500 BP Diastolic 78 mm[Hg] Baljinder Link LPN [facility]; [facility] Work Phone: Comment on above: Patient Position: Sitting; Cuff Location : Left Arm; Cuff Size: Standard 08-31-2020 08:37-0500 BP Systolic 124 mm[Hg] Baljinder Link LPN [facility]; [facility] Work Phone: Comment on above: Patient Position: Sitting; Cuff Location : Left Arm; Cuff Size: Standard 08-31-2020 08:37-0500 BSA (Body Surface Area) 2.63 m2 Baljinder Link LPN [facility]; [facility] Work Phone: 08-31-2020 08:37-0500 Height 205.74 cm Baljinder Link LPN [facility]; [facility] Work Phone: 08-31-2020 08:37-0500 Pulse (Heart Rate) 105 /min Baljinder Link LPN Com[facility]; [facility] Work Phone: Comment on above: Pattern: Regular 08-31-2020 08:37-0500 Pulse Oximetry 97 % Isa Bennett [facility]; [facility] Work Phone: Comment on above: Room air 08-31-2020 08:37-0500 Respiratory Rate 18 /min Baljinder Nikolay [facility]; [facility] Work Phone: Comment on above: Pattern: Unlabored 08-31-2020 08:37-0500 SaO2% (BldA) [Mass fraction] 97 % Baljinder Nikolay [facility]; [facility] Work Phone: Comment on above: Room air 08-19-2020 09:14-0500 BMI (Body Mass Index) 28.4 kg/m2 Norma Rob [facility]; [facility] Work Phone: 08-19-2020 09:14-0500 Body Temperature 97.3 [degF] Norma Rob BOOK SHEL[employer] Com[facility]; [facility] Work Phone: Comment on above: Method: Infrared 08-19-2020 09:14-0500 Body weight 120.2 kg Norma Rob [facility]; [facility] Work Phone: 08-19-2020 09:14-0500 BP Diastolic 90 mm[Hg] Norma Rob [facility]; [facility] Work Phone: Comment on above: Patient Position: Sitting; Cuff Location : Left Arm; Cuff Size: Standard 08-19-2020 09:14-0500 BP Systolic 132 mm[Hg] Norma Rob [employer] SHE[employer] [facility]; [facility] Work Phone: Comment on above: Patient Position: Sitting; Cuff Location : Left Arm; Cuff Size: Standard 08-19-2020 09:14-0500 BSA (Body Surface Area) 2.62 m2 Norma Rob [facility]; [facility] Work Phone: 08-19-2020 09:14-0500 Height 205.74 cm Norma Rob [employer] [facility]; [facility] Work Phone: 08-19-2020 09:14-0500 Pulse (Heart Rate) 115 /min Norma Rob [employer] Comprehens [facility]; [facility] Work Phone: Comment on above: Pattern: Regular 08-19-2020 09:14-0500 Pulse Oximetry 97 % Isa Bennett [facility]; [facility] Work Phone: Comment on above: Room air 08-19-2020 09:14-0500 Respiratory Rate 20 /min Norma Rob [facility] Comprehensiv e [facility]; [facility] Work Phone: Comment on above: Pattern: Unlabored 08-19-2020 09:14-0500 SaO2% (BldA) [Mass fraction] 97 % Norma Rob [facility]; [facility] Work Phone: Comment on above: Room air 08-13-2020 08:29-0500 BMI (Body Mass Index) 28.4 kg/m2 Isa Bennett DIRECTOR OF NATIONAL SALES Work Phone: [facility]; [facility] Work Phone: 08-13-2020 08:29-0500 Body weight 120.2 kg Isa Bennett DIRECTOR OF NATIONAL SALES Work Phone: [facility]; [facility] Work Phone: 08-13-2020 08:29-0500 BSA (Body Surface Area) 2.62 m2 Isa Bennett DIRECTOR OF NATIONAL SALES Work Phone: [facility]; [facility] Work Phone: 08-13-2020 08:29-0500 Height 205.74 cm Isa Bennett DIRECTOR OF NATIONAL SALES Work Phone: [facility]; [facility] Work Phone: 07-21-2020 09:12-0500 BMI (Body Mass Index) 26.79 kg/m2 [facility]; [facility] Work Phone: 07-21-2020 09:12-0500 Body Temperature 97.2 [degF] [facility]; [facility] Work Phone: Comment on above: Method: Thermal Scan 07-21-2020 09:12-0500 Body weight 113.4 kg [facility]; [facility] Work Phone: 07-21-2020 09:12-0500 BSA (Body Surface Area) 2.55 m2 Cande Chavez [facility]; [facility] Work Phone: 07-21-2020 09:12-0500 Height 205.74 cm Cande Chavez JUNIOR NETWORK ADMINISTRATOR [facility]; [facility] Work Phone: 12-03-2019 13:59-0400 BMI (Body Mass Index) 26.79 kg/m2 Baljinder Link JUNIOR NETWORK ADMINISTRATOR [facility] Work Phone: 12-03-2019 13:59-0400 Body weight 113.4 kg Baljinder Link JUNIOR NETWORK ADMINISTRATOR [facility] Work Phone: 12-03-2019 13:59-0400 BSA (Body Surface Area) 2.55 m2 Baljinder Link JUNIOR NETWORK ADMINISTRATOR [facility] Work Phone: 12-03-2019 13:59-0400 Height 205.74 cm Baljinder Link JUNIOR NETWORK ADMINISTRATOR [facility] Work Phone: 10-28-2019 13:13-0400 BMI (Body Mass Index) 26.79 kg/m2 Baljinder Link JUNIOR NETWORK ADMINISTRATOR [facility] Work Phone: 10-28-2019 13:13-0400 Body Temperature 97.1 [degF] Baljinder Link JUNIOR NETWORK ADMINISTRATOR [facility] Work Phone: Comment on above: Method: Temporal 10-28-2019 13:13-0400 Body weight 113.4 kg Baljinder Link JUNIOR NETWORK ADMINISTRATOR [facility] Work Phone: 10-28-2019 13:13-0400 BSA (Body Surface Area) 2.55 m2 Baljinder Link JUNIOR NETWORK ADMINISTRATOR [facility] Work Phone: 10-28-2019 13:13-0400 Height 205.74 cm Baljinder Link LPN [facility] Work Phone: 07-09-2019 09:55-0500 BMI (Body Mass Index) 27.86 kg/m2 Baljinder Link JUNIOR NETWORK ADMINISTRATOR [facility] Work Phone: 07-09-2019 09:55-0500 Body Temperature 98.2 [degF] Baljinder Link JUNIOR NETWORK ADMINISTRATOR [facility] Work Phone: Comment on above: Method: Temporal 07-09-2019 09:55-0500 Body weight 117.94 kg Baljinder Link LPN [facility] Work Phone: 07-09-2019 09:55-0500 BP Diastolic 82 mm[Hg] Baljinder Link LPN [facility] Work Phone: Comment on above: Patient Position: Sitting; Cuff Location : Left Arm; Cuff Size: Standard 07-09-2019 09:55-0500 BP Systolic 138 mm[Hg] Baljinder Link LPN [facility] Work Phone: Comment on above: Patient Position: Sitting; Cuff Location : Left Arm; Cuff Size: Standard 07-09-2019 09:55-0500 BSA (Body Surface Area) 2.59 m2 Baljinder Link LPN [facility] Work Phone: 07-09-2019 09:55-0500 Height 205.74 cm Baljinder Link LPN [facility] Work Phone: 07-09-2019 09:55-0500 Pulse (Heart Rate) 99 /min Baljinder Link LPN [facility] Work Phone: Comment on above: Pattern: Regular 07-09-2019 09:55-0500 Pulse Oximetry 97 % Isa Bennett [facility] Work Phone: Comment on above: Room air 07-09-2019 09:55-0500 Respiratory Rate 17 /min Baljinder Link LPN [facility] Internal Medicine Work Phone: Comment on above: Pattern: Unlabored 07-09-2019 09:55-0500 SaO2% (BldA) [Mass fraction] 97 % Baljinder Link LPN [facility]; [facility] Work Phone: Comment on above: Room air 06-18-2019 14:20-0500 BMI (Body Mass Index) 28.4 kg/m2 Baljinder Link LPN [facility] Work Phone: 06-18-2019 14:20-0500 Body Temperature 97.8 [degF] Baljinder Link LPN [facility] Internal Medicine Work Phone: Comment on above: Method: Temporal 06-18-2019 14:20-0500 Body weight 120.2 kg Baljinder Link JUNIOR NETWORK ADMINISTRATOR [facility] Internal Medicine Work Phone: 06-18-2019 14:20-0500 BP Diastolic 82 mm[Hg] Baljinder Link JUNIOR NETWORK ADMINISTRATOR [facility] Internal Medicine Work Phone: Comment on above: Patient Position: Sitting; Cuff Location : Left Arm; Cuff Size: Standard 06-18-2019 14:20-0500 BP Systolic 142 mm[Hg] Baljinder Link [facility] Internal Medicine Work Phone: Comment on above: Patient Position: Sitting; Cuff Location : Left Arm; Cuff Size: Standard 06-18-2019 14:20-0500 BSA (Body Surface Area) 2.62 m2 Baljinder Link JUNIOR NETWORK ADMINISTRATOR [facility] Internal Medicine Work Phone: 06-18-2019 14:20-0500 Height 205.74 cm Baljinder Link JUNIOR NETWORK ADMINISTRATOR [facility] Internal Medicine Work Phone: 06-18-2019 14:20-0500 Pulse (Heart Rate) 110 /min Baljinder Link LPN [facility] Work Phone: Comment on above: Pattern: Regular 06-18-2019 14:20-0500 Pulse Oximetry 96 % [facility] Work [facility]: Comment on above: Room air 06-18-2019 14:20-0500 Respiratory Rate 18 /min Baljinder Link JUNIOR NETWORK ADMINISTRATOR [facility] Internal Medicine Work Phone: Comment on above: Pattern: Unlabored 06-18-2019 14:20-0500 SaO2% (BldA) [Mass fraction] 96 % Baljinder Link [facility] Internal Medicine; [facility] Work Phone: Comment on above: Room air 06-06-2019 08:19-0500 BMI (Body Mass Index) 28.45 kg/m2 [facility] Internal Medicine Work Phone: 06-06-2019 08:19-0500 Body weight 120.43 kg [facility] Internal Medicine Work Phone: 06-06-2019 08:19-0500 BSA (Body Surface Area) 2.62 m2 [facility] Internal Medicine Work Phone: 06-06-2019 08:19-0500 Height 205.74 cm Isa Bennett [facility] Internal Medicine Work Phone: 02-14-2019 13:27-0400 BMI (Body Mass Index) 28.45 kg/m2 Lilliam Patel [facility] Internal Medicine Work Phone: 02-14-2019 13:27-0400 Body Temperature 97.8 [degF] Lilliam Patel [facility] Internal Medicine Work Phone: Comment on above: Method: Tympanic 02-14-2019 13:27-0400 Body weight 120.43 kg Lilliam Patel [facility] Internal Medicine Work Phone: 02-14-2019 13:27-0400 BP Diastolic 90 mm[Hg] Lilliam Patel [facility] Internal Medicine Work Phone: Comment on above: Patient Position: Sitting; Cuff Location : Left Arm; Cuff Size: Standard 02-14-2019 13:27-0400 BP Systolic 150 mm[Hg] Lilliam Patel [facility] Internal Medicine Work Phone: Comment on above: Patient Position: Sitting; Cuff Location : Left Arm; Cuff Size: Standard 02-14-2019 13:27-0400 BSA (Body Surface Area) 2.62 m2 Lilliam Patel [facility] Internal Medicine Work Phone: 02-14-2019 13:27-0400 Height 205.74 cm Lilliam Patel [facility] Internal Medicine Work Phone: 02-14-2019 13:27-0400 Pulse (Heart Rate) 116 /min Lilliam Patel [facility] Internal Medicine Work Phone: Comment on above: Pattern: Regular 02-14-2019 13:27-0400 Pulse Oximetry 95 % Isa Bennett [facility] Internal Medicine Work Phone: Comment on above: Room air 02-14-2019 13:27-0400 Respiratory Rate 18 /min Lilliam Patel [facility] Internal Medicine Work Phone: Comment on above: Pattern: Unlabored 02-14-2019 13:27-0400 SaO2% (BldA) [Mass fraction] 95 % Lilliamrosaura Patel [facility] Internal Medicine; [facility] Work Phone: Comment on above: Room air 11-15-2018 11:17-0400 BMI (Body Mass Index) 28.72 kg/m2 Norma Rob CMA [facility] Work Phone: 11-15-2018 11:17-0400 Body Temperature 97.1 [degF] Norma Rob CMA [facility] Work Phone: Comment on above: Method: Temporal 11-15-2018 11:17-0400 Body weight 121.59 kg Norma Rob [employer]OOK SHEL[employer] [facility] Work Phone: 11-15-2018 11:17-0400 BP Diastolic 84 mm[Hg] Norma Rob CMA [facility] Work Phone: Comment on above: Patient Position: Sitting; Cuff Location : Left Arm; Cuff Size: Standard 11-15-2018 11:17-0400 BP Systolic 140 mm[Hg] Norma Rob [facility] Work Phone: Comment on above: Patient Position: Sitting; Cuff Location : Left Arm; Cuff Size: Standard 11-15-2018 11:17-0400 BSA (Body Surface Area) 2.63 m2 Norma Rob [employer]OOK SHEL[employer] [facility] Work Phone: 11-15-2018 11:17-0400 Height 205.74 cm Norma Rob [facility] Work Phone: 11-15-2018 11:17-0400 Pulse (Heart Rate) 96 /min Norma Rob CMA [facility] Work Phone: Comment on above: Pattern: Regular 11-15-2018 11:17-0400 Pulse Oximetry 96 % Isa Bennett [facility] Internal Medicine Work Phone: Comment on above: Room air 11-15-2018 11:17-0400 Respiratory Rate 95 /min Norma Rob CMA [facility] Work Phone: Comment on above: Pattern: Unlabored 11-15-2018 11:17-0400 SaO2% (BldA) [Mass fraction] 96 % Norma Rob [facility]; [facility] Work Phone: Comment on above: Room air 11-15-2018 11:17-0400 Weight 121.59 kg Isa Bennett [facility] Internal Medicine Work Phone: 11-01-2018 10:28-0400 BMI (Body Mass Index) 28.72 kg/m2 Baljinder Link LPN [facility] Internal Medicine Work Phone: 11-01-2018 10:28-0400 Body Temperature 98.5 [degF] Baljinder Link LPN [facility] Work Phone: Comment on above: Method: Temporal 11-01-2018 10:28040 Body weight 121.59 kg Baljinder Link LPN [facility] Internal Medicine Work Phone: 11-01-2018 10:28-0400 BP Diastolic 86 mm[Hg] Baljinder Link LPN [facility] Internal Medicine Work Phone: Comment on above: Patient Position: Sitting; Cuff Location : Left Arm; Cuff Size: Standard 11-01-2018 10:28-0400 BP Systolic 140 mm[Hg] Baljinder Link LPN [facility] Internal Medicine Work Phone: Comment on above: Patient Position: Sitting; Cuff Location : Left Arm; Cuff Size: Standard 11-01-2018 10:28-0400 BSA (Body Surface Area) 2.63 m2 Baljinder Link LPN [facility] Internal Medicine Work Phone: 11-01-2018 10:28-0400 Height 205.74 cm Baljinder Link LPN [facility] Work Phone: 11-01-2018 10:28-0400 Pulse (Heart Rate) 103 /min Baljinder Link LPN [facility] Work Phone: Comment on above: Pattern: Regular 11-01-2018 10:28-0400 Pulse Oximetry 97 % Isa Bennett [facility] Internal Medicine Work Phone: Comment on above: Room air 11-01-2018 10:28-0400 Respiratory Rate 16 /min Baljinder Link LPN [facility] Internal Medicine Work Phone: Comment on above: Pattern: Unlabored 11-01-2018 10:28-0400 SaO2% (BldA) [Mass fraction] 97 % Baljinder Link LPN [facility]; [facility] Work Phone: Comment on above: Room air 11-01-2018 10:28-0400 Weight 121.59 kg Isa Bennett [facility] Work Phone: Encounters Encounter Date Encounter Type Care Provider Facility Start: 03-05-2025 ambulatory Evangelina Teagan [facility] Start: 01-29-2025 ambulatory Evangleina Candelaria [facility] Start: 01-13-2025 End: 01-13-2025 Patient encounter procedure Mikaela Spann SHIPPING SUPERVISOR.DIRECTOR OF NATIONAL SALES Work Phone: [facility] [place] Comment on above: Neck pain (Primary D x); Acute bilateral low back pain without sciatica; Anxiety; Restless legs syndrome Start: 01-13-2025 End: 01-13-2025 ambulatory MIKAELA SPANN Facility:[facility] Start: 12-03-2024 End: 12-03-2024 Emergency department patient visit Dante Diaz Facility:[facility] Start: 11-28-2024 End: 11-28-2024 Patient encounter procedure Mikaela Spann SHIPPING SUPERVISOR.DIRECTOR OF NATIONAL SALES Work Phone: [facility] [place] Comment on above: Adult ADHD (Primary Dx); Bipolar 1 disorder (HCC); Anxiety; Encounter for therapeutic drug monitoring; Obesity (BMI 30.0-34.9) Start: 11-28-2024 End: 11-28-2024 ambulatory MIKAELA SPANN Facility:[facility] Start: 11-05-2024 End: 11-05-2024 Refill Alfredo Colby MD Work Phone: [facility] [place] Comment on above: Refill Request Start: 11-04-2024 End: 11-05-2024 Refill Alfredo Colby MD Work Phone: [facility] [place] Comment on above: Refill Request Start: 10-15-2024 End: 10-15-2024 ambulatory Mikaela Spann HAIR ASSISTANT Facility:[facility] Start: 10-08-2024 End: 10-08-2024 Emergency department patient visit Mikaela Spann HAIR ASSISTANT Facility:[facility] Start: 10-07-2024 End: 10-07-2024 Chart abstracting Adriane Ojeda [facility] Work Phone: Psychology Start: 10-06-2024 End: 10-06-2024 Refill Alfredo Colby MD Work Phone: [facility] [place] Comment on above: Refill Request Start: 09-30-2024 End: 09-30-2024 Chart abstracting Adriane Ojeda [facility] Work Phone: Psychology Start: 09-30-2024 End: 09-30-2024 ambulatory MIKAELA SPANN Facility:[facility] Start: 09-30-2024 End: 09-30-2024 Patient encounter procedure Mikaela Spann SHIPPING SUPERVISOR.DIRECTOR OF NATIONAL SALES Work Phone: [facility] [place] Comment on above: Obesity (BMI 30.0-34 .9) (Primary Dx); Primary hypertension; Other hyperlipidemia; Elevated glucose; Bipolar 1 disorder (HCC); Anxiety Start: 09-10-2024 End: 09-11-2024 Telephone encounter Alfredo Colby MD Work Phone: [facility] [place] Comment on above: Patient Update Start: 09-09-2024 End: 09-09-2024 Office outpatient visit 40 minutes Alfredo Colby MD Work Phone: [facility] [place] Comment on above: Restless legs syndro me (Primary Dx); Class 1 obesity due to excess calories with serious comorbidity and body mass index (BMI) of 33.0 to 33.9 in adult; 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; Elevated glucose Start: 09-09-2024 End: 09-09-2024 ambulatory ALFREDO COLBY Facility:[facility] Start: 08-29-2024 End: 09-04-2024 Telephone encounter Alfredo Colby MD Work Phone: [facility] [place] Comment on above: Orders Start: 08-28-2024 End: 08-28-2024 Orders Only Alfredo Colby MD Work Phone: [facility] [place] Comment on above: Snoring; Witnessed episode of apnea; Obesity (BMI 30.0-34.9) Start: 08-15-2024 End: 08-15-2024 Telephone encounter Alfredo Colby MD Work Phone: [facility] [place] Comment on above: Pharmacy Call Start: 08-13-2024 End: 08-28-2024 Telephone encounter Alfredo Colby MD Work Phone: [facility] [place] Comment on above: Medication Problem Start: 08-12-2024 End: 08-13-2024 Telephone encounter Alfredo Colby MD Work Phone: [facility] [place] Comment on above: Insurance Authorizat ion ([employer] ) Start: 08-12-2024 End: 08-12-2024 ambulatory ALFREDO COLBY Facility:[facility] Start: 08-12-2024 End: 08-12-2024 Office outpatient visit 25 minutes Alfredo Colby MD Work Phone: [facility] [place] Comment on above: Acute right-sided lo w back pain with right-sided sciatica (Primary Dx); Class 1 obesity due to excess calories with serious comorbidity and body mass index (BMI) of 33.0 to 33.9 in adult; Fall on ice; Bipolar 1 disorder (HCC); Anxiety; Restless legs syndrome; Muscle strain; Generalized pain; Acute on chronic back pain Start: 07-24-2024 End: 07-24-2024 ambulatory ALFREDO COLBY Facility:[facility] Start: 07-24-2024 End: 07-24-2024 Office outpatient visit 25 minutes Alfredo Colby MD Work Phone: [facility] [place] Comment on above: Adult ADHD (Primary Dx); Bipolar 1 disorder (HCC); Acute right-sided low back pain with right-sided sciatica; Anxiety; Encounter for immunization; Hypokalemia Start: 07-16-2024 End: 07-18-2024 ambulatory Mikaela Spann APRN.DIRECTOR OF NATIONAL SALES Work Phone: Internal [facility] [place] Comment on above: Medicine Refill Request; Futu re Appointment Start: 07-11-2024 End: 07-11-2024 ambulatory Mikaela Spann HAIR ASSISTANT Facility:[facility] Start: 05-13-2024 End: 05-13-2024 ambulatory [facility] Facility:[facility] Start: 05-13-2024 End: 05-13-2024 Patient encounter procedure Mikaela Spann SHIPPING SUPERVISOR.DIRECTOR OF NATIONAL SALES Work Phone: Internal Medicine [place] Comment on above: Pneumonia of both donald ngs due to infectious organism, unspecified part of lung (Primary Dx); Diarrhea of presumed infectious origin; Hypopotassemia; Flu; Non-recurrent acute suppurative otitis media of both ears without spontaneous rupture of tympanic membranes; Stress and adjustment reaction; Encounter for therapeutic drug monitoring Start: 05-09-2024 End: 05-12-2024 Telephone encounter Alfredo Colby MD Work Phone: Internal [facility] [place] Comment on above: Medication Problem ( /) Start: 05-08-2024 End: 05-12-2024 Refill Alfredo Colby MD Work Phone: [facility] [place] Comment on above: Refill Request Gave you my medicine list. Start: 04-15-2024 End: 04-15-2024 Patient encounter procedure Mikaela Spann SHIPPING SUPERVISOR.DIRECTOR OF NATIONAL SALES Work Phone: [facility] [place] Comment on above: Viral illness (Prima ry Dx); Sciatica of right side NO SHOW (Primary Dx) Start: 04-15-2024 End: 04-15-2024 [facility] MIKAELA SPANN Facility:[facility] Start: 04-02-2024 End: 04-02-2024 Patient encounter procedure Mikaela Spann SHIPPING SUPERVISOR.DIRECTOR OF NATIONAL SALES Work Phone: [facility] [place] Comment on above: Sciatica of right si de (Primary Dx) Start: 04-02-2024 End: 04-02-2024 [facility] MIKAELA SPANN Facility:[facility] Start: 03-28-2024 End: 03-28-2024 ambulatory ALFREDO COLBY Facility:[facility] Start: 03-28-2024 End: 03-28-2024 Patient encounter procedure Audrey Pleitez SHIPPING SUPERVISOR.DIRECTOR OF NATIONAL SALES Work Phone: [facility] Comment on above: Sciatica, right side (Primary Dx) Start: 03-13-2024 ambulatory [facility] Facility :[facility] Start: 03-12-2024 ambulatory [facility] Facility :[facility] Start: 02-15-2024 Refill Mikaela Zana SHIPPING SUPERVISOR.DIRECTOR OF NATIONAL SALES Work Phone: Internal [facility] [place] Comment on above: Refill Request Start: 01-24-2024 Telephone encounter Krystin galeas APRN.DIRECTOR OF NATIONAL SALES Work Phone: Psychiatry Comment on above: Appointment Start: 01-23-2024 End: 01-23-2024 [facility] Adriane Lyntete [facility] Work Phone: Psychology Comment on above: Bipolar disorder, in partial remission, most recent episode manic (HCC) (Primary Dx) Start: 01-22-2024 ambulatory Mikaela Zana SHIPPING SUPERVISOR.DIRECTOR OF NATIONAL SALES Work Phone: Internal Medicine [place] Comment on above: Kwan Start: 01-21-2024 Telephone encounter Adraine will 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; Class 1 obesity due to excess calories with serious comorbidity and body mass index (BMI) of 30.0 to 30.9 in adult Start: 01-18-2024 Telephone encounter Mikaela Cleav er SHIPPING SUPERVISOR.DIRECTOR OF NATIONAL SALES Work Phone: [facility] [place] Comment on above: Patient Question Start: 01-16-2024 ambulatory Mikaela Zana SHIPPING SUPERVISOR.DIRECTOR OF NATIONAL SALES Work Phone: [facility] [place] Comment on above: Zoloft Start: 01-11-2024 Refill Mikaela Zana SHIPPING SUPERVISOR.DIRECTOR OF NATIONAL SALES Work Phone: [facility] [place] Comment on above: Refill Request Start: 12-24-2023 Refill Mikaela Zana SHIPPING SUPERVISOR.DIRECTOR OF NATIONAL SALES Work Phone: [facility] [place] Comment on above: Refill Request Start: 12-13-2023 Refill Mikaela Farahr SHIPPING SUPERVISOR.DIRECTOR OF NATIONAL SALES Work Phone: [facility] [place] Comment on above: Refill Request Start: 12-05-2023 ambulatory Mikaela Spann APRN.DIRECTOR OF NATIONAL SALES Work Phone: [facility] [place] Comment on above: My mom pay Start: 12-04-2023 End: 12-04-2023 Patient encounter procedure Mikaela Farahr SHIPPING SUPERVISOR.DIRECTOR OF NATIONAL SALES Work Phone: [facility] [place] Comment on above: Bipolar 1 disorder ( HCC) (Primary Dx); Adult ADHD; 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 on 11/28/2023) Start: 11-21-2023 ambulatory Mikaela Farahr TAURUS.DIRECTOR OF NATIONAL SALES Work Phone: [facility] [place] Comment on above: Results Start: 11-21-2023 E-mail encounter fro m caregiver Mikaela Spann APRN.DIRECTOR OF NATIONAL SALES Work Phone: [facility] [place] Start: 11-20-2023 End: 11-20-2023 Patient encounter procedure Mikaela Farahr SHIPPING SUPERVISOR.DIRECTOR OF NATIONAL SALES Work Phone: [facility] [place] Comment on above: Binge eating disorde r (Primary Dx); Class 1 obesity due to excess calories with serious comorbidity and body mass index (BMI) of 30.0 to 30.9 in adult; IFG (impaired fasting glucose); Primary hypertension; Other hyperlipidemia; Bipolar 1 disorder (HCC); Adult ADHD; Encounter for therapeutic drug monitoring Start: 10-01-2023 Refill Mikaela Farahr TAURUS.DIRECTOR OF NATIONAL SALES Work Phone: [facility] [place] Comment on above: Refill Request Start: 09-18-2023 End: 09-18-2023 ambulatory Adriane Ojeda [facility] Work Phone: Psychology Comment on above: NO SHOW (Primary Dx) Start: 09-18-2023 End: 09-18-2023 Telemedicine consultation with patient Adriane Ojeda [facility] Start: 09-10-2023 ambulatory Mkiaela Zana SHIPPING SUPERVISOR.DIRECTOR OF NATIONAL SALES Work Phone: [facility] [place] Comment on above: Rx Start: 09-04-2023 E-mail encounter fro m caregiver Mikaela Zana SHIPPING SUPERVISOR.DIRECTOR OF NATIONAL SALES Work Phone: [facility] Start: 09-04-2023 Follow-up encounter Mikaela Cleav er SHIPPING SUPERVISOR.DIRECTOR OF NATIONAL SALES Work Phone: [facility] [place] Comment on above: Follow up Start: 09-03-2023 ambulatory Mikaela Zana SHIPPING SUPERVISOR.DIRECTOR OF NATIONAL SALES Work Phone: [facility] [place] Comment on above: Kwan guzman Start: 06-12-2023 End: 06-12-2023 Patient encounter procedure Mikaela Zana SHIPPING SUPERVISOR.DIRECTOR OF NATIONAL SALES Work Phone: [facility] [place] Comment on above: Acute swimmer's ear of left side (Primary Dx); Class 1 obesity due to excess calories with serious comorbidity and body mass index (BMI) of 30.0 to 30.9 in adult; Adult ADHD; Bipolar 1 disorder (HCC); 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; Restless legs syndrome Start: 06-05-2023 Telephone encounter Mikaela Cleav er SHIPPING SUPERVISOR.DIRECTOR OF NATIONAL SALES Work Phone: Internal [facility] [place] Comment on above: Appointment Start: 05-28-2023 ambulatory Mikaela Zana SHIPPING SUPERVISOR.DIRECTOR OF NATIONAL SALES Work Phone: [facility] [place] Comment on above: I need to ask questi on my shot Start: 02-07-2023 End: 02-07-2023 Patient encounter procedure Mikaela Zana SHIPPING SUPERVISOR.DIRECTOR OF NATIONAL SALES Work Phone: Internal Medicine [place] Comment on above: Class 1 obesity due to excess calories with serious comorbidity and body mass index (BMI) of 30.0 to 30.9 in adult (Primary Dx); Primary hypertension; Other hyperlipidemia; Coronary artery disease involving cherokee heart, unspecified vessel or lesion type, unspecified whether angina present; Impaired fasting glucose Start: 11-16-2022 End: 11-16-2022 ambulatory NAIMA HARMAN OVI Facility:[facility] Start: 10-24-2022 End: 10-24-2022 Subsequent hospital visit by physician Diagnostic Mammo [facility] Comment on above: Breast mass in male [N63.0] Start: 09-25-2022 End: 09-25-2022 Patient encounter procedure Reyna Solano PA-C Work Phone: General Surgery Comment on above: Colon cancer screeni ng Start: 09-21-2022 Telephone encounter Alfredo barba MD Work Phone: [facility] [place] Comment on above: Medication Problem Start: 09-20-2022 End: 09-20-2022 Patient encounter procedure Mikaela Spann APRN.DIRECTOR OF NATIONAL SALES Work Phone: [facility] [place] Comment on above: Post concussion synd maria esther (Primary Dx); Coronary artery disease involving che[place] heart, unspecified vessel or lesion type, unspecified whether angina present; Breast mass in male; Family history of breast cancer; Mass of breast, unspecified laterality; Disorder of breast, unspecified ; Primary hypertension; 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 Start: 10-12-2020 Results Only [facility] Provider [facility] Department Start: 09-03-2020 End: 09-03-2020 Annotation/Addendum Isa Das Sales Support Advisor al Medicine Start: 08-31-2020 End: 08-31-2020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 vomiting, heartburn or black,tarry stools : Negative for hematuria Musc Musc: Negative for muscle aches/ myalgia, muscle weakness, joint pain or balance problems Skin Skin: Negative non-healing lesions, rash or unusual bruising Neuro Neuro: Negative for dizziness, lightheadedness, near syncope, syncope, frequent falls, headache(s), weakness, blurry vision, double vision or lack of coordination Tonny Hematologic/Lymphatic: Negative for easy bleeding or easy bruising Endo Endo: Negative for fatigue, excessive sweating or increased thirst/drinking Psych Psych: Negative for anxiety or depression Allergy Allergy/Immunology: Negative for hives, Negative for rash Cardiology Exam Const Appearance: cooperative, healthy appearing, comfortable and no acute distress Nutritional Appearance: well nourished and obese Orientation: alert, awake and oriented x3 Head Head: normal to inspection Ears: hearing grossly normal bilaterally Nose: external nose normal Face and Sinus: face symmetric Mouth: oral mucosae normal Eyes General: appearance normal, both eyes and all related structures Eyelids: eyelids normal EOM: EOM intact bilaterally Neck Neck: normal visual inspection and no JVD Carotids: normal carotid upstroke Chest Chest inspection: normal inspection of the chest, symmetric chest movement and normal respiratory effort; negative cough Auscultation: Bilateral: Clear to Auscultation Cardio Rate: regular rate Rhythm: regular rhythm Heart sounds: S1 normal and S2 normal; negative rub, gallop or murmur GI GI: normal to inspection and obese Neuro General: alert, awake, oriented x3 and CN's II-XI intact bilaterally Skin Skin: no rashes or lesions noted Extremities Pulses: Normal: Right Posterior Tibial Pulse, Left Posterior Tibial Pulse, Right Radial Pulse, Left Radial Pulse Lower Extremity Edema: None: Bilateral Psych Psychological: normal affect Assessment Plan 1. Atherosclerosis of cherokee coronary artery of cherokee heart without angina pectoris I25.10 Plan He denies any chest, arm, jaw, or neck pain suggestive of angina. At this time, he will continue current medical therapy. He will continue risk factor and lifestyle modification. 2. Presence of stent in coronary artery Z95.5 3.50 x 20 mm Synergy MR CAROLA to mLCx per cardiac cath 10/05/20 Plan He continue current medical therapy which includes aspirin, atorvastatin, Plavix, Toprol tartrate, and lisinopril, and isosorbide. 3. SOB (shortness of breath) on exertion R06.02 Plan This is an ongoing concern. We will trial a 3-day course of Lasix to discern if there is a fluid volume component. He will continue to follow with aircraft landing gear inspector for further evaluation of underlying pulmonary condition. His most recent echocardiogram showed ejection fraction of 55%. Over time, if his shortness of breath continues, we could consider adjustment of isosorbide therapy. 4. Essential hypertension I10 Plan Patient's blood pressure is well-controlled. We will continue to monitor. We will not make any medication regimen changes. 5. Mixed hyperlipidemia E78.2 Plan He will continue current high-dose statin medication. Plan Detail Other Medications New: isosorbide mononitrate ER 30 mg PO DAILY 90 tabs 3RF furosemide (Lasix) 40 mg PO DAILY 30 tabs 0RF metoprolol tartrate 25 mg PO BID 180 tabs 3RF lisinopril 10 mg PO BID 180 tabs 3RF Discontinued: amlodipine Discontinued Reason: Order Changed 10 mg PO DAILY blood pressure Additional Comments He will return to office in 3 months to evaluate overall progress. He was asked to contact our office next week with an update on shortness of breath post Lasix therapy. Thank you for allowing us to participate in the patients plan of care, if you have any questions please do not hesitate to call. This note was generated using a voice recognition system and there may be incorrect words, spelling or punctuation that were not noted when reviewing the office note prior to saving. Follow Up 3 Months (HAIR ASSISTANT/PA) 10 Months (PFM) Coding Level of Care Code Off vis,est,level 3 Diagnoses Atherosclerosis of cherokee coronary artery of cherokee heart without angina pectoris I25.10 ?[place] vs. transplanted heart: cherokee heart Presence of stent in coronary artery Z95.5 SOB (shortness of breath) on exertion R06.02 Essential hypertension I10 Mixed hyperlipidemia E78.2 Coding Level of Care Code Off vis,est,level 3 Diagnoses Atherosclerosis of cherokee coronary artery of cherokee heart without angina pectoris I25.10 ?[place] vs. transplanted heart: cherokee heart Presence of stent in coronary artery Z95.5 SOB (shortness of breath) on exertion R06.02 Essential hypertension I10 Mixed hyperlipidemia E78.2 Supplemental Info Supplemental Information Heart catheterization from 10/05/2020: CONCLUSIONS Elevated Left Ventricular End Diastolic Pressure [place] Multivessel CAD RECOMMENDATIONS Risk factor modification Medical therapy Referred for immediate PCI Comment: Depending upon the patients clincal course he may need to be considered for an RCA LAB ANIMAL TECHNOLOGIST (chronic total occlusion) procedure at a tertiary care center. CORONARY ANGIOGRAPHY DOMINANCE: Right Dominant LEFT HEART ASSESSMENT Left Ventricular Ejection Fraction: Not assessed Elevated Left Ventricular End Diastolic Pressure LVEDP: 22 mmHg LEFT ANTERIOR DESCENDING ARTERY: Mild luminal irregularities DIAGONAL 1: Proximal - Mild luminal irregularities CIRCUMFLEX ARTERY: MID CIRC: hazy: 85 % Stenosis OM 1: Ostial - small caliber vessel: 75 RIGHT CORONARY ARTERY: MID RCA: is occluded DISTAL RCA: filling late, faintly, and partially from right to right collaterals and left to right collaterals Cardiac intervention from 10/05/2020: CONCLUSIONS Successful PCI with CAROLA to mLCx Echocardiogram from 08/26/2020: Interpretation Summary The estimated ejection fraction is 55 %. No evidence for diastolic dysfunction. Stress Test Report Date: 09-21-2020 Procedure: Pharmacologic stress nuclear imaging study Indications: This of breath/dyspnea on exertion Consent: Per the patient Procedure: The patient underwent pharmacologic (Regadenoson 0.4mg ) evaluation with a peak heart rate of 114 beats per minute (64%predicted maximal heart rate) and a peak blood pressure of 152/86 mmHg. The baseline ECG demonstrated sinus rhythm; T wave abnormality. The peak pharmacologic ECG demonstrated no obvious ECG changes. There were no cardiac dysrhythmias pretest, during pharmacologic infusion, or recovery. There was no complaint of chest discomfort during pharmacologic infusion or recovery. The examination was discontinued secondary to completion of protocol. Impression: 1. Pharmacologic (Regadenoson) evaluation 2. Peak pharmacologic ECG with no obvious ECG changes. 3. There were no cardiac dysrhythmias pretest, during pharmacologic infusion, or recovery. 4. Nuclear images pending Myocardial perfusion imaging study: Technique: The patient was injected with 14.7 millicuries of technetium 99m Cardiolite and subsequently rest SPECT Cardiolite nuclear imaging was obtained in the horizontal long, vertical long, and short axis views. The patient underwent pharmacologic (Regadenoson) evaluation with a peak heart rate of 114 beats per minute (64% percent predicted maximal heart rate) and a peak blood pressure of 152/86 mmHg. The patient was injected with 44.6 millicuries of technetium 99m Cardiolite and subsequently stress SPECT Cardiolite nuclear imaging was obtained in the horizontal long, vertical long, and short axis views. A gated Cardiolite study at peak stress was obtained. Interpretation: Rest and stress SPECT Cardiolite nuclear imaging status post realignment and normalization demonstrate based upon the raw images an element of body motion during image acquisition as well as an area of diminished tracer uptake in portions of the basal inferior segments of both rest and stress which status post stress appear to be more prominent in the mid to distal inferior segments. There is end systolic thickening and brightening. The gated Cardiolite study demonstrates myocardial thickening and inward wall motion. The reported LVEF is 69%. Impression: 1. Rest and stress myocardial nuclear imaging demonstrate myocardial perfusion changes potentially compatible with a combination of body motion during image acquisition and soft tissue attenuation/artifact although an area of previous myocardial injury/infarction involving portions of the basal inferior segments with post stress myocardial perfusion changes demonstrating findings suggestive of an area of stress-induced myocardial ischemia in the mid towards distal inferior segments. 2. The gated Cardiolite study reports an LVEF of 69%. Pulmonary function test from 08/26/2020: IMPRESSION: Severe restrictive ventilatory impairment with preserved diffusing capacity. Diagnostics Electrocardiogram 10/12/20 Echocardiogram 08/26/20 Stress Test Nuclear Medicine 09/21/20 Stress Test 09/21/20 Cardiac Catheterization 10/05/20 Chest X-Ray 10/12/20 Pulmonary Pulmonary Function Test 08/26/20 10/22/20 7819 <Electronically signed by Joseluis GIANGC> Date Joseluis ROSAS Cosigner Signature: Date (if applicable) CC: RALPH Bennett; MD Isa Mandujano Start: 10-13-2020 Lipid 1996 panel - Serum or Plasma Mikaela Spann APRN.[facility] Work Phone: Start: 10-12-2020 End: 10-12-2020 Chest 1 View (Portable) Comments: See Note; NOTES: [facility] Imaging Services [address] [place] [address] Chest 1 View (Portable) MR#: [id number] Acct: [id number] Name: KWAN GUZMAN Rep #: [id number] : 1975 M 45 From: Charli Dick MD PCP: RALPH Morrison Status: PRE ER Study: Chest 1 View (Portable) Date of Exam: 10/12/20 Exam# [id number] Ordering Dr: Fanny Lopez DO STUDY: X-RAY CHEST REASON FOR EXAM: Male, 45 years old. chest pain TECHNIQUE: Single AP portable view of the chest. COMPARISON: FINDINGS: The lungs are clear and expanded. There is no demonstrated pleural abnormality. There is moderate cardiac enlargement. Normal mediastinum and claus. Normal visualized pulmonary arteries. Normal visualized aortic arch and descending thoracic aorta. Normal visualized thoracic spine. Normal visualized ribs, clavicles, and shoulders. There is no demonstrated abnormality of the visualized soft tissue structures of the upper abdomen. RAD/Chest 1 View (Portable) IMPRESSION: No active disease. Electronically Signed: Charli Dick MD at 16:04 EDT Tel , Service support , CC: RALPH Bennett; Dr. Fanny Lopez DO Salesperson Meats: Signed Isa Bennett Start: 10-12-2020 End: 10-12-2020 Emergency Department Summary Comments: See Note; NOTES: [facility] Medical Records Department [address] [place] [address] Emergency Department Summary 10/12/20 MR#: [id number] Acct: [id number] Name: KWAN GUZMAN Rep #: [id number] : 1975 45 From: Fanny Lopez DO PCP: RALPH Morrison Status:REG ER - ER Visit Summary Date of Service: 10/12/20 Chief Complaint: [Chest pain] History of Present Illness: The patient is a 45 M [presents to the emergency department complaint of chest pain that started yesterday while lying on the couch. Patient describes a squeezing and a tightness around his heart and feeling like he cannot breathe. Patient states this feels similar to a little over a week ago when he had a heart stent placed. Patient had a stent placed in his circumflex artery that was 90% occluded. Patient has history of hypertension and high cholesterol. He denies recent travel or surgery. Patient has been compliant with his Plavix. Patient denies alcohol use or tobacco use.] Patient has history of anxiety and states that he feels anxious all the time. Physical Examination: [HEENT-PERRLA, EOMI. Cranial nerves II through XII grossly intact. TMs clear. Mucous membranes moist. No adenopathy. Cardiovascular-regular rate and rhythm without murmur or ectopy Lungs-clear to auscultation, chest wall stable without crepitus or subcu emphysema Abdomen-normoactive bowel sounds, soft, nontender, no rebound or rigidity, no peritoneal signs. Extremities-intact ???4, normal range of motion, normal pulses, atraumatic] Test Results: [EKG obtained arrival shows sinus rhythm with a ventricular rate of 92 bpm with no acute ST segment changes.] Emergency Department Course and Treatment: [] Treatment Plan: [] Disposition: [] Impression: [] This note was generated with [employer] dictation software. It may contain incorrect words, spelling, and punctuation that were not noted in review of the chart prior to signing ED Disposition - Plan for ED Patient: Referrals: Isa Bennett NP, HAIR ASSISTANT-C [Primary Care Provider] - What to do if you have Problems For any increased pain, shortness of breath, bleeding, nausea or vomiting, chest pain, or any unexpected problems, contact your Primary Care Provider. Call [email or web address] ([phone]) or report to the closest Emergency Room. Call 911 if necessary. 10/12/20 1656 <Electronically signed by Fanny Lopez DO> Date Fanny Lopez DO Cosigner Signature (If Indicated): Date CC: HAIR ASSISTANT-C Isa Bennett Start: 10-12-2020 End: 10-14-2020 12 Lead EKG Comments: See Note; NOTES: [facility] Cardiovascular Services [address] [place] [address] 12 Lead EKG 10/12/20 1505 MR#: [id number] Acct: [id number] Name: KWAN GUZMAN Rep #: [id number] : 1975 45 From: Petey Storm MD Attending Dr: Status: DEP ER Ordering Dr: Fanny Lopez DO Date: 10/12/20 Location: ED Sex: M C Admitted: Test Reason : CP Blood Pressure : / mmHG Vent. Rate : 092 BPM Atrial Rate : 092 BPM P-R Int : 146 ms QRS Dur : 100 ms QT Int : 376 ms P-R-T Axes : 024 038 033 degrees QTc Int : 464 ms Normal sinus rhythm Normal ECG Confirmed by PETEY STORM MD ([id number]), market editor REYNA GRAHAM ([id number]) on 10/14/2020 12:56:06 PM Referred By: UG Confirmed By:PETEY STORM MD 10/14/20 1256 Date Petey Storm MD CC: HAIR ASSISTANT-C Isa Bennett; Dr. Fanny Lopez DO Signed Isa Bennett Start: 10-12-2020 XR OUTSIDE CD DICOM IMPORT [facility] Provider Start: 10-06-2020 End: 10-13-2020 12 Lead EKG Comments: See Note; NOTES: [facility] Cardiovascular Services [address] [place] [address] 12 Lead EKG 10/06/2027 MR#: [id number] Acct: [id number] Name: KWAN GUZMAN Rep #: [id number] : 1975 45 From: Petey Storm MD Attending Dr: Dr. Иван Pires MD Status: DE P [facility] Ordering Dr: Danika Christensen MD Date: 1 Location: [facility] Sex: M C Admitted: Test Reason : AM EKG Blood Pressure : / mmHG Vent. Rate : 076 BPM Atrial Rate : 076 BPM P-R Int : 166 ms QRS Dur : 110 ms QT Int : 374 ms P-R-T Axes : 025 031 -16 degrees QTc Int : 420 ms Normal sinus rhythm T wave abnormality, consider anterolateral ischemia Abnormal ECG When compared with ECG of 05-OCT-2020 13:38, No significant change was found Confirmed by LUCINDA LUONG, PETEY ([id number]), market editor REYNA GRAHAM ([id number]) on 10/13/2020 10:31:13 AM Referred By: Иван Pires Confirmed By:PETEY STORM MD 10/13/20 1031 Date Petey Storm MD CC: RALPH Bennett; Dr. Danika Christensen MD; Dr. Иван Pires MD Signed Isa Bennett Start: 10-06-2020 End: 10-06-2020 Discharge Summary Comments: See Note; NOTES: [facility] Medical Records Department [address] [address] Discharge Summary 10/06/2024 MR#: [id number] Acct: [id number] Name: KWAN GUZMAN Rep #: [id number] : 1975 45 From: Иван Pires MD PCP: Isa Ciesa, HAIR ASSISTANT-C Status:REG SDC Y Location: [facility] [id number] Discharge Date and Diagnosis Date of Admission: 10/05/20 Date of Discharge: 10/06/20 - Primary Discharge Diagnosis Acute Problems: Active Problems (Last Updated 10/05/20 @ 15:13 by Sheila Woods) Abnormal stress test (Acute) SOB (shortness of breath) on exertion (Acute) Suspected Problems: CAD status post LCx PCI - Secondary Discharge Diagnosis Chronic Problems: Chronic Problems (Last Updated 10/05/20 @ 15:13 by Sheila Woods) Presence of stent in coronary artery (Chronic 10/05/20) 3.50 x 20 mm Synergy MR CAROLA to mLCx per cardiac cath 10/05/20 Mixed hyperlipidemia (Chronic) Essential hypertension (Chronic) Hospital Course and Treatment Procedures: Cardiac catheterization, - - Cardiac intervention Summary of Care Provided: The patient is a 45 year old white male with a history of shortness of breath/dyspnea on exertion with associated chest discomfort and an abnormal exercise tolerance test/imaging study who presented for outpatient evaluation with diagnostic cardiac catheterization. The cardiac catheterization revealed angiographically significant appearing CAD. The patient subsequently underwent LCx PCI. He was monitored overnight in the hospital. He appeared to remain symptomatically and hemodynamically stable. He was felt stable for release home for continued outpatient follow-up and outpatient cardiac rehabilitation therapy. Cardiac catheterization is as noted below. CONCLUSIONS Elevated Left Ventricular End Diastolic Pressure [place] Multivessel CAD RECOMMENDATIONS Risk factor modification Medical therapy Referred for immediate PCI Comment: Depending upon the patients clincal course he may need to be considered for an RCA LAB ANIMAL TECHNOLOGIST (chronic total occlusion) procedure at a tertiary care center. DESCRIPTION OF PROCEDURE The patient arrived to the procedure lab. The risks and benefits of the procedure as well as a full description of our services here and current unavailability of surgical backup were fully explained to the patient and/or their significant other prior to the catheterization. The Timeout was completed, verifying the correct patient and procedure. The patient's procedural site was prepped and draped in the usual fashion. Local anesthetic was given subcutaneously to right radial region with Lidocaine 2%. Using a modified Seldinger technique, arterial access was obtained via the right radial artery, a 6Fr sheath was inserted. Right Coronary Artery selective angiography was then performed in multiple views using a 5 Fr. 4.0 [place] catheter. Left Coronary Artery selective angiography was performed in multiple views using a 5 Fr. JL3.5 catheter.The arterial sheath was pulled and a TR Band was applied for hemostasis CORONARY ANGIOGRAPHY DOMINANCE: Right Dominant LEFT HEART ASSESSMENT Left Ventricular Ejection Fraction: Not assessed Elevated Left Ventricular End Diastolic Pressure LVEDP: 22 mmHg LEFT ANTERIOR DESCENDING ARTERY: Mild luminal irregularities DIAGONAL 1: Proximal - Mild luminal irregularities CIRCUMFLEX ARTERY: MID CIRC: hazy: 85 % Stenosis OM 1: Ostial - small caliber vessel: 75 RIGHT CORONARY ARTERY: MID RCA: is occluded DISTAL RCA: filling late, faintly, and partially from right to right collaterals and left to right collaterals The PCI is as noted below. CONCLUSIONS Successful PCI with CAROLA to mLCx [] Subjective: The patient is awake and alert and in no acute distress. - Physical Exam Vitals/I O's: Vital Signs Temp Pulse Resp BP Pulse Ox 97.5 F L 82 18 134/77 H 96 10/06/20 03:35 10/06/20 03:35 10/06/20 03:35 10/06/20 03:35 10/06/20 03:35 Oxygen Delivery Method Room Air Weight: 304 lb 3.806 oz Body Mass Index (BMI) 34.2 Intake and Output for Last 24 Hours 10/04/20 10/05/20 10/06/20 23:59 23:59 23:59 Intake Total 1615 / 1615 350 / 350 Balance 1615 / 1615 350 / 350 General: Alert, Oriented x3, Cooperative, No apparent distress HEENT: Atraumatic, PERRLA, EOMI, Normocephalic Neck: No JVD Lungs: Clear to auscultation Cardiovascular: Regular rate, Regular Rhythm, Normal S1, Normal S2 Abdomen: Bowel Sounds Present, Soft Extremities: No edema Neurological: Neuro grossly intact Psych/Mental Status: Anxious Comment: Right radial artery catheterization site: Pulse 2+/4+: No bruits: No hemato Laboratory Results 10/06/20 05:54: WBC 8.5, RBC 4.56 L, Hgb 13.3, Hct 39.9 L, MCV 87.5, MCH 29.2, MCHC 33.3, RDW Std Deviation 42.5, RDW Coeff of Sandy 13.2, Plt Count 198, MPV 9.5 10/06/20 05:54: Sodium 138, Potassium 3.2 L, Chloride 102, Carbon Dioxide 29.0, Anion Gap 7, BUN 12, Creatinine 0.84, Estim Creat Clear Calc 156.03, Est GFR (MDRD) Af Amer 127, Est GFR (MDRD) Non-Af 105, BUN/Creatinine Ratio 14.2, Glucose 99, Calcium 9.1, Total Bilirubin 0.50, AST 18, ALT 28, Alkaline Phosphatase 54, Total Protein 7.1, Albumin 3.6, Globulin 3.5, Albumin/Globulin Ratio 1.0 Current Medications Acetaminophen (Acetaminophen 500 Mg Tablet) 1,000 mg PO Q8H PRN PRN PRN Reason: Pain Score 1-10 Last Admin: 10/05/20 20:48 Dose: 1,000 mg Documented by: Albuterol Sulfate (Albuterol 2.5 Mg/3 Ml Vial.Neb.) 2.5 mg INHALATION Q6H PRN PRN PRN Reason: SOB /OR WHEEZING Amlodipine Besylate (Amlodipine 10 Mg Tablet) 10 mg PO DAILY [facility] Aspirin (Aspirin E.C. 81 Mg Tablet) 81 mg PO DAILY@0800 [facility] Atorvastatin Calcium (Atorvastatin Calcium 40 Mg Tablet) 80 mg PO QHS [facility] Atropine Sulfate (Atropine Sulfate 1 Mg/10 Ml Syringe) 0.5 mg IV UD PRN PRN Reason: HR <50 bpm Clopidogrel Bisulfate (Clopidogrel Bisulfate 75 Mg Tablet) 75 mg PO DAILY [facility] Cyanocobalamin (Cyanocobalamin 500 Mcg Tablet) 1,000 mcg PO DAILY [facility] Escitalopram Oxalate (Escitalopram Oxalate 20 Mg Tablet) 20 mg PO DAILY [facility] Heparin Sodium (Beef Lung) (Heparin Lock 500 Unit/5 Ml In 10 Ml Syringe) 500 unit IV UD PRN PRN Reason: HEPARIN FLUSH Labetalol HCl (Labetalol (Prefilled) 20 Mg/4 Ml) 5 mg IV X1 PRN PRN Reason: SBP >160 when pulling sheath Stop: 10/07/20 12:59 Lisinopril (Lisinopril 5 Mg Tablet) 10 mg PO BID [facility] Lorazepam (Lorazepam 0.5 Mg Tablet) 0.5 mg PO DAILY PRN PRN PRN Reason: ANXIETY Last Admin: 10/06/20 03:46 Dose: 0.5 mg Documented by: Metoprolol Tartrate (Metoprolol Tartrate 25 Mg Tablet) 25 mg PO BID RICARDO Last Admin: 10/05/20 21:40 Dose: 25 mg Documented by: [id number] Ethyl Esters (Jackson-3 Acid Ethyl Esters 1 Gm Capsule) 1 gm PO DAILY RICARDO Potassium Chloride (Potassium Chloride Oral Tablet 20 Meq) 40 meq PO X1 ONE Stop: 10/06/20 07:18 Sodium Chloride (0.9% Normal Saline 500 Ml Iv.Soln.) 500 ml IV BOLUS PRN PRN Reason: VASO-VAGAL PROTOCOL Discharge Diet: - - Cardia diet Discharge Activity: May Not Drive - Not drive: X48 hours, May Shower - A shower: Today May resume sexual activity in: 2 weeks Weight Bearing Status: - - Avoid heavy exertional activity x2 weeks Call your doctor if your incision/area has: Continuous Slow Oozing, Sudden Increased Bleeding, Increased Pain/ Swelling, Increased Redness, Foul Smelling Discharge, Swelling at the incision site Call your doctor if you observe: Fever of 101 or Higher, Shortness of breath, Fainting spells, Chest pain, Increased palpitations (irregular heartbeat) Change Dressing in (Days):: 1 Remove Dressing in (days):: 1 Cleanse incision/area with: Soap Water Home Medications: Medications to take at Discharge escitalopram oxalate 20 mg tablet 20 mg PO DAILY 11/01/18 albuterol sulfate 90 mcg/actuation aerosol inhaler 2 puff INHALATION Q6H PRN 09/01/20 amlodipine 10 mg tablet 10 mg PO DAILY 09/01/20 cholecalciferol (vitamin D3) 125 mcg (5,000 unit) capsule 125 mcg PO DAILY 09/01/20 lorazepam 0.5 mg tablet 0.5 mg PO DAILY PRN 09/01/20 cyanocobalamin (vitamin B-12) 1,000 mcg tablet 1,000 mcg PO DAILY 09/02/20 omega-3 fatty acids 1,000 mg capsule 1,000 mg PO DAILY 09/02/20 potassium gluconate 600 mg (99 mg) tablet 600 mg PO DAILY 09/02/20 pyridoxine (vitamin B6) 25 mg tablet 25 mg PO DAILY 09/02/20 zinc 50 mg tablet 50 mg PO DAILY 09/02/20 aspirin 81 mg tablet,delayed release 81 mg PO DAILY 09/24/20 clopidogrel 75 mg tablet 75 mg PO DAILY #30 tab 09/24/20 busPIRone [Buspar] 30 mg PO BID 10/05/20 Atorvastatin Calcium [Lipitor] 80 mg PO QHS #30 tab 10/06/20 Lisinopril [Zestril] 10 mg PO BID #60 tab 10/06/20 Metoprolol Tartrate [Lopressor (beta gamaliel)] 25 mg PO BID #60 tab 10/06/20 Following Prescriptions Were Given to Patient: Atorvastatin Calcium [Lipitor] 80 mg PO QHS #30 tab Transmission Status: Received by [id number] Metoprolol Tartrate [Lopressor (beta gamaliel)] 25 mg PO BID #60 tab Transmission Status: Received by [id number] Lisinopril [Zestril] 10 mg PO BID #60 tab Transmission Status: Received by [id number] Primary Care Physician: Isa Bennett NP, HAIR ASSISTANT-C [Primary Care Provider] - Please Follow Up With: [facility] When: 12/09/2020 - at 11:00 AM Disposition: Home Minutes spent on discharge:: 45 Patient Condition:: Stable Medical Necessity - Tobacco Use Smoking Status: Never smoker Meaningful Use Info Meaningful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 Start: 02-14-2019 Procedure Education Eprescribe d prescriptions (G8553) [facility] Work Phone: Start: 02-14-2019 Provider Instruction s for Treatment Follow up as needed [facility] Work Phone: Start: 11-15-2018 Procedure Education Eprescribe d prescriptions (G8553) [facility] Work Phone: Start: 11-15-2018 Provider Instruction s for Treatment Follow up in 3 months [facility] Work Phone: Start: 11-04-2018 Cobalamin (Vitamin B 12) mass conc VITAMIN B12 AND FOLATES (71949) [facility] Work Phone: Start: 11-04-2018 Cyanocobalamin vitam in b-12 VITAMIN B12 AND FOLATES (91030) [facility]; [facility] Work Phone: Start: 11-04-2018 25 hydroxy includes fractions if performed CALCIFEDIOL (10343) [facility] Work Phone: Start: 11-01-2018 Procedure Education Eprescribe d prescriptions (G8553) [facility] Work Phone: Start: 11-01-2018 Provider Instruction s for Treatment Follow up in 10 days [facility] Work Phone: Start: 11-01-2018 Urnls dip stick/tabl et rgnt non-auto w/o micrscp Urinalysis, Office (47292) [facility] Work Phone: Start: 11-01-2018 Urnls dip stick/tabl et reagent auto microscopy URINALYSIS, W/ MICRO (30245) [facility] Work Phone: Start: 11-01-2018 Blood count complete auto&auto difrntl wbc CBC, Platelets & Auto Diff (96625) [facility] Work Phone: Start: 11-01-2018 Comprehensive metabo lic panel Metabolic Panel, Comprehensive (56629) [facility] Work Phone: Start: 11-01-2018 Cobalamin (Vitamin B 12) mass conc VITAMIN B12 AND FOLATES (56493) [facility] Work Phone: Start: 11-01-2018 25 hydroxy includes fractions if performed CALCIFEDIOL (54169) [facility] Work Phone: Start: 11-01-2018 Thyrotropin Qn TSH (THYROID STIMULATING HORMONE) (71994) [facility] Work Phone: Start: [address] S[address]EN LIPID SCREEN [facility] Start: 06-29-2006 Medicare Annual Well ness Visit Medicare Annual Wellness Visit [facility] Start: 1995 Hepatitis B Vaccine (1 of 3 - 19+ 3-dose series) Hepatitis B Vaccine (1 of 3 - 19+ 3-dose series) [facility] Start: 1995 Urine microalbumin profile DTAP,TDAP,TD (1 - Tdap) [facility] Start: 1994 Anxiety Screening Anxiety Screening [facility] Start: 1994 BP CONTROLLED (<130/80) BP CON TROLLED (<130/80) [facility] Start: 1994 HEPATITIS C SCREENING HEPATITIS C SC RONNIE [facility] Start: 1994 HIV SCREENING HIV SCREENING [facility] Start: 1988 Adult depression screening assessment DEPRESSION SCREENING [facility] Start: 1976 HEPATITIS B (1 of 3 - 3-dose series) HEPATITIS B (1 of 3 - 3-dose series) [facility] Start: 1976 Hepatitis B Vaccine (1 of 3 - 3-dose series) Hepatitis B Vaccine (1 of 3 - 3-dose series) [facility] COVID & INFLUENZA A/ B & RSV PCR, ROUTINE COVID & INFLUENZA A/B & RSV PCR, ROUTINE Microbiology Routine Viral illness 04/15/2024 2:34 PM EDT [facility] Work Phone: End: 10-20-2023 Diagnostic mammography computer-aided detcj bi [facility] DIAGNOSTIC BILAT Radiology Routine Breast mass in male Family history of breast cancer Mass of breast, unspecified laterality Disorder of breast, unspecified 1 Occurrences starting 09/20/2022 until 10/20/2023 [facility] Work Phone: Comment on above: 1 Occurrences starti ng 09/20/2022 until 10/20/2023 End: 08-20-2025 Polysomnogram POLYSOMNOGRAM (PSG) Procedures Routine Snoring Witnessed episode of apnea Obesity (BMI 30.0-34.9) 1 Occurrences starting 08/28/2024 until 08/20/2025 [facility] Work Phone: Comment on above: 1 Occurrences starti ng 08/28/2024 until 08/20/2025 End: 10-20-2023 Us breast uni real time with image limited [facility] Work Phone: Comment on above: 1 Occurrences starti ng 09/20/2022 until 10/20/2023 End: 06-12-2025 XR Chest PA and Lateral XR CHEST 2V FRONTAL/LAT Radiology Routine Pneumonia of both lungs due to infectious organism, unspecified part of lung 1 Occurrences starting 05/13/2024 until 06/12/2025 [facility] Comment on above: 1 Occurrences starti ng 05/13/2024 until 06/12/2025 End: 05-02-2025 XR Lumbar spine 3 Views XR LUMBAR GENERAL 3V AP/LAT/L5-S1 Radiology Routine Sciatica of right side 1 Occurrences starting 04/02/2024 until 05/02/2025 [facility] Work Phone: Comment on above: 1 Occurrences starti ng 04/02/2024 until 05/02/2025 [facility] Work Phone: [facility] Work Phone: Insomnia : Follo w up in 10 days [facility] Work Phone: Anxiety and depr ession : Eprescribed prescriptions (G8553) [facility] Work Phone: [facility] Work Phone: [facility] Work Phone: [facility] Work Phone: [facility] Work Phone: [facility] Work Phone: [facility] Immunizations Immunization Date Immunization Notes Care Provider [facility] 07-24-2024 COVID-19 vaccine, ag e 12+ yr ([email or web address] [facility]) Alfredo Colby MD Work Phone: [facility] 07-24-2024 influenza, seasonal, injectable Alfredo Colby MD Work Phone: [facility] 05-10-2023 Seasonal, quadrivale nt, recombinant, injectable influenza vaccine, preservative free Mikaela Zana SHIPPING SUPERVISOR.DIRECTOR OF NATIONAL SALES Work Phone: [facility] 05-10-2023 influenza virus vaccine, unspecified formulation Alfredo Colby MD Work Phone: [facility] 05-27-2022 tetanus toxoid, redu melina diphtheria toxoid, and acellular pertussis vaccine, adsorbed Mikaela Zana SHIPPING SUPERVISOR.DIRECTOR OF NATIONAL SALES Work Phone: [facility] Work Phone: 04-14-2022 Seasonal, quadrivale nt, recombinant, injectable influenza vaccine, preservative free Mikaela Zana SHIPPING SUPERVISOR.DIRECTOR OF NATIONAL SALES Work Phone: [facility] Work Phone: 04-14-2022 influenza virus vaccine, unspecified formulation Mikaela Zana SHIPPING SUPERVISOR.DIRECTOR OF NATIONAL SALES Work Phone: [facility] 05-25-2021 COVID-Pfizer (30 MCG/0.3 ML) Isa Bennett DIRECTOR OF NATIONAL SALES Work Phone: [facility]; [facility] Work Phone: 04-22-2021 influenza, seasonal, injectable Isa Bennett DIRECTOR OF NATIONAL SALES Work Phone: [facility]; [facility] Work Phone: 04-22-2021 pneumococcal polysaccharide vaccine, 23 valent Isa Bennett DIRECTOR OF NATIONAL SALES Work Phone: [facility]; [facility] Work Phone: 04-22-2021 Seasonal, quadrivale nt, recombinant, injectable influenza vaccine, preservative free Mikaela Spann SHIPPING SUPERVISOR.DIRECTOR OF NATIONAL SALES Work Phone: [facility] Work Phone: 11-18-2020 COVID-19 original vaccine, full dose, monovalent (MODERNA) Mikaela Farahr SHIPPING SUPERVISOR.DIRECTOR OF NATIONAL SALES Work Phone: [facility] Work Phone: 10-21-2020 COVID-19 original vaccine, full dose, monovalent (MODERNA) Mikaela Farahr SHIPPING SUPERVISOR.DIRECTOR OF NATIONAL SALES Work Phone: [facility] Work Phone: Payers Date Payer Category Payer Self-pay 2023 Unknown [id number] 2022 Medicaid [id number] 2022 Medicaid [id number] 2018 Medicare [id number] 2006 Medicare MEDICARE MEDICAR E A AND B [id number] 2006-Present [place], [place] Medicare [id number] 2006 Medicare [id number] 2006 Medicare [id number] 1976 Unknown [id number] Unknown Unknown [id number] Unknown [id number] Unknown [id number] Unknown [id number] Unknown [id number] Unknown [id number] Unknown [id number] Unknown [id number] Unknown [id number] Social History Date Type Detail Facility Alcohol Use: Never smoker [facility] Work Phone: Start: 09-19-2022 End: 12-19-2022 Caffeine use [facility] Sales Support [facility] Work Phone: Comment on above: none Just got aproved for medical marijuana Tobacco Use: Never smoker. [facility] Work Phone: Start: 1975 Sex Assigned At Not on file C [facility] Alcohol Use: Alcohol Use: [facility] Work Phone: Tobacco Use: Tobacco Use: [facility] Work Phone: Start: 09-20-2022 Tobacco smoking stat [facility] Never smoked tobacco [facility] Work Phone: Start: 02-22-2023 Tobacco use and exposure Smoke less tobacco non-user [facility] Work Phone: Start: 09-20-2022 End: 01-13-2025 Alcohol intake Ex-drinker (finding) [facility] Start: 09-19-2022 History SDOH Alcohol Frequency 1 [facility] Start: 09-19-2022 History SDOH Alcohol Std Drinks 0 [facility] Start: 09-19-2022 History SDOH Social Connections Phone 5 [facility] Start: 09-19-2022 History SDOH Social Connections Get Together 3 [facility] Start: 09-19-2022 History SDOH Social Connections Anabaptism 98 [facility] Start: 09-19-2022 History SDOH Social Connections Meetings 2 [facility] Start: 09-19-2022 History SDOH Physica l Activity DPW 6 [facility] Start: 09-19-2022 History SDOH Physica l Activity MPS 11 [facility] Start: 09-19-2022 End: 12-19-2022 Social connection and isolation panel [facility] How often do you att end cheondoism or jainism services? Patient refused [facility] Do you belong to any clubs or organizations such as cheondoism groups, unions, fraternal or athletic groups, or school groups? Yes [facility] Are you now , , , , never or living with a partner? [facility] How often to you hav e a drink containing alcohol? Never [facility] Do you feel stress - tense, restless, nervous, or anxious, or unable to sleep at night because your mind is troubled all the time - these days [OSQ] Very much [facility] (I/We) worried wheth er (my/our) food would run out before (I/we) got money to buy more. Never true [facility] In the past 12 month s, was there a time when you were not able to pay the mortgage or rent on time? No [facility] Start: 1975 Sex Assigned At Male C [facility] Functional Status Date Assessment Result Facility 10-15-2020 Are you deaf, or do you have serious difficulty hearing No 10/15/2020 1:41 PM EDT Sue Perez RN No [facility] 10-15-2020 Are you blind, or do you have serious difficulty seeing, even when wearing glasses No 10/15/2020 1:41 PM EDT Sue Perez RN No [facility] 10-15-2020 Do you have serious difficulty walking or climbing stairs No 10/15/2020 1:41 PM EDT Sue Perez RN No [facility] 10-15-2020 Do you have difficul ty dressing or bathing No 10/15/2020 1:41 PM EDT Sue Perez RN No [facility] 10-15-2020 Because of a physica l, mental, or emotional condition, do you have difficulty doing errands alone such as visiting a physician's office or shopping No 10/15/2020 1:41 PM EDSue Tomas RN No [facility] Mental Status Date Assessment Result Facility 10-15-2020 Because of a physica l, mental, or emotional condition, do you have serious difficulty concentrating, remembering, or making decisions No 10/15/2020 1:41 PM EDSue Tomas RN No [facility] Clinical Notes 10-12-2020 to 01-13-2025 Mikaela Spann APRN.DIRECTOR OF NATIONAL SALES - 01/13/2025 1:39 PM EDTCMikaela johnson APRN.DEEPAK - 11/28/2024 10:41 AM EDTTelephone Encounter - Alfredo Colby MD - 11/04/2024 8:32 PM EDTPatient Instructions Note Date & Type Note Facility 01-13-2025 Note HNO ID: [id number] Author: MIKAELA SPANN APRN.DIRECTOR OF NATIONAL SALES Service: ? Author Type: Nurse Practitioner Type: Progress Notes Filed: 01/13/2025 15:12 Note Text: SUBJECTIVE Kwan Guzman is a 49 year old male here today for a check up on his medical problems. Chief Complaint Patient presents with: Back Pain: along with a stiff neck Recheck HPI Kwan Guzman is a 49-year-old male with a history of back pain, presenting for worsening back pain and requesting a pain medication rx short term. Kwan reports severe back pain that has been progressively worsening over the past 6-7 months. He describes the pain as a feeling of compression, similar to having my football helmet on and I went head first into a tackle and it crushed it. The pain is constant and affects his ability to turn his head, requiring him to turn his entire body to speak to people. He also reports tingling in his fingertips and has noticed a chunk of fat on his neck, which he believes may be contributing to the compression. He attributes his weight gain over the past 7 months to his back pain. Kwan has a history of back injuries, including one sustained last year while moving his house. He has been using ice packs and a hot tub to manage his pain, but these measures have not provided sufficient relief. He has also been using marijuana gummies for pain management and is trying to wean off them. He reports that he is not currently taking Xanax and has a month's supply of Adderall remaining, which he has not been using recently. Kwan has been engaging in activities that exacerbate his pain, such as mowing the lawn and dragging a 70-pound hot tub up a hill. He reports that his lawn tractor is not working, and he has been using a self-propelled lawnmower instead. He also mentions that he has been experiencing neuropathy, which he believes is a familial condition. He reports difficulty walking without shoes and has had episodes of incontinence due to his inability to walk. His medications were reviewed today and his list is now up to date. Medications Current Outpatient Medications Medication Sig QUEtiapine (SEROQUEL) 50 mg tablet Take 1 tablet by mouth daily at bedtime. [START ON 01/31/2025] amphetamine-dextroamphetamine XR (ADDERALL XR) 20 mg capsule Take 1 capsule by mouth once daily for 30 days. Patient should start on January 31, 2025. isosorbide mononitrate ER (IMDUR) 30 mg 24 hr tablet Take 1 tablet by mouth once daily. sertraline (ZOLOFT) 100 mg tablet Take 1 tablet by mouth once daily. potassium chloride ER (KLOR-CON) 20 mEq tablet Take 40 mEq by mouth two times a day. cholecalciferol (VITAMIN D3) 5,000 unit tab Take 5,000 Units by mouth once daily. pyridoxine, vitamin B6, (VITAMIN B6) 25 mg tablet Take 25 mg by mouth once daily. clopidogrel (PLAVIX) 75 mg tablet Take 75 mg by mouth once daily. metoprolol tartrate, short acting, (LOPRESSOR) 25 mg tablet Take 25 mg by mouth twice daily. aspirin, enteric coated (ASPIRIN, ENTERIC COATED) 81 mg EC tablet Take 81 mg by mouth once daily. atorvastatin (LIPITOR) 80 mg tablet Take 80 mg by mouth once daily. lisinopril (ZESTRIL, PRINIVIL) 10 mg tablet Take 10 mg by mouth twice daily. hydrOXYzine HCl (ATARAX) 25 mg tablet Take 1 tablet by mouth every 6 hours as needed for anxiety. gabapentin (NEURONTIN) 600 mg tablet Take 1 tablet by mouth two times a day for 180 days. furosemide (LASIX) 40 mg tablet Take 1 tablet by mouth two times a day. HYDROcodone-acetaminophen (NORCO) 5-325 mg per tablet Take 1 tablet by mouth every 8 hours as needed for pain for up to 7 days. Xanax on hold while taking this [START ON 01/19/2025] ALPRAZolam (XANAX) 0.5 mg tablet Take 1 tablet by mouth two times a day as needed for up to 30 days. Patient should start on January 19, 2025. amphetamine-dextroamphetamine XR (ADDERALL XR) 20 mg capsule Take 1 capsule by mouth once daily for 30 days. Patient should start on December 05, 2024. amphetamine-dextroamphetamine XR (ADDERALL XR) 20 mg capsule Take 1 capsule by mouth once daily for 30 days. Patient should start on January 03, 2025. No current facility-administered medications for this visit. 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 Cardiov (more content not included)... [facility] 01-13-2025 History of Presen t illness Narrative SUBJECTIVE Kwan Guzman is a 49 year old male here today for a check up on his medical problems. Chief Complaint Patient presents with: Back Pain: along with a stiff neck Recheck HPI Kwan Guzman is a 49-year-old male with a history of back pain, presenting for worsening back pain and requesting a pain medication rx short term. Kwan reports severe back pain that has been progressively worsening over the past 6-7 months. He describes the pain as a feeling of compression, similar to having my football helmet on and I went head first into a tackle and it crushed it. The pain is constant and affects his ability to turn his head, requiring him to turn his entire body to speak to people. He also reports tingling in his fingertips and has noticed a chunk of fat on his neck, which he believes may be contributing to the compression. He attributes his weight gain over the past 7 months to his back pain. Kwan has a history of back injuries, including one sustained last year while moving his house. He has been using ice packs and a hot tub to manage his pain, but these measures have not provided sufficient relief. He has also been using marijuana gummies for pain management and is trying to wean off them. He reports that he is not currently taking Xanax and has a month's supply of Adderall remaining, which he has not been using recently. Kwan has been engaging in activities that exacerbate his pain, such as mowing the lawn and dragging a 70-pound hot tub up a hill. He reports that his lawn tractor is not working, and he has been using a self-propelled lawnmower instead. He also mentions that he has been experiencing neuropathy, which he believes is a familial condition. He reports difficulty walking without shoes and has had episodes of incontinence due to his inability to walk. His medications were reviewed today and his list is now up to date. Medications Current Outpatient Medications Medication Sig QUEtiapine (SEROQUEL) 50 mg tablet Take 1 tablet by mouth daily at bedtime. [START ON 01/31/2025] amphetamine-dextroamphetamine XR (ADDERALL XR) 20 mg capsule Take 1 capsule by mouth once daily for 30 days. Patient should start on January 31, 2025. isosorbide mononitrate ER (IMDUR) 30 mg 24 hr tablet Take 1 tablet by mouth once daily. sertraline (ZOLOFT) 100 mg tablet Take 1 tablet by mouth once daily. potassium chloride ER (KLOR-CON) 20 mEq tablet Take 40 mEq by mouth two times a day. cholecalciferol (VITAMIN D3) 5,000 unit tab Take 5,000 Units by mouth once daily. pyridoxine, vitamin B6, (VITAMIN B6) 25 mg tablet Take 25 mg by mouth once daily. clopidogrel (PLAVIX) 75 mg tablet Take 75 mg by mouth once daily. metoprolol tartrate, short acting, (LOPRESSOR) 25 mg tablet Take 25 mg by mouth twice daily. aspirin, enteric coated (ASPIRIN, ENTERIC COATED) 81 mg EC tablet Take 81 mg by mouth once daily. atorvastatin (LIPITOR) 80 mg tablet Take 80 mg by mouth once daily. lisinopril (ZESTRIL, PRINIVIL) 10 mg tablet Take 10 mg by mouth twice daily. hydrOXYzine HCl (ATARAX) 25 mg tablet Take 1 tablet by mouth every 6 hours as needed for anxiety. gabapentin (NEURONTIN) 600 mg tablet Take 1 tablet by mouth two times a day for 180 days. furosemide (LASIX) 40 mg tablet Take 1 tablet by mouth two times a day. HYDROcodone-acetaminophen (NORCO) 5-325 mg per tablet Take 1 tablet by mouth every 8 hours as needed for pain for up to 7 days. Xanax on hold while taking this [START ON 01/19/2025] ALPRAZolam (XANAX) 0.5 mg tablet Take 1 tablet by mouth two times a day as needed for up to 30 days. Patient should start on January 19, 2025. amphetamine-dextroamphetamine XR (ADDERALL XR) 20 mg capsule Take 1 capsule by mouth once daily for 30 days. Patient should start on December 05, 2024. amphetamine-dextroamphetamine XR (ADDERALL XR) 20 mg capsule Take 1 capsule by mouth once daily for 30 days. Patient should start on January 03, 2025. No current facility-administered medications for this visit. 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 Cardiovascular: Negative. Musculoskeletal: Positive for arthralgias, back pain and myalgias. OBJECTIVE BP 128/78 Pulse 81 SpO2 98% Physical Exam Vitals and nursing note reviewed. Constitutional: General: He is awake. He is not in acute distress. Appearance: Normal appearance. He is well-developed and well-groomed. He is not ill-appearing, toxic-appearing or diaphoretic. HENT: Head: Normocephalic. Right Ear: External ear normal. Left Ear: External ear normal. Nose: Nose normal. Eyes: General: Vision grossly intact. Conjunctiva/sclera: Conjunctivae normal. Pupils: Pupils are equal, round, and reactive to light. Neck: Vascular: No JVD. Trachea: Trachea normal. Cardiovascular: Pulses: Normal pulses. Pulmonary: Effort: Pulmonary effort is normal. No accessory muscle usage, prolonged expiration or respiratory distress. Musculoskeletal: Cervical back: Neck supple. Tenderness (paraspinal) present. No swelling, edema, deformity, erythema, signs of trauma, lacerations, rigidity, spasms, torticollis or crepitus. Decreased range of motion. Lumbar back: No swelling, deformity, lacerations or spasms. Decreased range of motion. Skin: General: Skin is warm and dry. Capillary Refill: Capillary refill takes less than 2 seconds. Neurological: General: No focal deficit present. Mental Status: He is alert and oriented to person, place, and time. Mental status is at baseline. Psychiatric: Attention and Perception: Attention and perception normal. Mood and Affect: Mood and affect normal. Speech: Speech normal. Behavior: Behavior normal. Behavior is cooperative. Thought Content: Thought content normal. Cognition and Memory: Cognition and memory normal. Judgment: Judgment normal. ASSESSMENT/PLAN: 1. Neck pain (M54.2) Acute bilateral low back pain without sciatica (M54.50) Chronic neck and low back pain with recent exacerbation. Reports sensation of compression in the neck, tingling in fingertips, and significant tenderness. Recent weight gain may be contributing to spinal compression. History of cortisone injections for back pain management. - Prescribed [place] for short-term pain management; instructed to hold Xanax while taking [place]. - Advised to follow up with enrollment specialist at [facility] for further evaluation and management. - Discussed potential benefits of behavioral health care coordinator and strength training; advised to consult with ortho regarding these options. 2. Anxiety (F41.9) Currently managed with Xanax; patient aware of potential interactions with [place]. - Refill Xanax to be filled next Sunday; instructed to hold while taking [place]. 3. Restless legs syndrome (G25.81) Portions of this note have been entered by ancillary staff. I have reviewed and when necessary edited, so that they are an adequate record of my encounter with this patient Please note that parts of this document were created using voice recognition software and therefore may contain grammatical errors. Patient verbalizes understanding of instructions from today's visit and in agreement with treatment plan. Questions answered. Agrees to call the office if questions, concerns of issues with acute symptoms not improving or if they worsen. See diagnoses and orders for additional plan(s). Allergies and medications were reviewed, list was updated, and refills given if needed. Past medical, surgical, social, and family history reviewed and updated as appropriate. Encouraged proper diet & exercise as well as compliance with taking medications. Age-appropriate health preventative measures were discussed. Return if symptoms worsen or fail to improve. Mikaela Spann APRN-DEEPAK documented in this encounter [facility] 11-28-2024 Note HNO ID: [id number] Author: MIKAELA SPANN APRN.CNP Service: ? Author Type: Nurse Practitioner Type: Progress Notes Filed: 11/28/2024 11:47 Note Text: SUBJECTIVE Kwan Guzman is a 49 year old male here today for a check up on his medical problems. Chief Complaint Patient presents with: Weight Problem: follow up metformin caused severe diarrhea, fatigue and heart racing HPI Kwan Guzman is a 49 year old male. He is an established patient. Here to discuss weight concerns. He was previously on a GLP1 but insurance stopped covering this and he had to stop it. He had significant weight loss with the medication but weight has returned after stopping it. Other medications tried/considered included metformin which caused side effects, he has a prior intolerance to Topamax and Wellbutrin. He is already on a stimulant for ADD so phentermine would not be an option. Mood currently is stable. He did have a discussion with bariatrics and looked at some options for surgical intervention but not interested in that right now because of possible technician terminal and repeater impacts from that. His medications were reviewed today and his list is now up to date. Medications Current Outpatient Medications Medication Sig ALPRAZolam (XANAX) 0.5 mg tablet Take 1 tablet by mouth two times a day as needed for anxiety for up to 60 days. gabapentin (NEURONTIN) 600 mg tablet Take 1 tablet by mouth two times a day for 180 days. isosorbide mononitrate ER (IMDUR) 30 mg 24 hr tablet Take 1 tablet by mouth once daily. sertraline (ZOLOFT) 100 mg tablet Take 1 tablet by mouth once daily. potassium chloride ER (KLOR-CON) 20 mEq tablet Take 40 mEq by mouth two times a day. cholecalciferol (VITAMIN D3) 5,000 unit tab Take 5,000 Units by mouth once daily. pyridoxine, vitamin B6, (VITAMIN B6) 25 mg tablet Take 25 mg by mouth once daily. clopidogrel (PLAVIX) 75 mg tablet Take 75 mg by mouth once daily. metoprolol tartrate, short acting, (LOPRESSOR) 25 mg tablet Take 25 mg by mouth twice daily. aspirin, enteric coated (ASPIRIN, ENTERIC COATED) 81 mg EC tablet Take 81 mg by mouth once daily. atorvastatin (LIPITOR) 80 mg tablet Take 80 mg by mouth once daily. lisinopril (ZESTRIL, PRINIVIL) 10 mg tablet Take 10 mg by mouth twice daily. QUEtiapine (SEROQUEL) 50 mg tablet Take 1 tablet by mouth daily at bedtime. hydrOXYzine HCl (ATARAX) 25 mg tablet Take 1 tablet by mouth every 6 hours as needed for anxiety. furosemide (LASIX) 40 mg tablet Take 1 tablet by mouth two times a day. [START ON 12/05/2024] amphetamine-dextroamphetamine XR (ADDERALL XR) 20 mg capsule Take 1 capsule by mouth once daily for 30 days. Patient should start on December 05, 2024. [START ON 01/03/2025] amphetamine-dextroamphetamine XR (ADDERALL XR) 20 mg capsule Take 1 capsule by mouth once daily for 30 days. Patient should start on January 03, 2025. [START ON 01/31/2025] amphetamine-dextroamphetamine XR (ADDERALL XR) 20 mg capsule Take 1 capsule by mouth once daily for 30 days. Patient should start on January 31, 2025. No current facility-administered medications for this visit. 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 Respiratory: Negative. Cardiovascular: Negative. OBJECTIVE BP 140/80 Pulse 89 SpO2 98% Physical Exam Vitals and nursing note reviewed. Constitutional: General: He is awake. He is not in acute distress. Appearance: Normal appearance. He is well-developed and well-groomed. He is not ill-appearing, toxic-appearing or diaphoretic. HENT: Head: Normocephalic. Right Ear: External ear normal. Left Ear: External ear normal. Nose: Nose normal. Eyes: General: Vision grossly intact. Conjunctiva/sclera: Conjunctivae normal. Pupils: Pupils are equal, round, and reactive to light. Neck: Vascular: No JVD. Trachea: Trachea normal. Pulmonary: Effort: Pulmonary effort is normal. No accessory muscle usage, prolonged expiration or respiratory distress. Musculoskeletal: Cervical back: Neck supple. Skin: General: Skin is warm and dry. Capillary Refill: Capillary refill takes less than 2 seconds. Neurological: General: No focal deficit present. Mental Status: He is alert and oriented to person, place, and time. Mental statu (more content not included)... [facility] 11-28-2024 History of Presen t illness Narrative SUBJECTIVE Kwan Guzman is a 49 year old male here today for a check up on his medical problems. Chief Complaint Patient presents with: Weight Problem: follow up metformin caused severe diarrhea, fatigue and heart racing HPI Kwan Guzman is a 49 year old male. He is an established patient. Here to discuss weight concerns. He was previously on a GLP1 but insurance stopped covering this and he had to stop it. He had significant weight loss with the medication but weight has returned after stopping it. Other medications tried/considered included metformin which caused side effects, he has a prior intolerance to Topamax and Wellbutrin. He is already on a stimulant for ADD so phentermine would not be an option. Mood currently is stable. He did have a discussion with bariatrics and looked at some options for surgical intervention but not interested in that right now because of possible skilled nursing impacts from that. His medications were reviewed today and his list is now up to date. Medications Current Outpatient Medications Medication Sig ALPRAZolam (XANAX) 0.5 mg tablet Take 1 tablet by mouth two times a day as needed for anxiety for up to 60 days. gabapentin (NEURONTIN) 600 mg tablet Take 1 tablet by mouth two times a day for 180 days. isosorbide mononitrate ER (IMDUR) 30 mg 24 hr tablet Take 1 tablet by mouth once daily. sertraline (ZOLOFT) 100 mg tablet Take 1 tablet by mouth once daily. potassium chloride ER (KLOR-CON) 20 mEq tablet Take 40 mEq by mouth two times a day. cholecalciferol (VITAMIN D3) 5,000 unit tab Take 5,000 Units by mouth once daily. pyridoxine, vitamin B6, (VITAMIN B6) 25 mg tablet Take 25 mg by mouth once daily. clopidogrel (PLAVIX) 75 mg tablet Take 75 mg by mouth once daily. metoprolol tartrate, short acting, (LOPRESSOR) 25 mg tablet Take 25 mg by mouth twice daily. aspirin, enteric coated (ASPIRIN, ENTERIC COATED) 81 mg EC tablet Take 81 mg by mouth once daily. atorvastatin (LIPITOR) 80 mg tablet Take 80 mg by mouth once daily. lisinopril (ZESTRIL, PRINIVIL) 10 mg tablet Take 10 mg by mouth twice daily. QUEtiapine (SEROQUEL) 50 mg tablet Take 1 tablet by mouth daily at bedtime. hydrOXYzine HCl (ATARAX) 25 mg tablet Take 1 tablet by mouth every 6 hours as needed for anxiety. furosemide (LASIX) 40 mg tablet Take 1 tablet by mouth two times a day. [START ON 12/05/2024] amphetamine-dextroamphetamine XR (ADDERALL XR) 20 mg capsule Take 1 capsule by mouth once daily for 30 days. Patient should start on December 05, 2024. [START ON 01/03/2025] amphetamine-dextroamphetamine XR (ADDERALL XR) 20 mg capsule Take 1 capsule by mouth once daily for 30 days. Patient should start on January 03, 2025. [START ON 01/31/2025] amphetamine-dextroamphetamine XR (ADDERALL XR) 20 mg capsule Take 1 capsule by mouth once daily for 30 days. Patient should start on January 31, 2025. No current facility-administered medications for this visit. 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 Respiratory: Negative. Cardiovascular: Negative. OBJECTIVE BP 140/80 Pulse 89 SpO2 98% Physical Exam Vitals and nursing note reviewed. Constitutional: General: He is awake. He is not in acute distress. Appearance: Normal appearance. He is well-developed and well-groomed. He is not ill-appearing, toxic-appearing or diaphoretic. HENT: Head: Normocephalic. Right Ear: External ear normal. Left Ear: External ear normal. Nose: Nose normal. Eyes: General: Vision grossly intact. Conjunctiva/sclera: Conjunctivae normal. Pupils: Pupils are equal, round, and reactive to light. Neck: Vascular: No JVD. Trachea: Trachea normal. Pulmonary: Effort: Pulmonary effort is normal. No accessory muscle usage, prolonged expiration or respiratory distress. Musculoskeletal: Cervical back: Neck supple. Skin: General: Skin is warm and dry. Capillary Refill: Capillary refill takes less than 2 seconds. Neurological: General: No focal deficit present. Mental Status: He is alert and oriented to person, place, and time. Mental status is at baseline. Psychiatric: Attention and Perception: Attention and perception normal. Mood and Affect: Mood and affect normal. Speech: Speech normal. Behavior: Behavior normal. Behavior is cooperative. Thought Content: Thought content normal. Cognition and Memory: Cognition and memory normal. Judgment: Judgment normal. ASSESSMENT/PLAN: 1. Adult ADHD - ICD9: 314.01, ICD10: F90.9 (primary diagnosis) Stable with current medications. - DEXTROAMPHETAMINE-AMPHETAMINE ER 20 MG 24HR CAPSULE,EXTEND RELEASE - DEXTROAMPHETAMINE-AMPHETAMINE ER 20 MG 24HR CAPSULE,EXTEND RELEASE - DEXTROAMPHETAMINE-AMPHETAMINE ER 20 MG 24HR CAPSULE,EXTEND RELEASE 2. Bipolar 1 disorder (HCC) - ICD9: 296.7, ICD10: F31.9 Stable. Continue current medications. - QUETIAPINE 50 MG TABLET 3. Anxiety - ICD9: 300.00, ICD10: F41.9 See above. - HYDROXYZINE HCL 25 MG TABLET 4. Encounter for therapeutic drug monitoring - ICD9: V58.83, ICD10: Z51.81 - BASIC METABOLIC PANEL - TOXICOLOGY SCREEN, ROUTINE URINE 5. Obesity (BMI 30.0-34.9) - ICD9: 278.00, ICD10: E66.811 Discussed options, could consider naltrexone but for now will work on lifestyle. I spent a total of 37 minutes on the date of the service which included preparing to see the patient, [id number] patient care, completing clinical documentation, obtaining and/or reviewing separately obtained history, performing a medically appropriate examination, counseling and educating the patient/family/caregiver, and ordering medications, tests, or procedures. Portions of this note have been entered by ancillary staff. I have reviewed and when necessary edited, so that they are an adequate record of my encounter with this patient Please note that parts of this document were created using voice recognition software and therefore may contain grammatical errors. Patient verbalizes understanding of instructions from today's visit and in agreement with treatment plan. Questions answered. Agrees to call the office if questions, concerns of issues with acute symptoms not improving or if they worsen. See diagnoses and orders for additional plan(s). Allergies and medications were reviewed, list was updated, and refills given if needed. Past medical, surgical, social, and family history reviewed and updated as appropriate. Encouraged proper diet & exercise as well as compliance with taking medications. Age-appropriate health preventative measures were discussed. Return if symptoms worsen or fail to improve. ARPAN Alcantara documented in this encounter [facility] 11-04-2024 Telephone encounter Note Patient needs follow up scheduled--looks like Mikaela said to follow up 11/11 but no appointment made yet. The following approved medication requests have been transmitted electronically. Requested Prescriptions Signed Prescriptions Disp Refills amphetamine-dextroamphetamine XR (ADDERALL XR) 20 mg capsule 30 capsule 0 Sig: Take 1 capsule by mouth once daily for 30 days. Authorizing Provider: ALFREDO COLBY ALPRAZolam (XANAX) 0.5 mg tablet 60 tablet 1 Sig: Take 1 tablet by mouth two times a day as needed for anxiety for up to 60 days. Authorizing Provider: ALFREDO COLBY MD [facility] 11-04-2024 Miscellaneous Notes Patient needs follow up scheduled--looks like Mikaeal said to follow up 11/11 but no appointment made yet. The following approved medication requests have been transmitted electronically. Requested Prescriptions Signed Prescriptions Disp Refills amphetamine-dextroamphetamine XR (ADDERALL XR) 20 mg capsule 30 capsule 0 Sig: Take 1 capsule by mouth once daily for 30 days. Authorizing Provider: ALFREDO COLBY ALPRAZolam (XANAX) 0.5 mg tablet 60 tablet 1 Sig: Take 1 tablet by mouth two times a day as needed for anxiety for up to 60 days. Authorizing Provider: ALFREDO COLBY MD Patient has been identified by name and date of : Yes Patient phones for refill(s): Requested Prescriptions Pending Prescriptions Disp Refills amphetamine-dextroamphetamine XR (ADDERALL XR) 20 mg capsule 30 capsule 0 Sig: Take 1 capsule by mouth once daily for 30 days. ALPRAZolam (XANAX) 0.5 mg tablet 60 tablet 1 Sig: Take 1 tablet by mouth two times a day as needed for anxiety for up to 60 days. May fill early due to leaving for vacation Sunday and will be away when due for prescription refill Date of last office visit in primary care: 09/30/2024 Date of next office visit in primary care: Visit date not found Please advise. Thank you. Nesha Randall LPN. documented in this encounter [facility] 11-04-2024 Telephone encounter Note Patient has been identified by name and date of : Yes Patient phones for refill(s): Requested Prescriptions Pending Prescriptions Disp Refills amphetamine-dextroamphetamine XR (ADDERALL XR) 20 mg capsule 30 capsule 0 Sig: Take 1 capsule by mouth once daily for 30 days. ALPRAZolam (XANAX) 0.5 mg tablet 60 tablet 1 Sig: Take 1 tablet by mouth two times a day as needed for anxiety for up to 60 days. May fill early due to leaving for vacation Sunday and will be away when due for prescription refill Date of last office visit in primary care: 09/30/2024 Date of next office visit in primary care: Visit date not found Please advise. Thank you. Nesha Randall LPN. [facility] 10-21-2024 Instructions Alfredo Colby MD - 10/21/2024 12:36 AM EDT - Continue taking Gabapentin 600 mg twice daily for restless leg syndrome; a 6-month supply has been sent to your pharmacy. - Next follow-up appointment in 3 months to discuss Adderall prescription and any other concerns. documented in this encounter [facility] 10-07-2024 Note HNO ID: [id number] Author: ADRIANE OJEDA LPCC Service: ? Author Type: Counselor Type: Progress Notes Filed: 10/07/2024 08:39 Note Text: Behavioral Health Social Work Progress Note Patient identified for [facility] from: PCP Reason for referral: [facility] Behavior[facility] Resources: Psychology - talk therapy [facility] encounter type: MyChart Message Attempts to Outreach: 2 attempts Screening completed during encounter: PHQ-9, EMILY-7 Referral made: Psychology - External Psychology-External referral type: Therapy Reason for external referral: Patient seeking skilled nursing support Final Disposition: Resources given Patient Discharged?: Yes Patient reported that caregiver was able to meet their needs today?: N/A therapist sent patient MyChart follow up message offering assistance with linkage to behavioral health services. AISHA Walters-S October 07, 2024 [facility] 10-07-2024 History of Presen t illness Narrative Behavioral Health Social Work Progress Note Patient identified for [facility] from: PCP Reason for referral: [facility] Behavioral Health Resources: Psychology - talk therapy [facility] encounter type: MyChart Message Attempts to Outreach: 2 attempts Screening completed during encounter: PHQ-9, EMILY-7 Referral made: Psychology - External Psychology-External referral type: Therapy Reason for external referral: Patient seeking technician terminal and repeater support Final Disposition: Resources given Patient Discharged?: Yes Patient reported that caregiver was able to meet their needs today?: N/A therapist sent patient MyChart follow up message offering assistance with linkage to behavioral health services. TIFFANY Walters October 07, 2024 documented in this encounter [facility] 10-06-2024 Telephone encounter Note Prescription Refill Information The patient has been identified by name and date of : Yes Caregiver verified no other encounters exist for this prescription request: Yes Caregiver confirmed with patient/requestor that no other refills are due, in the near future, with this provider at this time: Yes The last office visit in the department: 09/30/24 Does the patient have a future office visit with this provider/department: No Requested Prescriptions Pending Prescriptions Disp Refills hydrOXYzine HCl (ATARAX) 25 mg tablet 120 tablet 0 Sig: Take 1 tablet by mouth every 6 hours as needed for anxiety. Ebony Yeboah LPN October 06, 2024 10:[address] [facility] 10-06-2024 Miscellaneous Notes Prescription Refill Information The patient has been identified by name and date of : Yes Caregiver verified no other encounters exist for this prescription request: Yes Caregiver confirmed with patient/requestor that no other refills are due, in the near future, with this provider at this time: Yes The last office visit in the department: 09/30/24 Does the patient have a future office visit with this provider/department: No Requested Prescriptions Pending Prescriptions Disp Refills hydrOXYzine HCl (ATARAX) 25 mg tablet 120 tablet 0 Sig: Take 1 tablet by mouth every 6 hours as needed for anxiety. Ebony Yeboah LPN October 06, 2024 10:59 AM documented in this encounter [facility] 09-30-2024 Note HNO ID: [id number] Author: ADRIANE OJEDA LPCC Service: ? Author Type: Counselor Type: Progress Notes Filed: 09/30/2024 16:02 Note Text: Behavioral Health Social Work Progress Note Patient identified for [facility] from: PCP Reason for referral: Resources Behavioral Health Resources: Psychology - talk therapy [facility] encounter type: MyChart Message, Chart Review Attempts to Outreach: 1 attempt Referral made: Psychology - External Psychology-External referral type: Therapy Reason for external referral: Patient seeking technician terminal and repeater support Final Disposition: Resources given Patient Discharged?: No Patient reported that caregiver was able to meet their needs today?: N/A therapist reviewed chart, he was given resources for outpatient therapy on [facility]. therapist sent patient additional resources to [facility] for behavioral health. TIFFANY Walters September 30, 2024 [facility] 09-30-2024 History of Presen t illness Narrative Behavioral Health Social Work Progress Note Patient identified for [facility] from: PCP Reason for referral: Resources Behavioral Health Resources: Psychology - talk therapy [facility] encounter type: MyChart Message, Chart Review Attempts to Outreach: 1 attempt Referral made: Psychology - External Psychology-External referral type: Therapy Reason for external referral: Patient seeking technician terminal and repeater support Final Disposition: Resources given Patient Discharged?: No Patient reported that caregiver was able to meet their needs today?: N/A therapist reviewed chart, he was given resources for outpatient therapy on [facility]. therapist sent patient additional resources to [facility] for behavioral health. TIFFANY Walters September 30, [address] this encounter [facility] 09-30-2024 History of Presen t illness Narrative SUBJECTIVE Kwan Guzman is a 49 year old male here today for a check up on his medical problems. Chief Complaint Patient presents with: Weight Problem HPI Kwan Guzman is a 49 year old male. He is an established patient. His mother is present for the visit per patient phone on facetime per patient preference. He presents today for follow up. Concerns of still wanting and trying to lose weight but having difficulty. Had previously done well on a glp-1 but coverage ended. Tried getting it compounded but this never worked for him, he actually gained weight when on the compounded form. Tried sending in Zepbound, Wegovy, Mounjaro and was denied by insurance. His weight is impacting his mental health. He has a history of ADD, bipolar, anxiety. He is open to counseling. Mom is concerned he needs someone to talk to about how he is feeling about his weight. Other history includes hyperlipidemia and hypertension so he wants to work on getting weight down. His medications were reviewed today and his list is now up to date. Medications Current Outpatient Medications Medication Sig ALPRAZolam (XANAX) 0.5 mg tablet Take 1 tablet by mouth two times a day as needed for anxiety for up to 60 days. May fill early due to leaving for vacation Sunday and will be away when due for prescription refill Patient should start on September 20, 2024. gabapentin (NEURONTIN) 600 mg tablet Take 1 tablet by mouth two times a day for 180 days. isosorbide mononitrate ER (IMDUR) 30 mg 24 hr tablet Take 1 tablet by mouth once daily. amphetamine-dextroamphetamine XR (ADDERALL XR) 20 mg capsule Take 1 capsule by mouth once daily for 30 days. Patient should start on September 22, 2024. hydrOXYzine HCl (ATARAX) 25 mg tablet Take 1 tablet by mouth every 6 hours as needed for anxiety. sertraline (ZOLOFT) 100 mg tablet Take 1 tablet by mouth once daily. QUEtiapine (SEROQUEL) 50 mg tablet Take 1 tablet by mouth daily at bedtime. potassium chloride ER (KLOR-CON) 20 mEq tablet Take 40 mEq by mouth two times a day. cholecalciferol (VITAMIN D3) 5,000 unit tab Take 5,000 Units by mouth once daily. pyridoxine, vitamin B6, (VITAMIN B6) 25 mg tablet Take 25 mg by mouth once daily. clopidogrel (PLAVIX) 75 mg tablet Take 75 mg by mouth once daily. metoprolol tartrate, short acting, (LOPRESSOR) 25 mg tablet Take 25 mg by mouth twice daily. aspirin, enteric coated (ASPIRIN, ENTERIC COATED) 81 mg EC tablet Take 81 mg by mouth once daily. atorvastatin (LIPITOR) 80 mg tablet Take 80 mg by mouth once daily. lisinopril (ZESTRIL, PRINIVIL) 10 mg tablet Take 10 mg by mouth twice daily. furosemide (LASIX) 40 mg tablet Take 1 tablet by mouth two times a day. metFORMIN (GLUCOPHAGE) 500 mg tablet Take 2 tablets by mouth two times a day with meals. amphetamine-dextroamphetamine XR (ADDERALL XR) 20 mg capsule Take 1 capsule by mouth once daily for 30 days. amphetamine-dextroamphetamine XR (ADDERALL XR) 20 mg capsule Take 1 capsule by mouth once daily for 30 days. Patient should start on August 23, 2024. cyanocobalamin (VITAMIN B-12) 1,000 mcg tab Take 1,000 mcg by mouth once daily. (Patient not taking: Reported on 09/30/2024) No current facility-administered medications for this visit. 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 Cardiovascular: Negative. OBJECTIVE BP 124/88 Pulse 93 SpO2 98% Physical Exam Vitals and nursing note reviewed. Constitutional: General: He is awake. He is not in acute distress. Appearance: Normal appearance. He is well-developed and well-groomed. He is not ill-appearing, toxic-appearing or diaphoretic. HENT: Head: Normocephalic. Right Ear: External ear normal. Left Ear: External ear normal. Nose: Nose normal. Eyes: General: Vision grossly intact. Conjunctiva/sclera: Conjunctivae normal. Pupils: Pupils are equal, round, and reactive to light. Neck: Vascular: No JVD. Trachea: Trachea normal. Pulmonary: Effort: Pulmonary effort is normal. No accessory muscle usage, prolonged expiration or respiratory distress. Musculoskeletal: Cervical back: Neck supple. Skin: General: Skin is warm and dry. Capillary Refill: Capillary refill takes less than 2 seconds. Neurological: General: No focal deficit present. Mental Status: He is alert and oriented to person, place, and time. Mental status is at baseline. Psychiatric: Attention and Perception: Attention and perception normal. Mood and Affect: Mood and affect normal. Speech: Speech normal. Behavior: Behavior normal. Behavior is cooperative. Thought Content: Thought content normal. Cognition and Memory: Cognition and memory normal. Judgment: Judgment normal. ASSESSMENT/PLAN: 1. Obesity (BMI 30.0-34.9) - ICD9: 278.00, ICD10: E66.811 (primary diagnosis) Motivated to work on weight loss, plans to work on activity and diet. He has had difficulty with glp-1 coverage, allergies to Topamax and Wellbutrin. On Adderall so phentermine is not ideal. Can trial metformin and see if helpful along with consulting to bariatrics to discuss options with them. Discussed to start this as 1 pill daily and how to titrate up to taking 2 pills twice daily. Discussed new medication including but not limited to reason for use, possible side effects, administration, signs and symptoms to monitor for and when to seek medical attention. - [facility] - METFORMIN 500 MG TABLET 2. Primary hypertension - ICD9: 401.9, ICD10: I10 - Controlled - Continue current medications - Recommend home blood pressure monitoring, to bring results to next visit - Encouraged sodium restriction, DASH or Mediterranean diet - Recommend regular aerobic exercise - [facility] 3. Other hyperlipidemia - ICD9: 272.4, ICD10: E78.49 Working on weight loss to keep cholesterol levels controlled. - [facility] 4. Elevated glucose - ICD9: 790.29, ICD10: R73.09 See above. - [facility] - METFORMIN 500 MG TABLET 5. Bipolar 1 disorder (HCC) - ICD9: 296.7, ICD10: F31.9 Consult for counseling. Plans to set this up with [facility]. - CONSULT TO [facility] 6. Anxiety - ICD9: 300.00, ICD10: F41.9 See above. - CONSULT TO [facility] Counseling info: Adriane Pisano [facility] with [address] [place] [address] Portions of this note have been entered by ancillary staff. I have reviewed and when necessary edited, so that they are an adequate record of my encounter with this patient Please note that parts of this document were created using voice recognition software and therefore may contain grammatical errors. Patient verbalizes understanding of instructions from today's visit and in agreement with treatment plan. Questions answered. Agrees to call the office if questions, concerns of issues with acute symptoms not improving or if they worsen. See diagnoses and orders for additional plan(s). Allergies and medications were reviewed, list was updated, and refills given if needed. Past medical, surgical, social, and family history reviewed and updated as appropriate. Encouraged proper diet & exercise as well as compliance with taking medications. Age-appropriate health preventative measures were discussed. Return in about 6 weeks (around 11/11/2024) for recheck on new medication.. ARPAN Alcantara documented in this encounter [facility] 09-30-2024 Note HNO ID: [id number] Author: MIKAELA SPANN APRN.CNP Service: ? Author Type: Nurse Practitioner Type: Progress Notes Filed: 09/30/2024 10:55 Note Text: SUBJECTIVE Kwan Guzman is a 49 year old male here today for a check up on his medical problems. Chief Complaint Patient presents with: Weight Problem HPI Kwan Guzman is a 49 year old male. He is an established patient. His mother is present for the visit per patient phone on facetime per patient preference. He presents today for follow up. Concerns of still wanting and trying to lose weight but having difficulty. Had previously done well on a glp-1 but coverage ended. Tried getting it compounded but this never worked for him, he actually gained weight when on the compounded form. [facility], [facility] and was denied by insurance. His weight is impacting his mental health. He has a history of ADD, bipolar, anxiety. He is open to counseling. Mom is concerned he needs someone to talk to about how he is feeling about his weight. Other history includes hyperlipidemia and hypertension so he wants to work on getting weight down. His medications were reviewed today and his list is now up to date. Medications Current Outpatient Medications Medication Sig ALPRAZolam (XANAX) 0.5 mg tablet Take 1 tablet by mouth two times a day as needed for anxiety for up to 60 days. May fill early due to leaving for vacation Sunday and will be away when due for prescription refill Patient should start on September 20, 2024. gabapentin (NEURONTIN) 600 mg tablet Take 1 tablet by mouth two times a day for 180 days. isosorbide mononitrate ER (IMDUR) 30 mg 24 hr tablet Take 1 tablet by mouth once daily. amphetamine-dextroamphetamine XR (ADDERALL XR) 20 mg capsule Take 1 capsule by mouth once daily for 30 days. Patient should start on September 22, 2024. hydrOXYzine HCl (ATARAX) 25 mg tablet Take 1 tablet by mouth every 6 hours as needed for anxiety. sertraline (ZOLOFT) 100 mg tablet Take 1 tablet by mouth once daily. QUEtiapine (SEROQUEL) 50 mg tablet Take 1 tablet by mouth daily at bedtime. potassium chloride ER (KLOR-CON) 20 mEq tablet Take 40 mEq by mouth two times a day. cholecalciferol (VITAMIN D3) 5,000 unit tab Take 5,000 Units by mouth once daily. pyridoxine, vitamin B6, (VITAMIN B6) 25 mg tablet Take 25 mg by mouth once daily. clopidogrel (PLAVIX) 75 mg tablet Take 75 mg by mouth once daily. metoprolol tartrate, short acting, (LOPRESSOR) 25 mg tablet Take 25 mg by mouth twice daily. aspirin, enteric coated (ASPIRIN, ENTERIC COATED) 81 mg EC tablet Take 81 mg by mouth once daily. atorvastatin (LIPITOR) 80 mg tablet Take 80 mg by mouth once daily. lisinopril (ZESTRIL, PRINIVIL) 10 mg tablet Take 10 mg by mouth twice daily. furosemide (LASIX) 40 mg tablet Take 1 tablet by mouth two times a day. metFORMIN (GLUCOPHAGE) 500 mg tablet Take 2 tablets by mouth two times a day with meals. amphetamine-dextroamphetamine XR (ADDERALL XR) 20 mg capsule Take 1 capsule by mouth once daily for 30 days. amphetamine-dextroamphetamine XR (ADDERALL XR) 20 mg capsule Take 1 capsule by mouth once daily for 30 days. Patient should start on August 23, 2024. cyanocobalamin (VITAMIN B-12) 1,000 mcg tab Take 1,000 mcg by mouth once daily. (Patient not taking: Reported on 09/30/2024) No current facility-administered medications for this visit. 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 Cardiovascular: Negative. OBJECTIVE BP 124/88 Pulse 93 SpO2 98% Physical Exam Vitals and nursing note reviewed. Constitutional: General: He is awake. He is not in acute distress. Appearance: Normal appearance. He is well-developed and well-groomed. He is not ill-appearing, toxic-appearing or diaphoretic. HENT: Head: Normocephalic. Right Ear: External ear normal. Left Ear: External ear normal. Nose: Nose normal. Eyes: General: Vision grossly intact. Conjunctiva/sclera: Conjunctivae normal. Pupils: Pupils are equal, round, and reactive to light. Neck: Vascular: No JVD. Trachea: Trachea normal. Pulmonary: Effort: Pulmonary effort is normal. No accessory muscle usage, prolonged expiration or respiratory distress. Mu (more content not included)... [facility] 09-30-2024 Instructions Mikaela Spann APRN.CNP - 09/30/2024 10:15 AM EST [facility] with [address] [place] [address] [address] this encounter [facility] 09-10-2024 Telephone encounter Note Below noted He was upset that not able to get Mounjaro or Zepbound with his insurance (Medicare and [employer] Medicaid) for weight loss whether or not had sleep study to verify SALLY plus he states he already did PSG though no records at [facility] found and progress note from when patient saw Mikaela 01/05/2023 says he told her that he had HST but not PSG because of COVID. He was angry with his mom because he got his hopes up with letter from insurance that made it sound like med would be covered for weight loss, but turns out Medicare Part D will not cover meds for weight loss Noted told him that med would be covered for SALLY. Patient his psych history including anger issues. When he left, he was talking about dropping his insurance and going for lap band surgery. Mother also tried to discuss with him that would not help him any. Will see if he will follow up as scheduled to discuss other options for managing his health and efforts at weight loss. [facility] 09-10-2024 Miscellaneous Notes Below noted He was upset that not able to get Mounjaro or Zepbound with his insurance (Medicare and [employer] Medicaid) for weight loss whether or not had sleep study to verify SALLY plus he states he already did PSG though no records at [facility] found and progress note from when patient saw Mikaela 01/05/2023 says he told her that he had HST but not PSG because of COVID. He was angry with his mom because he got his hopes up with letter from insurance that made it sound like med would be covered for weight loss, but turns out Medicare Part D will not cover meds for weight loss Noted told him that med would be covered for SALLY. Patient his psych history including anger issues. When he left, he was talking about dropping his insurance and going for lap band surgery. Mother also tried to discuss with him that would not help him any. Will see if he will follow up as scheduled to discuss other options for managing his health and efforts at weight loss. Patient's significant other Liza calls and reports that after patient had come home from appointment patient was agitated and he was throwing things. Patient asking to speak to nurse or doctor about appointment yesterday. Advised Liza that she is not listed on chart to be able to talk with about appointment yesterday. Liza upset at this because Liza states that she feels physically threatened at home. Advised Liza that if she feels like she could be physically harmed then she needs to call the police. Please review and advise, Komal Guerrero RN documented in this encounter [facility] 09-10-2024 Telephone encounter Note Patient's significant other Liza calls and reports that after patient had come home from appointment patient was agitated and he was throwing things. Patient asking to speak to nurse or doctor about appointment yesterday. Advised Liza that she is not listed on chart to be able to talk with about appointment yesterday. Liza upset at this because Liza states that she feels physically threatened at home. Advised Liza that if she feels like she could be physically harmed then she needs to call the police. Please review and advise, Komal Guerrero RN [facility] 09-09-2024 Note HNO ID: [id number] Author: ALFREDO COLBY MD Service: ? Author Type: Physician Type: Progress Notes Filed: 10/21/2024 00:44 Note Text: This note was created using [employer]. Subjective Kwan Guzman is a 49 year old male. Patient presents with: Sleep Problem SUBJECTIVE: Kwan Guzman is a 49 year old year old gentleman here today for follow up appointment for review of medical conditions. Kwan is a 49-year-old male with a history of obesity and sleep apnea, presenting for weight management. Kwan expresses frustration with his current weight management regimen and insurance coverage for weight loss medications. He reports a weight gain of approximately 12 lbs since his last visit on August 12, despite previously losing 50 lbs while on Mounjaro. He attributes his weight gain to the discontinuation of Mounjaro, which he states was effective in suppressing his appetite and improving his overall health, including lowering his blood pressure. He expresses frustration with his insurance, Medicare Part D, for not covering weight loss medications and is considering alternative options, including lap band surgery or purchasing medications from a pharmacy in [place]. He also mentions difficulty with exercise due to knee and back pain, which limits his ability to lift weights. He used to swim regularly but now feels self-conscious about his weight and wears a t-shirt while swimming. Kwan has a history of sleep apnea and restless leg syndrome. He reports undergoing a sleep study at [facility] during the COVID- pandemic, which he believes led to a diagnosis of sleep apnea and subsequent prescription of gabapentin for restless leg syndrome. However, he is unsure of the details and does not have records of the sleep study. He expresses reluctance to undergo another sleep study. He also mentions a history of COPD and was previously prescribed Advair, which he states was ineffective. Kwan's mother, who is present during the visit, expresses concern about the impact of his weight on his mental health. She reports that he has been lashing out at family members and is frustrated with his current situation. She also mentions that he has a history of type 1 diabetes in the family, but he has not been diagnosed with type 2 diabetes. PAST MEDICAL HISTORY Diagnosis Date ADD (attention deficit disorder) ADHD (attention deficit hyperactivity disorder) Bipolar 1 disorder ([facility]) Chronic pain History of narcotic addiction ([facility]) 08/21/2023 Rheumatoid arthritis ([facility]) Current Outpatient Medications Medication Sig tirzepatide (MOUNJARO) 2.5 mg/0.5 mL pen injector Inject 2.5 mg subcutaneously one time a week. gabapentin (NEURONTIN) 600 mg tablet Take 1 tablet by mouth two times a day for 90 days. isosorbide mononitrate ER (IMDUR) 30 mg 24 hr tablet Take 1 tablet by mouth once daily. semaglutide, weight loss, (WEGOVY) 0.25 mg/0.5 mL pen injector Inject 0.5 mL subcutaneously one time a week. tirzepatide, weight loss (ZEPBOUND) 2.5 mg/0.5 mL pen injector Inject 2.5 mg subcutaneously one time a week. amphetamine-dextroamphetamine XR (ADDERALL XR) 20 mg capsule Take 1 capsule by mouth once daily for 30 days. Patient should start on August 23, 2024. [START ON 09/22/2024] amphetamine-dextroamphetamine XR (ADDERALL XR) 20 mg capsule Take 1 capsule by mouth once daily for 30 days. Patient should start on September 22, 2024. ALPRAZolam (XANAX) 0.5 mg tablet Take 1 tablet by mouth two times a day as needed for anxiety for up to 60 days. hydrOXYzine HCl (ATARAX) 25 mg tablet Take 1 tablet by mouth every 6 hours as needed for anxiety. sertraline (ZOLOFT) 100 mg tablet Take 1 tablet by mouth once daily. QUEtiapine (SEROQUEL) 50 mg tablet Take 1 tablet by mouth daily at bedtime. potassium chloride ER (KLOR-CON) 20 mEq tablet Take 40 mEq by mouth two times a day. furosemide (LASIX) 40 mg tablet Take 1 tablet by mouth once daily. cholecalciferol (VITAMIN D3) 5,000 unit tab Take 5,000 Units by mouth once daily. cyanocobalamin (VITAMIN B-12) 1,000 mcg tab Take 1,000 mcg by mouth once daily. pyridoxine, vitamin B6, (VITAMIN B6) 25 mg tablet Take 25 mg by mouth once daily. clopidogrel (PLAVIX) 75 mg tablet Take 75 mg by mouth once daily. metoprolol tartrate, short acting, (LOPRESSOR) 25 mg tablet Take 25 mg by mouth twice daily. aspirin, enteric coated (ASPIRIN, ENTERIC COATED) 81 mg EC tablet Take 81 mg by mouth once daily. atorvastatin (LIPITOR) 80 mg tablet Take 80 mg by mouth once daily. lisinopril (ZESTRIL, PRINIVIL) 10 mg tablet Take 10 mg by mouth twice daily. amphetamine-dextroamphetamine XR (ADDERALL XR) 20 mg capsule Take 1 capsule by mouth once daily for 30 days. No current facility-administered medications for this visit. Review of Systems Objective BP 117/71 Pulse 89 Resp 16 Wt (!) 141 kg (310 lb 13.6 oz) BMI 33.31 kg/m? Physical Exam Constitut (more content not included)... [facility] 09-09-2024 History of Presen t illness Narrative This note was created using BrightFarmsriter. Subjective Kwan Guzman is a 49 year old male. Patient presents with: Sleep Problem SUBJECTIVE: Kwan Guzman is a 49 year old year old gentleman here today for follow up appointment for review of medical conditions. Kwan is a 49-year-old male with a history of obesity and sleep apnea, presenting for weight management. Kwan expresses frustration with his current weight management regimen and insurance coverage for weight loss medications. He reports a weight gain of approximately 12 lbs since his last visit on August 12, despite previously losing 50 lbs while on Mounjaro. He attributes his weight gain to the discontinuation of Mounjaro, which he states was effective in suppressing his appetite and improving his overall health, including lowering his blood pressure. He expresses frustration with his insurance, Medicare Part D, for not covering weight loss medications and is considering alternative options, including lap band surgery or purchasing medications from a pharmacy in [place]. He also mentions difficulty with exercise due to knee and back pain, which limits his ability to lift weights. He used to swim regularly but now feels self-conscious about his weight and wears a t-shirt while swimming. Kwan has a history of sleep apnea and restless leg syndrome. He reports undergoing a sleep study at [facility] during the pandemic, which he believes led to a diagnosis of sleep apnea and subsequent prescription of gabapentin for restless leg syndrome. However, he is unsure of the details and does not have records of the sleep study. He expresses reluctance to undergo another sleep study. He also mentions a history of COPD and was previously prescribed Advair, which he states was ineffective. Kwan's mother, who is present during the visit, expresses concern about the impact of his weight on his mental health. She reports that he has been lashing out at family members and is frustrated with his current situation. She also mentions that he has a history of type 1 diabetes in the family, but he has not been diagnosed with type 2 diabetes. PAST MEDICAL HISTORY Diagnosis Date ADD (attention deficit disorder) ADHD (attention deficit hyperactivity disorder) Bipolar 1 disorder (HCC) Chronic pain History of narcotic addiction (HCC) 08/21/2023 Rheumatoid arthritis (HCC) Current Outpatient Medications Medication Sig tirzepatide (MOUNJARO) 2.5 mg/0.5 mL pen injector Inject 2.5 mg subcutaneously one time a week. gabapentin (NEURONTIN) 600 mg tablet Take 1 tablet by mouth two times a day for 90 days. isosorbide mononitrate ER (IMDUR) 30 mg 24 hr tablet Take 1 tablet by mouth once daily. semaglutide, weight loss, (WEGOVY) 0.25 mg/0.5 mL pen injector Inject 0.5 mL subcutaneously one time a week. tirzepatide, weight loss (ZEPBOUND) 2.5 mg/0.5 mL pen injector Inject 2.5 mg subcutaneously one time a week. amphetamine-dextroamphetamine XR (ADDERALL XR) 20 mg capsule Take 1 capsule by mouth once daily for 30 days. Patient should start on August 23, 2024. [START ON 09/22/2024] amphetamine-dextroamphetamine XR (ADDERALL XR) 20 mg capsule Take 1 capsule by mouth once daily for 30 days. Patient should start on September 22, 2024. ALPRAZolam (XANAX) 0.5 mg tablet Take 1 tablet by mouth two times a day as needed for anxiety for up to 60 days. hydrOXYzine HCl (ATARAX) 25 mg tablet Take 1 tablet by mouth every 6 hours as needed for anxiety. sertraline (ZOLOFT) 100 mg tablet Take 1 tablet by mouth once daily. QUEtiapine (SEROQUEL) 50 mg tablet Take 1 tablet by mouth daily at bedtime. potassium chloride ER (KLOR-CON) 20 mEq tablet Take 40 mEq by mouth two times a day. furosemide (LASIX) 40 mg tablet Take 1 tablet by mouth once daily. cholecalciferol (VITAMIN D3) 5,000 unit tab Take 5,000 Units by mouth once daily. cyanocobalamin (VITAMIN B-12) 1,000 mcg tab Take 1,000 mcg by mouth once daily. pyridoxine, vitamin B6, (VITAMIN B6) 25 mg tablet Take 25 mg by mouth once daily. clopidogrel (PLAVIX) 75 mg tablet Take 75 mg by mouth once daily. metoprolol tartrate, short acting, (LOPRESSOR) 25 mg tablet Take 25 mg by mouth twice daily. aspirin, enteric coated (ASPIRIN, ENTERIC COATED) 81 mg EC tablet Take 81 mg by mouth once daily. atorvastatin (LIPITOR) 80 mg tablet Take 80 mg by mouth once daily. lisinopril (ZESTRIL, PRINIVIL) 10 mg tablet Take 10 mg by mouth twice daily. amphetamine-dextroamphetamine XR (ADDERALL XR) 20 mg capsule Take 1 capsule by mouth once daily for 30 days. No current facility-administered medications for this visit. Review of Systems Objective BP 117/71 Pulse 89 Resp 16 Wt (!) 141 kg (310 lb 13.6 oz) BMI 33.31 kg/m Physical Exam Constitutional: Appearance: He is obese. HENT: Head: Normocephalic. Eyes: Conjunctiva/sclera: Conjunctivae normal. Pulmonary: Effort: Pulmonary effort is normal. Neurological: General: No focal deficit present. Mental Status: He is alert and oriented to person, place, and time. Psychiatric: Attention and Perception: Attention and perception normal. Mood and Affect: Affect is angry. Speech: Speech normal. Behavior: Behavior is agitated. Assessment and Plan # Restless legs syndrome (G25.81) - Managed with gabapentin 600 mg BID. - Refilled gabapentin with a 6-month supply sent to [facility] pharmacy. # Class 1 obesity due to excess calories with serious comorbidity and body mass index (BMI) of 33.0 to 33.9 in adult (E66.811) - Weight stable since last visit on August 12. - Discussed challenges with insurance coverage for weight loss medications such as Wegovy and Mounjaro. - Educated on the potential benefits of treating sleep apnea if present, as untreated sleep apnea can hinder weight loss efforts. - Discussed the possibility of bariatric surgery, including the need for psychiatric evaluation and lifestyle changes. - Encouraged healthy dietary choices and exploring low-impact exercises like swimming. 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 - Continue current psychiatric management. # Elevated glucose (R73.09) - Recent A1c measured at 5.4%. - No current evidence of diabetes. I spent a total of 45 minutes on the date of the service which included [id number] patient care, completing clinical documentation, obtaining and/or reviewing separately obtained history, performing a medically appropriate examination, counseling and educating the patient/family/caregiver, ordering medications, tests, or procedures, independently interpreting results (not separately reported), and communicating results to the patient/family/caregiver. Alfredo Colby MD documented in this encounter [facility] 09-04-2024 Telephone encounter Note Pt has appt to review the sleep issues. [facility] sleep lab reports the office note from 08/22/24 did not mention any sleep issues. Pt has appt 09/09/[address] [facility] 09-04-2024 Miscellaneous Notes Pt has appt to review the sleep issues. [facility] sleep lab reports the office note from 08/22/24 did not mention any sleep issues. Pt has appt 09/09/24 with pcp to review. This looks like criteria for getting CPAP titration. We need PSG for making diagnosis of SALLY.Verify correct order went through or just give me a new order form to submit for a split night study Images from the original note were not included. Looked up the list on [facility] website. Medicare requires a sleep condition for coverage including 1. Narcolepsy 2. Sleep apnea 3. Impotence 4. Parasomnia With patient's witnessed apneas is sleep apnea appropriate to use as a diagnosis for an in lab PSG study? Dr. Colby please advise. Jasbir at [facility] Coding [facility] called back and said that they follow the C or local coverage determinations with the Medicare/Medicaid, and it doesn't cover snoring, witnessed apneas and obesity. Joan to call back. Attempted to call Jasbir. Unable to reach. Left detailed message advising senior account director these are the symptoms (snoring, witnessed apneas and obesity) that are covered for [facility] and that warrant a sleep study is necessary to rule out or be able to diagnose any sleep disorder such as hypersomia and or obstructive sleep apnea. Advised Jasbir to return call to office for clarification. Joan Stack MA Since when were snoring, witness sleep apnea and obesity not covered? I chose symptoms and signs that are covered for [facility] to do PSG. See if patient has daytime sleepiness. Do we have a copy of the order that [facility] uses? Jasbir calling from [facility] regarding patient's order for a Polysomnogram, ordered by Dr. Egan. States the current 3 diagnosis on the order are not covered. Asking if pt has dx of hypersomnia or other sleep related diagnosis? Call Jasbir back at [phone], with response. Silvia Omalley RN documented in this encounter [facility] 09-03-2024 Telephone encounter Note This looks like criteria for getting CPAP titration. We need PSG for making diagnosis of SALLY.Verify correct order went through or just give me a new order form to submit for a split night study [facility] 09-01-2024 Telephone encounter Note Images from the original note were not included. Looked up the list on [facility] website. Medicare requires a sleep condition for coverage including 1. Narcolepsy 2. Sleep apnea 3. Impotence 4. Parasomnia With patient's witnessed apneas is sleep apnea appropriate to use as a diagnosis for an in lab PSG study? Dr. Colby please advise. [facility] 09-01-2024 Telephone encounter Note Jasbir at [facility] called back and said that they follow the [facility] or local coverage determinations with the Medicare/Medicaid, and it doesn't cover snoring, witnessed apneas and obesity. Joan to call back. [facility] 09-01-2024 Telephone encounter Note Attempted to call Jasbir. Unable to reach. Left detailed message advising senior account director these are the symptoms (snoring, witnessed apneas and obesity) that are covered for [facility] and that warrant a sleep study is necessary to rule out or be able to diagnose any sleep disorder such as hypersomia and or obstructive sleep apnea. Advised Jasbir to return call to office for clarification. Joan Stack MA [facility] 08-29-2024 Telephone encounter Note Since when were snoring, witness sleep apnea and obesity not covered? I chose symptoms and signs that are covered for [facility] to do PSG. See if patient has daytime sleepiness. Do we have a copy of the order that [facility] uses? [facility] 08-29-2024 Telephone encounter Note Jasbir calling from [facility] regarding patient's order for a Polysomnogram, ordered by Dr. Egan. States the current 3 diagnosis on the order are not covered. Asking if pt has dx of hypersomnia or other sleep related diagnosis? Call Jasbir back at [phone], with response. Silvia Omalley RN [facility] 08-28-2024 Note HNO ID: [id number] Author: ALFREDO COLBY MD Service: ? Author Type: Physician Type: Progress Notes Filed: 08/28/2024 13:02 Note Text: Patient needs to go to [facility] for PSG. Order changed to do at [facility] 08-28-2024 History of Presen t illness Narrative Patient needs to go to [facility] for PSG. Order changed to do at [facility] documented in this encounter [facility] 08-28-2024 Telephone encounter Note Order faxed to [facility] to call pt for sleep study. Also faxed last office note. Pt notified via my chart. Not sure concerns for SALLY was reviewed [facility] 08-28-2024 Miscellaneous Notes Order faxed to [facility] to call pt for sleep study. Also faxed last office note. Pt notified via my chart. Not sure concerns for SALLY was reviewed 1) Filed order for PSG, but will need to complete the form from [facility] to fax to then for PSG, Information on PSG order should be used for [facility] order. Would have it read by Dr. Tavarez. 2) They will have same problem with insurance not covering Mounjaro since he is not diabetic. If they want to pay out of pocket can see if there is a difference in gabriel between Mounjaro and Zepbound. The following approved medication requests have been transmitted electronically. Requested Prescriptions Signed Prescriptions Disp Refills tirzepatide (MOUNJARO) 2.5 mg/0.5 mL pen injector 2 mL 0 Sig: Inject 2.5 mg subcutaneously one time a week. Authorizing Provider: ALFREDO COLBY MD Spoke with Edel and she states in order for Zepbound to be covered he would have to have a dx of SALLY and so patient is willing to complete a PSG. Would like to complete this through [facility] Sleep lab. Insurance is telling her that the dr office should know which GLP1 is covered by his insurance for weight loss and would not give her the name of the covered medication. Explain to Edel that we have no idea what is a covered medication for weight loss. Edel asked if provider would be willing to prescribe mounjaro to see if that would be covered by insurance until sleep study can be completed? When Mikaela saw patient on 01/05/2023, she documented that sleep study was not done due to COVID. He had HSAT that was negative but with his symptoms, he was supposed to have a PSG. I cannot give diagnosis SALLY based on history of witnessed apnea, but the history goes towards getting PSG covered. Plus treating SALLY would help with weight loss. See if he wants to pursue PSG (not HST since was negative before per history of patient). Images from the original note were not included. PA completed for zepbound. This is closed. Says duplicate. PA for wegovy was completed and denied. Again see pts request regarding dx of SALLY Note from payer: CaseId:[id number];Status:Denied;R tomasaw Type:Prior Auth;Appeal Information: Attention:ATTN: MEDICARE CLINICAL APPEALS [employer] [address] [address],[place], [place],[address] WebAddress:[email or web address]; Important - Please read the below note on eAppeals: Please reference the denial letter for information on the rights for an appeal, rationale for the denial, and how to submit an appeal including if any information is needed to support the appeal. Note about urgent situations - Generally, an urgent situation is one which, in the opinion of the provider, the health of the patient may be in serious jeopardy or may experience pain that cannot be adequately controlled while waiting for a decision on the appeal.; Payer: [employer] [phone] Electronic appeal: Supported View History Notes Time User Attachment Attachment received from payer. 08/13/2024 2:28 PM [facility], Rx Priorauth In Document Medication Being Authorized semaglutide, weight loss, (WEGOVY) 0.25 mg/0.5 mL pen injector Inject 0.5 mL subcutaneously one time a week. Dispense: 2 mL Refills: 0 Start: 08/12/2024 Class: Normal Diagnoses: Class 1 obesity due to excess calories with serious comorbidity and body mass index (BMI) of 33.0 to 33.9 in adult This order has been released to its destination. To be filled at: [address] [address] [place] [id number] [facility] Patient's significant other Liza calls and states that she has filed appeal for medication and provider should be receiving this appeal via fax. Liza reports that patient does have sleep apnea because she has to hit him at night when he stops breathing. Advised Liza that we do not have diagnosis of this and asked if patient has ever had a sleep study done. Liza reports that patient had one done in [place] but does not remember where it was done at. Advised that patient may have to get sleep study done to have that diagnosis put on patient's chart. Liza reports that patient has been following a reduced calorie diet as well as following exercise plan. Liza was advised that should be put on paperwork as well. Komal Guerrero RN Patient calls to report that Zepbound can be approved if provider adds a diagnosis of sleep apnea to orders and refaxes the orders to [facility]. I do not see a diagnosis of sleep apnea on current problem list but patient reports he definitely has it. Medication not pended. Please review and advise, Jackie Middleton RN documented in this encounter [facility] 08-20-2024 Telephone encounter Note 1) Filed order for PSG, but will need to complete the form from [facility] to fax to then for PSG, Information on PSG order should be used for [facility] order. Would have it read by Dr. Tavarez. 2) They will have same problem with insurance not covering Mounjaro since he is not diabetic. If they want to pay out of pocket can see if there is a difference in gabriel between Mounjaro and Zepbound. The following approved medication requests have been transmitted electronically. Requested Prescriptions Signed Prescriptions Disp Refills tirzepatide (MOUNJARO) 2.5 mg/0.5 mL pen injector 2 mL 0 Sig: Inject 2.5 mg subcutaneously one time a week. Authorizing Provider: ALFREDO COLBY MD [facility] 08-19-2024 Telephone encounter Note Spoke with Edel and she states in order for Zepbound to be covered he would have to have a dx of SALLY and so patient is willing to complete a PSG. Would like to complete this through [facility] Sleep lab. Insurance is telling her that the dr office should know which GLP1 is covered by his insurance for weight loss and would not give her the name of the covered medication. Explain to Edel that we have no idea what is a covered medication for weight loss. Edel asked if provider would be willing to prescribe mounjaro to see if that would be covered by insurance until sleep study can be completed? [facility] 08-19-2024 Telephone encounter Note When Mikaela saw patient on 01/05/2023, she documented that sleep study was not done due to COVID. He had HSAT that was negative but with his symptoms, he was supposed to have a PSG. I cannot give diagnosis SALLY based on history of witnessed apnea, but the history goes towards getting PSG covered. Plus treating SALLY would help with weight loss. See if he wants to pursue PSG (not HST since was negative before per history of patient). [facility] 08-15-2024 Telephone encounter Note [facility] calling for medication related question related to patient. Information discussed. Silvia Omalley RN [facility] 08-15-2024 Miscellaneous Notes [facility] calling for medication related question related to patient. Information discussed. Silvia Omalley RN documented in this encounter [facility] 08-13-2024 Telephone encounter Note Images from the original note were not included. PA completed for zepbound. This is closed. Says duplicate. PA for wegovy was completed and denied. Again see pts request regarding dx of SALLY Note from payer: CaseId:[id number];Status:Denied;R eview Type:Prior Auth;Appeal Information: Attention:ATTN: MEDICARE CLINICAL APPEALS [employer] [address] [address],[place], [place],[address] WebAddress:[email or web address]; Important - Please read the below note on eAppeals: Please reference the denial letter for information on the rights for an appeal, rationale for the denial, and how to submit an appeal including if any information is needed to support the appeal. Note about urgent situations - Generally, an urgent situation is one which, in the opinion of the provider, the health of the patient may be in serious jeopardy or may experience pain that cannot be adequately controlled while waiting for a decision on the appeal.; Payer: [employer] [phone] Electronic appeal: Supported View History Notes Time User Attachment Attachment received from payer. 08/13/2024 2:28 PM [facility], Rx Priorauth In Document Medication Being Authorized semaglutide, weight loss, (WEGOVY) 0.25 mg/0.5 mL pen injector Inject 0.5 mL subcutaneously one time a week. Dispense: 2 mL Refills: 0 Start: 08/12/2024 Class: Normal Diagnoses: Class 1 obesity due to excess calories with serious comorbidity and body mass index (BMI) of 33.0 to 33.9 in adult This order has been released to its destination. To be filled at: [address] [address] [facility] [phone] [address] [facility] 08-13-2024 Telephone encounter Note Patient's significant other Liza calls and states that she has filed appeal for medication and provider should be receiving this appeal via fax. Liza reports that patient does have sleep apnea because she has to hit him at night when he stops breathing. Advised Lzia that we do not have diagnosis of this and asked if patient has ever had a sleep study done. Liza reports that patient had one done in [place] but does not remember where it was done at. Advised that patient may have to get sleep study done to have that diagnosis put on patient's chart. Liza reports that patient has been following a reduced calorie diet as well as following exercise plan. Liza was advised that should be put on paperwork as well. Komal Guerrero RN [facility] 08-13-2024 Telephone encounter Note Patient calls to report that Zepbound can be approved if provider adds a diagnosis of sleep apnea to orders and refaxes the orders to [facility]. I do not see a diagnosis of sleep apnea on current problem list but patient reports he definitely has it. Medication not pended. Please review and advise, Jackie Middleton, RN [facility] 08-12-2024 Telephone encounter Note The following approved medication requests have been transmitted electronically. Requested Prescriptions Signed Prescriptions Disp Refills semaglutide, weight loss, (WEGOVY) 0.25 mg/0.5 mL pen injector 2 mL 0 Sig: Inject 0.5 mL subcutaneously one time a week. Authorizing Provider: ALFREDO COLBYpatide, weight loss (ZEPBOUND) 2.5 mg/0.5 mL pen injector 2 mL 0 Sig: Inject 2.5 mg subcutaneously one time a week. Authorizing Provider: ALFREDO COLBY MD Below noted Sent both through with note to pharmacy that wanting to run both through to see if either covered for weight loss and if both are, prefers Zepbound [facility] 08-12-2024 Miscellaneous Notes The following approved medication requests have been transmitted electronically. Requested Prescriptions Signed Prescriptions Disp Refills semaglutide, weight loss, (WEGOVY) 0.25 mg/0.5 mL pen injector 2 mL 0 Sig: Inject 0.5 mL subcutaneously one time a week. Authorizing Provider: ALFREDO COLBY tirzepatide, weight loss (ZEPBOUND) 2.5 mg/0.5 mL pen injector 2 mL 0 Sig: Inject 2.5 mg subcutaneously one time a week. Authorizing Provider: ALFREDO COLBY MD Below noted Sent both through with note to pharmacy that wanting to run both through to see if either covered for weight loss and if both are, prefers Zepbound PA was denied for Mounjaro due to not FDA approved for weight loss only type 2 diabetic with A1C 6.5 higher. Spoke to partner who advised patient is upset and explained that certain GPL-1 like mounjaro are not approved for weight loss with FDA so any diagnosis but diabetes will be denied. Approved alternatives for weight loss wegovy and zepbound can be tried and see if covered. Please send other 2 to see if PA can be approved Meaghan Marshall MA documented in this encounter [facility] 08-12-2024 Telephone encounter Note PA was denied for Mounjaro due to not FDA approved for weight loss only type 2 diabetic with A1C 6.5 higher. Spoke to partner who advised patient is upset and explained that certain GPL-1 like mounjaro are not approved for weight loss with FDA so any diagnosis but diabetes will be denied. Approved alternatives for weight loss wegovy and zepbound can be tried and see if covered. Please send other 2 to see if PA can be approved Meaghan Marshall MA [facility] 08-12-2024 Instructions Alfredo Colby MD - 08/12/2024 9:46 AM EST - Resume taking Mounjaro starting at 2.5 mg, increasing the dose every 4 weeks as prescribed. - Refill and continue taking Gabapentin and Imdur as prescribed. - Use heat therapy for back pain as needed. - Maintain a healthy diet, focusing on protein intake and avoiding sugary drinks. - Next colonoscopy in 10 years. - Follow up with Urology for prostate check. documented in this encounter [facility] 08-12-2024 Note HNO ID: [id number] Author: ALFREDO COLBY MD Service: ? Author Type: Physician Type: Progress Notes Filed: 08/22/2024 00:35 Note Text: This note was created using [employer]. Subjective Kwan Guzman is a 49 year old male. Patient presents with: Established Patient: Discuss weight loss options SUBJECTIVE: Kwan Guzman is a 49 year old year old gentleman here today for follow up appointment for review of medical conditions and discuss weight loss options. Kwan Guzman is a 49-year-old male with a history of obesity, chronic back pain, and right-sided sciatica, presenting for weight loss management and evaluation after two falls on ice yesterday. Kwan is requesting to restart Mounjaro for weight loss management. He was previously on the medication last year, which was effective in weight reduction and well-tolerated without adverse effects. However, he discontinued it due to insurance coverage issues and subsequently regained 90 lbs. His current insurance now covers Mounjaro under tier 3, necessitating a prior authorization. He reports significant weight gain and increased appetite since discontinuing the medication. He has already made dietary changes, including eliminating soda and incorporating protein powder into his water. He consumes a whole chicken daily for protein intake. Kwan also reports generalized soreness after two falls on ice yesterday around 1300 while bringing garbage cans up his driveway. He was wearing Crocs at the time. During the first fall, he did the splits and initially thought he had torn his ACLs. In the second fall, he landed on his back. He describes the soreness as similar to post-football practice soreness, stating, I can't walk. He landed on his side, buttocks, and back during the falls. He has been using a heating pad and plans to take an ice bath for relief. He denies current use of ibuprofen due to past overuse, stating, I used to take 8 of those every 4 hours. Kwan inquires about eligibility for a steroid injection for his right-sided sciatica, which he previously deferred due to receiving flu and COVID-19 vaccinations. He has a history of chronic back pain and right-sided sciatica, attributed to lumbar disc issues and cartilage degeneration. He also has bilateral knee osteoarthritis, with [id number] contact, and is a candidate for double knee replacement, which he has been postponing. He attributes his musculoskeletal issues to a history of playing multiple sports, including football and basketball, from ages 6 to 19, and continuing football and basketball in college. He states, I put it through really, really bad situations. And it's all my fault, I got nobody to blame but myself. Kwan is currently taking alprazolam and hydroxyzine on an as-needed basis, and is due for refills of gabapentin and Imdur. He had a colonoscopy last year, which was unremarkable, and is scheduled for a prostate examination. PAST MEDICAL HISTORY Diagnosis Date ADD (attention deficit disorder) ADHD (attention deficit hyperactivity disorder) Bipolar 1 disorder (HCC) Chronic pain History of narcotic addiction (HCC) Rheumatoid arthritis (HCC) Current Outpatient Medications Medication Sig amphetamine-dextroamphetamine XR (ADDERALL XR) 20 mg capsule Take 1 capsule by mouth once daily for 30 days. [START ON 08/23/2024] amphetamine-dextroamphetamine XR (ADDERALL XR) 20 mg capsule Take 1 capsule by mouth once daily for 30 days. Patient should start on August 23, 2024. [START ON 09/22/2024] amphetamine-dextroamphetamine XR (ADDERALL XR) 20 mg capsule Take 1 capsule by mouth once daily for 30 days. Patient should start on September 22, 2024. ALPRAZolam (XANAX) 0.5 mg tablet Take 1 tablet by mouth two times a day as needed for anxiety for up to 60 days. hydrOXYzine HCl (ATARAX) 25 mg tablet Take 1 tablet by mouth every 6 hours as needed for anxiety. sertraline (ZOLOFT) 100 mg tablet Take 1 tablet by mouth once daily. QUEtiapine (SEROQUEL) 50 mg tablet Take 1 tablet by mouth daily at bedtime. gabapentin (NEURONTIN) 600 mg tablet Take 1 tablet by mouth two times a day for 90 days. potassium chloride ER (KLOR-CON) 20 mEq tablet Take 40 mEq by mouth two times a day. furosemide (LASIX) 40 mg tablet Take 1 tablet by mouth once daily. isosorbide mononitrate ER (IMDUR) 30 mg 24 hr tablet Take 1 tablet by mouth once daily. cholecalciferol (VITAMIN D3) 5,000 unit tab Take 5,000 Units by mouth once daily. cyanocobalamin (VITAMIN B-12) 1,000 mcg tab Take 1,000 mcg by mouth once daily. pyridoxine, vitamin B6, (VITAMIN B6) 25 mg tablet Take 25 mg by mouth once daily. clopidogrel (PLAVIX) 75 mg tablet Take 75 mg by mouth once daily. metoprolol tartrate, short acting, (LOPRESSOR) 25 mg tablet Take 25 mg by mouth twice daily. aspirin, enteric coated (ASPIRIN, ENTERIC COATED) 81 mg EC tablet Take 81 mg by mouth once daily. atorvastatin (LIPI (more content not included)... [facility] 08-12-2024 History of Presen t illness Narrative This note was created using [employer]. Subjective Kwan Guzman is a 49 year old male. Patient presents with: Established Patient: Discuss weight loss options SUBJECTIVE: Kwan Guzman is a 49 year old year old gentleman here today for follow up appointment for review of medical conditions and discuss weight loss options. Kwan Guzman is a 49-year-old male with a history of obesity, chronic back pain, and right-sided sciatica, presenting for weight loss management and evaluation after two falls on ice yesterday. Kwan is requesting to restart Mounjaro for weight loss management. He was previously on the medication last year, which was effective in weight reduction and well-tolerated without adverse effects. However, he discontinued it due to insurance coverage issues and subsequently regained 90 lbs. His current insurance now covers Mounjaro under tier 3, necessitating a prior authorization. He reports significant weight gain and increased appetite since discontinuing the medication. He has already made dietary changes, including eliminating soda and incorporating protein powder into his water. He consumes a whole chicken daily for protein intake. Kwan also reports generalized soreness after two falls on ice yesterday around 1300 while bringing garbage cans up his driveway. He was wearing Crocs at the time. During the first fall, he did the splits and initially thought he had torn his ACLs. In the second fall, he landed on his back. He describes the soreness as similar to post-football practice soreness, stating, I can't walk. He landed on his side, buttocks, and back during the falls. He has been using a heating pad and plans to take an ice bath for relief. He denies current use of ibuprofen due to past overuse, stating, I used to take 8 of those every 4 hours. Kwan inquires about eligibility for a steroid injection for his right-sided sciatica, which he previously deferred due to receiving flu and COVID-19 vaccinations. He has a history of chronic back pain and right-sided sciatica, attributed to lumbar disc issues and cartilage degeneration. He also has bilateral knee osteoarthritis, with [id number] contact, and is a candidate for double knee replacement, which he has been postponing. He attributes his musculoskeletal issues to a history of playing multiple sports, including football and basketball, from ages 6 to 19, and continuing football and basketball in college. He states, I put it through really, really bad situations. And it's all my fault, I got nobody to blame but myself. Kwan is currently taking alprazolam and hydroxyzine on an as-needed basis, and is due for refills of gabapentin and Imdur. He had a colonoscopy last year, which was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 mg tablet Take 1 tablet by mouth once daily. isosorbide mononitrate ER (IMDUR) 30 mg 24 hr tablet Take 1 tablet by mouth once daily. cholecalciferol (VITAMIN D3) 5,000 unit tab Take 5,000 Units by mouth once daily. cyanocobalamin (VITAMIN B-12) 1,000 mcg tab Take 1,000 mcg by mouth once daily. pyridoxine, vitamin B6, (VITAMIN B6) 25 mg tablet Take 25 mg by mouth once daily. clopidogrel (PLAVIX) 75 mg tablet Take 75 mg by mouth once daily. metoprolol tartrate, short acting, (LOPRESSOR) 25 mg tablet Take 25 mg by mouth twice daily. aspirin, enteric coated (ASPIRIN, ENTERIC COATED) 81 mg EC tablet Take 81 mg by mouth once daily. atorvastatin (LIPITOR) 80 mg tablet Take 80 mg by mouth once daily. lisinopril (ZESTRIL, PRINIVIL) 10 mg tablet Take 10 mg by mouth twice daily. No current facility-administered medications for this visit. 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 Respiratory: Negative. Cardiovascular: Negative. Musculoskeletal: Positive for arthralgias and back pain. OBJECTIVE BP 102/74 Pulse 102 Temp (Src) 98 (Tympanic) SpO2 98% Physical Exam Vitals and nursing note reviewed. Constitutional: General: He is awake. He is not in acute distress. Appearance: Normal appearance. He is well-developed and well-groomed. He is ill-appearing. He is not toxic-appearing or diaphoretic. HENT: Head: Normocephalic. Right Ear: External ear normal. Left Ear: External ear normal. Nose: Nose normal. Eyes: General: Vision grossly intact. Conjunctiva/sclera: Conjunctivae normal. Pupils: Pupils are equal, round, and reactive to light. Neck: Vascular: No JVD. Trachea: Trachea normal. Cardiovascular: Rate and Rhythm: Normal rate and regular rhythm. Pulses: Normal pulses. Heart sounds: Normal heart sounds. No murmur heard. Pulmonary: Effort: Pulmonary effort is normal. No accessory muscle usage, prolonged expiration or respiratory distress. Breath sounds: Normal breath sounds. Musculoskeletal: Cervical back: Neck supple. Skin: General: Skin is warm and dry. Capillary Refill: Capillary refill takes less than 2 seconds. Neurological: General: No focal deficit present. Mental Status: He is alert and oriented to person, place, and time. Mental status is at baseline. Psychiatric: Attention and Perception: Attention and perception normal. Mood and Affect: Mood and affect normal. Speech: Speech normal. Behavior: Behavior normal. Behavior is cooperative. Thought Content: Thought content normal. Cognition and Memory: Cognition and memory normal. Judgment: Judgment normal. ASSESSMENT/PLAN: 1. Viral illness - ICD9: 079.99, ICD10: B34.9 (primary diagnosis) - Discussed viral etiology and rationale for treatment. - Symptomatic treatment with prn analgesia - Supportive care with fluids and rest - The patient may also use OTC cough and cold meds as needed, warm salt water gargles, throat lozenges and/or OTC throat spray as needed, and nasal saline gtts and suction prn. - Follow up in 3-5 days if symptoms persist or sooner if worsening of symptoms - COVID & INFLUENZA A/B & RSV PCR, ROUTINE 2. Sciatica of right side - ICD9: 724.3, ICD10: M54.31 Will opt to do kenalog injection and refer to PT. Discussed pros and cons of the injection and he would like to do this. - CONSULT TO PHYSICAL THERAPY - TRIAMCINOLONE ACETONIDE 40 MG/ML SUSPENSION FOR INJECTION Portions of this note have been entered by ancillary staff. I have reviewed and when necessary edited, so that they are an adequate record of my encounter with this patient Please note that parts of this document were created using voice recognition software and therefore may contain grammatical errors. Patient verbalizes understanding of instructions from today's visit and in agreement with treatment plan. Questions answered. Agrees to call the office if questions, concerns of issues with acute symptoms not improving or if they worsen. See diagnoses and orders for additional plan(s). Allergies and medications were reviewed, list was updated, and refills given if needed. Past medical, surgical, social, and family history reviewed and updated as appropriate. Encouraged proper diet & exercise as well as compliance with taking medications. Age-appropriate health preventative measures were discussed. Return if symptoms worsen or fail to improve, for Keep next scheduled appointment.. ARPAN Alcantara documented in this encounter [facility] 04-02-2024 Note HNO ID: [id number] Author: MIKAELA SPANN APRN.CNP Service: ? Author Type: Nurse Practitioner Type: Progress Notes Filed: 04/02/2024 14:02 Note Text: SUBJECTIVE Kwan Guzman is a 48 year old male here today for acute concerns. Chief Complaint Patient presents with: Back Pain HPI Kwan Guzman is a 48 year old male. He is an established patient. Here today for continued acute concerns of back pain. Was seen with EC 03/28 and started on prednisone taper but made him too manic. Onset for the pain was last week, moved recently and admits he over did it. Tried sitting in the hot tub, rest, ibuprofen. Did not help much. Denies any current issues with numbness, tingling, weakness, saddle paresthesia and bowel or bladder difficulties/leaking/loss of control. His medications were reviewed today and his list is now up to date. Medications Current Outpatient Medications Medication Sig gabapentin (NEURONTIN) 600 mg tablet Take 1 tablet by mouth two times a day for 90 days. amphetamine-dextroamphetamine XR (ADDERALL XR) 20 mg capsule Take 1 capsule by mouth once daily for 30 days. semaglutide (OZEMPIC) 0.25 mg or 0.5 mg (2 mg/3 mL) pen Inject 0.5 mg subcutaneously one time a week. Compounded with cyanocobalamin 2 mg-0.4 mg/ml hydrOXYzine HCl (ATARAX) 25 mg tablet Take 1 tablet by mouth every 6 hours as needed for anxiety. sertraline (ZOLOFT) 100 mg tablet Take 1 tablet by mouth once daily. QUEtiapine (SEROQUEL) 50 mg tablet Take 1 tablet by mouth daily at bedtime. potassium chloride ER (KLOR-CON) 20 mEq tablet Take 20 mEq by mouth two times a day. furosemide (LASIX) 40 mg tablet Take 1 tablet by mouth once daily. cholecalciferol (VITAMIN D3) 5,000 unit tab Take 5,000 Units by mouth once daily. cyanocobalamin (VITAMIN B-12) 1,000 mcg tab Take 1,000 mcg by mouth once daily. pyridoxine, vitamin B6, (VITAMIN B6) 25 mg tablet Take 25 mg by mouth once daily. clopidogrel (PLAVIX) 75 mg tablet Take 75 mg by mouth once daily. metoprolol tartrate, short acting, (LOPRESSOR) 25 mg tablet Take 25 mg by mouth twice daily. aspirin, enteric coated (ASPIRIN, ENTERIC COATED) 81 mg EC tablet Take 81 mg by mouth once daily. atorvastatin (LIPITOR) 80 mg tablet Take 80 mg by mouth once daily. lisinopril (ZESTRIL, PRINIVIL) 10 mg tablet Take 10 mg by mouth twice daily. HYDROcodone-acetaminophen (NORCO) 5-325 mg per tablet Take 1-2 tablets by mouth three times a day as needed for pain for up to 7 days. isosorbide mononitrate ER (IMDUR) 30 mg 24 hr tablet Take 1 tablet by mouth once daily. No current facility-administered medications for this visit. 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 Cardiovascular: Negative. Musculoskeletal: Positive for back pain. OBJECTIVE BP 117/82 Pulse 101 SpO2 96% Physical Exam Vitals and nursing note reviewed. Constitutional: General: He is awake. He is not in acute distress. Appearance: Normal appearance. He is well-developed and well-groomed. He is not ill-appearing, toxic-appearing or diaphoretic. HENT: Head: Normocephalic. Right Ear: External ear normal. Left Ear: External ear normal. Nose: Nose normal. Eyes: General: Vision grossly intact. Conjunctiva/sclera: Conjunctivae normal. Pupils: Pupils are equal, round, and reactive to light. Neck: Vascular: No JVD. Trachea: Trachea normal. Cardiovascular: Rate and Rhythm: Normal rate and regular rhythm. Pulses: Normal pulses. Heart sounds: Normal heart sounds. No murmur heard. Pulmonary: Effort: Pulmonary effort is normal. No accessory muscle usage, prolonged expiration or respiratory distress. Breath sounds: Normal breath sounds. Musculoskeletal: Cervical back: Normal and neck supple. Thoracic back: Normal. Lumbar back: Decreased range of motion. Skin: General: Skin is warm and dry. Capillary Refill: Capillary refill takes less than 2 seconds. Neurological: General: No focal deficit present. Mental Status: He is alert and oriented to person, place, and time. Mental status is at baseline. Psychiatric: Attention and Perception: Attention and perception normal. Mood and Affect: Mood and affect normal. Speech: Speech normal. Behavior: Behavior normal. Beh (more content not included)... [facility] 04-02-2024 History of Presen t illness Narrative SUBJECTIVE Kwan Guzman is a 48 year old male here today for acute concerns. Chief Complaint Patient presents with: Back Pain HPI Kwan Guzman is a 48 year old male. He is an established patient. Here today for continued acute concerns of back pain. Was seen with EC 03/28 and started on prednisone taper but made him too manic. Onset for the pain was last week, moved recently and admits he over did it. Tried sitting in the hot tub, rest, ibuprofen. Did not help much. Denies any current issues with numbness, tingling, weakness, saddle paresthesia and bowel or bladder difficulties/leaking/loss of control. His medications were reviewed today and his list is now up to date. Medications Current Outpatient Medications Medication Sig gabapentin (NEURONTIN) 600 mg tablet Take 1 tablet by mouth two times a day for 90 days. amphetamine-dextroamphetamine XR (ADDERALL XR) 20 mg capsule Take 1 capsule by mouth once daily for 30 days. semaglutide (OZEMPIC) 0.25 mg or 0.5 mg (2 mg/3 mL) pen Inject 0.5 mg subcutaneously one time a week. Compounded with cyanocobalamin 2 mg-0.4 mg/ml hydrOXYzine HCl (ATARAX) 25 mg tablet Take 1 tablet by mouth every 6 hours as needed for anxiety. sertraline (ZOLOFT) 100 mg tablet Take 1 tablet by mouth once daily. QUEtiapine (SEROQUEL) 50 mg tablet Take 1 tablet by mouth daily at bedtime. potassium chloride ER (KLOR-CON) 20 mEq tablet Take 20 mEq by mouth two times a day. furosemide (LASIX) 40 mg tablet Take 1 tablet by mouth once daily. cholecalciferol (VITAMIN D3) 5,000 unit tab Take 5,000 Units by mouth once daily. cyanocobalamin (VITAMIN B-12) 1,000 mcg tab Take 1,000 mcg by mouth once daily. pyridoxine, vitamin B6, (VITAMIN B6) 25 mg tablet Take 25 mg by mouth once daily. clopidogrel (PLAVIX) 75 mg tablet Take 75 mg by mouth once daily. metoprolol tartrate, short acting, (LOPRESSOR) 25 mg tablet Take 25 mg by mouth twice daily. aspirin, enteric coated (ASPIRIN, ENTERIC COATED) 81 mg EC tablet Take 81 mg by mouth once daily. atorvastatin (LIPITOR) 80 mg tablet Take 80 mg by mouth once daily. lisinopril (ZESTRIL, PRINIVIL) 10 mg tablet Take 10 mg by mouth twice daily. HYDROcodone-acetaminophen (NORCO) 5-325 mg per tablet Take 1-2 tablets by mouth three times a day as needed for pain for up to 7 days. isosorbide mononitrate ER (IMDUR) 30 mg 24 hr tablet Take 1 tablet by mouth once daily. No current facility-administered medications for this visit. 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 Cardiovascular: Negative. Musculoskeletal: Positive for back pain. OBJECTIVE BP 117/82 Pulse 101 SpO2 96% Physical Exam Vitals and nursing note reviewed. Constitutional: General: He is awake. He is not in acute distress. Appearance: Normal appearance. He is well-developed and well-groomed. He is not ill-appearing, toxic-appearing or diaphoretic. HENT: Head: Normocephalic. Right Ear: External ear normal. Left Ear: External ear normal. Nose: Nose normal. Eyes: General: Vision grossly intact. Conjunctiva/sclera: Conjunctivae normal. Pupils: Pupils are equal, round, and reactive to light. Neck: Vascular: No JVD. Trachea: Trachea normal. Cardiovascular: Rate and Rhythm: Normal rate and regular rhythm. Pulses: Normal pulses. Heart sounds: Normal heart sounds. No murmur heard. Pulmonary: Effort: Pulmonary effort is normal. No accessory muscle usage, prolonged expiration or respiratory distress. Breath sounds: Normal breath sounds. Musculoskeletal: Cervical back: Normal and neck supple. Thoracic back: Normal. Lumbar back: Decreased range of motion. Skin: General: Skin is warm and dry. Capillary Refill: Capillary refill takes less than 2 seconds. Neurological: General: No focal deficit present. Mental Status: He is alert and oriented to person, place, and time. Mental status is at baseline. Psychiatric: Attention and Perception: Attention and perception normal. Mood and Affect: Mood and affect normal. Speech: Speech normal. Behavior: Behavior normal. Behavior is cooperative. Thought Content: Thought content normal. Cognition and Memory: Cognition and memory normal. Judgment: Judgment normal. ASSESSMENT/PLAN: 1. Sciatica of right side - ICD9: 724.3, ICD10: M54.31 Discussed rest, ice/heat, gentle stretching. Has tried NSAIDs and steroids. Already on gabapentin and does not tolerate muscle relaxers in combination with his other medications. Short term script for norco given. IF pain persistent then get xray done. - HYDROCODONE 5 MG-ACETAMINOPHEN 325 MG TABLET PDMP website checked and validated. All prescriptions have been APPROPRIATELY filled. No suspicious activity was identified. 04/02/2024 by Mikaela Spann APRN.CNP Portions of this note have been entered by ancillary staff. I have reviewed and when necessary edited, so that they are an adequate record of my encounter with this patient Please note that parts of this document were created using voice recognition software and therefore may contain grammatical errors. Patient verbalizes understanding of instructions from today's visit and in agreement with treatment plan. Questions answered. Agrees to call the office if questions, concerns of issues with acute symptoms not improving or if they worsen. See diagnoses and orders for additional plan(s). Allergies and medications were reviewed, list was updated, and refills given if needed. Past medical, surgical, social, and family history reviewed and updated as appropriate. Encouraged proper diet & exercise as well as compliance with taking medications. Age-appropriate health preventative measures were discussed. Return if symptoms worsen or fail to improve, for Keep next scheduled appointment.. Mikaela Spann APRN-DEEPAK documented in this encounter [facility] 03-28-2024 Audrey Mckenzie APRN.CNP - 03/28/2024 3:44 PM EDT ASSESSMENT/PLAN: 1. Sciatica, right side - ICD9: 724.3, ICD10: M54.31 Sciatica - Ice for localized tenderness - Prednisone taper - PREDNISONE 10 MG TABLET - Follow-up with your PCP in 3-5 days if symptoms have not improved or sooner if symptoms worsen - Discussed red flags and need for immediate medical evaluation if any occur. - Discussed supportive care treatment with fluids, rest and analgesia. - Discussed expected course of illness Audrey Pleitez APRN.CNP SCIATICA: Your exam shows you have sciatica, a condition most often seen in patients with disc disease of the lower back. Sciatica causes pain to radiate from the lower back or buttock area down the leg. It results from pressure on nerve roots coming out of the spine when a disc deteriorates and pushes to one side. Often there is a history of back problems. In most cases sciatica improves greatly with conservative treatment. Most patients with it are completely better after 2-4 weeks of bed rest and other supportive care. Bed rest reduces the disc pressure greatly; sitting is the worst position since the pressure on the disc is over 5 times greater than it is while lying down. You should avoid bending, lifting, and all other activities which make the problem worse. After the pain improves, you may continue with normal activity, taking brief periods for bed rest throughout the day until you are back to normal. Aspirin, ibuprofen, or other anti-inflammatory drugs are often used to help control pain. Muscle relaxants may help by relieving spasm and providing mild sedation. Cold or heat therapy and massage may also give significant relief. Spinal manipulation is not recommended because it can increase the degree of disc protrusion. Surgery is reserved for patients that do not improve with conservative treatment, or who have signs of severe nerve root pressure. You should see your doctor for follow up care as recommended. A program for back injury rehabilitation with stretching and strengthening exercises is an important part of management. Please call your doctor, a back specialist, or the emergency room right away if you notice increased pain, weakness, or numbness in your legs, or if you have any difficulty with bladder or bowel control. documented in this encounter [facility] 03-28-2024 Note HNO ID: [id number] Author: AUDREY PLEITEZ APRN.DIRECTOR OF NATIONAL SALES Service: ? Author Type: Nurse Practitioner Type: Progress Notes Filed: 03/28/2024 15:44 Note Text: Subjective HPI Kwan Guzman is a 48 year old male who presents with right lower back pain that radiates to his right leg. States he has been moving for the past week and noticed pain after moving heavy items. Feels some tingling in his right leg like it's asleep Denies bowel or bladder dysfunction No fever. No falls Took advil at home Just need some [place] Review of Systems Constitutional: Negative for chills and fever. Respiratory: Negative. Cardiovascular: Negative. Musculoskeletal: Positive for back pain and joint pain. Negative for falls. See HPI Skin: Negative for itching and rash. Neurological: Positive for tingling and sensory change. Negative for focal weakness and weakness. BP 124/79 Pulse 96 Temp 37.4 ?C (99.3 ?F) Resp 18 SpO2 97% PAST MEDICAL HISTORY No date: ADD (attention deficit disorder) No date: ADHD (attention deficit hyperactivity disorder) No date: Bipolar 1 disorder (HCC) No date: Chronic pain No date: History of narcotic addiction (HCC) No date: Rheumatoid arthritis (HCC) PAST SURGICAL HISTORY 2020: PAST SURGICAL HISTORY OF Comment: hernia x2 2021: PT ED HEART AND VASCULAR; Left ALLERGIES Aspirin, Bupropion, Paroxetine, Azithromycin, Fluoxetine, and Topiramate MEDICATIONS predniSONE (DELTASONE) 10 mg tablet Take 4 tabs daily for 3 days, then 2 tabs daily for 3 days, then 1 tab daily for 3 days with food. gabapentin (NEURONTIN) 600 mg tablet Take 1 tablet by mouth two times a day for 90 days. amphetamine-dextroamphetamine XR (ADDERALL XR) 20 mg capsule Take 1 capsule by mouth once daily for 30 days. semaglutide (OZEMPIC) 0.25 mg or 0.5 mg (2 mg/3 mL) pen Inject 0.5 mg subcutaneously one time a week. Compounded with cyanocobalamin 2 mg-0.4 mg/ml hydrOXYzine HCl (ATARAX) 25 mg tablet Take 1 tablet by mouth every 6 hours as needed for anxiety. sertraline (ZOLOFT) 100 mg tablet Take 1 tablet by mouth once daily. QUEtiapine (SEROQUEL) 50 mg tablet Take 1 tablet by mouth daily at bedtime. potassium chloride ER (KLOR-CON) 20 mEq tablet Take 20 mEq by mouth two times a day. furosemide (LASIX) 40 mg tablet Take 1 tablet by mouth once daily. isosorbide mononitrate ER (IMDUR) 30 mg 24 hr tablet Take 1 tablet by mouth once daily. cholecalciferol (VITAMIN D3) 5,000 unit tab Take 5,000 Units by mouth once daily. cyanocobalamin (VITAMIN B-12) 1,000 mcg tab Take 1,000 mcg by mouth once daily. pyridoxine, vitamin B6, (VITAMIN B6) 25 mg tablet Take 25 mg by mouth once daily. clopidogrel (PLAVIX) 75 mg tablet Take 75 mg by mouth once daily. metoprolol tartrate, short acting, (LOPRESSOR) 25 mg tablet Take 25 mg by mouth twice daily. aspirin, enteric coated (ASPIRIN, ENTERIC COATED) 81 mg EC tablet Take 81 mg by mouth once daily. atorvastatin (LIPITOR) 80 mg tablet Take 80 mg by mouth once daily. lisinopril (ZESTRIL, PRINIVIL) 10 mg tablet Take 10 mg by mouth twice daily. FAMILY HISTORY Problem Relation Age of Onset Breast Cancer Mother Pancreatitis Mother Diabetes Mother other (etoh) Father Neuropathy Father Leukemia Sister Social History Tobacco Use Smoking status: Never Smokeless tobacco: Never Vaping Use Vaping status: Never Used Substance Use Topics Alcohol use: Not Currently Drug use: Yes Types: Marijuana Comment: eatables at night to help sleep Objective Physical Exam Vitals and nursing note reviewed. Constitutional: Appearance: Normal appearance. Cardiovascular: Rate and Rhythm: Normal rate. Pulmonary: Effort: Pulmonary effort is normal. Musculoskeletal: Lumbar back: Tenderness present. Decreased range of motion. Back: Skin: General: Skin is warm and dry. Neurological: Mental Status: He is alert. ASSESSMENT/PLAN: 1. Sciatica, right side - ICD9: 724.3, ICD10: M54.31 Sciatica - Ice for localized tenderness - Prednisone taper - PREDNISONE 10 MG TABLET - Follow-up with your PCP in 3-5 days if symptoms have not improved or sooner if symptoms worsen - Discussed red flags and need for immediate medical evaluation if any occur. - Discussed supportive care treatment with fluids, rest and analgesia. - Discussed expected course of illness Audrey Pleitez APRN.[facility] 03-28-2024 History of Presen t illness Narrative Images from the original note were not included. Subjective HPI Kwan Guzman is a 48 year old male who presents with right lower back pain that radiates to his right leg. States he has been moving for the past week and noticed pain after moving heavy items. Feels some tingling in his right leg like it's asleep Denies bowel or bladder dysfunction No fever. No falls Took advil at home Just need some [place] Review of Systems Constitutional: Negative for chills and fever. Respiratory: Negative. Cardiovascular: Negative. Musculoskeletal: Positive for back pain and joint pain. Negative for falls. See HPI Skin: Negative for itching and rash. Neurological: Positive for tingling and sensory change. Negative for focal weakness and weakness. BP 124/79 Pulse 96 Temp 37.4 C (99.3 F) Resp 18 SpO2 97% PAST MEDICAL HISTORY No date: ADD (attention deficit disorder) No date: ADHD (attention deficit hyperactivity disorder) No date: Bipolar 1 disorder (HCC) No date: Chronic pain No date: History of narcotic addiction (HCC) No date: Rheumatoid arthritis (HCC) PAST SURGICAL HISTORY 2020: PAST SURGICAL HISTORY OF Comment: hernia x2 2021: PT ED HEART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 health admission. His medications were reviewed today and his list is now up to date. Medications Current Outpatient Medications Medication Sig hydrOXYzine HCl (ATARAX) 25 mg tablet Take 1 tablet by mouth every 6 hours as needed for anxiety. sertraline (ZOLOFT) 100 mg tablet Take 1 tablet by mouth once daily. QUEtiapine (SEROQUEL) 50 mg tablet Take 1 tablet by mouth daily at bedtime. ALPRAZolam (XANAX) 0.5 mg tablet Take 1 tablet by mouth two times a day for 30 days. gabapentin (NEURONTIN) 600 mg tablet Take 1 tablet by mouth two times a day for 90 days. potassium chloride ER (KLOR-CON) 20 mEq tablet Take 20 mEq by mouth two times a day. furosemide (LASIX) 40 mg tablet Take 1 tablet by mouth once daily. cholecalciferol (VITAMIN D3) 5,000 unit tab Take 5,000 Units by mouth once daily. cyanocobalamin (VITAMIN B-12) 1,000 mcg tab Take 1,000 mcg by mouth once daily. pyridoxine, vitamin B6, (VITAMIN B6) 25 mg tablet Take 25 mg by mouth once daily. clopidogrel (PLAVIX) 75 mg tablet Take 75 mg by mouth once daily. metoprolol tartrate, short acting, (LOPRESSOR) 25 mg tablet Take 25 mg by mouth twice daily. aspirin, enteric coated (ASPIRIN, ENTERIC COATED) 81 mg EC tablet Take 81 mg by mouth once daily. atorvastatin (LIPITOR) 80 mg tablet Take 80 mg by mouth once daily. lisinopril (ZESTRIL, PRINIVIL) 10 mg tablet Take 10 mg by mouth twice daily. amphetamine-dextroamphetamine XR (ADDERALL XR) 20 mg capsule Take 1 capsule by mouth once daily for 30 days. semaglutide (OZEMPIC) 0.25 mg or 0.5 mg (2 mg/3 mL) pen Inject 0.5 mg subcutaneously one time a week. Compounded with cyanocobalamin 2 mg-0.4 mg/ml isosorbide mononitrate ER (IMDUR) 30 mg 24 hr tablet Take 1 tablet by mouth once daily. No current facility-administered medications for this visit. 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 Respiratory: Negative. Cardiovascular: Negative. Psychiatric/Behavioral: Negative for self-injury and suicidal ideas. The patient is nervous/anxious. OBJECTIVE BP 116/84 Pulse 78 Wt 271 lb (122.9kg) SpO2 100% Physical Exam Vitals and nursing note reviewed. Constitutional: General: He is awake. He is not in acute distress. Appearance: Normal appearance. He is well-developed and well-groomed. He is not ill-appearing, toxic-appearing or diaphoretic. HENT: Head: Normocephalic. Right Ear: External ear normal. Left Ear: External ear normal. Nose: Nose normal. Eyes: General: Vision grossly intact. Conjunctiva/sclera: Conjunctivae normal. Pupils: Pupils are equal, round, and reactive to light. Neck: Vascular: No JVD. Trachea: Trachea normal. Pulmonary: Effort: Pulmonary effort is normal. No accessory muscle usage, prolonged expiration or respiratory distress. Musculoskeletal: Cervical back: Neck supple. Skin: General: Skin is warm and dry. Capillary Refill: Capillary refill takes less than 2 seconds. Neurological: General: No focal deficit present. Mental Status: He is alert and oriented to person, place, and time. Mental status is at baseline. Psychiatric: Attention and Perception: Attention and perception normal. Mood and Affect: Mood and affect normal. Speech: Speech normal. Behavior: Behavior normal. Behavior is cooperative. Thought Content: Thought content normal. Cognition and Memory: (more content not included)... [facility] 01-21-2024 History of Presen t illness Narrative CRISTI Guzman is a 48 year old male here today for a check up on his medical problems. Chief Complaint Patient presents with: Recheck: Weight HPI Kwan Guzman is a 48 year old male. He is an established patient. Here today for follow up on anxiety, depression, bipolar, ADHD and weight. He continues to work on weight loss. Taking compounded Ozempic. Would like to increase his dose. No issues with side effects. Doing counseling through a crisis line. Increasing his Zoloft back up to 100 mg daily. He was off of this for a few weeks because he missed the fill request from pharmacy while hospitalized. Hydroxyzine has been helpful for anxiety. Notes traumatic memories related to recent mental health admission. His medications were reviewed today and his list is now up to date. Medications Current Outpatient Medications Medication Sig hydrOXYzine HCl (ATARAX) 25 mg tablet Take 1 tablet by mouth every 6 hours as needed for anxiety. sertraline (ZOLOFT) 100 mg tablet Take 1 tablet by mouth once daily. QUEtiapine (SEROQUEL) 50 mg tablet Take 1 tablet by mouth daily at bedtime. ALPRAZolam (XANAX) 0.5 mg tablet Take 1 tablet by mouth two times a day for 30 days. gabapentin (NEURONTIN) 600 mg tablet Take 1 tablet by mouth two times a day for 90 days. potassium chloride ER (KLOR-CON) 20 mEq tablet Take 20 mEq by mouth two times a day. furosemide (LASIX) 40 mg tablet Take 1 tablet by mouth once daily. cholecalciferol (VITAMIN D3) 5,000 unit tab Take 5,000 Units by mouth once daily. cyanocobalamin (VITAMIN B-12) 1,000 mcg tab Take 1,000 mcg by mouth once daily. pyridoxine, vitamin B6, (VITAMIN B6) 25 mg tablet Take 25 mg by mouth once daily. clopidogrel (PLAVIX) 75 mg tablet Take 75 mg by mouth once daily. metoprolol tartrate, short acting, (LOPRESSOR) 25 mg tablet Take 25 mg by mouth twice daily. aspirin, enteric coated (ASPIRIN, ENTERIC COATED) 81 mg EC tablet Take 81 mg by mouth once daily. atorvastatin (LIPITOR) 80 mg tablet Take 80 mg by mouth once daily. lisinopril (ZESTRIL, PRINIVIL) 10 mg tablet Take 10 mg by mouth twice daily. amphetamine-dextroamphetamine XR (ADDERALL XR) 20 mg capsule Take 1 capsule by mouth once daily for 30 days. semaglutide (OZEMPIC) 0.25 mg or 0.5 mg (2 mg/3 mL) pen Inject 0.5 mg subcutaneously one time a week. Compounded with cyanocobalamin 2 mg-0.4 mg/ml isosorbide mononitrate ER (IMDUR) 30 mg 24 hr tablet Take 1 tablet by mouth once daily. No current facility-administered medications for this visit. 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 Respiratory: Negative. Cardiovascular: Negative. Psychiatric/Behavioral: Negative for self-injury and suicidal ideas. The patient is nervous/anxious. OBJECTIVE BP 116/84 Pulse 78 Wt 271 lb (122.9kg) SpO2 100% Physical Exam Vitals and nursing note reviewed. Constitutional: General: He is awake. He is not in acute distress. Appearance: Normal appearance. He is well-developed and well-groomed. He is not ill-appearing, toxic-appearing or diaphoretic. HENT: Head: Normocephalic. Right Ear: External ear normal. Left Ear: External ear normal. Nose: Nose normal. Eyes: General: Vision grossly intact. Conjunctiva/sclera: Conjunctivae normal. Pupils: Pupils are equal, round, and reactive to light. Neck: Vascular: No JVD. Trachea: Trachea normal. Pulmonary: Effort: Pulmonary effort is normal. No accessory muscle usage, prolonged expiration or respiratory distress. Musculoskeletal: Cervical back: Neck supple. Skin: General: Skin is warm and dry. Capillary Refill: Capillary refill takes less than 2 seconds. Neurological: General: No focal deficit present. Mental Status: He is alert and oriented to person, place, and time. Mental status is at baseline. Psychiatric: Attention and Perception: Attention and perception normal. Mood and Affect: Mood and affect normal. Speech: Speech normal. Behavior: Behavior normal. Behavior is cooperative. Thought Content: Thought content normal. Cognition and Memory: Cognition and memory normal. Judgment: Judgment normal. ASSESSMENT/PLAN: 1. Bipolar 1 disorder (HCC) - ICD9: 296.7, ICD10: F31.9 (primary diagnosis) Titrate the Zoloft back to 100 mg daily, ok to continue the hydroxyzine PRN. - CONSULT TO [facility] - CONSULT TO PSYCHIATRY 2. Adult ADHD - ICD9: 314.01, ICD10: F90.9 Refill Adderall since he has been off of this. - DEXTROAMPHETAMINE-AMPHETAMINE ER 20 MG 24HR CAPSULE,EXTEND RELEASE - CONSULT TO [facility]ULT - CONSULT TO PSYCHIATRY 3. 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 Class 1 obesity due to excess calories with serious comorbidity and body mass index (BMI) of 30.0 to 30.9 in adult - ICD9: 278.00, V85.30, ICD10: E66.09, Z68.30 Can increase semaglutide dose. Portions of this note have been entered by ancillary staff. I have reviewed and when necessary edited, so that they are an adequate record of my encounter with this patient Please note that parts of this document were created using voice recognition software and therefore may contain grammatical errors. Patient verbalizes understanding of instructions from today's visit and in agreement with treatment plan. Questions answered. Agrees to call the office if questions, concerns of issues with acute symptoms not improving or if they worsen. See diagnoses and orders for additional plan(s). Allergies and medications were reviewed, list was updated, and refills given if needed. Past medical, surgical, social, and family history reviewed and updated as appropriate. Encouraged proper diet & exercise as well as compliance with taking medications. Age-appropriate health preventative measures were discussed. Return in about 4 weeks (around 02/18/2024), or if symptoms worsen or fail to improve. iMkaela Spann APRN-DEEPAK documented in this encounter [facility] 01-18-2024 Telephone encounter Note Patient with increased anxiety, needs something to help get through the weekend. [facility] 01-18-2024 Miscellaneous Notes Patient with increased anxiety, needs something to help get through the weekend. documented in this encounter [facility] 01-14-2024 Telephone encounter Note The following approved medication requests have been transmitted electronically. Requested Prescriptions Signed Prescriptions Disp Refills sertraline (ZOLOFT) 100 mg tablet 30 tablet 3 Sig: Take 1 tablet by mouth once daily. Authorizing Provider: ALFREDO COLBY QUEtiapine (SEROQUEL) 50 mg tablet 30 tablet 3 Sig: Take 1 tablet by mouth daily at bedtime. Authorizing Provider: ALFREDO COLBY ALPRAZolam (XANAX) 0.5 mg tablet 60 tablet 0 Sig: Take 1 tablet by mouth two times a day for 30 days. Authorizing Provider: ALFREDO COLBY MD Has follow up appointment next week. [facility] 01-14-2024 Miscellaneous Notes The following approved medication requests have been transmitted electronically. Requested Prescriptions Signed Prescriptions Disp Refills sertraline (ZOLOFT) 100 mg tablet 30 tablet 3 Sig: Take 1 tablet by mouth once daily. Authorizing Provider: ALFREDO COLBY QUEtiapine (SEROQUEL) 50 mg tablet 30 tablet 3 Sig: Take 1 tablet by mouth daily at bedtime. Authorizing Provider: ALFREDO COLBY ALPRAZolam (XANAX) 0.5 mg tablet 60 tablet 0 Sig: Take 1 tablet by mouth two times a day for 30 days. Authorizing Provider: ALFREDO COLBY MD Has follow up appointment next week. Prescription Refill Information The patient has been identified by name and date of : Yes Caregiver verified no other encounters exist for this prescription request: Yes Caregiver confirmed with patient/requestor that no other refills are due, in the near future, with this provider at this time: Yes The last office visit in the department: 11/20/23 Does the patient have a future office visit with this provider/department: Yes Requested Prescriptions Pending Prescriptions Disp Refills sertraline (ZOLOFT) 100 mg tablet 30 tablet 3 Sig: Take 1 tablet by mouth once daily. QUEtiapine (SEROQUEL) 50 mg tablet 30 tablet 3 Sig: Take 1 tablet by mouth daily at bedtime. ALPRAZolam (XANAX) 0.5 mg tablet 60 tablet 0 Sig: Take 1 tablet by mouth two times a day for 30 days. Palak Mcclendon LPN January 14, 2024 11:17 AM documented in this encounter [facility] 01-14-2024 Telephone encounter Note Prescription Refill Information The patient has been identified by name and date of : Yes Caregiver verified no other encounters exist for this prescription request: Yes Caregiver confirmed with patient/requestor that no other refills are due, in the near future, with this provider at this time: Yes The last office visit in the department: 11/20/23 Does the patient have a future office visit with this provider/department: Yes Requested Prescriptions Pending Prescriptions Disp Refills sertraline (ZOLOFT) 100 mg tablet 30 tablet 3 Sig: Take 1 tablet by mouth once daily. QUEtiapine (SEROQUEL) 50 mg tablet 30 tablet 3 Sig: Take 1 tablet by mouth daily at bedtime. ALPRAZolam (XANAX) 0.5 mg tablet 60 tablet 0 Sig: Take 1 tablet by mouth two times a day for 30 days. Palak Mcclendon LPN January 14, 2024 11:[address] [facility] 12-25-2023 Telephone encounter Note Pharmacy request denied. Patient needs to contact office for refills. Misty Gregg MA [facility] 12-25-2023 Miscellaneous Notes Pharmacy request denied. Patient needs to contact office for refills. Misty Gregg MA documented in this encounter [facility] 12-14-2023 Telephone encounter Note Patient has been identified by name and date of : Yes, Patient phones for refill(s): Requested Prescriptions Pending Prescriptions Disp Refills gabapentin (NEURONTIN) 600 mg tablet 180 tablet 0 Sig: Take 1 tablet by mouth two times a day for 90 days. Date of last office visit in primary care: 12/04/2023 Date of next office visit in primary care: Visit date not found Please advise. Thank you. Ebony Yeboah LPN. [facility] 12-14-2023 Miscellaneous Notes Patient has been identified by name and date of : Yes, Patient phones for refill(s): Requested Prescriptions Pending Prescriptions Disp Refills gabapentin (NEURONTIN) 600 mg tablet 180 tablet 0 Sig: Take 1 tablet by mouth two times a day for 90 days. Date of last office visit in primary care: 12/04/2023 Date of next office visit in primary care: Visit date not found Please advise. Thank you. Ebony Yeboah LPN. documented in this encounter [facility] 12-14-2023 Telephone encounter Note PDMP website checked and validated. All prescriptions have been APPROPRIATELY filled. No suspicious activity was identified. 12/14/2023 by Mikaela Spann APRN.CNP [facility] 12-14-2023 Miscellaneous Notes PDMP website checked and validated. All prescriptions have been APPROPRIATELY filled. No suspicious activity was identified. 12/14/2023 by Mikaela Spann APRN.CNP documented in this encounter [facility] 12-04-2023 History of Presen t illness Narrative Transitional Care Management Progress Note The patients TCM visit was performed within the 7 days of discharge. TCM Eligibility Documentation The following information was gathered during the initial Patient Outreach Encounter. 12/03/2023 12/03/2023 Date of Outreach: Outreach Attempt 1: Contact Made Date of Discharge 11/28/2023 11/28/2023 If no data exists please enter it manually. If data exists please delete date of discharge and date of initial contact seen below. Patient's Date of discharge: 11/28/2023 Date of initial coordinator contact after discharge: Office contacted prior to patient discharge from mental health facility Discharge diagnosis: Medication review completed Yes Mikaela Spann APRN.CNP Provider Documentation: In follow-up of hospitalization, Kwan Guzman is a 48 year old male with the chief complaint of hospital discharge follow up. I have reviewed the patient s last hospital course including diagnostic testing performed during this hospitalization, their discharge medications, and my assessment and plan with the patient and any family members present at today s visit. HPI: Kwan presents today accompanied by his mother for a hospital discharge follow up. He was seen in ER at [facility] on 11/22/2023. He had presented to ER via squad due to an episode of chest pain, near syncope that was determined to be a panic/manic episode. There was also concern that he was trying to induce diabetes due to wanting medications covered for weight loss. He was cleared medically and transferred for inpatient psych. Admitted to [facility] on 11/22. Discharged on 11/27. Denies any thoughts of self harm, harming others or suicide. Seen with [facility] IOP yesterday. In 1:1 counseling. Meeting with Adriane next week for primary care behavioral health intake. Plans to also follow up with Krystin. He is future oriented. He is upset about needing to get things figured out to help with weight loss. Disappointed he is not working and contributing more to society. PAST MEDICAL HISTORY: Reviewed and updated PAST MEDICAL HISTORY Diagnosis Date ADD (attention deficit disorder) ADHD (attention deficit hyperactivity disorder) Bipolar 1 disorder (HCC) Chronic pain Rheumatoid arthritis (HCC) ALLERGIES: Reviewed and updated ALLERGIES Allergen Reactions Aspirin GI Upset Bupropion Unknown Paroxetine Unknown, Other: See Comments Azithromycin Unknown, GI Upset Fluoxetine Intolerance Topiramate Intolerance MEDICATIONS: Reviewed and updated Current Outpatient Medications Medication Sig potassium chloride ER (KLOR-CON) 20 mEq tablet Take 20 mEq by mouth two times a day. semaglutide (OZEMPIC) 0.25 mg or 0.5 mg (2 mg/3 mL) pen Inject 0.25 mg subcutaneously one time a week. compounded ALPRAZolam (XANAX) 0.5 mg tablet Take 1 tablet by mouth two times a day for 30 days. sertraline (ZOLOFT) 100 mg tablet Take 1 tablet by mouth once daily. QUEtiapine (SEROQUEL) 50 mg tablet Take 1 tablet by mouth daily at bedtime. amphetamine-dextroamphetamine XR (ADDERALL XR) 20 mg capsule Take 1 capsule by mouth once daily for 30 days. gabapentin (NEURONTIN) 600 mg tablet Take 1 tablet by mouth two times a day for 90 days. furosemide (LASIX) 40 mg tablet Take 1 tablet by mouth once daily. isosorbide mononitrate ER (IMDUR) 30 mg 24 hr tablet Take 1 tablet by mouth once daily. cholecalciferol (VITAMIN D3) 5,000 unit tab Take 5,000 Units by mouth once daily. (Patient not taking: Reported on 12/03/2023) cyanocobalamin (VITAMIN B-12) 1,000 mcg tab Take 1,000 mcg by mouth once daily. potassium gluconate 600 mg (99 mg) tab Take 1 tablet by mouth once daily. (Patient not taking: Reported on 12/03/2023) pyridoxine, vitamin B6, (VITAMIN B6) 25 mg tablet Take 25 mg by mouth once daily. clopidogrel (PLAVIX) 75 mg tablet Take 75 mg by mouth once daily. metoprolol tartrate, short acting, (LOPRESSOR) 25 mg tablet Take 25 mg by mouth twice daily. aspirin, enteric coated (ASPIRIN, ENTERIC COATED) 81 mg EC tablet Take 81 mg by mouth once daily. atorvastatin (LIPITOR) 80 mg tablet Take 80 mg by mouth once daily. lisinopril (ZESTRIL, PRINIVIL) 10 mg tablet Take 10 mg by mouth twice daily. No current facility-administered medications for this visit. SOCIAL HISTORY: Reviewed and updated Social History Tobacco Use Smoking status: Never Smokeless tobacco: Never Vaping Use Vaping Use: Never used Substance Use Topics Alcohol use: Not Currently Drug use: Yes Types: Marijuana Comment: eatables at night to help sleep FAMILY HISTORY: Reviewed and updated FAMILY HISTORY Problem Relation Age of Onset Breast Cancer Mother Pancreatitis Mother Diabetes Mother other (etoh) Father Neuropathy Father Leukemia Sister Review of Systems Respiratory: Negative. Cardiovascular: Negative. All other systems reviewed and negative, other than HPI. Physical Exam Vitals and nursing note reviewed. Constitutional: General: He is awake. He is not in acute distress. Appearance: Normal appearance. He is well-developed and well-groomed. He is not ill-appearing, toxic-appearing or diaphoretic. HENT: Head: Normocephalic. Right Ear: External ear normal. Left Ear: External ear normal. Nose: Nose normal. Eyes: General: Vision grossly intact. Conjunctiva/sclera: Conjunctivae normal. Pupils: Pupils are equal, round, and reactive to light. Neck: Vascular: No JVD. Trachea: Trachea normal. Pulmonary: Effort: Pulmonary effort is normal. No accessory muscle usage, prolonged expiration or respiratory distress. Musculoskeletal: Cervical back: Neck supple. Skin: General: Skin is warm and dry. Capillary Refill: Capillary refill takes less than 2 seconds. Neurological: General: No focal deficit present. Mental Status: He is alert and oriented to person, place, and time. Mental status is at baseline. Psychiatric: Attention and Perception: Attention and perception normal. Mood and Affect: Affect normal. Mood is anxious. Speech: Speech normal. Behavior: Behavior normal. Behavior is cooperative. Thought Content: Thought content normal. Cognition and Memory: Cognition and memory normal. Judgment: Judgment normal. BP 120/78 Pulse 89 SpO2 98% 1. I have reviewed the patient record including associated test results during the last hospitalization Yes 2. I have reviewed Lab test Yes 3. I have reviewed Radiology test Yes 4. I reviewed assessment/plan with the patient/family member Yes ASSESSMENT/PLAN: 1. Bipolar 1 disorder (HCC) - ICD9: 296.7, ICD10: F31.9 (primary diagnosis) Still with some heightened emotion around recent experiences but overall stable, continue with 1:1 counseling/IOP through [facility]. Use positive coping mechanisms I.e. fishing, yoga. Continue current medications and keep follow up with behavioral health intake with Adriane. 2. Adult ADHD - ICD9: 314.01, ICD10: F90.9 3. 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 Binge eating disorder - ICD9: 307.50, ICD10: F50.81 5. Class 1 obesity due to excess calories with serious comorbidity and body mass index (BMI) of 30.0 to 30.9 in adult - ICD9: 278.00, V85.30, ICD10: E66.09, Z68.30 We will try the [facility] pharmacy for GLP1 prescribing. 6. Primary hypertension - ICD9: 401.9, ICD10: I10 - Controlled - Continue current medications - Recommend home blood pressure monitoring, to bring results to next visit - Encouraged sodium restriction, DASH or Mediterranean diet - Recommend regular aerobic exercise Mikaela Spann APRN.DEEPAK documented in this encounter [facility] 12-03-2023 History of Presen t illness Narrative Noted. TRANSITION CARE MANAGEMENT (TCM) INITIAL CONTACT Newspaper Manager Outreach Provider Action/FYI: Discharged from [facility] on 11/28/2023 Initial contact with patient post discharge, spoke to patient. Patient identified by name and . TRANSITION CARE MANAGEMENT INITIAL OUTREACH DOCUMENTATION: 12/03/2023 Date of Outreach: Date of Discharge 11/28/2023 SUMMARY: -Pt discharged from [facility] on 11/28/2023. -Admitted for: Aggression, iris and bizarre behavior Do you have a hospital follow up appointment with your PCP? Appointment on 12/04/2023 with Mikaela Spann. Yes. Remind patient of appointment date, time, and location. If not within 14 calendar days of discharge - please reschedule accordingly. MEDICATIONS: Many patients have questions or concerns about their medications once they are home. Were you prescribed any new medications? No Were you told to hold any medications? If yes, what are those medications? Adderal On hold for about 9-10 days Were any of your medications discontinued? No Do you have any questions about getting or taking your medications? No Your discharge instructions/After visit Summary (AVS) are important in guiding you through the recovery process. Is there anything I might help you understand? No Do you have all the necessary equipment and supplies at home? Yes Medical records from recent hospitalization: Epic documented in this encounter [facility] 11-20-2023 History of Presen t illness Narrative SUBJECTIVE Kwan Guzman is a 48 year old male here today for a check up on his medical problems. Chief Complaint Patient presents with: Weight Check HPI Kwan Guzman is a 48 year old male. He is an established patient. He presents today for concerns of needing to work on weight loss. He previously was on Mounjaro at 10 mg/week. He had very effective results with this for weight loss but insurance is not covering it now. He has noticed weight and appetite increasing significantly since being off of this. More mood swings. Upset with insurance because they will not pay for the medication. Needs to reschedule with behavioral health. Still getting triggered. His medications were reviewed today and his list is now up to date. Medications Current Outpatient Medications Medication Sig ALPRAZolam (XANAX) 0.5 mg tablet Take 1 tablet by mouth two times a day for 30 days. sertraline (ZOLOFT) 100 mg tablet Take 1 tablet by mouth once daily. QUEtiapine (SEROQUEL) 50 mg tablet Take 1 tablet by mouth daily at bedtime. furosemide (LASIX) 40 mg tablet Take 1 tablet by mouth once daily. cholecalciferol (VITAMIN D3) 5,000 unit tab Take 5,000 Units by mouth once daily. cyanocobalamin (VITAMIN B-12) 1,000 mcg tab Take 1,000 mcg by mouth once daily. potassium gluconate 600 mg (99 mg) tab Take 1 tablet by mouth once daily. pyridoxine, vitamin B6, (VITAMIN B6) 25 mg tablet Take 25 mg by mouth once daily. clopidogrel (PLAVIX) 75 mg tablet Take 75 mg by mouth once daily. metoprolol tartrate, short acting, (LOPRESSOR) 25 mg tablet Take 25 mg by mouth twice daily. aspirin, enteric coated (ASPIRIN, ENTERIC COATED) 81 mg EC tablet Take 81 mg by mouth once daily. atorvastatin (LIPITOR) 80 mg tablet Take 80 mg by mouth once daily. lisinopril (ZESTRIL, PRINIVIL) 10 mg tablet Take 10 mg by mouth twice daily. amphetamine-dextroamphetamine XR (ADDERALL XR) 20 mg capsule Take 1 capsule by mouth once daily for 30 days. gabapentin (NEURONTIN) 600 mg tablet Take 1 tablet by mouth two times a day for 90 days. isosorbide mononitrate ER (IMDUR) 30 mg 24 hr tablet Take 1 tablet by mouth once daily. No current facility-administered medications for this visit. 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 Respiratory: Negative. Cardiovascular: Negative. OBJECTIVE BP 120/84 Pulse 87 SpO2 99% Physical Exam Vitals and nursing note reviewed. Constitutional: General: He is awake. He is not in acute distress. Appearance: Normal appearance. He is well-developed and well-groomed. He is not ill-appearing, toxic-appearing or diaphoretic. HENT: Head: Normocephalic. Right Ear: External ear normal. Left Ear: External ear normal. Nose: Nose normal. Eyes: General: Vision grossly intact. Conjunctiva/sclera: Conjunctivae normal. Pupils: Pupils are equal, round, and reactive to light. Neck: Vascular: No JVD. Trachea: Trachea normal. Pulmonary: Effort: Pulmonary effort is normal. No accessory muscle usage, prolonged expiration or respiratory distress. Musculoskeletal: Cervical back: Neck supple. Skin: General: Skin is warm and dry. Capillary Refill: Capillary refill takes less than 2 seconds. Neurological: General: No focal deficit present. Mental Status: He is alert and oriented to person, place, and time. Mental status is at baseline. Psychiatric: Attention and Perception: Attention and perception normal. Mood and Affect: Mood and affect normal. Speech: Speech normal. Behavior: Behavior normal. Behavior is cooperative. Thought Content: Thought content normal. Cognition and Memory: Cognition and memory normal. Judgment: Judgment normal. ASSESSMENT/PLAN: 1. Binge eating disorder - ICD9: 307.50, ICD10: F50.81 (primary diagnosis) He is concerned about his response to being off of the medication. Wants to get weight down. We will refer to bariatric medicine. Can try compounding for a glp1 through [facility] in [place]. Will complete paperwork. He is not a candidate for Topamax or Wellbutrin because of prior side effects with these. Already on a stimulant. He has comorbid conditions of hyperlipidemia, htn, and prior IFG. 2. Class 1 obesity due to excess calories with serious comorbidity and body mass index (BMI) of 30.0 to 30.9 in adult - ICD9: 278.00, V85.30, ICD10: E66.09, Z68.30 - [facility] 3. IFG (impaired fasting glucose) - ICD9: 790.21, ICD10: R73.01 - HEMOGLOBIN A1C 4. Primary hypertension - ICD9: 401.9, ICD10: I10 - Controlled - Continue current medications - Recommend home blood pressure monitoring, to bring results to next visit - Encouraged sodium restriction, DASH or Mediterranean diet - Recommend regular aerobic exercise 5. Other hyperlipidemia - ICD9: 272.4, ICD10: E78.49 - LIPID PANEL, NONFASTING 6. Bipolar 1 disorder (HCC) - ICD9: 296.7, ICD10: F31.9 7. Adult ADHD - ICD9: 314.01, ICD10: F90.9 8. Encounter for therapeutic drug monitoring - ICD9: V58.83, ICD10: Z51.81 - COMPLETE BLOOD COUNT AND DIFFERENTIAL - COMPREHENSIVE METABOLIC PANEL - TOXICOLOGY SCREEN, ROUTINE URINE Portions of this note have been entered by ancillary staff. I have reviewed and when necessary edited, so that they are an adequate record of my encounter with this patient Please note that parts of this document were created using voice recognition software and therefore may contain grammatical errors. Patient verbalizes understanding of instructions from today's visit and in agreement with treatment plan. Questions answered. Agrees to call the office if questions, concerns of issues with acute symptoms not improving or if they worsen. See diagnoses and orders for additional plan(s). Allergies and medications were reviewed, list was updated, and refills given if needed. Past medical, surgical, social, and family history reviewed and updated as appropriate. Encouraged proper diet & exercise as well as compliance with taking medications. Age-appropriate health preventative measures were discussed. Return if symptoms worsen or fail to improve. Mikaela Spann APRN-DEEPAK documented in this encounter [facility] 10-01-2023 Miscellaneous Notes Patient has been identified by name and date of : Yes Patient phones for refill(s): Requested Prescriptions Pending Prescriptions Disp Refills ALPRAZolam (XANAX) 0.5 mg tablet 60 tablet 0 Sig: Take 1 tablet by mouth two times a day for 30 days. Date of last office visit in primary care: 09/04/2023 Date of next office visit in primary care: Visit date not found Please advise. Thank you. Misty Gregg MA. documented in this encounter [facility] 09-18-2023 History of Presen t illness Narrative Behavioral Health Social Work Progress Note Patient identified for [facility] from: PCP Reason for referral: [facility] Assessment [facility] encounter type: Office Visit, Virtual Visit Attempts to Outreach: 4 attempts Referral made: Psychiatry - Internal Psychiatry-Internal referral type: Medication Management Final Disposition: Back to the PCP Patient Discharged?: Yes Patient reported that caregiver was able to meet their needs today?: N/A Patient did not attend nor cancel this appointment. A letter will be sent via My Chart with the Behavioral Health attendance policy. AISHA Walters-S September 18, [address] encounter [facility] 09-11-2023 Miscellaneous Notes Please fax letter for insurance appeal to given fax number of [phone]. Thanks This is not covered for weight loss. documented in this encounter [facility] 09-04-2023 Miscellaneous Notes Spoke to Kwan, he is currently in [place] and unable to do Zoom visit. Per Mikaela Spann HAIR ASSISTANT she will call Patient today at 2 PM, Kwan will be there to take the call. Nesha Randall LPN documented in this encounter [facility] 06-12-2023 History of Presen t illness Narrative SUBJECTIVE Kwan Guzman is a 47 year old male here today for a check up on his medical problems. Chief Complaint Patient presents with: F/U 3 Month HPI Kwan Guzman is a 47 year old male. Here today for follow up. Recently had swimmers ear. Ear drained yesterday. Feels better. This was causing some aggravation, irritation. Now that his ear feels better he feels much better. Weight is still going down, down about 60+ pounds. More active when he is on [place]. Feels like mood is doing okay. Lexapro 30 mg. Seeing psychology. Xanax 0.25 twice daily. Adderall 20 mg ER daily. Wondering if we would take over controlled substance/mental health prescribing since his mental health provider is moving from [place] to [place] and requires monthly UDS. His medications were reviewed today and his list is now up to date. Medications Current Outpatient Medications Medication Sig tirzepatide (MOUNJARO) 10 mg/0.5 mL pen injector Inject 10 mg subcutaneously one time a week. furosemide (LASIX) 40 mg tablet Take 1 tablet by mouth once daily. cholecalciferol (VITAMIN D3) 5,000 unit tab Take 5,000 Units by mouth once daily. cyanocobalamin (VITAMIN B-12) 1,000 mcg tab Take 1,000 mcg by mouth once daily. potassium gluconate 600 mg (99 mg) tab Take 1 tablet by mouth once daily. pyridoxine, vitamin B6, (VITAMIN B6) 25 mg tablet Take 25 mg by mouth once daily. clopidogrel (PLAVIX) 75 mg tablet Take 75 mg by mouth once daily. escitalopram oxalate (LEXAPRO) 20 mg tablet Take 30 mg by mouth once daily. metoprolol tartrate, short acting, (LOPRESSOR) 25 mg tablet Take 25 mg by mouth twice daily. aspirin, enteric coated (ASPIRIN, ENTERIC COATED) 81 mg EC tablet Take 81 mg by mouth once daily. atorvastatin (LIPITOR) 80 mg tablet Take 80 mg by mouth once daily. lisinopril (ZESTRIL, PRINIVIL) 10 mg tablet Take 10 mg by mouth twice daily. amphetamine-dextroamphetamine XR (ADDERALL XR) 20 mg capsule Take 1 capsule by mouth once daily for 30 days. ALPRAZolam (XANAX) 0.25 mg tablet Take 1 tablet by mouth two times a day for 30 days. gabapentin (NEURONTIN) 600 mg tablet Take 1 tablet by mouth two times a day for 90 days. isosorbide mononitrate ER (IMDUR) 30 mg 24 hr tablet Take 1 tablet by mouth once daily. No current facility-administered medications for this visit. 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 Cardiovascular: Negative. OBJECTIVE BP 100/76 Pulse 107 SpO2 97% Physical Exam Vitals and nursing note reviewed. Constitutional: General: He is awake. He is not in acute distress. Appearance: Normal appearance. He is well-developed and well-groomed. He is not ill-appearing, toxic-appearing or diaphoretic. HENT: Head: Normocephalic. Right Ear: External ear normal. Left Ear: Hearing, tympanic membrane, ear canal and external ear normal. No middle ear effusion. There is no impacted cerumen. No foreign body. Tympanic membrane is not injected or perforated. Nose: Nose normal. Eyes: General: Vision grossly intact. Conjunctiva/sclera: Conjunctivae normal. Pupils: Pupils are equal, round, and reactive to light. Neck: Vascular: No JVD. Trachea: Trachea normal. Pulmonary: Effort: Pulmonary effort is normal. No accessory muscle usage, prolonged expiration or respiratory distress. Musculoskeletal: Cervical back: Neck supple. Skin: General: Skin is warm and dry. Capillary Refill: Capillary refill takes less than 2 seconds. Neurological: General: No focal deficit present. Mental Status: He is alert and oriented to person, place, and time. Mental status is at baseline. Psychiatric: Attention and Perception: Attention and perception normal. Mood and Affect: Mood and affect normal. Speech: Speech normal. Behavior: Behavior normal. Behavior is cooperative. Thought Content: Thought content normal. Cognition and Memory: Cognition and memory normal. Judgment: Judgment normal. ASSESSMENT/PLAN: 1. Acute swimmer's ear of left side - ICD9: 380.12, ICD10: H60.332 (primary diagnosis) Resolved, normal appearance on exam. 2. Class 1 obesity due to excess calories with serious comorbidity and body mass index (BMI) of 30.0 to 30.9 in adult - ICD9: 278.00, V85.30, ICD10: E66.09, Z68.30 Weight decreasing - Behavioral intervention, - Pharmacological intervention, and - Continue current medications 3. Adult ADHD - ICD9: 314.01, ICD10: F90.9 - DEXTROAMPHETAMINE-AMPHETAMINE ER 20 MG 24HR CAPSULE,EXTEND RELEASE 4. Bipolar 1 disorder (HCC) - ICD9: 296.7, ICD10: F31.9 - ALPRAZOLAM 0.25 MG TABLET 5. 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 Restless legs syndrome - ICD9: 333.94, ICD10: G25.81 - GABAPENTIN 600 MG TABLET PDMP website checked and validated. All prescriptions have been APPROPRIATELY filled. No suspicious activity was identified. 06/12/2023 by Mikaela Spann APRN.CNP Portions of this note have been entered by ancillary staff. I have reviewed and when necessary edited, so that they are an adequate record of my encounter with this patient Please note that parts of this document were created using voice recognition software and therefore may contain grammatical errors. Patient verbalizes understanding of instructions from today's visit and in agreement with treatment plan. Questions answered. Agrees to call the office if questions, concerns of issues with acute symptoms not improving or if they worsen. See diagnoses and orders for additional plan(s). Allergies and medications were reviewed, list was updated, and refills given if needed. Past medical, surgical, social, and family history reviewed and updated as appropriate. Encouraged proper diet & exercise as well as compliance with taking medications. Age-appropriate health preventative measures were discussed. Return in about 3 months (around 09/12/2023) for Follow up on chronic conditions and medications.. Mikaela Spann APRN-DEEPAK documented in this encounter [facility] 06-05-2023 Miscellaneous Notes Spoke with Kwan and he is scheduled 06/06/2023 at 1:40 pm. Can we reach out to get patient scheduled for his 3 month follow up, with blanca coming up and vacation time ect. It would be ideal to try and see him before blanca. documented in this encounter [facility] 02-07-2023 History of Presen t illness Narrative SUBJECTIVE Kwan Guzman is a 47 year old male here today for a check up on his medical problems. Chief Complaint Patient presents with: Weight Problem: is interested in starting Ozempic to help with weight loss Vomiting: for about the last 2 months has been having dry heaves in the am only HPI Kwan Guzman is a 47 year old male established patient. He presents today for concerns of his weight. Wants to work on weight loss. Having a lot of food cravings, appetite is increased. Using edibles and causes snacking, thinks his cannabis use could be causing nausea too. Weight was highest at 281 on our office records. He admits current weight is closer to 280, maybe even 300. Currently cutting out pop, changing diet. Interested in Ozempic or Mounjaro. He has a medical history significant for HTN, HLD, IFG. His medications were reviewed today and his list is now up to date. Medications Current Outpatient Medications Medication Sig gabapentin (NEURONTIN) 600 mg tablet Take 1 tablet by mouth twice daily for 90 days. ALPRAZolam (XANAX) 1 mg tablet Take 1 mg by mouth once daily as needed. dextroamphetamine-amphetamine (ADDERALL) 20 mg tablet Take 1 tablet by mouth daily before breakfast. furosemide (LASIX) 40 mg tablet Take 1 tablet by mouth once daily. isosorbide mononitrate ER (IMDUR) 30 mg 24 hr tablet Take 1 tablet by mouth once daily. cholecalciferol (VITAMIN D3) 5,000 unit tab Take 5,000 Units by mouth once daily. cyanocobalamin (VITAMIN B-12) 1,000 mcg tab Take 1,000 mcg by mouth once daily. potassium gluconate 600 mg (99 mg) tab Take 1 tablet by mouth once daily. pyridoxine, vitamin B6, (VITAMIN B6) 25 mg tablet Take 25 mg by mouth once daily. clopidogrel (PLAVIX) 75 mg tablet Take 75 mg by mouth once daily. escitalopram oxalate (LEXAPRO) 20 mg tablet Take 30 mg by mouth once daily. metoprolol tartrate, short acting, (LOPRESSOR) 25 mg tablet Take 25 mg by mouth twice daily. aspirin, enteric coated (ASPIRIN, ENTERIC COATED) 81 mg EC tablet Take 81 mg by mouth once daily. atorvastatin (LIPITOR) 80 mg tablet Take 80 mg by mouth once daily. lisinopril (ZESTRIL, PRINIVIL) 10 mg tablet Take 10 mg by mouth twice daily. tirzepatide (MOUNJARO) 2.5 mg/0.5 mL pen injector Inject 2.5 mg subcutaneously one time a week. No current facility-administered medications for this visit. 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 Respiratory: Negative. Cardiovascular: Negative. OBJECTIVE BP 120/84 Pulse 98 Wt 280 lb (127.0kg) SpO2 98% Physical Exam Vitals and nursing note reviewed. Constitutional: General: He is awake. He is not in acute distress. Appearance: Normal appearance. He is well-developed and well-groomed. He is obese. He is not ill-appearing, toxic-appearing or diaphoretic. HENT: Head: Normocephalic. Right Ear: External ear normal. Left Ear: External ear normal. Nose: Nose normal. Eyes: General: Vision grossly intact. Conjunctiva/sclera: Conjunctivae normal. Pupils: Pupils are equal, round, and reactive to light. Neck: Vascular: No JVD. Trachea: Trachea normal. Pulmonary: Effort: Pulmonary effort is normal. No accessory muscle usage, prolonged expiration or respiratory distress. Musculoskeletal: Cervical back: Neck supple. Skin: General: Skin is warm and dry. Capillary Refill: Capillary refill takes less than 2 seconds. Neurological: General: No focal deficit present. Mental Status: He is alert and oriented to person, place, and time. Mental status is at baseline. Psychiatric: Attention and Perception: Attention and perception normal. Mood and Affect: Mood and affect normal. Speech: Speech normal. Behavior: Behavior normal. Behavior is cooperative. Thought Content: Thought content normal. Cognition and Memory: Cognition and memory normal. Judgment: Judgment normal. ASSESSMENT/PLAN: 1. Class 1 obesity due to excess calories with serious comorbidity and body mass index (BMI) of 30.0 to 30.9 in adult - ICD9: 278.00, V85.30, ICD10: E66.09, Z68.30 (primary diagnosis) Weight increasing - Behavioral intervention, - Pharmacological intervention, and - Add mounjaro or alternative if not covered - TIRZEPATIDE 2.5 MG/0.5 ML SUBCUTANEOUS PEN INJECTOR 2. Primary hypertension - ICD9: 401.9, ICD10: I10 - Recommend regular aerobic exercise - Discussed need for and benefit of weight loss. BMI 30.00 kg/(m^2) - TIRZEPATIDE 2.5 MG/0.5 ML SUBCUTANEOUS PEN INJECTOR 3. Other hyperlipidemia - ICD9: 272.4, ICD10: E78.49 Could benefit from weight loss. - TIRZEPATIDE 2.5 MG/0.5 ML SUBCUTANEOUS PEN INJECTOR 4. Coronary artery disease involving [place] heart, unspecified vessel or lesion type, unspecified whether angina present - ICD9: 414.01, ICD10: I25.10 - TIRZEPATIDE 2.5 MG/0.5 ML SUBCUTANEOUS PEN INJECTOR 5. Impaired fasting glucose - ICD9: 790.21, ICD10: R73.01 - TIRZEPATIDE 2.5 MG/0.5 ML SUBCUTANEOUS PEN INJECTOR I spent a total of 34 minutes on the date of the service which included preparing to see the patient, [id number] patient care, completing clinical documentation, obtaining and/or reviewing separately obtained history, performing a medically appropriate examination, counseling and educating the patient/family/caregiver, ordering medications, tests, or procedures, and communicating with other HCPs (not separately reported). Portions of this note have been entered by ancillary staff. I have reviewed and when necessary edited, so that they are an adequate record of my encounter with this patient Please note that parts of this document were created using voice recognition software and therefore may contain grammatical errors. Patient verbalizes understanding of instructions from today's visit and in agreement with treatment plan. Questions answered. Agrees to call the office if questions, concerns of issues with acute symptoms not improving or if they worsen. See diagnoses and orders for additional plan(s). Allergies and medications were reviewed, list was updated, and refills given if needed. Past medical, surgical, social, and family history reviewed and updated as appropriate. Encouraged proper diet & exercise as well as compliance with taking medications. Age-appropriate health preventative measures were discussed. Return in about 4 weeks (around 03/07/2023) for weight check, 40 minutes. ARPAN Alcantara documented in this encounter [facility] 10-24-2022 History of Presen t illness Narrative Radiology Service Progress Note PATIENT NAME: Kwan Guzman DATE OF SERVICE: October 24, 2022 TIME: 3:02 PM PATIENT IDENTITY VERIFICATION COMPLETED USING TWO (2) IDENTIFIERS: Name and Date of confirmed by patient verbally. FALL SCREENING: Has the patient had 2 falls in the last year or 1 fall with injury or currently using an Ambulatory Assistive Device (Walker, Cane, Wheelchair, Crutches, etc.)? No PATIENT GENDER DATA: Male PATIENT RELEVANT IMPLANT DATA REVIEWED: Not Applicable RADIOLOGY DEPARTMENT: Ultrasound PERIPHERAL IV DATA: Not applicable SIGNED BY: Rosalia Stevens RDMS October 24, 2022 3:02 PM documented in this encounter [facility] 10-24-2022 History of Presen t illness Narrative Radiology Service Progress Note PATIENT NAME: Kwan Guzman DATE OF SERVICE: October 24, 2022 TIME: 1:47 PM PATIENT IDENTITY VERIFICATION COMPLETED USING TWO (2) IDENTIFIERS: Name and Date of confirmed by patient verbally. FALL SCREENING: Has the patient had 2 falls in the last year or 1 fall with injury or currently using an Ambulatory Assistive Device (Walker, Cane, Wheelchair, Crutches, etc.)? No PATIENT GENDER DATA: Female. status: : No status: NO. PATIENT RELEVANT IMPLANT DATA REVIEWED: Not Applicable RADIOLOGY DEPARTMENT: Mammography PERIPHERAL IV DATA: Not applicable SIGNED BY: RT Pierre(R) October 24, 2022 1:47 PM documented in this encounter [facility] 09-25-2022 History of Presen t illness Narrative HISTORY AND PHYSICAL Kwan Sabrina 1975 REFERRING PHYSICIAN: Mikaela Spann APRN.CNP CHIEF COMPLAINT: Consult HPI: The patient is a 47 year old male referred for endoscopy. Kwan notes no colon complaints. Patient denies any change in bowel habits, weight changes, blood in stools, black tarry stools or abdominal pain. Denies family history of colon issues. The patient notes no upper GI complaints. Kwan has not undergone prior endoscopy. PAST MEDICAL HISTORY Diagnosis Date ADD (attention deficit disorder) ADHD (attention deficit hyperactivity disorder) Bipolar 1 disorder (HCC) Chronic pain Rheumatoid arthritis (HCC) PAST SURGICAL HISTORY Procedure Laterality Date PAST SURGICAL HISTORY OF 2020 hernia x2 PT ED HEART AND VASCULAR Left 2021 Current Outpatient Medications Medication Sig gabapentin (NEURONTIN) 600 mg tablet Take 1 tablet by mouth twice daily for 90 days. ALPRAZolam (XANAX) 1 mg tablet Take 1 mg by mouth once daily as needed. dextroamphetamine-amphetamine (ADDERALL) 20 mg tablet Take 1 tablet by mouth daily before breakfast. furosemide (LASIX) 40 mg tablet Take 1 tablet by mouth once daily. isosorbide mononitrate ER (IMDUR) 30 mg 24 hr tablet Take 1 tablet by mouth once daily. cholecalciferol (VITAMIN D3) 5,000 unit tab Take 5,000 Units by mouth once daily. cyanocobalamin (VITAMIN B-12) 1,000 mcg tab Take 1,000 mcg by mouth once daily. omega-3 fatty acids 1,000 mg cap Take 1 g by mouth once daily. potassium gluconate 600 mg (99 mg) tab Take 1 tablet by mouth once daily. pyridoxine, vitamin B6, (VITAMIN B6) 25 mg tablet Take 25 mg by mouth once daily. clopidogrel (PLAVIX) 75 mg tablet Take 75 mg by mouth once daily. escitalopram oxalate (LEXAPRO) 20 mg tablet Take 30 mg by mouth once daily. metoprolol tartrate, short acting, (LOPRESSOR) 25 mg tablet Take 25 mg by mouth twice daily. aspirin, enteric coated (ASPIRIN, ENTERIC COATED) 81 mg EC tablet Take 81 mg by mouth once daily. atorvastatin (LIPITOR) 80 mg tablet Take 80 mg by mouth once daily. lisinopril (ZESTRIL, PRINIVIL) 10 mg tablet Take 10 mg by mouth twice daily. No current facility-administered medications for this visit. ALLERGIES: Aspirin, Bupropion, Paroxetine, Amoxicillin, Amoxicillin-Pot Clavulanate, Azithromycin, Fluoxetine, and Topiramate PERSONAL HISTORY: Social History Tobacco Use Smoking status: Never Smokeless tobacco: Never Vaping Use Vaping Use: Never used Substance Use Topics Alcohol use: Not Currently Drug use: Yes Types: Marijuana Comment: eatables at night to help sleep FAMILY HISTORY: FAMILY HISTORY Problem Relation Age of Onset Breast Cancer Mother Pancreatitis Mother Diabetes Mother other (etoh) Father Neuropathy Father Leukemia Sister REVIEW OF SYMPTOMS: The review of systems data was entered by the nurse and reviewed by nc Nursing Notes: Isa Garcia LPN 09/25/2022 8:42 AM Signed REVIEW OF SYSTEMS: General: The patient denies fatigue, denies weight loss, denies weight gain, denies feeling hot, and denies feelings of cold. Eyes: The patient denies glaucoma, denies eye injury/surgery, does not wear glasses or contacts. Ear/Nose/Throat: The patient notes allergies, denies hayfever, denies ear infections, and denies bloody noses. Cardiovascular: The patient denies chest pain, denies heart disease, notes high blood pressure,notes cardiac stent, denies prior heart attack, denies irregular heart beat, notes high cholesterol, denies poor circulation, denies heart failure, other cardiac issues, denies claudication, denies cold feet, denies peripheral arterial stent. Respiratory: The patient denies tuberculosis, denies pneumonia, denies frequent cough, denies pulmonary embolism, notes shortness of breath, and denies coughing up blood. Gastrointestinal: The patient denies difficulty swallowing, denies acid reflux, denies ulcers, denies vomiting, denies jaundice/hepatitis, denies gallbladder problems, denies black or tarry stools, denies hemorrhoids, denies bleeding from rectum, denies diverticulitis, denies constipation, denies diarrhea, denies loss of stool control, and denies hernias. Kidney/Bladder: The patient denies kidney stones, denies urine infections, and denies bloody urine. Skin: The patient denies a history of skin cancer, denies bleeding/changing moles, and denies a history of skin rash. Neurologic: The patient denies a history of epilepsy/convulsions, denies headaches, denies head/spinal injuries, and denies stroke/TIA. Psychiatric: The patient notes psychiatric medications, notes depression, and denies voices, denies substance abuse. Endocrine: The patient denies thyroid disorders, denies diabetes, and denies hormonal problems. Hematologic: The patient notes a history of bruising, denies bleeding, and denies anemia, denies blood clots. Infections: The patient denies a history of measles and mumps, denies rheumatic fever, and denies sexually transmitted diseases. Musculoskeletal: The patient notes back pain/injury, notes back problems, denies sciatica, notes knee/foot trouble, denies arthritis, or denies gout. When was patient's last Mammogram screening? none Last Colonoscopy: none Isa Garcia LPN I have confirmed and edited as necessary, the PFSH and ROS obtained by others. Reyna Solano PA-C PHYSICAL EXAMINATION: General: The patient is 47 year old male, well nourished, well hydrated in no acute distress. The patient is oriented to time, place, and person. VITALS: Blood pressure 138/82, pulse 87, temperature 36.5 C (97.7 F), height 205.7 cm (6' 9), weight 121.6 kg (268 lb), SpO2 100 %. Body mass index is 28.72 kg/m . HEENT: Normal cephalic, ataumatic, pupils are equally round, sclera are anicteric, mucous membranes are moist, oropharynx is clear. Neck has no masses, asymmetry or lymphadenopathy. Respiratory: Clear to auscultation and percussion. Normal respiratory excursion and pattern. Cardiac: Examination is regular rate and rhythm. Normal S1/S2 Abdominal exam: Soft, nontender, with no palpable masses. No hepatosplenomegaly. No palpable hernias. Extremities: no clubbing, cyanosis or edema. No adenopathy. LABORATORY VALUES: As Noted RADIOLOGIC STUDIES: As Noted Assessment IMPRESSION: encounter for screening colonoscopy PLAN: I have reviewed my findings with the surgeon. Will plan for lower endoscopy. We discussed the risks and benefits of the planned endoscopy. I have informed the patient that complications can occur including failure to complete the endoscopy and perforation. The patient had the opportunity to ask questions concerning the planned endoscopy. My staff has also explained the procedure to the patient in understandable terms and has given the patient printed material concerning the procedure. The patient freely consents to surgery. The patient was offered a surgery/procedure at a [facility] facility. I have counseled the patient regarding the risk of exposure to and/or potential harm posed by the COVID-19 virus with having a surgery/procedure at this time versus the risk of delaying the surgery/procedure. It is not possible to know either the risk of delaying the surgery or procedure or chance of getting an infection with perfect accuracy, but a joint decision was made between the patient and myself to proceed at this time with endoscopy. I plan to use Miralax/dulcolax bowel preparation We will plan for Monitored Anesthetic Care. Diagnoses: (Z12.11) Colon cancer screening Consultation requested by Mikaela Spann CNPfor an opinion regarding screening colonoscopy. My final recommendations will be communicated back to the requesting physician by way of shared Medical record or letter to requesting physician via US mail. Reyna Solano PA-C documented in this encounter [facility] 09-25-2022 Nurse Note REVIEW OF SYSTEMS: General: The patient denies fatigue, denies weight loss, denies weight gain, denies feeling hot, and denies feelings of cold. Eyes: The patient denies glaucoma, denies eye injury/surgery, does not wear glasses or contacts. Ear/Nose/Throat: The patient notes allergies, denies hayfever, denies ear infections, and denies bloody noses. Cardiovascular: The patient denies chest pain, denies heart disease, notes high blood pressure,notes cardiac stent, denies prior heart attack, denies irregular heart beat, notes high cholesterol, denies poor circulation, denies heart failure, other cardiac issues, denies claudication, denies cold feet, denies peripheral arterial stent. Respiratory: The patient denies tuberculosis, denies pneumonia, denies frequent cough, denies pulmonary embolism, notes shortness of breath, and denies coughing up blood. Gastrointestinal: The patient denies difficulty swallowing, denies acid reflux, denies ulcers, denies vomiting, denies jaundice/hepatitis, denies gallbladder problems, denies black or tarry stools, denies hemorrhoids, denies bleeding from rectum, denies diverticulitis, denies constipation, denies diarrhea, denies loss of stool control, and denies hernias. Kidney/Bladder: The patient denies kidney stones, denies urine infections, and denies bloody urine. Skin: The patient denies a history of skin cancer, denies bleeding/changing moles, and denies a history of skin rash. Neurologic: The patient denies a history of epilepsy/convulsions, denies headaches, denies head/spinal injuries, and denies stroke/TIA. Psychiatric: The patient notes psychiatric medications, notes depression, and denies voices, denies substance abuse. Endocrine: The patient denies thyroid disorders, denies diabetes, and denies hormonal problems. Hematologic: The patient notes a history of bruising, denies bleeding, and denies anemia, denies blood clots. Infections: The patient denies a history of measles and mumps, denies rheumatic fever, and denies sexually transmitted diseases. Musculoskeletal: The patient notes back pain/injury, notes back problems, denies sciatica, notes knee/foot trouble, denies arthritis, or denies gout. When was patient's last Mammogram screening? none Last Colonoscopy: none Isa Garcia LPN documented in this encounter [facility] 09-22-2022 Miscellaneous Notes Spoke with patient and he takes gabapentin for restless leg syndrome. States he started on this about 1 year ago and has been a tremendous help with sleeping at night and is sleeping better too since he has been taking this medication. Agree with below, please note and reach out to patient. We had discussed at his appointment he was planning to continue to follow with his psychiatrist. It seems they were originally prescribing this so I do recommend he reach out to them and let them know of his symptoms as they should not just be stopping this but helping to wean down if they feel it should be stopped. Saw that had last filled gabapentin 600 mg tablet twice daily on 07/30/22. Prior RX on dispense history 05/29 and 06/25. Armani Buck CNP If just ran out Sunday, looks like might not be taking twice daily every day. Were they tapering the dose but he just is not doing well since stopping the med Sunday? Should not stop med but I do not know what the plans are for his meds through the Psychiatrist and I do not know this patient. If was tapering and down to 600 mg daily, could try 300 mg once daily before stopping med or continuing tapering.. Reviewed records--he established in our group yesterday with appointment with Mikaela. I have not seen him yet. Will need more info and to discuss with Mikaela. Can we get records from his psychiatrist? Is he planning on continuing to follow with his psychiatrist? If so, should call them to let them know how he is feeling so they can manage his meds maybe right away. Pt called in and reports he just went to see his Psychiatrist and Psychologist in [place] and they have been prescribing his Gabapentin for the last two years. He states they will not prescribe it any more because they say they don't know why there were to begin with. Pt reports he hasn't had it since Sunday and is having withdrawal symptoms. Please call to let Pt know if order is sent. Patient has been identified by name and date of : Yes, Provider Dr Colby Date 09/21/22 Time 1522. Patient phones for refill(s): Requested Prescriptions Pending Prescriptions Disp Refills gabapentin (NEURONTIN) 600 mg tablet Sig: Take 1 tablet by mouth twice daily. Date of last office visit in primary care: 09/20/22 Future visit: 12/19/22 Last 2 Encounter Wt Readings: Date: Wt: 09/20/2022 121.6 kg (268 lb) 10/12/2020 127.6 kg (281 lb 6.4 oz) Previous labs/tests for medication: Blood Pressure: BUN (mg/dL) Date Value 10/14/2020 11 Sodium (mmol/L) Date Value 10/14/2020 137 Last 1 Encounter BP Readings: Date: BP: 09/20/2022 124/78 Liver Function: ALT (U/L) Date Value 10/12/2020 23 AST (U/L) Date Value 10/12/2020 23 Please advise. Thank you. Reyna Diallo RN documented in this encounter [facility] 09-20-2022 History of Presen t illness Narrative SUBJECTIVE Kwan Guzman is a 47 year old male here today to establish care. Chief Complaint Patient presents with: Establish Care Breast Problem: lumps on breast but doesn't reminder which one Dizziness: has been seen at [facility] and was suggested that he needs a CT scan HPI Kwan Guzman is a 47 year old male who presents today to establish care. Recent PCP was Isa Bennett CNP. Other providers Dr. Rodriguez with cardiology. 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 History significant for CAD with prior stent in 2021, hypertension, hyperlipidemia, angina. No issues with any chest pain, chest tightness, shortness of breath or palpations. Mental health history of depression, ADHD, bipolar, temper issues. Completed IOP last year. Concerns today include recently seen with [facility]. Issues with motion sickness, equilibrium off. ENT did a work up and felt this was more neurologic related. Recommended a Ct scan. Dizziness occurs with being in the water or on the water. Not constant. No visual issues or disturbance aside from thinking he needs glasses, appointment scheduled with [facility]. 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 Has tried numerous things. Concerned about a breast mass. He admits to having done steroids in the past and had then. He has noticed areas on both breasts. Mom has breast cancer. His medications were reviewed today and his list is now up to date. Medications Current Outpatient Medications Medication Sig furosemide (LASIX) 40 mg tablet Take 1 tablet by mouth once daily. cholecalciferol (VITAMIN D3) 5,000 unit tab Take 5,000 Units by mouth once daily. cyanocobalamin (VITAMIN B-12) 1,000 mcg tab Take 1,000 mcg by mouth once daily. omega-3 fatty acids 1,000 mg cap Take 1 g by mouth once daily. potassium gluconate 600 mg (99 mg) tab Take 1 tablet by mouth once daily. pyridoxine, vitamin B6, (VITAMIN B6) 25 mg tablet Take 25 mg by mouth once daily. clopidogrel (PLAVIX) 75 mg tablet Take 75 mg by mouth once daily. escitalopram oxalate (LEXAPRO) 20 mg tablet Take 30 mg by mouth once daily. metoprolol tartrate, short acting, (LOPRESSOR) 25 mg tablet Take 25 mg by mouth twice daily. aspirin, enteric coated (ASPIRIN, ENTERIC COATED) 81 mg EC tablet Take 81 mg by mouth once daily. atorvastatin (LIPITOR) 80 mg tablet Take 80 mg by mouth once daily. lisinopril (ZESTRIL, PRINIVIL) 10 mg tablet Take 10 mg by mouth twice daily. ALPRAZolam (XANAX) 1 mg tablet Take 1 mg by mouth once daily as needed. dextroamphetamine-amphetamine (ADDERALL) 20 mg tablet Take 1 tablet by mouth daily before breakfast. gabapentin (NEURONTIN) 600 mg tablet Take 900 mg by mouth twice daily. isosorbide mononitrate ER (IMDUR) 30 mg 24 hr tablet Take 1 tablet by mouth once daily. No current facility-administered medications for this visit. ALLERGIES Allergen Reactions Aspirin GI Upset Bupropion Unknown Paroxetine Unknown, Other: See Comments Amoxicillin Other: See Comments Amoxicillin-Pot Cla* Unknown Azithromycin Unknown, GI Upset Fluoxetine Intolerance Topiramate Intolerance ACTIVE PROBLEM LIST Coronary Artery Disease Involving [facility] - 09/20/2022 Primary Hypertension - 09/20/2022 Depression As Late Effect of Head Injury - 09/20/2022 Other Hyperlipidemia - 09/20/2022 Adult Adhd - 09/20/2022 Bipolar 1 Disorder (Hcc) - 09/20/2022 Social History Tobacco Use Smoking status: Never Smokeless tobacco: Never Substance Use Topics Alcohol use: Not Currently Review of Systems Constitutional: Negative. Respiratory: Negative. Cardiovascular: Negative. Neurological: Positive for dizziness and light-headedness. Negative for tremors, seizures, syncope, facial asymmetry, speech difficulty and weakness. OBJECTIVE BP 124/78 Pulse 82 Ht 6' 9.5 (2.07m) Wt 268 lb (121.6kg) SpO2 97% BMI 28.37 kg/(m^2). Physical Exam Vitals and nursing note reviewed. Constitutional: General: He is awake. He is not in acute distress. Appearance: Normal appearance. He is well-developed and well-groomed. He is obese. He is not ill-appearing, toxic-appearing or diaphoretic. HENT: Head: Normocephalic. Right Ear: External ear normal. Left Ear: External ear normal. Nose: Nose normal. Eyes: General: Vision grossly intact. Conjunctiva/sclera: Conjunctivae normal. Pupils: Pupils are equal, round, and reactive to light. Neck: Vascular: No JVD. Trachea: Trachea normal. Cardiovascular: Rate and Rhythm: Normal rate and regular rhythm. Pulses: Normal pulses. Heart sounds: Normal heart sounds. No murmur heard. Pulmonary: Effort: Pulmonary effort is normal. No accessory muscle usage, prolonged expiration or respiratory distress. Breath sounds: Normal breath sounds. Chest: Chest wall: No lacerations, deformity, swelling or crepitus. Breasts: Breasts are symmetrical. Right: Mass present. No swelling, bleeding, inverted nipple, nipple discharge, skin change or tenderness. Left: Mass present. No swelling, bleeding, inverted nipple, nipple discharge, skin change or tenderness. Musculoskeletal: Cervical back: Neck supple. Skin: General: Skin is warm and dry. Capillary Refill: Capillary refill takes less than 2 seconds. Neurological: General: No focal deficit present. Mental Status: He is alert and oriented to person, place, and time. Mental status is at baseline. Psychiatric: Attention and Perception: Attention and perception normal. Mood and Affect: Mood and affect normal. Speech: Speech normal. Behavior: Behavior normal. Behavior is cooperative. Thought Content: Thought content normal. Cognition and Memory: Cognition and memory normal. Judgment: Judgment normal. ASSESSMENT/PLAN: 1. Post concussion syndrome - ICD9: 310.2, ICD10: F07.81 (primary diagnosis) His symptoms seem to be consistent with a post-concussive syndrome. No red flags on neuro exam. Refer to specialist and may need to see neuro based on their evaluation. - CONSULT TO CONCUSSION SPECIALIST 2. Coronary artery disease involving cherokee heart, unspecified vessel or lesion type, unspecified whether angina present - ICD9: 414.01, ICD10: I25.10 Following with cardio 3. Breast mass in male - ICD9: 611.72, ICD10: N63.0 Check mammogram/ultrasound in light of his mother's cancer. - [facility] - US BREAST LTD RT - US BREAST LTD LT 4. Family history of breast cancer - ICD9: V16.3, ICD10: Z80.3 - [facility] - US BREAST LTD RT - US BREAST LTD LT 5. Mass of breast, unspecified laterality - ICD9: 611.72, ICD10: N63.0 - [facility] - US BREAST LTD RT - US BREAST LTD LT 6. Disorder of breast, unspecified - ICD9: 611.9, ICD10: N64.9 - [facility] - US BREAST LTD RT - US BREAST LTD LT 7. Primary hypertension - ICD9: 401.9, ICD10: I10 - good control - Encouraged dietary sodium restriction/DASH diet - Recommended regular aerobic exercise. - Recommend home blood pressure monitoring, to bring results in on next visit - Reviewed risks of HTN and principles of treatment 8. 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 Other hyperlipidemia - ICD9: 272.4, ICD10: E78.49 10. Adult ADHD - ICD9: 314.01, ICD10: F90.9 11. Bipolar 1 disorder (HCC) - ICD9: 296.7, ICD10: F31.9 12. Colon cancer screening - ICD9: V76.51, ICD10: Z12.11 - CONSULT TO GENERAL SURGERY Portions of this note have been entered by ancillary staff. I have reviewed and when necessary edited, so that they are an adequate record of my encounter with this patient Please note that parts of this document were created using voice recognition software and therefore may contain grammatical errors. Patient verbalizes understanding of instructions from today's visit and in agreement with treatment plan. Questions answered. Agrees to call the office if questions, concerns of issues with acute symptoms not improving or if they worsen. See diagnoses and orders for additional plan(s). Allergies and medications were reviewed, list was updated, and refills given if needed. Past medical, surgical, social, and family history reviewed and updated as appropriate. Encouraged proper diet & exercise as well as compliance with taking medications. Age-appropriate health preventative measures were discussed. Return in about 3 months (around 12/18/2022) for Follow up on chronic conditions and medications.. Mikaela Spann APRN-DEEPAK documented in this encounter [facility] 10-12-2020 History of Past i llness Narrative Problem Noted Date Resolved Date Chest pain 10/12/2020 09/20/2022 documented as of this encounter (statuses as of 09/20/2022) [facility]03-16[facility]2021 History of Past illness Narrative* Problem Noted Date Resolved Date Chest pain 10/12/2020 09/20/2022 documented as of this encounter (statuses as of 09/22/2022) [facility]2021 History of Past illness Narrative* Problem Noted Date Resolved Date Chest pain 10/12/2020 09/20/2022 documented as of this encounter (statuses as of 10/03/2022) [facility]21 History of Past illness Narrative* Problem Noted Date Diagnosed Date Resolved Date Chest pain 10/12/2020 09/20/2022 documented as of this encounter (statuses as of 02/08/2023) [facility]2021 History of Past illness Narrative* Problem Noted Date Diagnosed Date Resolved Date Chest pain 10/12/2020 09/20/2022 documented as of this encounter (statuses as of 05/29/2023) [facility]2021 History of Past illness Narrative* Problem Noted Date Diagnosed Date Resolved Date Chest pain 10/12/2020 09/20/2022 documented as of this encounter (statuses as of 06/04/2023) [address]16-2021 History of Past illness Narrative* Problem Noted Date Diagnosed Date Resolved Date Chest pain 10/12/2020 09/20/2022 documented as of this encounter (statuses as of 06/04/2023) [address]16-2021 History of Past illness Narrative* Problem Noted Date Diagnosed Date Resolved Date Chest pain 10/12/2020 09/20/2022 documented as of this encounter (statuses as of 06/06/2023) [address]16-2021 History of Past illness Narrative* Problem Noted Date Diagnosed Date Resolved Date Chest pain 10/12/2020 09/20/2022 documented as of this encounter (statuses as of 06/12/2023) [address]16-2021 History of Past illness Narrative* Problem Noted Date Diagnosed Date Resolved Date Chest pain 10/12/2020 09/20/2022 documented as of this encounter (statuses as of 09/04/2023) [address]16-2021 History of Past illness Narrative* Problem Noted Date Diagnosed Date Resolved Date Chest pain 10/12/2020 09/20/2022 documented as of this encounter (statuses as of 09/05/2023) [address]16-2021 History of Past illness Narrative* Problem Noted Date Diagnosed Date Resolved Date Chest pain 10/12/2020 09/20/2022 documented as of this encounter (statuses as of 09/11/2023) [address]16-2021 History of Past illness Narrative* Problem Noted Date Diagnosed Date Resolved Date Chest pain 10/12/2020 09/20/2022 documented as of this encounter (statuses as of 09/19/2023) [address]16-2021 History of Past illness Narrative* Problem Noted Date Diagnosed Date Resolved Date Chest pain 10/12/2020 09/20/2022 documented as of this encounter (statuses as of 10/02/2023) 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 Other hyperlipidemia Adult ADHD Attention deficit disorder with hyperactivity Bipolar 1 disorder (HCC) Bipolar I disorder, most recent episode (or current) unspecified Colon cancer screening Special screening for malignant neoplasms, colon [facility] Diagnosis Restless legs syndrome- Primary Restless legs syndrome (RLS) [facility]* Diagnosis Colon cancer screening Special screening for malignant neoplasms, colon documented in this encounter [facility] note* Diagnosis Class 1 obesity due to excess calories with serious comorbidity and body mass index (BMI) of 30.0 to 30.9 in adult- Primary Primary hypertension Unspecified essential hypertension Other hyperlipidemia Coronary artery disease involving [place] heart, unspecified vessel or lesion type, unspecified whether angina present Impaired fasting glucose documented in this encounter [facility] note* Diagnosis Class 1 obesity due to excess calories with serious comorbidity and body mass index (BMI) of 30.0 to 30.9 in adult Primary hypertension Unspecified essential hypertension Other hyperlipidemia Coronary artery disease involving [place] heart, unspecified vessel or lesion type, unspecified whether angina present Impaired fasting glucose [facility]* Diagnosis Mass of breast, unspecified laterality Family history of breast cancer Family history of malignant neoplasm of breast Disorder of breast, unspecified documented in this encounter [facility] note* Diagnosis Acute swimmer's ear of left side- Primary Class 1 obesity due to excess calories with serious comorbidity and body mass index (BMI) of 30.0 to 30.9 in adult Adult ADHD Attention deficit disorder with hyperactivity Bipolar 1 disorder (HCC) Bipolar I disorder, most recent episode (or current) unspecified 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 Restless legs syndrome Restless legs syndrome (RLS) documented in this encounter [facility] note* Diagnosis NO SHOW- Primary documented in this encounter [facility] note* Diagnosis Bipolar 1 disorder (HCC) Bipolar I disorder, most recent episode (or current) unspecified 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 [facility]* Diagnosis Binge eating disorder- Primary Class 1 obesity due to excess calories with serious comorbidity and body mass index (BMI) of 30.0 to 30.9 in adult IFG (impaired fasting glucose) Impaired fasting glucose Primary hypertension Unspecified essential hypertension Other hyperlipidemia Bipolar 1 disorder (HCC) Bipolar I disorder, most recent episode (or current) unspecified Adult ADHD Attention deficit disorder with hyperactivity Encounter for therapeutic drug monitoring documented in this encounter [facility] note* Diagnosis Bipolar 1 disorder (HCC)- Primary Bipolar I disorder, most recent episode (or current) unspecified Adult ADHD Attention deficit disorder with hyperactivity 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 Binge eating disorder Class 1 obesity due to excess calories with serious comorbidity and body mass index (BMI) of 30.0 to 30.9 in adult Primary hypertension Unspecified essential hypertension documented in this encounter [facility] note* Diagnosis Bipolar 1 disorder (HCC) Bipolar I disorder, most recent episode (or current) unspecified 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 documented in this encounter [facility] note* Diagnosis Restless legs syndrome Restless legs syndrome (RLS) documented in this encounter [facility] note* Diagnosis Bipolar 1 disorder (HCC) Bipolar I disorder, most recent episode (or current) unspecified documented in this encounter [facility] note* Diagnosis Bipolar 1 disorder (HCC) Bipolar I disorder, most recent episode (or current) unspecified 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 documented in this encounter [facility] note* Diagnosis Bipolar 1 disorder (HCC)- Primary Bipolar I disorder, most recent episode (or current) unspecified Adult ADHD Attention deficit disorder with hyperactivity 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 Class 1 obesity due to excess calories with serious comorbidity and body mass index (BMI) of 30.0 to 30.9 in adult [facility]* Diagnosis Bipolar disorder, in partial remission, most recent episode manic (HCC)- Primary Bipolar I disorder, most recent episode (or current) manic, in partial or unspecified remission documented in this encounter [facility] note* Diagnosis Restless legs syndrome Restless legs syndrome (RLS) Adult ADHD Attention deficit disorder with hyperactivity [facility]* Diagnosis Bipolar 1 disorder (HCC) Bipolar I disorder, most recent episode (or current) unspecified 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 Diagnosis Sciatica of right side- Primary Sciatica [facility]* Diagnosis Viral illness- Primary Unspecified viral infection, in conditions classified elsewhere and of unspecified site Sciatica of right side Sciatica [facility] Diagnosis NO SHOW- Primary [facility] Diagnosis Bipolar 1 disorder (HCC) Bipolar I disorder, most recent episode (or current) unspecified [facility] Diagnosis Restless legs syndrome Restless legs syndrome (RLS) Adult ADHD Attention deficit disorder with hyperactivity [facility] Diagnosis Bipolar 1 disorder (HCC)- Primary Bipolar I disorder, most recent episode (or current) unspecified [facility] Diagnosis Pneumonia of both lungs due to infectious organism, unspecified part of lung- Primary Diarrhea of presumed infectious origin Hypopotassemia Flu Influenza with other respiratory manifestations Non-recurrent acute suppurative otitis media of both ears without spontaneous rupture of tympanic membranes Stress and adjustment reaction Other specified adjustment reaction Encounter for therapeutic drug monitoring [facility]* Diagnosis Adult ADHD Attention deficit disorder with hyperactivity Bipolar 1 disorder (HCC) Bipolar I disorder, most recent episode (or current) unspecified [facility] Diagnosis Class 1 obesity due to excess calories with serious comorbidity and body mass index (BMI) of 33.0 to 33.9 in adult- Primary [facility] Diagnosis Adult ADHD- Primary Attention deficit disorder with hyperactivity Bipolar 1 disorder (HCC) Bipolar I disorder, most recent episode (or current) unspecified Acute right-sided low back pain with right-sided sciatica Anxiety Anxiety state, unspecified Encounter for immunization Need for other specified prophylactic vaccination against single bacterial disease Hypokalemia Hypopotassemia [facility] Diagnosis Acute right-sided low back pain with right-sided sciatica- Primary Class 1 obesity due to excess calories with serious comorbidity and body mass index (BMI) of 33.0 to 33.9 in adult Fall on ice Bipolar 1 disorder (HCC) Bipolar I disorder, most recent episode (or current) unspecified Anxiety Anxiety state, unspecified Restless legs syndrome Restless legs syndrome (RLS) Muscle strain Unspecified site of sprain and strain Generalized pain Acute on chronic back pain [facility] Diagnosis Snoring- Primary Other dyspnea and respiratory abnormality Witnessed episode of apnea Obesity (BMI 30.0-34.9) Obesity, unspecified [facility] Diagnosis Snoring Other dyspnea and respiratory abnormality Witnessed episode of apnea Obesity (BMI 30.0-34.9) Obesity, unspecified [facility] Diagnosis Snoring Other dyspnea and respiratory abnormality Witnessed episode of apnea Obesity (BMI 30.0-34.9) Obesity, unspecified [facility] Diagnosis Obesity (BMI 30.0-34.9)- Primary Obesity, unspecified Primary hypertension Unspecified essential hypertension Other hyperlipidemia Elevated glucose Other abnormal glucose Bipolar 1 disorder (HCC) Bipolar I disorder, most recent episode (or current) unspecified Anxiety Anxiety state, unspecified [facility] Diagnosis Anxiety Anxiety state, unspecified 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 Diagnosis Adult ADHD Attention deficit disorder with hyperactivity Restless legs syndrome Restless legs syndrome (RLS) Bipolar 1 disorder (HCC) Bipolar I disorder, most recent episode (or current) unspecified Anxiety Anxiety state, unspecified [facility] Diagnosis Adult ADHD Attention deficit disorder with hyperactivity Bipolar 1 disorder (HCC) Bipolar I disorder, most recent episode (or current) unspecified Anxiety Anxiety state, unspecified [facility] Diagnosis Adult ADHD- Primary Attention deficit disorder with hyperactivity Bipolar 1 disorder (HCC) Bipolar I disorder, most recent episode (or current) unspecified Anxiety Anxiety state, unspecified Encounter for therapeutic drug monitoring Obesity (BMI 30.0-34.9) Obesity, unspecified [facility] Diagnosis Neck pain- Primary Cervicalgia Acute bilateral low back pain without sciatica Anxiety Anxiety state, unspecified Restless legs syndrome Restless legs syndrome (RLS) [facility] Name Dates Details Patient Instructions Indication:Nonsmoker Start:07-Dec-2020 Instruction Type:Provider Instructions for Treatment How to Access Health Informa tion Online using Patient Portal and [employer]rd [employer] Apps Indication:Nonsmoker Start:07-Dec-2020 Instruction Type:Patient Education Patient Instructions Indication:Hypercalcemia Start:31-Aug-2020 Instruction Type:Provider Instructions for Treatment How to Access Health Informa tion Online using Patient Portal and [employer]rd [employer] Apps Indication:Nonsmoker Start:31-Aug-2020 Instruction Type:Patient Education Patient Instructions Indication:BMI 28.0-28.9,adult Start:19-Aug-2020 Instruction Type:Provider Instructions for Treatment How to Access Health Informa tion Online using Patient Portal and [employer]rd [employer] Apps Indication:BMI 28.0-28.9,adult Start:19-Aug-2020 Instruction Type:Patient Education Patient Instructions Indication:Vitamin B12 deficiency Start:13-Aug-2020 Instruction Type:Provider Instructions for Treatment How to Access Health Informa tion Online using Patient Portal and [employer]rd [employer] Apps Indication:Nonsmoker Start:13-Aug-2020 Instruction Type:Patient Education How to Access Health Informa tion Online using Patient Portal and [employer]rd [employer] Apps Indication:Nonsmoker Start:21-Jul-2020 Instruction Type:Patient Education Patient Instructions Indication:Nonsmoker Start:21-Jul-2020 Instruction Type:Provider Instructions for Treatment How to access health informa tion online Indication:Nonsmoker Start:03-Dec-2019 Instruction Type:Patient Education How to access health informa tion online - Detail Indication:Nonsmoker Start:03-Dec-2019 Instruction Type:Patient Education Patient Instructions Indication:Nonsmoker Start:03-Dec-2019 Instruction Type:Provider Instructions for Treatment How to access health informa tion online Indication:BMI 26.0-26.9,adult Start:28-Oct-2019 Instruction Type:Patient Education How to access health informa tion online - Detail Indication:BMI 26.0-26.9,adult Start:28-Oct-2019 Instruction Type:Patient Education Patient Instructions Indication:BMI 26.0-26.9,adult Start:28-Oct-2019 Instruction Type:Provider Instructions for Treatment How to access health informa tion online Indication:BMI 27.0-27.9,adult Start:09-Jul-2019 Instruction Type:Patient Education How to access health informa tion online - Detail Indication:BMI 27.0-27.9,adult Start:09-Jul-2019 Instruction Type:Patient Education Patient Instructions Indication:BMI 27.0-27.9,adult Start:09-Jul-2019 Instruction Type:Provider Instructions for Treatment How to access health informa tion online Indication:Nonsmoker Start:18-Jun-2019 Instruction Type:Patient Education How to access health informa tion online - Detail Indication:Nonsmoker Start:18-Jun-2019 Instruction Type:Patient Education Patient Instructions Indication:Encounter for screening for malignant neoplasm of prostate (Renamed from Screening for prostate cancer) Start:18-Jun-2019 Instruction Type:Provider Instructions for Treatment How to access health informa tion online Indication:Nonsmoker Start:14-Feb-2019 Instruction Type:Patient Education How to access health informa tion online - Detail Indication:Nonsmoker Start:14-Feb-2019 Instruction Type:Patient Education Patient Instructions Indication:Vitamin B12 deficiency Start:14-Feb-2019 Instruction Type:Provider Instructions for Treatment How to access health informa tion online Indication:Nonsmoker Start:15-Nov-2018 Instruction Type:Patient Education How to access health informa tion online - Detail Indication:Nonsmoker Start:15-Nov-2018 Instruction Type:Patient Education Patient Instructions Indication:Nonsmoker Start:15-Nov-2018 Instruction Type:Provider Instructions for Treatment How to access health informa tion online Indication:Anxiety and depression Start:01-Nov-2018 Instruction Type:Patient Education How to access health informa tion online - Detail Indication:Anxiety and depression Start:01-Nov-2018 Instruction Type:Patient Education Patient Instructions Indication:BMI 28.0-28.9,adult Start:01-Nov-2018 Instruction Type:Provider Instructions for Treatment [facility] Work Phone: Instructions* Name Dates Details Patient Instructions Indication:Hypercalcemia Start:31-Aug-2020 Instruction Type:Provider Instructions for Treatment How to Access Health Informa tion Online using Patient Portal and 3rd [employer] Apps Indication:Nonsmoker Start:31-Aug-2020 Instruction Type:Patient Education Patient Instructions Indication:BMI 28.0-28.9,adult Start:19-Aug-2020 Instruction Type:Provider Instructions for Treatment How to Access Health Informa tion Online using Patient Portal and 3rd [employer] Apps Indication:BMI 28.0-28.9,adult Start:19-Aug-2020 Instruction Type:Patient Education Patient Instructions Indication:Vitamin B12 deficiency Start:13-Aug-2020 Instruction Type:Provider Instructions for Treatment How to Access Health Informa tion Online using Patient Portal and [employer]rd [employer] Apps Indication:Nonsmoker Start:13-Aug-2020 Instruction Type:Patient Education How to Access Health Informa tion Online using Patient Portal and [employer]rd [employer] Apps Indication:Nonsmoker Start:21-Jul-2020 Instruction Type:Patient Education Patient Instructions Indication:Nonsmoker Start:21-Jul-2020 Instruction Type:Provider Instructions for Treatment How to access health informa tion online Indication:Nonsmoker Start:03-Dec-2019 Instruction Type:Patient Education How to access health informa tion online - Detail Indication:Nonsmoker Start:03-Dec-2019 Instruction Type:Patient Education Patient Instructions Indication:Nonsmoker Start:03-Dec-2019 Instruction Type:Provider Instructions for Treatment How to access health informa tion online Indication:BMI 26.0-26.9,adult Start:28-Oct-2019 Instruction Type:Patient Education How to access health informa tion online - Detail Indication:BMI 26.0-26.9,adult Start:28-Oct-2019 Instruction Type:Patient Education Patient Instructions Indication:BMI 26.0-26.9,adult Start:28-Oct-2019 Instruction Type:Provider Instructions for Treatment How to access health informa tion online Indication:BMI 27.0-27.9,adult Start:09-Jul-2019 Instruction Type:Patient Education How to access health informa tion online - Detail Indication:BMI 27.0-27.9,adult Start:09-Jul-2019 Instruction Type:Patient Education Patient Instructions Indication:BMI 27.0-27.9,adult Start:09-Jul-2019 Instruction Type:Provider Instructions for Treatment How to access health informa tion online Indication:Nonsmoker Start:18-Jun-2019 Instruction Type:Patient Education How to access health informa tion online - Detail Indication:Nonsmoker Start:18-Jun-2019 Instruction Type:Patient Education Patient Instructions Indication:Encounter for screening for malignant neoplasm of prostate (Renamed from Screening for prostate cancer) Start:18-Jun-2019 Instruction Type:Provider Instructions for Treatment How to access health informa tion online Indication:Nonsmoker Start:14-Feb-2019 Instruction Type:Patient Education How to access health informa tion online - Detail Indication:Nonsmoker Start:14-Feb-2019 Instruction Type:Patient Education Patient Instructions Indication:Vitamin B12 deficiency Start:14-Feb-2019 Instruction Type:Provider Instructions for Treatment How to access health informa tion online Indication:Nonsmoker Start:15-Nov-2018 Instruction Type:Patient Education How to access health informa tion online - Detail Indication:Nonsmoker Start:15-Nov-2018 Instruction Type:Patient Education Patient Instructions Indication:Nonsmoker Start:15-Nov-2018 Instruction Type:Provider Instructions for Treatment How to access health informa tion online Indication:Anxiety and depression Start:01-Nov-2018 Instruction Type:Patient Education How to access health informa tion online - Detail Indication:Anxiety and depression Start:01-Nov-2018 Instruction Type:Patient Education Patient Instructions Indication:BMI 28.0-28.9,adult Start:01-Nov-2018 Instruction Type:Provider Instructions for Treatment [facility] Work Phone: Instructions* Name Dates Details Patient Instructions Indication:Hypercalcemia Start:31-Aug-2020 Instruction Type:Provider Instructions for Treatment How to Access Health Informa tion Online using Patient Portal and 3rd [employer] Apps Indication:Nonsmoker Start:31-Aug-2020 Instruction Type:Patient Education Patient Instructions Indication:BMI 28.0-28.9,adult Start:19-Aug-2020 Instruction Type:Provider Instructions for Treatment How to Access Health Informa tion Online using Patient Portal and [employer]rd [employer] Apps Indication:BMI 28.0-28.9,adult Start:19-Aug-2020 Instruction Type:Patient Education Patient Instructions Indication:Vitamin B12 deficiency Start:13-Aug-2020 Instruction Type:Provider Instructions for Treatment How to Access Health Informa tion Online using Patient Portal and [employer]rd [employer] Apps Indication:Nonsmoker Start:13-Aug-2020 Instruction Type:Patient Education How to Access Health Informa tion Online using Patient Portal and [employer]rd [employer] Apps Indication:Nonsmoker Start:21-Jul-2020 Instruction Type:Patient Education Patient Instructions Indication:Nonsmoker Start:21-Jul-2020 Instruction Type:Provider Instructions for Treatment How to access health informa tion online Indication:Nonsmoker Start:03-Dec-2019 Instruction Type:Patient Education How to access health informa tion online - Detail Indication:Nonsmoker Start:03-Dec-2019 Instruction Type:Patient Education Patient Instructions Indication:Nonsmoker Start:03-Dec-2019 Instruction Type:Provider Instructions for Treatment How to access health informa tion online Indication:BMI 26.0-26.9,adult Start:28-Oct-2019 Instruction Type:Patient Education How to access health informa tion online - Detail Indication:BMI 26.0-26.9,adult Start:28-Oct-2019 Instruction Type:Patient Education Patient Instructions Indication:BMI 26.0-26.9,adult Start:28-Oct-2019 Instruction Type:Provider Instructions for Treatment How to access health informa tion online Indication:BMI 27.0-27.9,adult Start:09-Jul-2019 Instruction Type:Patient Education How to access health informa tion online - Detail Indication:BMI 27.0-27.9,adult Start:09-Jul-2019 Instruction Type:Patient Education Patient Instructions Indication:BMI 27.0-27.9,adult Start:09-Jul-2019 Instruction Type:Provider Instructions for Treatment How to access health informa tion online Indication:Nonsmoker Start:18-Jun-2019 Instruction Type:Patient Education How to access health informa tion online - Detail Indication:Nonsmoker Start:18-Jun-2019 Instruction Type:Patient Education Patient Instructions Indication:Encounter for screening for malignant neoplasm of prostate (Renamed from Screening for prostate cancer) Start:18-Jun-2019 Instruction Type:Provider Instructions for Treatment How to access health informa tion online Indication:Nonsmoker Start:14-Feb-2019 Instruction Type:Patient Education How to access health informa tion online - Detail Indication:Nonsmoker Start:14-Feb-2019 Instruction Type:Patient Education Patient Instructions Indication:Vitamin B12 deficiency Start:14-Feb-2019 Instruction Type:Provider Instructions for Treatment How to access health informa tion online Indication:Nonsmoker Start:15-Nov-2018 Instruction Type:Patient Education How to access health informa tion online - Detail Indication:Nonsmoker Start:15-Nov-2018 Instruction Type:Patient Education Patient Instructions Indication:Nonsmoker Start:15-Nov-2018 Instruction Type:Provider Instructions for Treatment How to access health informa tion online Indication:Anxiety and depression Start:01-Nov-2018 Instruction Type:Patient Education How to access health informa tion online - Detail Indication:Anxiety and depression Start:01-Nov-2018 Instruction Type:Patient Education Patient Instructions Indication:BMI 28.0-28.9,adult Start:01-Nov-2018 Instruction Type:Provider Instructions for Treatment [facility] Work Phone: Instructions* Name Dates Details Patient Instructions Indication:Hypercalcemia Start:31-Aug-2020 Instruction Type:Provider Instructions for Treatment How to Access Health Informa tion Online using Patient Portal and [employer]rd [employer] Apps Indication:Nonsmoker Start:31-Aug-2020 Instruction Type:Patient Education Patient Instructions Indication:BMI 28.0-28.9,adult Start:19-Aug-2020 Instruction Type:Provider Instructions for Treatment How to Access Health Informa tion Online using Patient Portal and 3rd [employer] Apps Indication:BMI 28.0-28.9,adult Start:19-Aug-2020 Instruction Type:Patient Education Patient Instructions Indication:Vitamin B12 deficiency Start:13-Aug-2020 Instruction Type:Provider Instructions for Treatment How to Access Health Informa tion Online using Patient Portal and [employer]rd [employer] Apps Indication:Nonsmoker Start:13-Aug-2020 Instruction Type:Patient Education How to Access Health Informa tion Online using Patient Portal and [employer]rd [employer] Apps Indication:Nonsmoker Start:21-Jul-2020 Instruction Type:Patient Education Patient Instructions Indication:Nonsmoker Start:21-Jul-2020 Instruction Type:Provider Instructions for Treatment How to access health informa tion online Indication:Nonsmoker Start:03-Dec-2019 Instruction Type:Patient Education How to access health informa tion online - Detail Indication:Nonsmoker Start:03-Dec-2019 Instruction Type:Patient Education Patient Instructions Indication:Nonsmoker Start:03-Dec-2019 Instruction Type:Provider Instructions for Treatment How to access health informa tion online Indication:BMI 26.0-26.9,adult Start:28-Oct-2019 Instruction Type:Patient Education How to access health informa tion online - Detail Indication:BMI 26.0-26.9,adult Start:28-Oct-2019 Instruction Type:Patient Education Patient Instructions Indication:BMI 26.0-26.9,adult Start:28-Oct-2019 Instruction Type:Provider Instructions for Treatment How to access health informa tion online Indication:BMI 27.0-27.9,adult Start:09-Jul-2019 Instruction Type:Patient Education How to access health informa tion online - Detail Indication:BMI 27.0-27.9,adult Start:09-Jul-2019 Instruction Type:Patient Education Patient Instructions Indication:BMI 27.0-27.9,adult Start:09-Jul-2019 Instruction Type:Provider Instructions for Treatment How to access health informa tion online Indication:Nonsmoker Start:18-Jun-2019 Instruction Type:Patient Education How to access health informa tion online - Detail Indication:Nonsmoker Start:18-Jun-2019 Instruction Type:Patient Education Patient Instructions Indication:Encounter for screening for malignant neoplasm of prostate (Renamed from Screening for prostate cancer) Start:18-Jun-2019 Instruction Type:Provider Instructions for Treatment How to access health informa tion online Indication:Nonsmoker Start:14-Feb-2019 Instruction Type:Patient Education How to access health informa tion online - Detail Indication:Nonsmoker Start:14-Feb-2019 Instruction Type:Patient Education Patient Instructions Indication:Vitamin B12 deficiency Start:14-Feb-2019 Instruction Type:Provider Instructions for Treatment How to access health informa tion online Indication:Nonsmoker Start:15-Nov-2018 Instruction Type:Patient Education How to access health informa tion online - Detail Indication:Nonsmoker Start:15-Nov-2018 Instruction Type:Patient Education Patient Instructions Indication:Nonsmoker Start:15-Nov-2018 Instruction Type:Provider Instructions for Treatment How to access health informa tion online Indication:Anxiety and depression Start:01-Nov-2018 Instruction Type:Patient Education How to access health informa tion online - Detail Indication:Anxiety and depression Start:01-Nov-2018 Instruction Type:Patient Education Patient Instructions Indication:BMI 28.0-28.9,adult Start:01-Nov-2018 Instruction Type:Provider Instructions for Treatment [facility]; [facility] Work Phone: Instructions* Name Dates Details Patient Instructions Indication:Hypercalcemia Start:31-Aug-2020 Instruction Type:Provider Instructions for Treatment How to Access Health Informa tion Online using Patient Portal and 3rd [employer] Apps Indication:Nonsmoker Start:31-Aug-2020 Instruction Type:Patient Education Patient Instructions Indication:BMI 28.0-28.9,adult Start:19-Aug-2020 Instruction Type:Provider Instructions for Treatment How to Access Health Informa tion Online using Patient Portal and 3rd [employer] Apps Indication:BMI 28.0-28.9,adult Start:19-Aug-2020 Instruction Type:Patient Education Patient Instructions Indication:Vitamin B12 deficiency Start:13-Aug-2020 Instruction Type:Provider Instructions for Treatment How to Access Health Informa tion Online using Patient Portal and 3rd [employer] Apps Indication:Nonsmoker Start:13-Aug-2020 Instruction Type:Patient Education How to Access Health Informa tion Online using Patient Portal and 3rd [employer] Apps Indication:Nonsmoker Start:21-Jul-2020 Instruction Type:Patient Education Patient Instructions Indication:Nonsmoker Start:21-Jul-2020 Instruction Type:Provider Instructions for Treatment How to access health informa tion online Indication:Nonsmoker Start:03-Dec-2019 Instruction Type:Patient Education How to access health informa tion online - Detail Indication:Nonsmoker Start:03-Dec-2019 Instruction Type:Patient Education Patient Instructions Indication:Nonsmoker Start:03-Dec-2019 Instruction Type:Provider Instructions for Treatment How to access health informa tion online Indication:BMI 26.0-26.9,adult Start:28-Oct-2019 Instruction Type:Patient Education How to access health informa tion online - Detail Indication:BMI 26.0-26.9,adult Start:28-Oct-2019 Instruction Type:Patient Education Patient Instructions Indication:BMI 26.0-26.9,adult Start:28-Oct-2019 Instruction Type:Provider Instructions for Treatment How to access health informa tion online Indication:BMI 27.0-27.9,adult Start:09-Jul-2019 Instruction Type:Patient Education How to access health informa tion online - Detail Indication:BMI 27.0-27.9,adult Start:09-Jul-2019 Instruction Type:Patient Education Patient Instructions Indication:BMI 27.0-27.9,adult Start:09-Jul-2019 Instruction Type:Provider Instructions for Treatment How to access health informa tion online Indication:Nonsmoker Start:18-Jun-2019 Instruction Type:Patient Education How to access health informa tion online - Detail Indication:Nonsmoker Start:18-Jun-2019 Instruction Type:Patient Education Patient Instructions Indication:Encounter for screening for malignant neoplasm of prostate (Renamed from Screening for prostate cancer) Start:18-Jun-2019 Instruction Type:Provider Instructions for Treatment How to access health informa tion online Indication:Nonsmoker Start:14-Feb-2019 Instruction Type:Patient Education How to access health informa tion online - Detail Indication:Nonsmoker Start:14-Feb-2019 Instruction Type:Patient Education Patient Instructions Indication:Vitamin B12 deficiency Start:14-Feb-2019 Instruction Type:Provider Instructions for Treatment How to access health informa tion online Indication:Nonsmoker Start:15-Nov-2018 Instruction Type:Patient Education How to access health informa tion online - Detail Indication:Nonsmoker Start:15-Nov-2018 Instruction Type:Patient Education Patient Instructions Indication:Nonsmoker Start:15-Nov-2018 Instruction Type:Provider Instructions for Treatment How to access health informa tion online Indication:Anxiety and depression Start:01-Nov-2018 Instruction Type:Patient Education How to access health informa tion online - Detail Indication:Anxiety and depression Start:01-Nov-2018 Instruction Type:Patient Education Patient Instructions Indication:BMI 28.0-28.9,adult Start:01-Nov-2018 Instruction Type:Provider Instructions for Treatment [facility]; [facility] Work Phone: reason for referral (narrative)* Diagnostic Procedure Only (Routine) - Pending Review Specialty Diagnoses / Procedures Referred By Mark watts Referred To Contact [facility] Diagnoses Breast mass in male Family history of breast cancer Mass of breast, unspecified laterality Disorder of breast, unspecified Procedures US BREAST LTD LT US BREAST UNI REAL TIME WITH IMAGE LIMITED Mikaela Spann APRN.CNP [address] [place] [id number] [facility] [address] [place] [address] Referral ID Status Reason Start Date Expiration Date Visits Requested Visits Authorized [id number] Pending Review Auto-Generat ed Referral 09/20/2022 10/20/2023 1 1 * Diagnostic Procedure Only (Routine) - Pending Review Specialty Diagnoses / Procedures Referred By Mark watts Referred To Contact [facility] Diagnoses Breast mass in male Family history of breast cancer Mass of breast, unspecified laterality Disorder of breast, unspecified Procedures US BREAST LTD RT US BREAST UNI REAL TIME WITH IMAGE LIMITED Mikaela Spann APRN.CNP [address] [place] [address] [facility] [address] [place] [address] Referral ID Status Reason Start Date Expiration Date Visits Requested Visits Authorized [id number] Pending Review Auto-Generat ed Referral 09/20/2022 10/20/2023 1 1 * Diagnostic Procedure Only (Routine) - Authorized Specialty Diagnoses / Procedures Referred By Contac t Referred To Contact [facility] Diagnoses Breast mass in male Family history of breast cancer Mass of breast, unspecified laterality Disorder of breast, unspecified Procedures [facility] [employer] [employer] DI[employer]NO[employer]IC MAMMOGRAP[employer] COMPUTER-AIDED DETCJ Mikaela Barone APRN.DIRECTOR OF NATIONAL SALES [address] [id number] [facility] [address] [place] [address] Referral ID Status Reason Start Date Expiration Date Visits Requested Visits Authorized [id number] Authorized Auto-Generat ed Referral 09/20/2022 10/20/2023 1 1 * Consult, Test, Treat (Routine) - Authorized Specialty Diagnoses / Procedures Referred By Contac t Referred To Contact General Surgery Diagnoses Colon cancer screening Procedures CONSULT TO GENERAL SURGERY OFFICE/OUTPATIENT [facility] 60-74 MINUTES Mikaela Spann APRN.CNP [address] [place], [place] [id number] Referral ID Status Reason Start Date Expiration Date Visits Requested Visits Authorized [id number] Authorized PCP Requested Referral 09/20/2022 09/20/[address] Diagnostic Procedure Only (Routine) - Closed Specialty Diagnoses / Procedures Referred By Contac t Referred To Contact [facility] Diagnoses Breast mass in male Family history of breast cancer Mass of breast, unspecified laterality Disorder of breast, unspecified Procedures [facility] DIAGNO[employer]IC MAMMOGRAPHY COMPUTER-AIDED DETCJ Mikaela Barone APRN.DIRECTOR OF [employer]ATIONAL SALES [address] [place] [address] [facility] [address] [place] [address] Referral ID Status Reason Start Date Expiration Date V isits Requested Visits Authorized [id number] Closed Auto-Generate d Referral 09/20/2022 10/20/2023 1 1 [facility] for referral (narrative)* Diagnostic Procedure Only (Routine) - New Request Specialty Diagnoses / Procedures Referred By Conthitesh t Referred To Contact [facility] Diagnoses Sciatica of right side Procedures XR LUMBAR GENERAL 3V AP/LAT/L5-S1 RADEX SPINE LUMBOSACRAL 2/3 VIEWS Mikaela Spann APRN.CNP [address] [place] [address] [place] [address] Referral ID Status Reason Start Date Expiration Date Visits Requested Visits Authorized [id number] New Request Auto-Generat ed Referral 04/02/2024 05/02/2025 1 1 [facility] for visit Narrative* Diagnostic Procedure Only (Routine) - Closed Specialty Diagnoses / Procedures Referred By Mark watts Referred To Contact [facility] Diagnoses Breast mass in male Family history of breast cancer Mass of breast, unspecified laterality Disorder of breast, unspecified Procedures [facility] DIAGNO[employer]IC MAMMOGRAPHY COMPUTER-AIDED DETCJ BI Mikaela Spann APRN.CNP [address] [place] [address] [facility] [address] [place] [address] Referral ID Status Reason Start Date Expiration Date V isits Requested Visits Authorized [id number] Closed Auto-Generate d Referral 09/20/2022 10/20/[address] [facility] Family History No Family History Records FoundUnknown Family Member Name Dates Details Father Comments:Alcohol Abuse. Status:Active Mother Comments:DM Status:Active Unknown Family Member Name Dates Details Father Comments:Alcohol Abuse. Status:Active Mother Comments:DM Status:Active Unknown Family Member Name Dates Details Father Comments:Alcohol Abuse. Status:Active Mother Comments:DM Status:Active Unknown Family Member Name Dates Details Father Comments:Alcohol Abuse. Status:Active Mother Comments:DM Status:Active Unknown Family Member Name Dates Details Father Comments:Alcohol Abuse. Status:Active Mother Comments:DM Status:Active Unknown Family Member Name Dates Details Father Comments:Alcohol Abuse. Status:Active Mother Comments:DM Status:Active Unknown Family Member Name Dates Details Father Comments:Alcohol Abuse. Status:Active Mother Comments:DM Status:Active Unknown Family Member Name Dates Details Father Comments:Alcohol Abuse. Status:Active Mother Comments:DM Status:Active Unknown Family Member Name Dates Details Father Comments:Alcohol Abuse. Status:Active Mother Comments:DM Status:Active Unknown Family Member Name Dates Details Father Comments:Alcohol Abuse. Status:Active Mother Comments:DM Status:Active Unknown Family Member Name Dates Details Father Comments:Alcohol Abuse. Status:Active Mother Comments:DM Status:Active Unknown Family Member Name Dates Details Father Comments:Alcohol Abuse. Status:Active Mother Comments:DM Status:Active Unknown Family Member Name Dates Details Father Comments:Alcohol Abuse. Status:Active Mother Comments:DM Status:Active Unknown Family Member Name Dates Details Father Comments:Alcohol Abuse. Status:Active Mother Comments:DM Status:Active Unknown Family Member Name Dates Details Father Comments:Alcohol Abuse. Status:Active Mother Comments:DM Status:Active Unknown Family Member Name Dates Details Father Comments:Alcohol Abuse. Status:Active Mother Comments:DM Status:Active Unknown Family Member Name Dates Details Father Comments:Alcohol Abuse. Status:Active Mother Comments:DM Status:Active Unknown Family Member Name Dates Details Father Comments:Alcohol Abuse. Status:Active Mother Comments:DM Status:Active Unknown Family Member Name Dates Details Father Comments:Alcohol Abuse. Status:Active Mother Comments:DM Status:Active Unknown Family Member Name Dates Details Father Comments:Alcohol Abuse. Status:Active Mother Comments:DM Status:Active Unknown Family Member Name Dates Details Father Comments:Alcohol Abuse. Status:Active Mother Comments:DM Status:Active Unknown Family Member Name Dates Details Father Comments:Alcohol Abuse. Status:Active Mother Comments:DM Status:Active Unknown Family Member Name Dates Details Father Comments:Alcohol Abuse. Status:Active Mother Comments:DM Status:Active Unknown Family Member Name Dates Details Father Comments:Alcohol Abuse. Status:Active Mother Comments:DM Status:Active Instructions Name Dates Details Anxiety and depression : How to access health information online Indication:Anxiety and depression Anxiety and depression : How to access health information online - Detail Indication:Anxiety and depression BMI 28.0-28.9,adult : Patien t Instructions Indication:BMI 28.0-28.9,adult Name Dates Details Anxiety and depression : How to access health information online Indication:Anxiety and depression Anxiety and depression : How to access health information online - Detail Indication:Anxiety and depression BMI 28.0-28.9,adult : Patien t Instructions Indication:BMI 28.0-28.9,adult Name Dates Details How to access health informa tion online Indication:Nonsmoker Start:15-Nov-2018 Instruction Type:Patient Education How to access health informa tion online - Detail Indication:Nonsmoker Start:15-Nov-2018 Instruction Type:Patient Education Patient Instructions Indication:Nonsmoker Start:15-Nov-2018 Instruction Type:Provider Instructions for Treatment How to access health informa tion online Indication:Anxiety and depression Start:01-Nov-2018 Instruction Type:Patient Education How to access health informa tion online - Detail Indication:Anxiety and depression Start:01-Nov-2018 Instruction Type:Patient Education Patient Instructions Indication:BMI 28.0-28.9,adult Start:01-Nov-2018 Instruction Type:Provider Instructions for Treatment Name Dates Details How to access health informa tion online Indication:Nonsmoker Start:15-Nov-2018 Instruction Type:Patient Education How to access health informa tion online - Detail Indication:Nonsmoker Start:15-Nov-2018 Instruction Type:Patient Education Patient Instructions Indication:Nonsmoker Start:15-Nov-2018 Instruction Type:Provider Instructions for Treatment How to access health informa tion online Indication:Anxiety and depression Start:01-Nov-2018 Instruction Type:Patient Education How to access health informa tion online - Detail Indication:Anxiety and depression Start:01-Nov-2018 Instruction Type:Patient Education Patient Instructions Indication:BMI 28.0-28.9,adult Start:01-Nov-2018 Instruction Type:Provider Instructions for Treatment Name Dates Details How to access health informa tion online Indication:Nonsmoker Start:15-Nov-2018 Instruction Type:Patient Education How to access health informa tion online - Detail Indication:Nonsmoker Start:15-Nov-2018 Instruction Type:Patient Education Patient Instructions Indication:Nonsmoker Start:15-Nov-2018 Instruction Type:Provider Instructions for Treatment How to access health informa tion online Indication:Anxiety and depression Start:01-Nov-2018 Instruction Type:Patient Education How to access health informa tion online - Detail Indication:Anxiety and depression Start:01-Nov-2018 Instruction Type:Patient Education Patient Instructions Indication:BMI 28.0-28.9,adult Start:01-Nov-2018 Instruction Type:Provider Instructions for Treatment Name Dates Details How to access health informa tion online Indication:Nonsmoker Start:14-Feb-2019 Instruction Type:Patient Education How to access health informa tion online - Detail Indication:Nonsmoker Start:14-Feb-2019 Instruction Type:Patient Education Patient Instructions Indication:Vitamin B12 deficiency Start:14-Feb-2019 Instruction Type:Provider Instructions for Treatment How to access health informa tion online Indication:Nonsmoker Start:15-Nov-2018 Instruction Type:Patient Education How to access health informa tion online - Detail Indication:Nonsmoker Start:15-Nov-2018 Instruction Type:Patient Education Patient Instructions Indication:Nonsmoker Start:15-Nov-2018 Instruction Type:Provider Instructions for Treatment How to access health informa tion online Indication:Anxiety and depression Start:01-Nov-2018 Instruction Type:Patient Education How to access health informa tion online - Detail Indication:Anxiety and depression Start:01-Nov-2018 Instruction Type:Patient Education Patient Instructions Indication:BMI 28.0-28.9,adult Start:01-Nov-2018 Instruction Type:Provider Instructions for Treatment Name Dates Details How to access health informa tion online Indication:Nonsmoker Start:06-Jun-2019 Instruction Type:Patient Education How to access health informa tion online - Detail Indication:Nonsmoker Start:06-Jun-2019 Instruction Type:Patient Education Patient Instructions Indication:Nonsmoker Start:06-Jun-2019 Instruction Type:Provider Instructions for Treatment How to access health informa tion online Indication:Nonsmoker Start:14-Feb-2019 Instruction Type:Patient Education How to access health informa tion online - Detail Indication:Nonsmoker Start:14-Feb-2019 Instruction Type:Patient Education Patient Instructions Indication:Vitamin B12 deficiency Start:14-Feb-2019 Instruction Type:Provider Instructions for Treatment How to access health informa tion online Indication:Nonsmoker Start:15-Nov-2018 Instruction Type:Patient Education How to access health informa tion online - Detail Indication:Nonsmoker Start:15-Nov-2018 Instruction Type:Patient Education Patient Instructions Indication:Nonsmoker Start:15-Nov-2018 Instruction Type:Provider Instructions for Treatment How to access health informa tion online Indication:Anxiety and depression Start:01-Nov-2018 Instruction Type:Patient Education How to access health informa tion online - Detail Indication:Anxiety and depression Start:01-Nov-2018 Instruction Type:Patient Education Patient Instructions Indication:BMI 28.0-28.9,adult Start:01-Nov-2018 Instruction Type:Provider Instructions for Treatment Name Dates Details How to access health informa tion online Indication:Nonsmoker Start:03-Dec-2019 Instruction Type:Patient Education How to access health informa tion online - Detail Indication:Nonsmoker Start:03-Dec-2019 Instruction Type:Patient Education Patient Instructions Indication:Nonsmoker Start:03-Dec-2019 Instruction Type:Provider Instructions for Treatment How to access health informa tion online Indication:BMI 26.0-26.9,adult Start:28-Oct-2019 Instruction Type:Patient Education How to access health informa tion online - Detail Indication:BMI 26.0-26.9,adult Start:28-Oct-2019 Instruction Type:Patient Education Patient Instructions Indication:BMI 26.0-26.9,adult Start:28-Oct-2019 Instruction Type:Provider Instructions for Treatment How to access health informa tion online Indication:BMI 27.0-27.9,adult Start:09-Jul-2019 Instruction Type:Patient Education How to access health informa tion online - Detail Indication:BMI 27.0-27.9,adult Start:09-Jul-2019 Instruction Type:Patient Education Patient Instructions Indication:BMI 27.0-27.9,adult Start:09-Jul-2019 Instruction Type:Provider Instructions for Treatment How to access health informa tion online Indication:Nonsmoker Start:18-Jun-2019 Instruction Type:Patient Education How to access health informa tion online - Detail Indication:Nonsmoker Start:18-Jun-2019 Instruction Type:Patient Education Patient Instructions Indication:Encounter for screening for malignant neoplasm of prostate (Renamed from Screening for prostate cancer) Start:18-Jun-2019 Instruction Type:Provider Instructions for Treatment How to access health informa tion online Indication:Nonsmoker Start:14-Feb-2019 Instruction Type:Patient Education How to access health informa tion online - Detail Indication:Nonsmoker Start:14-Feb-2019 Instruction Type:Patient Education Patient Instructions Indication:Vitamin B12 deficiency Start:14-Feb-2019 Instruction Type:Provider Instructions for Treatment How to access health informa tion online Indication:Nonsmoker Start:15-Nov-2018 Instruction Type:Patient Education How to access health informa tion online - Detail Indication:Nonsmoker Start:15-Nov-2018 Instruction Type:Patient Education Patient Instructions Indication:Nonsmoker Start:15-Nov-2018 Instruction Type:Provider Instructions for Treatment How to access health informa tion online Indication:Anxiety and depression Start:01-Nov-2018 Instruction Type:Patient Education How to access health informa tion online - Detail Indication:Anxiety and depression Start:01-Nov-2018 Instruction Type:Patient Education Patient Instructions Indication:BMI 28.0-28.9,adult Start:01-Nov-2018 Instruction Type:Provider Instructions for Treatment Name Dates Details How to access health informa tion online Indication:Nonsmoker Start:03-Dec-2019 Instruction Type:Patient Education How to access health informa tion online - Detail Indication:Nonsmoker Start:03-Dec-2019 Instruction Type:Patient Education Patient Instructions Indication:Nonsmoker Start:03-Dec-2019 Instruction Type:Provider Instructions for Treatment How to access health informa tion online Indication:BMI 26.0-26.9,adult Start:28-Oct-2019 Instruction Type:Patient Education How to access health informa tion online - Detail Indication:BMI 26.0-26.9,adult Start:28-Oct-2019 Instruction Type:Patient Education Patient Instructions Indication:BMI 26.0-26.9,adult Start:28-Oct-2019 Instruction Type:Provider Instructions for Treatment How to access health informa tion online Indication:BMI 27.0-27.9,adult Start:09-Jul-2019 Instruction Type:Patient Education How to access health informa tion online - Detail Indication:BMI 27.0-27.9,adult Start:09-Jul-2019 Instruction Type:Patient Education Patient Instructions Indication:BMI 27.0-27.9,adult Start:09-Jul-2019 Instruction Type:Provider Instructions for Treatment How to access health informa tion online Indication:Nonsmoker Start:18-Jun-2019 Instruction Type:Patient Education How to access health informa tion online - Detail Indication:Nonsmoker Start:18-Jun-2019 Instruction Type:Patient Education Patient Instructions Indication:Encounter for screening for malignant neoplasm of prostate (Renamed from Screening for prostate cancer) Start:18-Jun-2019 Instruction Type:Provider Instructions for Treatment How to access health informa tion online Indication:Nonsmoker Start:14-Feb-2019 Instruction Type:Patient Education How to access health informa tion online - Detail Indication:Nonsmoker Start:14-Feb-2019 Instruction Type:Patient Education Patient Instructions Indication:Vitamin B12 deficiency Start:14-Feb-2019 Instruction Type:Provider Instructions for Treatment How to access health informa tion online Indication:Nonsmoker Start:15-Nov-2018 Instruction Type:Patient Education How to access health informa tion online - Detail Indication:Nonsmoker Start:15-Nov-2018 Instruction Type:Patient Education Patient Instructions Indication:Nonsmoker Start:15-Nov-2018 Instruction Type:Provider Instructions for Treatment How to access health informa tion online Indication:Anxiety and depression Start:01-Nov-2018 Instruction Type:Patient Education How to access health informa tion online - Detail Indication:Anxiety and depression Start:01-Nov-2018 Instruction Type:Patient Education Patient Instructions Indication:BMI 28.0-28.9,adult Start:01-Nov-2018 Instruction Type:Provider Instructions for Treatment Name Dates Details How to Access Health Informa tion Online using Patient Portal and [employer] Apps Indication:Nonsmoker Start:21-Jul-2020 Instruction Type:Patient Education Patient Instructions Indication:Nonsmoker Start:21-Jul-2020 Instruction Type:Provider Instructions for Treatment How to access health informa tion online Indication:Nonsmoker Start:03-Dec-2019 Instruction Type:Patient Education How to access health informa tion online - Detail Indication:Nonsmoker Start:03-Dec-2019 Instruction Type:Patient Education Patient Instructions Indication:Nonsmoker Start:03-Dec-2019 Instruction Type:Provider Instructions for Treatment How to access health informa tion online Indication:BMI 26.0-26.9,adult Start:28-Oct-2019 Instruction Type:Patient Education How to access health informa tion online - Detail Indication:BMI 26.0-26.9,adult Start:28-Oct-2019 Instruction Type:Patient Education Patient Instructions Indication:BMI 26.0-26.9,adult Start:28-Oct-2019 Instruction Type:Provider Instructions for Treatment How to access health informa tion online Indication:BMI 27.0-27.9,adult Start:09-Jul-2019 Instruction Type:Patient Education How to access health informa tion online - Detail Indication:BMI 27.0-27.9,adult Start:09-Jul-2019 Instruction Type:Patient Education Patient Instructions Indication:BMI 27.0-27.9,adult Start:09-Jul-2019 Instruction Type:Provider Instructions for Treatment How to access health informa tion online Indication:Nonsmoker Start:18-Jun-2019 Instruction Type:Patient Education How to access health informa tion online - Detail Indication:Nonsmoker Start:18-Jun-2019 Instruction Type:Patient Education Patient Instructions Indication:Encounter for screening for malignant neoplasm of prostate (Renamed from Screening for prostate cancer) Start:18-Jun-2019 Instruction Type:Provider Instructions for Treatment How to access health informa tion online Indication:Nonsmoker Start:14-Feb-2019 Instruction Type:Patient Education How to access health informa tion online - Detail Indication:Nonsmoker Start:14-Feb-2019 Instruction Type:Patient Education Patient Instructions Indication:Vitamin B12 deficiency Start:14-Feb-2019 Instruction Type:Provider Instructions for Treatment How to access health informa tion online Indication:Nonsmoker Start:15-Nov-2018 Instruction Type:Patient Education How to access health informa tion online - Detail Indication:Nonsmoker Start:15-Nov-2018 Instruction Type:Patient Education Patient Instructions Indication:Nonsmoker Start:15-Nov-2018 Instruction Type:Provider Instructions for Treatment How to access health informa tion online Indication:Anxiety and depression Start:01-Nov-2018 Instruction Type:Patient Education How to access health informa tion online - Detail Indication:Anxiety and depression Start:01-Nov-2018 Instruction Type:Patient Education Patient Instructions Indication:BMI 28.0-28.9,adult Start:01-Nov-2018 Instruction Type:Provider Instructions for Treatment Name Dates Details Patient Instructions Indication:Hypercalcemia Start:31-Aug-2020 Instruction Type:Provider Instructions for Treatment How to Access Health Informa tion Online using Patient Portal and [employer]rd [employer] Apps Indication:Nonsmoker Start:31-Aug-2020 Instruction Type:Patient Education Patient Instructions Indication:BMI 28.0-28.9,adult Start:19-Aug-2020 Instruction Type:Provider Instructions for Treatment How to Access Health Informa tion Online using Patient Portal and [employer]rd [employer] Apps Indication:BMI 28.0-28.9,adult Start:19-Aug-2020 Instruction Type:Patient Education Patient Instructions Indication:Vitamin B12 deficiency Start:13-Aug-2020 Instruction Type:Provider Instructions for Treatment How to Access Health Informa tion Online using Patient Portal and [employer]rd [employer] Apps Indication:Nonsmoker Start:13-Aug-2020 Instruction Type:Patient Education How to Access Health Informa tion Online using Patient Portal and [employer]rd [employer] Apps Indication:Nonsmoker Start:21-Jul-2020 Instruction Type:Patient Education Patient Instructions Indication:Nonsmoker Start:21-Jul-2020 Instruction Type:Provider Instructions for Treatment How to access health informa tion online Indication:Nonsmoker Start:03-Dec-2019 Instruction Type:Patient Education How to access health informa tion online - Detail Indication:Nonsmoker Start:03-Dec-2019 Instruction Type:Patient Education Patient Instructions Indication:Nonsmoker Start:03-Dec-2019 Instruction Type:Provider Instructions for Treatment How to access health informa tion online Indication:BMI 26.0-26.9,adult Start:28-Oct-2019 Instruction Type:Patient Education How to access health informa tion online - Detail Indication:BMI 26.0-26.9,adult Start:28-Oct-2019 Instruction Type:Patient Education Patient Instructions Indication:BMI 26.0-26.9,adult Start:28-Oct-2019 Instruction Type:Provider Instructions for Treatment How to access health informa tion online Indication:BMI 27.0-27.9,adult Start:09-Jul-2019 Instruction Type:Patient Education How to access health informa tion online - Detail Indication:BMI 27.0-27.9,adult Start:09-Jul-2019 Instruction Type:Patient Education Patient Instructions Indication:BMI 27.0-27.9,adult Start:09-Jul-2019 Instruction Type:Provider Instructions for Treatment How to access health informa tion online Indication:Nonsmoker Start:18-Jun-2019 Instruction Type:Patient Education How to access health informa tion online - Detail Indication:Nonsmoker Start:18-Jun-2019 Instruction Type:Patient Education Patient Instructions Indication:Encounter for screening for malignant neoplasm of prostate (Renamed from Screening for prostate cancer) Start:18-Jun-2019 Instruction Type:Provider Instructions for Treatment How to access health informa tion online Indication:Nonsmoker Start:14-Feb-2019 Instruction Type:Patient Education How to access health informa tion online - Detail Indication:Nonsmoker Start:14-Feb-2019 Instruction Type:Patient Education Patient Instructions Indication:Vitamin B12 deficiency Start:14-Feb-2019 Instruction Type:Provider Instructions for Treatment How to access health informa tion online Indication:Nonsmoker Start:15-Nov-2018 Instruction Type:Patient Education How to access health informa tion online - Detail Indication:Nonsmoker Start:15-Nov-2018 Instruction Type:Patient Education Patient Instructions Indication:Nonsmoker Start:15-Nov-2018 Instruction Type:Provider Instructions for Treatment How to access health informa tion online Indication:Anxiety and depression Start:01-Nov-2018 Instruction Type:Patient Education How to access health informa tion online - Detail Indication:Anxiety and depression Start:01-Nov-2018 Instruction Type:Patient Education Patient Instructions Indication:BMI 28.0-28.9,adult Start:01-Nov-2018 Instruction Type:Provider Instructions for Treatment Name Dates Details Patient Instructions Indication:Hypercalcemia Start:31-Aug-2020 Instruction Type:Provider Instructions for Treatment How to Access Health Informa tion Online using Patient Portal and [employer]rd [employer] Apps Indication:Nonsmoker Start:31-Aug-2020 Instruction Type:Patient Education Patient Instructions Indication:BMI 28.0-28.9,adult Start:19-Aug-2020 Instruction Type:Provider Instructions for Treatment How to Access Health Informa tion Online using Patient Portal and [employer]rd [employer] Apps Indication:BMI 28.0-28.9,adult Start:19-Aug-2020 Instruction Type:Patient Education Patient Instructions Indication:Vitamin B12 deficiency Start:13-Aug-2020 Instruction Type:Provider Instructions for Treatment How to Access Health Informa tion Online using Patient Portal and [employer] Apps Indication:Nonsmoker Start:13-Aug-2020 Instruction Type:Patient Education How to Access Health Informa tion Online using Patient Portal and [employer] Apps Indication:Nonsmoker Start:21-Jul-2020 Instruction Type:Patient Education Patient Instructions Indication:Nonsmoker Start:21-Jul-2020 Instruction Type:Provider Instructions for Treatment How to access health informa tion online Indication:Nonsmoker Start:03-Dec-2019 Instruction Type:Patient Education How to access health informa tion online - Detail Indication:Nonsmoker Start:03-Dec-2019 Instruction Type:Patient Education Patient Instructions Indication:Nonsmoker Start:03-Dec-2019 Instruction Type:Provider Instructions for Treatment How to access health informa tion online Indication:BMI 26.0-26.9,adult Start:28-Oct-2019 Instruction Type:Patient Education How to access health informa tion online - Detail Indication:BMI 26.0-26.9,adult Start:28-Oct-2019 Instruction Type:Patient Education Patient Instructions Indication:BMI 26.0-26.9,adult Start:28-Oct-2019 Instruction Type:Provider Instructions for Treatment How to access health informa tion online Indication:BMI 27.0-27.9,adult Start:09-Jul-2019 Instruction Type:Patient Education How to access health informa tion online - Detail Indication:BMI 27.0-27.9,adult Start:09-Jul-2019 Instruction Type:Patient Education Patient Instructions Indication:BMI 27.0-27.9,adult Start:09-Jul-2019 Instruction Type:Provider Instructions for Treatment How to access health informa tion online Indication:Nonsmoker Start:18-Jun-2019 Instruction Type:Patient Education How to access health informa tion online - Detail Indication:Nonsmoker Start:18-Jun-2019 Instruction Type:Patient Education Patient Instructions Indication:Encounter for screening for malignant neoplasm of prostate (Renamed from Screening for prostate cancer) Start:18-Jun-2019 Instruction Type:Provider Instructions for Treatment How to access health informa tion online Indication:Nonsmoker Start:14-Feb-2019 Instruction Type:Patient Education How to access health informa tion online - Detail Indication:Nonsmoker Start:14-Feb-2019 Instruction Type:Patient Education Patient Instructions Indication:Vitamin B12 deficiency Start:14-Feb-2019 Instruction Type:Provider Instructions for Treatment How to access health informa tion online Indication:Nonsmoker Start:15-Nov-2018 Instruction Type:Patient Education How to access health informa tion online - Detail Indication:Nonsmoker Start:15-Nov-2018 Instruction Type:Patient Education Patient Instructions Indication:Nonsmoker Start:15-Nov-2018 Instruction Type:Provider Instructions for Treatment How to access health informa tion online Indication:Anxiety and depression Start:01-Nov-2018 Instruction Type:Patient Education How to access health informa tion online - Detail Indication:Anxiety and depression Start:01-Nov-2018 Instruction Type:Patient Education Patient Instructions Indication:BMI 28.0-28.9,adult Start:01-Nov-2018 Instruction Type:Provider Instructions for Treatment Name Dates Details Patient Instructions Indication:Vitamin B12 deficiency Start:13-Aug-2020 Instruction Type:Provider Instructions for Treatment How to Access Health Informa tion Online using Patient Portal and [employer]rd [employer] Apps Indication:Nonsmoker Start:13-Aug-2020 Instruction Type:Patient Education How to Access Health Informa tion Online using Patient Portal and [employer]rd [employer] Apps Indication:Nonsmoker Start:21-Jul-2020 Instruction Type:Patient Education Patient Instructions Indication:Nonsmoker Start:21-Jul-2020 Instruction Type:Provider Instructions for Treatment How to access health informa tion online Indication:Nonsmoker Start:03-Dec-2019 Instruction Type:Patient Education How to access health informa tion online - Detail Indication:Nonsmoker Start:03-Dec-2019 Instruction Type:Patient Education Patient Instructions Indication:Nonsmoker Start:03-Dec-2019 Instruction Type:Provider Instructions for Treatment How to access health informa tion online Indication:BMI 26.0-26.9,adult Start:28-Oct-2019 Instruction Type:Patient Education How to access health informa tion online - Detail Indication:BMI 26.0-26.9,adult Start:28-Oct-2019 Instruction Type:Patient Education Patient Instructions Indication:BMI 26.0-26.9,adult Start:28-Oct-2019 Instruction Type:Provider Instructions for Treatment How to access health informa tion online Indication:BMI 27.0-27.9,adult Start:09-Jul-2019 Instruction Type:Patient Education How to access health informa tion online - Detail Indication:BMI 27.0-27.9,adult Start:09-Jul-2019 Instruction Type:Patient Education Patient Instructions Indication:BMI 27.0-27.9,adult Start:09-Jul-2019 Instruction Type:Provider Instructions for Treatment How to access health informa tion online Indication:Nonsmoker Start:18-Jun-2019 Instruction Type:Patient Education How to access health informa tion online - Detail Indication:Nonsmoker Start:18-Jun-2019 Instruction Type:Patient Education Patient Instructions Indication:Encounter for screening for malignant neoplasm of prostate (Renamed from Screening for prostate cancer) Start:18-Jun-2019 Instruction Type:Provider Instructions for Treatment How to access health informa tion online Indication:Nonsmoker Start:14-Feb-2019 Instruction Type:Patient Education How to access health informa tion online - Detail Indication:Nonsmoker Start:14-Feb-2019 Instruction Type:Patient Education Patient Instructions Indication:Vitamin B12 deficiency Start:14-Feb-2019 Instruction Type:Provider Instructions for Treatment How to access health informa tion online Indication:Nonsmoker Start:15-Nov-2018 Instruction Type:Patient Education How to access health informa tion online - Detail Indication:Nonsmoker Start:15-Nov-2018 Instruction Type:Patient Education Patient Instructions Indication:Nonsmoker Start:15-Nov-2018 Instruction Type:Provider Instructions for Treatment How to access health informa tion online Indication:Anxiety and depression Start:01-Nov-2018 Instruction Type:Patient Education How to access health informa tion online - Detail Indication:Anxiety and depression Start:01-Nov-2018 Instruction Type:Patient Education Patient Instructions Indication:BMI 28.0-28.9,adult Start:01-Nov-2018 Instruction Type:Provider Instructions for Treatment Name Dates Details Patient Instructions Indication:Hypercalcemia Start:31-Aug-2020 Instruction Type:Provider Instructions for Treatment How to Access Health Informa tion Online using Patient Portal and 3rd [employer] Apps Indication:Nonsmoker Start:31-Aug-2020 Instruction Type:Patient Education Patient Instructions Indication:BMI 28.0-28.9,adult Start:19-Aug-2020 Instruction Type:Provider Instructions for Treatment How to Access Health Informa tion Online using Patient Portal and 3rd [employer] Apps Indication:BMI 28.0-28.9,adult Start:19-Aug-2020 Instruction Type:Patient Education Patient Instructions Indication:Vitamin B12 deficiency Start:13-Aug-2020 Instruction Type:Provider Instructions for Treatment How to Access Health Informa tion Online using Patient Portal and 3rd [employer] Apps Indication:Nonsmoker Start:13-Aug-2020 Instruction Type:Patient Education How to Access Health Informa tion Online using Patient Portal and [employer]rd [employer] Apps Indication:Nonsmoker Start:21-Jul-2020 Instruction Type:Patient Education Patient Instructions Indication:Nonsmoker Start:21-Jul-2020 Instruction Type:Provider Instructions for Treatment How to access health informa tion online Indication:Nonsmoker Start:03-Dec-2019 Instruction Type:Patient Education How to access health informa tion online - Detail Indication:Nonsmoker Start:03-Dec-2019 Instruction Type:Patient Education Patient Instructions Indication:Nonsmoker Start:03-Dec-2019 Instruction Type:Provider Instructions for Treatment How to access health informa tion online Indication:BMI 26.0-26.9,adult Start:28-Oct-2019 Instruction Type:Patient Education How to access health informa tion online - Detail Indication:BMI 26.0-26.9,adult Start:28-Oct-2019 Instruction Type:Patient Education Patient Instructions Indication:BMI 26.0-26.9,adult Start:28-Oct-2019 Instruction Type:Provider Instructions for Treatment How to access health informa tion online Indication:BMI 27.0-27.9,adult Start:09-Jul-2019 Instruction Type:Patient Education How to access health informa tion online - Detail Indication:BMI 27.0-27.9,adult Start:09-Jul-2019 Instruction Type:Patient Education Patient Instructions Indication:BMI 27.0-27.9,adult Start:09-Jul-2019 Instruction Type:Provider Instructions for Treatment How to access health informa tion online Indication:Nonsmoker Start:18-Jun-2019 Instruction Type:Patient Education How to access health informa tion online - Detail Indication:Nonsmoker Start:18-Jun-2019 Instruction Type:Patient Education Patient Instructions Indication:Encounter for screening for malignant neoplasm of prostate (Renamed from Screening for prostate cancer) Start:18-Jun-2019 Instruction Type:Provider Instructions for Treatment How to access health informa tion online Indication:Nonsmoker Start:14-Feb-2019 Instruction Type:Patient Education How to access health informa tion online - Detail Indication:Nonsmoker Start:14-Feb-2019 Instruction Type:Patient Education Patient Instructions Indication:Vitamin B12 deficiency Start:14-Feb-2019 Instruction Type:Provider Instructions for Treatment How to access health informa tion online Indication:Nonsmoker Start:15-Nov-2018 Instruction Type:Patient Education How to access health informa tion online - Detail Indication:Nonsmoker Start:15-Nov-2018 Instruction Type:Patient Education Patient Instructions Indication:Nonsmoker Start:15-Nov-2018 Instruction Type:Provider Instructions for Treatment How to access health informa tion online Indication:Anxiety and depression Start:01-Nov-2018 Instruction Type:Patient Education How to access health informa tion online - Detail Indication:Anxiety and depression Start:01-Nov-2018 Instruction Type:Patient Education Patient Instructions Indication:BMI 28.0-28.9,adult Start:01-Nov-2018 Instruction Type:Provider Instructions for Treatment Name Dates Details Patient Instructions Indication:Hypercalcemia Start:31-Aug-2020 Instruction Type:Provider Instructions for Treatment How to Access Health Informa tion Online using Patient Portal and [employer]rd [employer] Apps Indication:Nonsmoker Start:31-Aug-2020 Instruction Type:Patient Education Patient Instructions Indication:BMI 28.0-28.9,adult Start:19-Aug-2020 Instruction Type:Provider Instructions for Treatment How to Access Health Informa tion Online using Patient Portal and [employer]rd [employer] Apps Indication:BMI 28.0-28.9,adult Start:19-Aug-2020 Instruction Type:Patient Education Patient Instructions Indication:Vitamin B12 deficiency Start:13-Aug-2020 Instruction Type:Provider Instructions for Treatment How to Access Health Informa tion Online using Patient Portal and [employer]rd [employer] Apps Indication:Nonsmoker Start:13-Aug-2020 Instruction Type:Patient Education How to Access Health Informa tion Online using Patient Portal and [employer]rd [employer] Apps Indication:Nonsmoker Start:21-Jul-2020 Instruction Type:Patient Education Patient Instructions Indication:Nonsmoker Start:21-Jul-2020 Instruction Type:Provider Instructions for Treatment How to access health informa tion online Indication:Nonsmoker Start:03-Dec-2019 Instruction Type:Patient Education How to access health informa tion online - Detail Indication:Nonsmoker Start:03-Dec-2019 Instruction Type:Patient Education Patient Instructions Indication:Nonsmoker Start:03-Dec-2019 Instruction Type:Provider Instructions for Treatment How to access health informa tion online Indication:BMI 26.0-26.9,adult Start:28-Oct-2019 Instruction Type:Patient Education How to access health informa tion online - Detail Indication:BMI 26.0-26.9,adult Start:28-Oct-2019 Instruction Type:Patient Education Patient Instructions Indication:BMI 26.0-26.9,adult Start:28-Oct-2019 Instruction Type:Provider Instructions for Treatment How to access health informa tion online Indication:BMI 27.0-27.9,adult Start:09-Jul-2019 Instruction Type:Patient Education How to access health informa tion online - Detail Indication:BMI 27.0-27.9,adult Start:09-Jul-2019 Instruction Type:Patient Education Patient Instructions Indication:BMI 27.0-27.9,adult Start:09-Jul-2019 Instruction Type:Provider Instructions for Treatment How to access health informa tion online Indication:Nonsmoker Start:18-Jun-2019 Instruction Type:Patient Education How to access health informa tion online - Detail Indication:Nonsmoker Start:18-Jun-2019 Instruction Type:Patient Education Patient Instructions Indication:Encounter for screening for malignant neoplasm of prostate (Renamed from Screening for prostate cancer) Start:18-Jun-2019 Instruction Type:Provider Instructions for Treatment How to access health informa tion online Indication:Nonsmoker Start:14-Feb-2019 Instruction Type:Patient Education How to access health informa tion online - Detail Indication:Nonsmoker Start:14-Feb-2019 Instruction Type:Patient Education Patient Instructions Indication:Vitamin B12 deficiency Start:14-Feb-2019 Instruction Type:Provider Instructions for Treatment How to access health informa tion online Indication:Nonsmoker Start:15-Nov-2018 Instruction Type:Patient Education How to access health informa tion online - Detail Indication:Nonsmoker Start:15-Nov-2018 Instruction Type:Patient Education Patient Instructions Indication:Nonsmoker Start:15-Nov-2018 Instruction Type:Provider Instructions for Treatment How to access health informa tion online Indication:Anxiety and depression Start:01-Nov-2018 Instruction Type:Patient Education How to access health informa tion online - Detail Indication:Anxiety and depression Start:01-Nov-2018 Instruction Type:Patient Education Patient Instructions Indication:BMI 28.0-28.9,adult Start:01-Nov-2018 Instruction Type:Provider Instructions for Treatment Name Dates Details How to access health informa tion online Indication:Nonsmoker Start:14-Feb-2019 Instruction Type:Patient Education How to access health informa tion online - Detail Indication:Nonsmoker Start:14-Feb-2019 Instruction Type:Patient Education Patient Instructions Indication:Vitamin B12 deficiency Start:14-Feb-2019 Instruction Type:Provider Instructions for Treatment How to access health informa tion online Indication:Nonsmoker Start:15-Nov-2018 Instruction Type:Patient Education How to access health informa tion online - Detail Indication:Nonsmoker Start:15-Nov-2018 Instruction Type:Patient Education Patient Instructions Indication:Nonsmoker Start:15-Nov-2018 Instruction Type:Provider Instructions for Treatment How to access health informa tion online Indication:Anxiety and depression Start:01-Nov-2018 Instruction Type:Patient Education How to access health informa tion online - Detail Indication:Anxiety and depression Start:01-Nov-2018 Instruction Type:Patient Education Patient Instructions Indication:BMI 28.0-28.9,adult Start:01-Nov-2018 Instruction Type:Provider Instructions for Treatment Name Dates Details Patient Instructions Indication:Hypercalcemia Start:31-Aug-2020 Instruction Type:Provider Instructions for Treatment How to Access Health Informa tion Online using Patient Portal and [employer]rd [employer] Apps Indication:Nonsmoker Start:31-Aug-2020 Instruction Type:Patient Education Patient Instructions Indication:BMI 28.0-28.9,adult Start:19-Aug-2020 Instruction Type:Provider Instructions for Treatment How to Access Health Informa tion Online using Patient Portal and [employer]rd [employer] Apps Indication:BMI 28.0-28.9,adult Start:19-Aug-2020 Instruction Type:Patient Education Patient Instructions Indication:Vitamin B12 deficiency Start:13-Aug-2020 Instruction Type:Provider Instructions for Treatment How to Access Health Informa tion Online using Patient Portal and 3rd [employer] Apps Indication:Nonsmoker Start:13-Aug-2020 Instruction Type:Patient Education How to Access Health Informa tion Online using Patient Portal and [employer]rd [employer] Apps Indication:Nonsmoker Start:21-Jul-2020 Instruction Type:Patient Education Patient Instructions Indication:Nonsmoker Start:21-Jul-2020 Instruction Type:Provider Instructions for Treatment How to access health informa tion online Indication:Nonsmoker Start:03-Dec-2019 Instruction Type:Patient Education How to access health informa tion online - Detail Indication:Nonsmoker Start:03-Dec-2019 Instruction Type:Patient Education Patient Instructions Indication:Nonsmoker Start:03-Dec-2019 Instruction Type:Provider Instructions for Treatment How to access health informa tion online Indication:BMI 26.0-26.9,adult Start:28-Oct-2019 Instruction Type:Patient Education How to access health informa tion online - Detail Indication:BMI 26.0-26.9,adult Start:28-Oct-2019 Instruction Type:Patient Education Patient Instructions Indication:BMI 26.0-26.9,adult Start:28-Oct-2019 Instruction Type:Provider Instructions for Treatment How to access health informa tion online Indication:BMI 27.0-27.9,adult Start:09-Jul-2019 Instruction Type:Patient Education How to access health informa tion online - Detail Indication:BMI 27.0-27.9,adult Start:09-Jul-2019 Instruction Type:Patient Education Patient Instructions Indication:BMI 27.0-27.9,adult Start:09-Jul-2019 Instruction Type:Provider Instructions for Treatment How to access health informa tion online Indication:Nonsmoker Start:18-Jun-2019 Instruction Type:Patient Education How to access health informa tion online - Detail Indication:Nonsmoker Start:18-Jun-2019 Instruction Type:Patient Education Patient Instructions Indication:Encounter for screening for malignant neoplasm of prostate (Renamed from Screening for prostate cancer) Start:18-Jun-2019 Instruction Type:Provider Instructions for Treatment How to access health informa tion online Indication:Nonsmoker Start:14-Feb-2019 Instruction Type:Patient Education How to access health informa tion online - Detail Indication:Nonsmoker Start:14-Feb-2019 Instruction Type:Patient Education Patient Instructions Indication:Vitamin B12 deficiency Start:14-Feb-2019 Instruction Type:Provider Instructions for Treatment How to access health informa tion online Indication:Nonsmoker Start:15-Nov-2018 Instruction Type:Patient Education How to access health informa tion online - Detail Indication:Nonsmoker Start:15-Nov-2018 Instruction Type:Patient Education Patient Instructions Indication:Nonsmoker Start:15-Nov-2018 Instruction Type:Provider Instructions for Treatment How to access health informa tion online Indication:Anxiety and depression Start:01-Nov-2018 Instruction Type:Patient Education How to access health informa tion online - Detail Indication:Anxiety and depression Start:01-Nov-2018 Instruction Type:Patient Education Patient Instructions Indication:BMI 28.0-28.9,adult Start:01-Nov-2018 Instruction Type:Provider Instructions for Treatment Name Dates Details How to access health informa tion online Indication:Nonsmoker Start:14-Feb-2019 Instruction Type:Patient Education How to access health informa tion online - Detail Indication:Nonsmoker Start:14-Feb-2019 Instruction Type:Patient Education Patient Instructions Indication:Vitamin B12 deficiency Start:14-Feb-2019 Instruction Type:Provider Instructions for Treatment How to access health informa tion online Indication:Nonsmoker Start:15-Nov-2018 Instruction Type:Patient Education How to access health informa tion online - Detail Indication:Nonsmoker Start:15-Nov-2018 Instruction Type:Patient Education Patient Instructions Indication:Nonsmoker Start:15-Nov-2018 Instruction Type:Provider Instructions for Treatment How to access health informa tion online Indication:Anxiety and depression Start:01-Nov-2018 Instruction Type:Patient Education How to access health informa tion online - Detail Indication:Anxiety and depression Start:01-Nov-2018 Instruction Type:Patient Education Patient Instructions Indication:BMI 28.0-28.9,adult Start:01-Nov-2018 Instruction Type:Provider Instructions for Treatment Name Dates Details Patient Instructions Indication:Hypercalcemia Start:31-Aug-2020 Instruction Type:Provider Instructions for Treatment How to Access Health Informa tion Online using Patient Portal and [employer]rd [employer] Apps Indication:Nonsmoker Start:31-Aug-2020 Instruction Type:Patient Education Patient Instructions Indication:BMI 28.0-28.9,adult Start:19-Aug-2020 Instruction Type:Provider Instructions for Treatment How to Access Health Informa tion Online using Patient Portal and 3rd [employer] Apps Indication:BMI 28.0-28.9,adult Start:19-Aug-2020 Instruction Type:Patient Education Patient Instructions Indication:Vitamin B12 deficiency Start:13-Aug-2020 Instruction Type:Provider Instructions for Treatment How to Access Health Informa tion Online using Patient Portal and 3rd [employer] Apps Indication:Nonsmoker Start:13-Aug-2020 Instruction Type:Patient Education How to Access Health Informa tion Online using Patient Portal and 3rd [employer] Apps Indication:Nonsmoker Start:21-Jul-2020 Instruction Type:Patient Education Patient Instructions Indication:Nonsmoker Start:21-Jul-2020 Instruction Type:Provider Instructions for Treatment How to access health informa tion online Indication:Nonsmoker Start:03-Dec-2019 Instruction Type:Patient Education How to access health informa tion online - Detail Indication:Nonsmoker Start:03-Dec-2019 Instruction Type:Patient Education Patient Instructions Indication:Nonsmoker Start:03-Dec-2019 Instruction Type:Provider Instructions for Treatment How to access health informa tion online Indication:BMI 26.0-26.9,adult Start:28-Oct-2019 Instruction Type:Patient Education How to access health informa tion online - Detail Indication:BMI 26.0-26.9,adult Start:28-Oct-2019 Instruction Type:Patient Education Patient Instructions Indication:BMI 26.0-26.9,adult Start:28-Oct-2019 Instruction Type:Provider Instructions for Treatment How to access health informa tion online Indication:BMI 27.0-27.9,adult Start:09-Jul-2019 Instruction Type:Patient Education How to access health informa tion online - Detail Indication:BMI 27.0-27.9,adult Start:09-Jul-2019 Instruction Type:Patient Education Patient Instructions Indication:BMI 27.0-27.9,adult Start:09-Jul-2019 Instruction Type:Provider Instructions for Treatment How to access health informa tion online Indication:Nonsmoker Start:18-Jun-2019 Instruction Type:Patient Education How to access health informa tion online - Detail Indication:Nonsmoker Start:18-Jun-2019 Instruction Type:Patient Education Patient Instructions Indication:Encounter for screening for malignant neoplasm of prostate (Renamed from Screening for prostate cancer) Start:18-Jun-2019 Instruction Type:Provider Instructions for Treatment How to access health informa tion online Indication:Nonsmoker Start:14-Feb-2019 Instruction Type:Patient Education How to access health informa tion online - Detail Indication:Nonsmoker Start:14-Feb-2019 Instruction Type:Patient Education Patient Instructions Indication:Vitamin B12 deficiency Start:14-Feb-2019 Instruction Type:Provider Instructions for Treatment How to access health informa tion online Indication:Nonsmoker Start:15-Nov-2018 Instruction Type:Patient Education How to access health informa tion online - Detail Indication:Nonsmoker Start:15-Nov-2018 Instruction Type:Patient Education Patient Instructions Indication:Nonsmoker Start:15-Nov-2018 Instruction Type:Provider Instructions for Treatment How to access health informa tion online Indication:Anxiety and depression Start:01-Nov-2018 Instruction Type:Patient Education How to access health informa tion online - Detail Indication:Anxiety and depression Start:01-Nov-2018 Instruction Type:Patient Education Patient Instructions Indication:BMI 28.0-28.9,adult Start:01-Nov-2018 Instruction Type:Provider Instructions for Treatment Summary Purpose Advance Directives No Advanced Directives Records FoundDocuments on File Type Date Recorded Patient [employer] Expl anation Advance Directive(s) 10/12/2020 5:09 PM Name Dates Details Immunization Registry [place] - Effective on 05/30/2021. Expiration date unspecified Effective:30-May-2021 Name Dates Details Immunization Registry [place] - Effective on 05/30/2021. Expiration date unspecified Effective:30-May-2021 Procedure Findings Note OT-Chest 1 View (Portable) I MPORT (10/12/2020) Specimen Narrative Performed At Images were obtained outside of [facility] DIVISION OF RADIOLOGY Procedure Note Radiology, [place] - 10/12/2020 4:49 PM EDT Images were obtained outside of [facility] [place] [address] Reason for Referral Specialty Diagnoses / Procedures Referred By Mark watts Referred To Contact Mikaela Spann APRN.DIRECTOR OF NATIONAL SALES [address] [place], [place] [phone] Referral ID Status Reason Start Date Expiration Date Visits Re quested Visits Authorized [id number] Denied 1 1 Specialty Diagnoses / Procedures Referred By Mark watts Referred To Contact Diagnoses Class 1 obesity due to excess calories with serious comorbidity and body mass index (BMI) of 30.0 to 30.9 in adult Procedures CONSULT [facility] OFFICE/OUTPATIENT [facility] 60 MINUTES Mikaela Spann APRN.DIRECTOR OF NATIONAL SALES [address] [place], [place] [phone] Referral ID Status Reason Start Date Expiration Date Visits Requested Visits Authorized [id number] Authorized PCP Requested Referral 11/20/2023 11/19/2024 1 1 Referral ID Status Reason Start Date Expiration Date Visits Re quested Visits Authorized [id number] Closed 1 1 Referral ID Status Reason Start Date Expiration Date Visits Re quested Visits Authorized [id number] Denied 1 1 Specialty Diagnoses / Procedures Referred By Mark t Referred To Contact Diagnoses Adult ADHD Bipolar 1 disorder (HCC) 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 Procedures CONSULT TO PSYCHIATRY OFFICE/OUTPATIENT [facility] 60 MINUTES Mikaela Spann APRN.DIRECTOR OF NATIONAL SALES [address] [place], [place] [phone] Referral ID Status Reason Start Date Expiration Date Visits Requested Visits Authorized [id number] Pending Review PCP Requested Referral 01/21/2024 01/20/2025 1 1 Specialty Diagnoses / Procedures Referred By Mark t Referred To Contact Diagnoses Adult ADHD Bipolar 1 disorder (HCC) 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 Procedures CONSULT TO [facility] ADULT OFFICE/OUTPATIENT [facility] 60 MINUTES Mikaela Spann APRN.DIRECTOR OF NATIONAL SALES [address] [place] [address] Referral ID Status Reason Start Date Expiration Date Visits Requested Visits Authorized [id number] Pending Review PCP Requested Referral 01/21/2024 04/20/2024 1 1 Specialty Diagnoses / Procedures Referred By Contac t Referred To Contact [facility] Diagnoses Sciatica of right side Procedures CONSULT TO PHYSICAL THERAPY PHYSICAL THERAPY EVALUATION HIGH COMPLEX 45 MINS Mikaela Spann, SHIPPING SUPERVISOR.DIRECTOR OF NATIONAL SALES [address] [place] [address] [facility] [place] [address] [place] [address] Referral ID Status Reason Start Date Expiration Date Visits Requested Visits Authorized [id number] Authorized PCP Requested Referral Auto-Generate d Referral 04/15/2024 04/15/2025 99 99 Specialty Diagnoses / Procedures Referred By Contac t Referred To Contact Diagnoses Class 1 obesity due to excess calories with serious comorbidity and body mass index (BMI) of 33.0 to 33.9 in adult Alfredo Colby MD [address] [place] [id number] Referral ID Status Reason Start Date Expiration Date Visits Re quested Visits Authorized [id number] Denied 1 1 Referral ID Status Reason Start Date Expiration Date V isits Requested Visits Authorized [id number] Pending Review 1 1 Specialty Diagnoses / Procedures Referred By Contac t Referred To Contact Diagnoses Obesity (BMI 30.0-34.9) Alfredo Colby MD [address] [place] [phone] Referral ID Status Reason Start Date Expiration Date Visits Re quested Visits Authorized [id number] Closed 1 1 Additional Source Comments (unrecognized sect ion and content) No Status Records FoundNo Status Records FoundNo Status Records FoundNo Status Records Found INFORMATION SOURCE (unrecogn ized section and content) DATE CREATED AUTHOR 11/16/2018 [facility] DATE CREATED AUTHOR AUTHOR'S ORGANIZ ATION 11/17/2022 [facility] DATE CREATED AUTHOR AUTHOR'S ORGANIZ ATION 01/16/2025 [facility] DATE CREATED AUTHOR AUTHOR'S ORGANIZ ATION 03/06/2025 [facility] Source Comments (unrecognize d section and content) In the event this informatio n is protected by the Federal Confidentiality of Alcohol and Drug Abuse Patient Records regulations: The Federal rules restrict any use of the information to criminally investigate or prosecute any alcohol or drug abuse patient.[facility] the event this information is protected by the Federal Confidentiality of Alcohol and Drug Abuse Patient Records regulations: The Federal rules restrict any use of the information to criminally investigate or prosecute any alcohol or drug abuse patient.[facility] HospitalIn the event this information is protected by the Federal Confidentiality of Alcohol and Drug Abuse Patient Records regulations: The Federal rules restrict any use of the information to criminally investigate or prosecute any alcohol or drug abuse patient.[facility] HospitalIn the event this information is protected by the Federal Confidentiality of Alcohol and Drug Abuse Patient Records regulations: The Federal rules restrict any use of the information to criminally investigate or prosecute any alcohol or drug abuse patient.[facility] HospitalIn the event this information is protected by the Federal Confidentiality of Alcohol and Drug Abuse Patient Records regulations: The Federal rules restrict any use of the information to criminally investigate or prosecute any alcohol or drug abuse patient.[facility] HospitalIn the event this information is protected by the Federal Confidentiality of Alcohol and Drug Abuse Patient Records regulations: The Federal rules restrict any use of the information to criminally investigate or prosecute any alcohol or drug abuse patient.[facility] HospitalIn the event this information is protected by the Federal Confidentiality of Alcohol and Drug Abuse Patient Records regulations: The Federal rules restrict any use of the information to criminally investigate or prosecute any alcohol or drug abuse patient.[facility] HospitalIn the event this information is protected by the Federal Confidentiality of Alcohol and Drug Abuse Patient Records regulations: The Federal rules restrict any use of the information to criminally investigate or prosecute any alcohol or drug abuse patient.[facility] HospitalIn the event this information is protected by the Federal Confidentiality of Alcohol and Drug Abuse Patient Records regulations: The Federal rules restrict any use of the information to criminally investigate or prosecute any alcohol or drug abuse patient.[facility] HospitalIn the event this information is protected by the Federal Confidentiality of Alcohol and Drug Abuse Patient Records regulations: The Federal rules restrict any use of the information to criminally investigate or prosecute any alcohol or drug abuse patient.[facility] HospitalIn the event this information is protected by the Federal Confidentiality of Alcohol and Drug Abuse Patient Records regulations: The Federal rules restrict any use of the information to criminally investigate or prosecute any alcohol or drug abuse patient.[facility] HospitalIn the event this information is protected by the Federal Confidentiality of Alcohol and Drug Abuse Patient Records regulations: The Federal rules restrict any use of the information to criminally investigate or prosecute any alcohol or drug abuse patient.[facility] HospitalIn the event this information is protected by the Federal Confidentiality of Alcohol and Drug Abuse Patient Records regulations: The Federal rules restrict any use of the information to criminally investigate or prosecute any alcohol or drug abuse patient.[facility] HospitalIn the event this information is protected by the Federal Confidentiality of Alcohol and Drug Abuse Patient Records regulations: The Federal rules restrict any use of the information to criminally investigate or prosecute any alcohol or drug abuse patient.[facility] HospitalIn the event this information is protected by the Federal Confidentiality of Alcohol and Drug Abuse Patient Records regulations: The Federal rules restrict any use of the information to criminally investigate or prosecute any alcohol or drug abuse patient.[facility] HospitalIn the event this information is protected by the Federal Confidentiality of Alcohol and Drug Abuse Patient Records regulations: The Federal rules restrict any use of the information to criminally investigate or prosecute any alcohol or drug abuse patient.[facility] HospitalIn the event this information is protected by the Federal Confidentiality of Alcohol and Drug Abuse Patient Records regulations: The Federal rules restrict any use of the information to criminally investigate or prosecute any alcohol or drug abuse patient.[facility] HospitalIn the event this information is protected by the Federal Confidentiality of Alcohol and Drug Abuse Patient Records regulations: The Federal rules restrict any use of the information to criminally investigate or prosecute any alcohol or drug abuse patient.[facility] HospitalIn the event this information is protected by the Federal Confidentiality of Alcohol and Drug Abuse Patient Records regulations: The Federal rules restrict any use of the information to criminally investigate or prosecute any alcohol or drug abuse patient.[facility] HospitalIn the event this information is protected by the Federal Confidentiality of Alcohol and Drug Abuse Patient Records regulations: The Federal rules restrict any use of the information to criminally investigate or prosecute any alcohol or drug abuse patient.[facility] HospitalIn the event this information is protected by the Federal Confidentiality of Alcohol and Drug Abuse Patient Records regulations: The Federal rules restrict any use of the information to criminally investigate or prosecute any alcohol or drug abuse patient.[facility] HospitalIn the event this information is protected by the Federal Confidentiality of Alcohol and Drug Abuse Patient Records regulations: The Federal rules restrict any use of the information to criminally investigate or prosecute any alcohol or drug abuse patient.[facility] HospitalIn the event this information is protected by the Federal Confidentiality of Alcohol and Drug Abuse Patient Records regulations: The Federal rules restrict any use of the information to criminally investigate or prosecute any alcohol or drug abuse patient.[facility] HospitalIn the event this information is protected by the Federal Confidentiality of Alcohol and Drug Abuse Patient Records regulations: The Federal rules restrict any use of the information to criminally investigate or prosecute any alcohol or drug abuse patient.[facility] HospitalIn the event this information is protected by the Federal Confidentiality of Alcohol and Drug Abuse Patient Records regulations: The Federal rules restrict any use of the information to criminally investigate or prosecute any alcohol or drug abuse patient.[facility] HospitalIn the event this information is protected by the Federal Confidentiality of Alcohol and Drug Abuse Patient Records regulations: The Federal rules restrict any use of the information to criminally investigate or prosecute any alcohol or drug abuse patient.[facility] HospitalIn the event this information is protected by the Federal Confidentiality of Alcohol and Drug Abuse Patient Records regulations: The Federal rules restrict any use of the information to criminally investigate or prosecute any alcohol or drug abuse patient.[facility] HospitalIn the event this information is protected by the Federal Confidentiality of Alcohol and Drug Abuse Patient Records regulations: The Federal rules restrict any use of the information to criminally investigate or prosecute any alcohol or drug abuse patient.[facility] HospitalIn the event this information is protected by the Federal Confidentiality of Alcohol and Drug Abuse Patient Records regulations: The Federal rules restrict any use of the information to criminally investigate or prosecute any alcohol or drug abuse patient.[facility] HospitalIn the event this information is protected by the Federal Confidentiality of Alcohol and Drug Abuse Patient Records regulations: The Federal rules restrict any use of the information to criminally investigate or prosecute any alcohol or drug abuse patient.[facility] HospitalIn the event this information is protected by the Federal Confidentiality of Alcohol and Drug Abuse Patient Records regulations: The Federal rules restrict any use of the information to criminally investigate or prosecute any alcohol or drug abuse patient.[facility] HospitalIn the event this information is protected by the Federal Confidentiality of Alcohol and Drug Abuse Patient Records regulations: The Federal rules restrict any use of the information to criminally investigate or prosecute any alcohol or drug abuse patient.[facility] HospitalIn the event this information is protected by the Federal Confidentiality of Alcohol and Drug Abuse Patient Records regulations: The Federal rules restrict any use of the information to criminally investigate or prosecute any alcohol or drug abuse patient.[facility] HospitalIn the event this information is protected by the Federal Confidentiality of Alcohol and Drug Abuse Patient Records regulations: The Federal rules restrict any use of the information to criminally investigate or prosecute any alcohol or drug abuse patient.[facility] HospitalIn the event this information is protected by the Federal Confidentiality of Alcohol and Drug Abuse Patient Records regulations: The Federal rules restrict any use of the information to criminally investigate or prosecute any alcohol or drug abuse patient.[facility] HospitalIn the event this information is protected by the Federal Confidentiality of Alcohol and Drug Abuse Patient Records regulations: The Federal rules restrict any use of the information to criminally investigate or prosecute any alcohol or drug abuse patient.[facility] HospitalIn the event this information is protected by the Federal Confidentiality of Alcohol and Drug Abuse Patient Records regulations: The Federal rules restrict any use of the information to criminally investigate or prosecute any alcohol or drug abuse patient.[facility] HospitalIn the event this information is protected by the Federal Confidentiality of Alcohol and Drug Abuse Patient Records regulations: The Federal rules restrict any use of the information to criminally investigate or prosecute any alcohol or drug abuse patient.[facility] HospitalIn the event this information is protected by the Federal Confidentiality of Alcohol and Drug Abuse Patient Records regulations: The Federal rules restrict any use of the information to criminally investigate or prosecute any alcohol or drug abuse patient.[facility] HospitalIn the event this information is protected by the Federal Confidentiality of Alcohol and Drug Abuse Patient Records regulations: The Federal rules restrict any use of the information to criminally investigate or prosecute any alcohol or drug abuse patient.[facility] HospitalIn the event this information is protected by the Federal Confidentiality of Alcohol and Drug Abuse Patient Records regulations: The Federal rules restrict any use of the information to criminally investigate or prosecute any alcohol or drug abuse patient.[facility] HospitalIn the event this information is protected by the Federal Confidentiality of Alcohol and Drug Abuse Patient Records regulations: The Federal rules restrict any use of the information to criminally investigate or prosecute any alcohol or drug abuse patient.[facility] HospitalIn the event this information is protected by the Federal Confidentiality of Alcohol and Drug Abuse Patient Records regulations: The Federal rules restrict any use of the information to criminally investigate or prosecute any alcohol or drug abuse patient.[facility] HospitalIn the event this information is protected by the Federal Confidentiality of Alcohol and Drug Abuse Patient Records regulations: The Federal rules restrict any use of the information to criminally investigate or prosecute any alcohol or drug abuse patient.[facility] HospitalIn the event this information is protected by the Federal Confidentiality of Alcohol and Drug Abuse Patient Records regulations: The Federal rules restrict any use of the information to criminally investigate or prosecute any alcohol or drug abuse patient.[facility] HospitalIn the event this information is protected by the Federal Confidentiality of Alcohol and Drug Abuse Patient Records regulations: The Federal rules restrict any use of the information to criminally investigate or prosecute any alcohol or drug abuse patient.[facility] HospitalIn the event this information is protected by the Federal Confidentiality of Alcohol and Drug Abuse Patient Records regulations: The Federal rules restrict any use of the information to criminally investigate or prosecute any alcohol or drug abuse patient.[facility] HospitalIn the event this information is protected by the Federal Confidentiality of Alcohol and Drug Abuse Patient Records regulations: The Federal rules restrict any use of the information to criminally investigate or prosecute any alcohol or drug abuse patient.[facility] HospitalIn the event this information is protected by the Federal Confidentiality of Alcohol and Drug Abuse Patient Records regulations: The Federal rules restrict any use of the information to criminally investigate or prosecute any alcohol or drug abuse patient.[facility] HospitalIn the event this information is protected by the Federal Confidentiality of Alcohol and Drug Abuse Patient Records regulations: The Federal rules restrict any use of the information to criminally investigate or prosecute any alcohol or drug abuse patient.[facility] HospitalIn the event this information is protected by the Federal Confidentiality of Alcohol and Drug Abuse Patient Records regulations: The Federal rules restrict any use of the information to criminally investigate or prosecute any alcohol or drug abuse patient.[facility] HospitalIn the event this information is protected by the Federal Confidentiality of Alcohol and Drug Abuse Patient Records regulations: The Federal rules restrict any use of the information to criminally investigate or prosecute any alcohol or drug abuse patient.[facility] HospitalIn the event this information is protected by the Federal Confidentiality of Alcohol and Drug Abuse Patient Records regulations: The Federal rules restrict any use of the information to criminally investigate or prosecute any alcohol or drug abuse patient.[facility] HospitalIn the event this information is protected by the Federal Confidentiality of Alcohol and Drug Abuse Patient Records regulations: The Federal rules restrict any use of the information to criminally investigate or prosecute any alcohol or drug abuse patient.[facility] HospitalIn the event this information is protected by the Federal Confidentiality of Alcohol and Drug Abuse Patient Records regulations: The Federal rules restrict any use of the information to criminally investigate or prosecute any alcohol or drug abuse patient.[facility] HospitalIn the event this information is protected by the Federal Confidentiality of Alcohol and Drug Abuse Patient Records regulations: The Federal rules restrict any use of the information to criminally investigate or prosecute any alcohol or drug abuse patient.[facility] HospitalIn the event this information is protected by the Federal Confidentiality of Alcohol and Drug Abuse Patient Records regulations: The Federal rules restrict any use of the information to criminally investigate or prosecute any alcohol or drug abuse patient.[facility] HospitalIn the event this information is protected by the Federal Confidentiality of Alcohol and Drug Abuse Patient Records regulations: The Federal rules restrict any use of the information to criminally investigate or prosecute any alcohol or drug abuse patient.[facility] HospitalIn the event this information is protected by the Federal Confidentiality of Alcohol and Drug Abuse Patient Records regulations: The Federal rules restrict any use of the information to criminally investigate or prosecute any alcohol or drug abuse patient.[facility] HospitalIn the event this information is protected by the Federal Confidentiality of Alcohol and Drug Abuse Patient Records regulations: The Federal rules restrict any use of the information to criminally investigate or prosecute any alcohol or drug abuse patient.[facility] Reason for Visit (unrecogniz ed section and content) Reason Comments Establish Care Breast Problem lumps on breast but doesn't reminder which one Dizziness has been seen at [facility] and was suggested that he needs a CT scan Reason Comments Medication Problem Reason Comments Consult Specialty Diagnoses / Procedures Referred By Mark watts Referred To Contact General Surgery Diagnoses Colon cancer screening Procedures CONSULT TO GENERAL SURGERY OFFICE/OUTPATIENT [facility] 60-74 MINUTES Mikaela Spann APRN.DIRECTOR OF NATIONAL SALES [address] [place] [address] Referral ID Status Reason Start Date Expiration Date V isits Requested Visits Authorized [id number] Closed PCP Requested Referral 09/20/2022 09/20/2023 1 1 Reason Comments Weight Problem is interested in sta rting Ozempic to help with weight loss Vomiting for about the last 2 months has been having dry heaves in the am only Reason Comments Radiology US Specialty Diagnoses / Procedures Referred By Mark watts Referred To Contact [facility] Diagnoses Breast mass in male Family history of breast cancer Mass of breast, unspecified laterality Disorder of breast, unspecified Procedures US BREAST LTD LT US BREAST UNI REAL TIME WITH IMAGE LIMITED Mikaela Spann APRN.DIRECTOR OF [employer]ATIONAL [employer]ES [address] [place] [address] [facility] [address] [place] [address] Referral ID Status Reason Start Date Expiration Date V isits Requested Visits Authorized [id number] Closed Auto-Generate d Referral 09/20/2022 10/20/2023 1 1 Reason Comments Appointment Reason Comments F/U 3 Month Reason Comments Depression Reason Onset Date Comments Refill Request 10/01/2023 Reason Comments Weight Check Reason Onset Date Comments Transition Of Care 12/03/2023 Discharged fr om [facility] on 11/28/2023 Reason Comments Transition Of Care [facility] discharg ed on 11/28/2023 Reason Onset Date Comments Refill Request 12/13/2023 Reason Comments Refill Request Reason Onset Date Comments Refill Request 01/11/2024 Reason Comments Patient Question Reason Comments Recheck Weight Reason Comments bh consult Reason Comments Bipolar Disorder Specialty Diagnoses / Procedures Referred By Mark watts Referred To Contact Diagnoses Adult ADHD Bipolar 1 disorder (HCC) 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 Procedures CONSULT TO PRIMARY CARE BEHAVIORAL HEALTH ADULT OFFICE/OUTPATIENT NEW HIGH MDM 60 MINUTES Mikaela Spann APRN.DIRECTOR OF NATIONAL SALES [address] [place] [address] Referral ID Status Reason Start Date Expiration Date Visits Requested Visits Authorized [id number] Pending Review PCP Requested Referral 01/21/2024 04/20/2024 1 1 Reason Onset Date Comments Refill Request 02/15/2024 Reason Comments Low Back Pain Radiating to R leg x 2 days Reason Comments Back Pain Reason Comments Fatigue states has been doin g a lot sleeping since Sunday states he is achy all overheadache Back Pain sciatica pain right side being less active makes no difference with the pain Reason Comments No Show Specialty Diagnoses / Procedures Referred By Mark watts Referred To Contact Diagnoses Adult ADHD Bipolar 1 disorder (HCC) 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 Procedures CONSULT TO PSYCHIATRY OFFICE/OUTPATIENT [facility] 60 MINUTES Mikalea Spann APRN.CNP [address] [place] [address] Referral ID Status Reason Start Date Expiration Date Visits Requested Visits Authorized [id number] Pending Review PCP Requested Referral 01/21/2024 01/20/2025 1 1 Reason Onset Date Comments Refill Request 05/08/2024 Reason Comments Medication Problem Reason Comments Hospital F/U for pneumonia, flu a nd low potassium Diarrhea Reason Onset Date Comments Refill Request 07/16/2024 Future Appointment 07/16/2024 Reason Comments Insurance Authorization [employer] Reason Comments Pharmacy Call Reason Comments Rx Refills Med follow up Medication Follow-up Reason Comments Established Patient Discuss weight loss options Reason Comments Medication Problem Reason Comments Orders Reason Comments Patient Update Reason Comments Weight Problem Reason Onset Date Comments Refill Request 10/06/2024 Reason Comments Sleep Problem Reason Onset Date Comments Refill Request 11/04/2024 Reason Onset Date Comments Refill Request 11/05/2024 Reason Comments Weight Problem follow upmetformin c aused severe diarrhea, fatigue and heart racing Reason Comments Back Pain along with a stiff n eliot Recheck Care Teams (unrecognized sec tion and content) Fabrication Department Supervisor Relationship Specialty Start Date End Date Alfredo Colby MD [address] [place] [address] PCP - General Internal Medicine 09/20/22 Fabrication Department Supervisor Relationship Specialty Start Date End Date Alfredo Colby MD [address] [place] [address] [id number] PCP - General Internal Medicine 09/20/22 Fabrication Department Supervisor Relationship Specialty Start Date End Date Alfredo Colby MD [address] [place] [address] [id number] PCP - General Internal Medicine 09/20/22 Fabrication Department Supervisor Relationship Specialty Start Date End Date Alfredo Colby MD [address] [place] [address], [place] [address] PCP - General Internal Medicine 09/20/22 Fabrication Department Supervisor Relationship Specialty Start Date End Date Alfredo Colby MD [address] [facility] [place] [address] PCP - General Internal Medicine 09/20/22 Fabrication Department Supervisor Relationship Specialty Start Date End Date Alfredo Colby MD [address] [facility] [place] [address] PCP - General Internal Medicine 09/20/22 Fabrication Department Supervisor Relationship Specialty Start Date End Date Alfredo Colby MD [address] [facility] [place] [address] PCP - General Internal Medicine 09/20/22 Fabrication Department Supervisor Relationship Specialty Start Date End Date Alfredo Colby MD [address] [facility] [place] [address] PCP - General Internal Medicine 09/20/22 Fabrication Department Supervisor Relationship Specialty Start Date End Date Alfredo Colby MD [address] [facility] [place] [address] PCP - General Internal Medicine 09/20/22 Fabrication Department Supervisor Relationship Specialty Start Date End Date Alfredo Colby MD [address] [facility] [place] [address] PCP - General Internal Medicine 09/20/22 Fabrication Department Supervisor Relationship Specialty Start Date End Date Alfrdeo Colby MD [address] [facility] [place] [address] PCP - General Internal Medicine 09/20/22 Fabrication Department Supervisor Relationship Specialty Start Date End Date Alfredo Colby MD [address] [facility] [place] [address] PCP - General Internal Medicine 09/20/22 Fabrication Department Supervisor Relationship Specialty Start Date End Date Alfredo Colby MD [address] [facility] [place] [address] PCP - General Internal Medicine 09/20/22 Fabrication Department Supervisor Relationship Specialty Start Date End Date Alfredo Colby MD [address] [place] [address] PCP - General Internal Medicine 09/20/22 Fabrication Department Supervisor Relationship Specialty Start Date End Date Alfredo Colby MD [address] [place] [address] PCP - General Internal Medicine 09/20/22 Fabrication Department Supervisor Relationship Specialty Start Date End Date Alfredo Colby MD [address] [place] [address] PCP - General Internal Medicine 09/20/22 Fabrication Department Supervisor Relationship Specialty Start Date End Date Alfredo Colby MD [address] [facility] [place] [address] PCP - General Internal Medicine 09/20/22 Fabrication Department Supervisor Relationship Specialty Start Date End Date Alfredo Colby MD [address] [facility] [place] [address] PCP - General Internal Medicine 09/20/22 Fabrication Department Supervisor Relationship Specialty Start Date End Date Alfredo Colby MD [address] [facility] [place] [address] PCP - General Internal Medicine 09/20/22 Fabrication Department Supervisor Relationship Specialty Start Date End Date Alfredo Colby MD [address] [facility] [place] [place] [address] PCP - General Internal Medicine 09/20/22 Fabrication Department Supervisor Relationship Specialty Start Date End Date Alfredo Colby MD [address] [place] [address] PCP - General Internal Medicine 09/20/22 Fabrication Department Supervisor Relationship Specialty Start Date End Date Alfredo Colby MD [address] [place] [address] PCP - General Internal Medicine 09/20/22 Fabrication Department Supervisor Relationship Specialty Start Date End Date Alfredo Colby MD [address] [place] [address] PCP - General Internal Medicine 09/20/22 Edel Rios, SHIPPING SUPERVISOR.LAWN MOWER REPAIRER [address] [place] [address] Machine Feed Operator Internal Medicine 07/07/24 Mikaela Spann, SHIPPING SUPERVISOR.DIRECTOR OF NATIONAL SALES [address] [place] [address] Machine Feed Operator Internal Medicine 07/07/24 Fabrication Department Supervisor Relationship Specialty Start Date End Date Alfredo Colby MD [address] [place] [address] PCP - General Internal Medicine 09/20/22 Edel Rios, SHIPPING SUPERVISOR.LAWN MOWER REPAIRER [address] [place] [address] Machine Feed Operator Internal Medicine 07/07/24 Mikaela Spann APRN.DIRECTOR OF NATIONAL SALES [address] [place] [address] Machine Feed Operator Internal Medicine 07/07/24 Fabrication Department Supervisor Relationship Specialty Start Date End Date Alfredo Colby MD [address] [place] [address] PCP - General Internal Medicine 09/20/22 Edel Rios, SHIPPING SUPERVISOR.LAWN MOWER REPAIRER [address] [place] [address] Machine Feed Operator Internal Medicine 07/07/24 Mikaela Spann SHIPPING SUPERVISOR.DIRECTOR OF NATIONAL SALES [address] [place] [address] Machine Feed Operator Internal Medicine 07/07/24 Fabrication Department Supervisor Relationship Specialty Start Date End Date Alfredo Colby MD [address] [place] [address] PCP - General Internal Medicine 09/20/22 Edel Rios, SHIPPING SUPERVISOR.LAWN MOWER REPAIRER [address] [place] [address] Machine Feed Operator Internal Medicine 07/07/24 Mikaela Spann SHIPPING SUPERVISOR.DIRECTOR OF NATIONAL SALES [address] [place] [address] Machine Feed Operator Internal Medicine 07/07/24 Fabrication Department Supervisor Relationship Specialty Start Date End Date Alfredo Colby MD [address] [place] [address] PCP - General Internal Medicine 09/20/22 Edel Rios, SHIPPING SUPERVISOR.LAWN MOWER REPAIRER [address] [place] [address] Machine Feed Operator Internal Medicine 07/07/24 Mikaela Spann SHIPPING SUPERVISOR.DIRECTOR OF NATIONAL SALES [address] [place] [address] Machine Feed Operator Internal Medicine 07/07/24 Fabrication Department Supervisor Relationship Specialty Start Date End Date Alfredo Colby MD [address] [place] [address] PCP - General Internal Medicine 09/20/22 Edel Rios, SHIPPING SUPERVISOR.LAWN MOWER REPAIRER [address] [place] [address] Machine Feed Operator Internal Medicine 07/07/24 Mikaela Spann SHIPPING SUPERVISOR.DIRECTOR OF NATIONAL SALES [address] [place] [address] [facility] Internal Medicine 07/07/24 Fabrication Department Supervisor Relationship Specialty Start Date End Date Alfredo Colby MD [address] [place] [address] PCP - General Internal Medicine 09/20/22 Edel Rios, SHIPPING SUPERVISOR.LAWN MOWER REPAIRER [address] [place] [address] [facility] Internal Medicine 07/07/24 Mikaela Spann SHIPPING SUPERVISOR.DIRECTOR OF NATIONAL SALES [address] [place] [address] [facility] Internal Medicine 07/07/24 Fabrication Department Supervisor Relationship Specialty Start Date End Date Alfredo Colby MD [address] [facility] [place] [address] PCP - General Internal Medicine 09/20/22 Edel Rios, SHIPPING SUPERVISOR.LAWN MOWER REPAIRER [address] [facility] [place] [address] Machine Feed Operator Internal Medicine 07/07/24 Mikaela Spann SHIPPING SUPERVISOR.DIRECTOR OF NATIONAL SALES [address] [place] [address] Machine Feed Operator Internal Medicine 07/07/24 Fabrication Department Supervisor Relationship Specialty Start Date End Date Alfredo Colby MD [address] [place] [address] PCP - General Internal Medicine 09/20/22 Edel Rios, SHIPPING SUPERVISOR.LAWN MOWER REPAIRER [address] [facility] [place] [address] Machine Feed Operator Internal Medicine 07/07/24 Mikaela Spann SHIPPING SUPERVISOR.DIRECTOR OF NATIONAL SALES [address] [place] [address] Machine Feed Operator Internal Medicine 07/07/24 Fabrication Department Supervisor Relationship Specialty Start Date End Date Alfredo Colby MD [address] [facility] [place] [address] PCP - General Internal Medicine 09/20/22 Edel Rios, SHIPPING SUPERVISOR.LAWN MOWER REPAIRER [address] [facility] [place] [address] Machine Feed Operator Internal Medicine 07/07/24 Mikaela Spann SHIPPING SUPERVISOR.DIRECTOR OF NATIONAL SALES [address] [place] [address] Machine Feed Operator Internal Medicine 07/07/24 Fabrication Department Supervisor Relationship Specialty Start Date End Date Alfredo Colby MD [address] [place] [address] PCP - General Internal Medicine 09/20/22 Edel Rios, SHIPPING SUPERVISOR.LAWN MOWER REPAIRER [address] [place] [address] Machine Feed Operator Internal Medicine 07/07/24 Mikaela Spann, SHIPPING SUPERVISOR.DIRECTOR OF NATIONAL SALES [address] [place] [address] Machine Feed Operator Internal Medicine 07/07/24 Fabrication Department Supervisor Relationship Specialty Start Date End Date Alfredo Colby MD [address] [place] [address] PCP - General Internal Medicine 09/20/22 Edel Rios, SHIPPING SUPERVISOR.LAWN MOWER REPAIRER [address] [place] [address] Machine Feed Operator Internal Medicine 07/07/24 Mikaela Spann, SHIPPING SUPERVISOR.DIRECTOR OF NATIONAL SALES [address] [facility] [place] [address] Machine Feed Operator Internal Medicine 07/07/24 Fabrication Department Supervisor Relationship Specialty Start Date End Date Alfredo Colby MD [address] [place] [address] PCP - General Internal Medicine 09/20/22 Edel Rios, SHIPPING SUPERVISOR.LAWN MOWER REPAIRER [address] [place] [address] Machine Feed Operator Internal Medicine 07/07/24 Mikaela Spann SHIPPING SUPERVISOR.DIRECTOR OF NATIONAL SALES [address] [facility] [place] [address] Machine Feed Operator Internal Medicine 07/07/24 Fabrication Department Supervisor Relationship Specialty Start Date End Date Alfredo Colby MD [address] [facility] [place] [address] PCP - General Internal Medicine 09/20/22 Edel Rios, SHIPPING SUPERVISOR.LAWN MOWER REPAIRER [address] [place] [address] Machine Feed Operator Internal Medicine 07/07/24 Mikaela Spann SHIPPING SUPERVISOR.DIRECTOR OF NATIONAL SALES [address] [place] [address] Machine Feed Operator Internal Medicine 07/07/24 10/17/24 Fabrication Department Supervisor Relationship Specialty Start Date End Date Alfredo Cobly MD [address] [place] [address] PCP - General Internal Medicine 09/20/22 Edel Rios, SHIPPING SUPERVISOR.LAWN MOWER REPAIRER [address] [facility] [place] [address] Machine Feed Operator Internal Medicine 07/07/24 Mikaela Spann SHIPPING SUPERVISOR.DIRECTOR OF NATIONAL SALES [address] [facility] [place] [address] [facility] Internal Medicine 10/21/24 Fabrication Department Supervisor Relationship Specialty Start Date End Date Alfredo Colby MD [address] [place] [address] PCP - General Internal Medicine 09/20/22 Edel Rios, SHIPPING SUPERVISOR.LAWN MOWER REPAIRER [address] [place] [address] [facility] Internal Medicine 07/07/24 Mikaela Spann SHIPPING SUPERVISOR.DIRECTOR OF NATIONAL SALES [address] [facility] [place] [address] [facility] Internal Medicine 10/21/24 Fabrication Department Supervisor Relationship Specialty Start Date End Date Alfredo Colby MD [address] [place] [address] PCP - General Internal Medicine 09/20/22 Edel Rios SHIPPING SUPERVISOR.LAWN MOWER REPAIRER [address] [place] [address] [facility] Internal Medicine 07/07/24 Mikaela Spann SHIPPING SUPERVISOR.DIRECTOR OF NATIONAL SALES [address] [place] [address] [facility] Internal Medicine 10/21/24 Fabrication Department Supervisor Relationship Specialty Start Date End Date Alfredo Colby MD [address] [place] [address] PCP - General Internal Medicine 09/20/22 Mikaela Spann SHIPPING SUPERVISOR.DIRECTOR OF NATIONAL SALES [address] [place] [address] [facility] Internal Medicine 10/21/24 Edel Rios, SHIPPING SUPERVISOR.LAWN MOWER REPAIRER [address] [place] [address] [facility] Internal Medicine 12/17/24 FOR RECORDS PERTAINING TO PATIENTS WHO ARE OR HAVE BEEN ENROLLED IN A CHEMICAL DEPENDENCY/SUBSTANCEABUSE PROGRAM, SOME INFORMATION MAY BE OMITTED. This clinical summary was aggregated from multiple sources. Caution should be exercised in using it in the provision of clinical care. This summary normalizes information from multiple sources, and as a consequence, information in this document may materially change the coding, format and clinical context of patient data. In addition, data may be omitted in some cases. CLINICAL DECISIONS SHOULD BE BASED ON THE PRIMARY CLINICAL RECORDS. [facility] [employer], [facility]. provides no warranty or guarantee of the accuracy or completeness of information in this document.
--- NOTE | 2025-03-09 23:02 | CT_ITS ---
PROCEDURE: BRAIN/HEAD WITHOUT CONTRAST 03/09/2025 REASON FOR EXAM: HEADACHE TECHNIQUE: BRAIN/HEAD WITHOUT CONTRAST Coronal and Sagittal reconstruction series were provided. One or more dose reduction techniques were used (e.g., Automated exposure control, adjustment of the mA and/or kV according to patient size, use of iterative reconstruction technique. RADIATION DOSE SUMMARY: CTDlvol: 45 mGy DLP: 880 mGycm COMPARISON: No FINDINGS: No abnormal brain densities. No intracranial hemorrhage. No hydrocephalus or midline shift. No acute scalp or skull pathology. Clear sinuses. Unremarkable orbits. CT/Brain/Head without Contrast IMPRESSION: No acute intracranial findings Reading Location: [place] [address]
--- NOTE | 2025-03-09 23:02 | CT_ITS ---
PROCEDURE: CT SPINE CERVICAL WITHOUT CONTRAST 03/09/2025 REASON FOR EXAM: CERVICAL RADICULOPATHY TECHNIQUE: CT SPINE CERVICAL WITHOUT CONTRAST. Coronal and Sagittal reconstruction series were provided. One or more dose reduction techniques were used (e.g., Automated exposure control, adjustment of the mA and/or kV according to patient size, use of iterative reconstruction technique. RADIATION DOSE SUMMARY: DLP: 1580.51 mGycm COMPARISON: None. FINDINGS: No acute fracture or subluxation. Alignment is anatomic. Mild multilevel degenerative changes are present. Dorsal disc bulge at C3-4 with mild-moderate spinal canal narrowing. Otherwise, no evidence for substantial spinal canal or osseous neural foraminal narrowing. No prevertebral soft tissue swelling. CT/Spine Cervical without Contras IMPRESSION: Mild spondylotic changes, most evident at C3-4 with dorsal disc bulge contribut ing to mild-moderate spinal canal narrowing at this level. No substantial osseous neural foraminal narrowing appreciated. Reading Location: [id number]
[2025-03-09] MEDS: Ketorolac 30 MG/ML Syringe IM (23:16)
[2025-03-09] MEDS: Orphenadrine 60 MG/2 ML Ampul IM (23:16)
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
[2025-03-10 00:07] VITALS: BP 102/80; PULSE 67; RESP 14; TEMP 36.6; O2SAT 99
== END 2025-03-10 00:08 | disposition home or self-care (01) ==
PROVIDERS: Emergency Provider Emergency Medicine; PCP Internal Medicine; Visit Provider Emergency Medicine
DX: M50.31 Other cervical disc degeneration, high cervical region (principal); I25.10 Atherosclerotic heart disease of native coronary artery without angina pectoris; I10 Essential (primary) hypertension; F90.2 Attention-deficit hyperactivity disorder, combined type; E78.2 Mixed hyperlipidemia; Z95.5 Presence of coronary angioplasty implant and graft; Z79.02 Long term (current) use of antithrombotics/antiplatelets; Z79.82 Long term (current) use of aspirin; Z79.899 Other long term (current) drug therapy
CPT/HCPCS: 70450; 72125; 96372; 99282

== ENCOUNTER → 2025-03-26 | Outpatient (CLI) | payer MEDICARE, MEDICAID, SELFPAY ==
--- NOTE | 2025-03-26 16:04 | MRI_ITS ---
PROCEDURE: MRI SPINE CERVICAL (ROUTINE) 03/26/2025 REASON FOR EXAM: WORSENING BALANCE, DEXTERITY, PAIN TECHNIQUE: Multiplanar and multisequential MRI of the cervical spine was performed without contrast. COMPARISON: Cervical spine CT 03/09/2025. FINDINGS: Vertebral body heights are preserved. Normal marrow signal. Alignment is anatomic. Mild multilevel spondylotic changes with varying degrees of mild disc desiccation and narrowing, small anterior endplate osteophytes, uncovertebral spurring and hypertrophic facet arthropathy. Unremarkable paravertebral soft tissues. Visualized contents of the posterior fossa appear normal. The cervical spinal cord appears normal in signal and contour, without cord impingement, mass lesion or parenchymal signal abnormality/edema. C2-3: No spinal canal or foraminal narrowing. C3-4: Dorsal disc bulge indents the ventral thecal sac with contact on the anterior aspect of the cord, with mild spinal canal narrowing. No substantial neural foraminal narrowing. C4-5: No significant spinal canal or neural foraminal narrowing. C5-6: Slight dorsal annular disc bulge indenting the ventral thecal sac, with minimal spinal canal narrowing. Mild bilateral neural foraminal narrowing due to uncovertebral/facet hypertrophy. C6-7: Slight dorsal annular disc bulge indenting the ventral thecal sac, with minimal spinal canal narrowing. Mild bilateral neural foraminal narrowing due to uncovertebral/facet hypertrophy. C7-T1: Right paracentral-foraminal zone disc protrusion indents the right aspect of the thecal sac, without substantial spinal canal narrowing, but there is moderate-advanced right neural foraminal effacement. No substantial neural foraminal narrowing on the left. MRI/Spine Cervical (Routine) IMPRESSION: 1. Mild multilevel spondylotic changes without any high-grade spinal canal sten osis. 2. No cord impingement or abnormal cord signal/edema. 3. Right paracentral-foraminal disc protrusion at C7-T1 resulting in moderate-a dvanced right neural foraminal stenosis. No high-grade foraminal narrowing elsewhere. Reading Location: [id number]
== END | disposition home or self-care (01) ==
LOC: MRI 16:00
PROVIDERS: PCP Internal Medicine; Referring Provider Student in an Organized Health Care Education/Training Program; Visit Provider Student in an Organized Health Care Education/Training Program
DX: G95.9 Disease of spinal cord, unspecified (principal); M54.12 Radiculopathy, cervical region
CPT/HCPCS: 72141

== ENCOUNTER → 2025-05-29 | Outpatient (CLI) | payer MEDICARE, MEDICAID, SELFPAY ==
--- NOTE | 2025-05-30 10:35 | STRESSREP_ITS ---
Stress Test Report
--- NOTE | 2025-05-30 10:35 | STRESSREP ---
Stress Test Report Pharmacologic myocardial perfusion stress test. 49-year-old man with a history of coronary artery disease. Resting EKG demonstrates sinus rhythm with a rate of 74 bpm. Resting blood pressure is 130/78 mmHg. 0.4 mg of regadenoson was infused per usual protocol followed by rapid intravenous saline flush injection. Continuous EKG monitoring was performed. The maximum heart rate was 96 bpm which was 55% of max impacted heart rate the maximum workload was 1 metabolic equivalent. At rest there were no ST or T wave changes noted to suggest ischemia and at peak infusion nonspecific ST changes were noted which did not meet the criteria for ischemia. No clinical angina is noted. The final blood pressure was 124/68 mmHg. Myocardial perfusion protocol. 14 point mCi of technetium 99m sestamibi was injected at rest. 0.4 mg of regadenoson was infused per usual protocol. At peak infusion 45.4 mCi of technetium 99m sestamibi was injected stress images were obtained stress and rest images were reconstructed and compared in the short axis vertical long and horizontal long axis. Gated images were also obtained. Perfusion SPECT analysis: Review of the stress images demonstrate normal uptake of tracer noted in all areas of the myocardium. The resting images similar demonstrated normal uptake of tracer noted in all areas of the myocardium. No areas of reversibility are noted to suggest ischemia and no previous infarct is noted. Gated SPECT analysis: The gated ejection fraction is 62 %. Conclusion: Normal pharmacologic myocardial perfusion stress test. Preserved ejection fraction.
== END | disposition home or self-care (01) ==
LOC: CVS 06:01
PROVIDERS: PCP Internal Medicine; Referring Provider Nurse Practitioner Family; Visit Provider Nurse Practitioner Family
DX: R06.02 Shortness of breath (principal); R07.9 Chest pain, unspecified; Z95.5 Presence of coronary angioplasty implant and graft
CPT/HCPCS: 78452; 93017; A9500; A4216; J2785

== ENCOUNTER → 2025-06-01 | Outpatient (CLI) | payer MEDICARE, MEDICAID, SELFPAY ==
--- NOTE | 2025-06-01 10:28 | RAD_ITS ---
PROCEDURE: CHEST PA AND LATERAL 06/01/2025 REASON FOR EXAM: RIGHT RIP PAIN TECHNIQUE: Procedure Code: RADCXR Modality: DX Procedure: CHEST PA AND LATERAL COMPARISON: Chest x-ray of 12/03/2024 RAD/Chest PA and Lateral IMPRESSION: The lateral view is limited by patient motion. Lungs are hypoinflated, but no acute pneumonic process is seen. No pleural effusion or pneumothorax is noted. Mild thoracic spine degenerative changes are seen. No acute osseous process is evident. No evidence of acute cardiopulmonary disease. Reading Location: [place] [id number]
[2025-06-01 11:08] LABS: Hematocrit 50.1 % (40-54); Hemoglobin 17.6 g/dL (13.0-16.5); Immature Granulocytes Count 0.050 X10^3/uL (0.0-0.0); Mean Corp Hgb Conc 35.1 g/dL (32-36); Mean Corpuscular Volume 84.6 fL (80-94); Mean Platelet Vol. 9.2 fl (6.2-12.0); NRBC Flagged by Analyzer 0 % (0-5); Platelet Count 217 K/mm3 (150-450); RBC Distribution Width CV 13.2 % (11.6-14.6); RBC Distribution Width SD 40.7 fl (35.1-43.9); Red Blood Count 5.92 M/mm3 (4.6-6.2); White Blood Count 8.8 K/mm3 (4.4-11.0)
[2025-06-01 11:57] LABS: Anion Gap 15 (5-15); BUN 10 mg/dL (4-19); BUN/Creat Ratio 10.4 RATIO (10-20); Calcium,Total 9.9 mg/dL (7.6-11.0); Carbon Dioxide 23.6 mmol/L (21.0-32.0); Chloride 99 mmol/L (98-108); Glucose 113 mg/dL (70-99); Potassium 3.7 mmol/L (3.3-5.1)
[2025-06-01 11:59] LABS: Pro- Brain NATRIURETIC PEPTIDE < 36 pg/mL (<=450)
== END | disposition home or self-care (01) ==
LOC: RAD 10:20
PROVIDERS: PCP Clinical Nurse Specialist; Referring Provider Nurse Practitioner Family; Visit Provider Nurse Practitioner Family
DX: R07.89 Other chest pain (principal); E66.9 Obesity, unspecified; Z95.5 Presence of coronary angioplasty implant and graft; R06.02 Shortness of breath; E78.2 Mixed hyperlipidemia; I10 Essential (primary) hypertension
CPT/HCPCS: 36415; 71046; 80048; 83880; 85025